=== PATIENT | female | born 1950 | race Caucasian/White ===

== ENCOUNTER → 2020-08-16 | Outpatient (CLI) | payer MEDICARE, SELFPAY ==
--- NOTE | 2020-08-16 | ASPSI_PTH ---
PATIENT: DAYSI ARRIOLA LOC: [facility] U#:[id number] AGE/SX: 69/F ROOM: RE08/16/[address]: Dr. Zak Macedo MD : 1950 BED: DIS: 08/16/2020 SPEC #: [id number] RECD: 08/16/20 17:58 STATUS: HEENA CAMACHO #: [id number] DORCAS: 08/16/20 00:[address]: Zak Macedo DEPT: CYTOLOGY RECD BY: Lore Holder Tissues: Thyroid gland, NOS Procedures: Surgery Specimen Level IV Cytospin Fluid Cytology Other HEADER OPERATION: Fine needle aspiration thyroid biopsy PRE-OP DIAGNOSIS: Enlarging thyroid nodule TISSUE SUBMITTED: FNA thyroid biopsy DIAGNOSIS CYTOLOGY Thyroid nodule fluid, FNA (cytospin and cell block): Consistent with benign follicular/colloid nodule. Adequate for evaluation. See comment. VICTORIANO:deena 08/21/2020 COMMENT Correlation with clinical, radiologic findings and appropriate follow up are necessary. CYTOLOGY STUDY Slides are reviewed. CYTOLOGY GROSS Received is 35 ml of dark pink Cytolyt/fluid with particles labeled with the patient's name and and designated per the requisition as thyroid. Submitted for cytology preparation including cell block. / deena 08/17/2020 TC: 5 CPT: 81288, 03005
== END | disposition home or self-care (01) ==
PROVIDERS: Visit Provider Otolaryngology
DX: E04.1 Nontoxic single thyroid nodule (principal)
CPT/HCPCS: 88108; 88161; 88305

== ENCOUNTER 2024-02-05 14:28 | Day surgery (SDC) | payer MEDICARE, SELFPAY ==
[2024-02-05] VITALS (8 sets, daily range): BP systolic 129–146; BP diastolic 70–87; PULSE 80–84; RESP 16; TEMP 37.3; O2SAT 96–99; BMI 22.9
--- NOTE | 2024-02-05 15:02 | PCM.HP.BLA ---
History and Physical Date of Admission: 02/05/24 The patient is examined and there are no changes from the H&P dated 02/02/2024. Informed consent was obtained for excision of neoplasm left forearm. The specimen will be submitted to pathology for evaluation. Assessment & Plan Assessment/Plan (1) Neoplasm of uncertain behavior of skin of forearm: PLAN: Plan For excision lesion left forearm.
--- NOTE | 2024-02-05 15:15 | LES_PTH ---
PATHOLOGY RESULTS PATIENT: DAYSI ARRIOLA LOC: [facility] [place] U#:[id number] AGE/SX: 73/F ROOM: RE02/05/[address]: Dr. Inna Murguia MD : 1950 BED: DIS: 02/05/2024 SPEC #: [id number] RECD: 02/05/24 17:12 STATUS: HEENA CAMACHO #: [id number] DORCAS: 02/05/24 15:[address]: Inna Murguia DEPT: SURGICAL PATHOLOGY RECD BY: Magui Temple ENTERED: 02/08/24 09:05 SP TYPE: Lesion OTHR DR: Dr. Zak Rolle MD Tissues: Skin of forearm, NOS Procedures: Surgery Specimen Level IV HEADER OPERATION: Excision lesion left forearm with intermediate closure PRE-OP DIAGNOSIS: Neoplasm of uncertain behavior of skin of forearm TISSUE SUBMITTED: Left forearm lesion MICROSCOPIC DIAGNOSIS Left forearm lesion, excisional biopsy: Seborrheic keratosis. Mild actinic keratosis. Solar elastosis. Negative for malignancy. 02/09/2024 MICROSCOPIC DESCRIPTION Slides are reviewed. GROSS DESCRIPTION Received in fixative is one container labeled with the patient's name and designated Left forearm lesion. The specimen consists of a de leon-white skin ellipse measuring 1.2 x 0.6 x 0.2cm. The specimen is inked, serially sectioned and submitted entirely in one cassette. VICTORIANOBassem 02/08/2024 TC:1 CPT:54365
[2024-02-05] MEDS: Lidocaine 1% /Epi 1:100 9 ML, Sodium Bicarbonate 1 MEQ OPERA.SITE (15:38)
--- OUTSIDE RECORDS SUMMARY | 2024-02-05 15:40 | XMS RPT_ITS | CCD ---
Author Organization [facility] Care Team Providers Care Lab Intern Name Role Phone Shayan Lyles Unavailable Unavailable Shayan Lyles Unavailable Unavailable PK, TRAE (FEL) Unavailable Unavailable PK, TRAE (FEL) Unavailable Unavailable PK, TRAE (FEL) Unavailable Unavailable PK, TRAE (FEL) Unavailable Unavailable Haus, Bailee P Primary Care Provider Unavailabl e Haus, Bailee P Primary Care Provider Haus, Bailee P Primary Care Provider Haus DO, Bailee P Primary Care Provider [phone] Haus DO, Bailee P Primary Care Provider JONEL MALAGON Attending Unavaila ble JONEL MALAGON Admitting Unavaila ble JONEL MALAGON Attending Unavaila ble JONEL MALAGON Referring Unavaila ble JONEL MALAGON Admitting Unavaila ble JONEL MALAGON Referring Unavaila ble JONEL MALAGON Admitting Unavaila ble HAUS, BAILEE P Primary Care Unavailable Haus DO, Bailee P Primary Care Provider EULALIO XAVIER JR, JR Referring Unavaila ble EULALIO XAVIER JR, JR Attending Unavaila ble HAUS, BAILEE P Primary Care Unavailable EULALIO XAVIER JR, JR Referring Unavaila ble EULALIO XAVIER JR, JR Attending Unavaila ble HAUS, BAILEE P Primary Care Unavailable EULALIO XAVIER JR, JR Attending Unavaila ble SELF, SELF Referring Unavailable HAUS, BAILEE P Primary Care Unavailable HAUS, BAILEE P Attending Unavailable HAUS, BAILEE P Primary Care Unavailable HAUS, BAILEE P Referring Unavailable EULALIO XAVIER JR, JR Referring Unavaila ble HAUS, BAILEE P Primary Care Unavailable HAUS, BAILEE P Attending Unavailable HAUS, BAILEE P Attending Unavailable EULALIO XAVIER JR, JR Referring Unavaila ble HAUS, BAILEE P Primary Care Unavailable STAINBROOK JR SORENSON, EULALIO Referring Unavaila ble STAINBROOK JR , EULALIO Attending Unavaila ble HAUS, BAILEE P Primary Care Unavailable STAINBROOK EULALIO SORENSON JR Referring Unavaila ble STAINBROOK JR , EULALIO Attending Unavaila ble HAUS, BAILEE P Primary Care Unavailable HAUS, BAILEE P Attending Unavailable EULALIO XAVIER JR, JR Referring Unavaila ble HAUS, BAILEE P Primary Care Unavailable HAUS, BAILEE P Attending Unavailable JOSE RBROOK JR SORENSON, EULALIO Referring Unavaila ble HAUS, BAILEE P Primary Care Unavailable HAUS, BAILEE P Attending Unavailable DUC SORENSON JR, EULALIO Referring Unavaila ble HAUS, BAILEE P Primary Care Unavailable HAUS, BAILEE P Attending Unavailable EULALIO XAVIER JR, JR Referring Unavaila ble HAUS, BAILEE P Primary Care Unavailable DUC SORENSON JR, EULALIO Referring Unavaila ble HAUS, BAILEE P Primary Care Unavailable HAUS, BAILEE P Attending Unavailable EULALIO XAVIER JR, JR Referring Unavaila ble HAUS, BAILEE P Primary Care Unavailable HAUS, BAILEE P Attending Unavailable EULALIO XAVIER JR, JR Attending Unavaila ble SELF, SELF Referring Unavailable HAUS, BAILEE P Primary Care Unavailable EULALIO XAVIER JR, JR Attending Unavaila ble SELF, SELF Referring Unavailable HAUS, BAILEE P Primary Care Unavailable EULALIO XAVIER JR, JR Referring Unavaila ble HAUS, BAILEE P Primary Care Unavailable TUYET MERCADO Attending Unavailable DUC SORENSON JR, EULALIO Attending Unavaila ble SELF, SELF Referring Unavailable HAUS, BAILEE P Primary Care Unavailable Haus DO, Bailee P Primary Care Provider Atway, Said Attending Unavailable HAUS, BAILEE P Primary Care Unavailable Atway, Said Admitting Unavailable Atway, Said Attending Unavailable SELF, SELF Referring Unavailable HAUS, BAILEE P Primary Care Unavailable Atway, Said Attending Unavailable Atway, Said Referring Unavailable HAUS, BAILEE P Primary Care Unavailable HAUS, BAILEE P Referring Unavailable HAUS, BAILEE P Primary Care Unavailable PUNEET MARION Attending Unavailable SELF, SELF Referring Unavailable HAUS, BAILEE P Attending Unavailable HAUS, BAILEE P Primary Care Unavailable HAUS, BAILEE P Referring Unavailable HAUS, BAILEE P Primary Care Unavailable HAUS, BAILEE P Attending Unavailable HAUS, BAILEE P Primary Care Unavailable SELF, SELF Referring Unavailable HAUS, BAILEE P Attending Unavailable HAUS, BAILEE P Primary Care Unavailable SELF, SELF Referring Unavailable HAUS, BAILEE P Attending Unavailable Allergies Allergy Classification Reported Allergen(s) Allergy Type Date of Onset Reaction(s) Facility NSAIDs (2 sources) nabumetone Drug Allergy 04-19-19 20 Palpitations [facility] Opioid Agonists (2 sources) Morphine Drug Allergy 07-24-19 17 Swelling [facility] (20 sources) morphine; Translations: [MORPHINE] Drug Allergy 03-12-20 09 Swelling [facility] Other [facility] (1 source) OTHER; Translations: [OTHER] Propensity to adverse reactions (disorder) 08-07-19 06 [facility] (12 sources) nabumetone Drug Allergy 04-19-19 [address] [facility] (4 sources) Polyethylene Glycols; Translations: [POLYETHYLENE GLYCOL] Drug Allergy 01-19-20 21 GI Intolerance [facility] (4 sources) Thimerosal; Translations: [THIMEROSAL] Drug Allergy 01-19-20 21 [facility] (20 sources) cyclobenzaprine Drug Allergy 12-20-19 21 Itching, Nausea Only [facility] (20 sources) levoFLOXacin Drug Allergy 12-20-19 21 Confusion [facility] (20 sources) Sulfamethoxazole / Trimethoprim Drug Allergy 12-20-19 21 Hives, Itching [facility] (20 sources) nabumetone Drug Allergy 04-19-19 20 Palpitations [facility] Medications Current Medications Medication Drug Class(es) Dates Sig (Normalized) Sig (Original) b complex vitamins capsule (3 sources) take 1 capsule by [facility] once daily b complex vitamins capsule Take 1 capsule by mouth daily. 0 Active Calcium Carb-Cholecalciferol (CALCIUM 600-D PO) (20 sources) Calcium Carb-Cholecalciferol (CALCIUM 600-D PO) Take 600 mg by mouth. Active Calcium Carb-Cho lecalciferol (CALCIUM 600-D PO) Take 600 mg by mouth. 0 Active Calcium Carbonate / vitamin D3 (3 sources) CALCIUM CARBONAT E/VITAMIN D3 (CALCIUM 500 + D, D3, ORAL) Take by mouth. 0 Active Cetirizine (7 sources) Histamine-1 Receptor Antagonist Cetirizine HCl (ZYRT EC ALLERGY PO) Take by mouth daily. 0 Active cholecalciferol 0.05 mg oral tablet (20 sources) Vitamin D Cholecalciferol (VITAMIN D) 2000 units Tab Take 3,600 Units by mouth daily. Active Cholecalciferol (VITAMIN D) 2000 units Tab Take 3,600 Units by mouth. 0 Active clindamycin 300 mg oral capsule (1 source) Lincosamide Antibacterial Start: 02-28-2020 End: 03-06-2020 take 1 capsule by mouth twice daily clindamycin 300 MG capsule Indications: Paronychia of left middle finger Take 1 capsule by mouth 2 times daily for 7 days. 14 capsule 0 02/28/2020 03/06/2020 Active clobetasol propionate 0.5 mg/ml topical cream (20 sources) Corticosteroid Start: 09-24-2022 clobetasol 0.05 % Cream Apply a bead of cream topically to affected area(s) twice daily until healed. 60 g 0 09/24/2022 Active Start: 12-19-2020 clobetasol 0.0 5 % Cream Indications: Psoriasis Apply topically twice daily x 2 weeks and then daily as needed thereafter 60 g 1 12/19/2020 Active Start: 11-29-2018 clobetasol 0.0 5 % Cream Indications: Psoriasis Apply topically twice daily x 2 weeks and then daily as needed thereafter 60 g 1 11/29/2018 Active DULoxetine 30 mg delayed release oral capsule (8 sources) Serotonin and Norepinephrine Reuptake Inhibitor Start: 01-22-2023 take 1 capsule by mouth once daily DULoxetine [address] Particles capsule DR Take 1 capsule by mouth daily. 90 capsule 3 01/22/2023 Active loratadine 10 mg oral tablet (10 sources) End: 12-16-2018 take 1 tablet by mouth once daily loratadine (CLARITIN) 10 mg tablet Take 10 mg by mouth daily. 0 Active magnesium oxide 500 mg oral tablet (20 sources) take 1 tablet by mouth once daily Magnesium Oxide 500 MG tablet Take 1 tablet by mouth daily. Active meloxicam 15 mg oral tablet (11 sources) Nonsteroidal Anti-inflammatory Drug Start: 01-05-2024 take 1 tablet by mouth once daily Meloxicam 15 MG tablet Indications: Tear of lateral meniscus of left knee, current, unspecified tear type, subsequent encounter Take 1 tablet by mouth daily. 90 tablet 1 01/05/2024 Active Start: 12-17-2021 End: 01-22-2023 take 1 tablet by mouth once daily as needed for pain meloxicam 15 MG tablet Take 1 tablet by mouth daily as needed for Mild Pain. 30 tablet 3 12/17/2021 01/22/2023 Discontinued Start: 04-19-2019 End: 02-28-2020 take 0.5 tablet by mouth once daily meloxicam 15 MG Tab tablet Take 0.5 tablets by mouth daily. 30 tablet 3 04/19/2019 02/28/2020 Discontinued Start: 08-13-2018 End: 09-17-2018 take 1 tablet by mouth once daily meloxicam 15 MG Tab tablet Indications: Primary osteoarthritis of both hands Take 1 tablet by mouth daily. 90 tablet 3 08/13/2018 09/17/2018 Discontinued metroNIDAZOLE 0.01 mg/mg topical gel (3 sources) Nitroimidazole Antimicrobial Start: 03-23-2015 metroNIDAZOLE (METROGEL) 1 % gel multivitamin capsule (3 sources) take 1 capsule by mouth once daily multivitamin capsule Take 1 capsule by mouth daily. 0 Active phenylephrine hydrochloride 10 mg oral tablet (3 sources) alpha-1 Adrenergic Agonist take 1 tablet by mouth every four hours as needed phenylephrine (SUDAFED PE) 10 MG Tab Take 10 mg by mouth every 4 (four) hours as needed. 0 Active rifAXIMin 550 mg oral tablet (2 sources) Rifamycin Antibacterial Start: 08-13-2018 End: 08-27-2018 take 1 tablet by mouth three times daily RifaXIMin 550 MG Tab tablet Indications: Irritable bowel syndrome with diarrhea Take 1 tablet by mouth 3 times daily for 14 days. 42 tablet 0 08/13/2018 08/27/2018 Active Spenco Gel Arch Insoles Medium Misc (1 source) Start: 05-29-2017 Foot Care Products (SPENCO GEL ARCH INSOLES MEDIUM) Misc Indications: Foot callus 2 each 2 Each 0 05/29/2017 Active terbinafine 250 mg oral tablet (4 sources) Allylamine Antifungal Start: 02-28-2020 take 1 tablet by mouth once daily terbinafine 250 MG tablet Indications: Paronychia of left middle finger Take 1 tablet by mouth daily. 60 tablet 0 02/28/2020 Active dl-alpha tocopheryl acetate 100 unt oral capsule (3 sources) take 1 capsule by mouth once daily vitamin E 100 unit cap capsule Take 100 Units by mouth daily. 0 Active Completed/Discontinued Medications Medication Drug Class(es) Dates Sig (Normalized) Sig (Original) amoxicillin 875 mg / clavulanate 125 mg oral tablet (1 source) Penicillin-class Antibacterial Start: 10-18-2018 End: 10-25-2018 take 1 tablet by mouth every twelve hours amoxicillin-clavul anate 875-125 MG Tab tablet Indications: Cat scratch of hand, left, initial encounter Take 1 tablet by mouth every 12 hours for 7 days. 14 tablet 0 10/18/2018 10/25/2018 apremilast (20 sources) Start: 06-16-2023 End: 07-07-2023 Apremilast (Otezla) 10 & 20 & 30 MG Tab Therapy Pack tablet As directed 2 Each 06/16/2023 07/07/2023 Discontinued Start: 01-22-2023 End: 06-03-2023 take 1 tablet by mouth once daily Apremilast (Otezla) 30 MG tablet Indications: Plaque psoriasis , Psoriatic arthritis Take 1 tablet by mouth daily. 90 tablet 3 04/24/2023 06/03/2023 Discontinued Start: 12-17-2021 End: 01-22-2023 Apremilast (Otezla) 10 & 20 & 30 MG Tab Therapy Pack tablet As directed 54 Each 0 12/17/2021 01/22/2023 Discontinued Start: 12-17-2021 Apremilast (Ot ezla) 10 & 20 & 30 MG Tab Therapy Pack tablet As directed 54 Each 0 12/17/2021 Active Start: 11-14-2021 End: 01-22-2023 take 1 tablet by mouth twice daily Apremilast (Otezla) 30 MG tablet Indications: Psoriatic arthritis Take 1 tablet by mouth 2 times daily. 60 tablet 3 11/14/2021 01/22/2023 Discontinued Start: 11-14-2021 End: 01-22-2023 Apremilast (Otezla) 10 & 20 & 30 MG Tab Therapy Pack tablet Indications: Psoriatic arthritis Use beginning dose pack as directed. 55 Each 0 11/14/2021 01/22/2023 Discontinued Start: 11-14-2021 Apremilast (Ot ezla) 10 & 20 & 30 MG Tab Therapy Pack tablet Indications: Psoriatic arthritis Use beginning dose pack as directed. 55 Each 0 11/14/2021 Active Cephalexin (7 sources) Cephalosporin Antibacterial End: 01-22-2023 Cephalexin (KEFLEX PO) Take by mouth 2 times daily. 0 01/22/2023 Discontinued Cephalexin (KEFL EX PO) Take by mouth 2 times daily. 0 Active diclofenac sodium 75 mg delayed release oral tablet (7 sources) Nonsteroidal Anti-inflammatory Drug Start: 08-01-2021 End: 01-22-2023 take 1 tablet by mouth twice daily diclofenac EC [address] tablet Take 1 tablet by mouth 2 times daily. 60 tablet 1 08/01/2021 01/22/2023 Discontinued fexofenadine hydrochloride 180 mg oral tablet (3 sources) Histamine-1 Receptor Antagonist End: 01-17-2019 take 1 tablet by mouth once daily fexofenadine (SHAKEEL ALLERGY) 180 MG Tab tablet Take 180 mg by mouth daily. 0 01/17/2019 Discontinued (Other (suppress cancel msg)) fluticasone propionate 0.05 mg/actuat metered dose nasal spray (20 sources) Corticosteroid Start: 02-15-2021 End: 11-14-2021 fluticasone 50 MCG/ACT Suspension nasal spray 1 spray by Nasal route 2 times daily. 15.8 mL 1 02/15/2021 11/14/2021 Discontinued Start: 11-29-2018 End: 11-14-2021 fluticasone 50 MCG/ACT Suspe nsion nasal spray 2 sprays by Nasal route daily. 1 Bottle 11 11/29/2018 11/14/2021 Discontinued Start: 04-24-2015 fluticasone (F LONASE) 50 mcg/actuation nasal spray 1 spray daily. 0 04/24/2015 Active folic acid 1 mg oral tablet (9 sources) Start: 06-25-2021 End: 01-22-2023 folic acid 1 MG tablet Indications: Psoriatic arthritis Take 1 tablet every day EXCEPT not on the day of methotrexate 72 tablet 3 06/25/2021 11/14/2021 Discontinued Foot Care Products (SPENCO G EL ARCH INSOLES MEDIUM) Misc (16 sources) Start: 05-29-2017 End: 06-25-2021 Foot Care Products (SPENCO G EL ARCH INSOLES MEDIUM) Misc Indications: Foot callus 2 each 2 Each 0 05/29/2017 06/25/2021 Discontinued Start: 05-29-2017 Foot Care Prod ucts (SPENCO GEL ARCH INSOLES MEDIUM) [facility] Indications: Foot callus 2 each 2 Each 0 05/29/2017 Active 12 hr guaiFENesin 600 mg / pseudoephedrine hydrochloride 60 mg extended release oral tablet (4 sources) alpha-Adrenergic Agonist Start: 02-15-2021 End: 11-14-2021 take 1 tablet by mouth every twelve hours guaifenesin-pseudoephedrine 600-60 MG Tab SR 12 HR tablet Take 1 tablet by mouth every 12 hours for 7 days. 14 tablet 0 02/15/2021 11/14/2021 Discontinued ibuprofen 400 mg oral tablet (15 sources) Nonsteroidal Anti-inflammatory Drug End: 01-22-2023 take 1 tablet by mouth every six hours as needed ibuprofen 400 MG tablet Take 1 tablet by mouth every 6 hours as needed for Mild Pain. 0 01/22/2023 Discontinued (Medication Reconciliation (suppress cancel msg)) take 1 tablet by ca th every six hours as needed ibuprofen (ADVIL,MOTRIN) 200 MG tablet Take 200 mg by mouth every 6 (six) hours as needed for pain . 0 Active End: 08-28-2020 take 1 tablet by mouth every six hours as needed ibuprofen 600 MG tablet Take 600 mg by mouth every 6 hours as needed. 0 08/28/2020 Discontinued methotrexate 2.5 mg oral tablet (9 sources) Folate Analog Metabolic Inhibitor Start: 06-25-2021 End: 11-14-2021 methotrexate 2.5 MG tablet Indications: Psoriatic arthritis Take 3 tablets by mouth every 7 days. 36 tablet 3 06/25/2021 11/14/2021 Discontinued End: 01-22-2023 methotrexate 2.5 MG tablet T azael 1 tablet by mouth every 7 days. Take 3 tablets once a week. 0 01/22/2023 Discontinued (Medication Reconciliation (suppress cancel msg)) multivitamin tablet (10 sources) End: 01-22-2023 take 1 tablet by mouth once daily multivitamin tablet Take 1 tablet by mouth daily. 0 01/22/2023 Discontinued take 1 tablet by mouth once leon y multivitamin tablet Take 1 tablet by mouth daily. 0 Active nabumetone 500 mg oral tablet (3 sources) Nonsteroidal Anti-inflammatory Drug Start: 01-17-2019 End: 04-19-2019 take 1 tablet by mouth twice daily nabumetone 500 MG Tab Take 1 tablet by mouth 2 times daily. 60 tablet 5 01/17/2019 04/19/2019 Discontinued naproxen sodium 220 mg oral capsule (4 sources) Nonsteroidal Anti-inflammatory Drug End: 06-25-2021 Naproxen Sodium (Aleve) 220 MG capsule Take 220 mg by mouth. 0 06/25/2021 Discontinued pantoprazole 40 mg delayed release oral tablet (11 sources) Proton Pump Inhibitor Start: 01-22-2023 End: 06-03-2023 take 1 tablet by mouth once daily Pantoprazole (Protonix) [address] tablet DR Take 1 tablet by mouth daily. 30 tablet 2 01/22/2023 06/03/2023 Discontinued predniSONE 20 mg oral tablet (4 sources) Start: 07-07-2023 End: 07-14-2023 take 1 tablet by mouth twice daily predniSONE 20 MG tablet Take 1 tablet by mouth 2 times daily for 7 days. 14 tablet 07/07/2023 07/14/2023 Start: 09-24-2022 End: 10-01-2022 take 1 tablet by mouth twice daily predniSONE 20 MG tablet Take 1 tablet by mouth 2 times daily for 7 days. 14 tablet 0 09/24/2022 10/01/2022 Start: 02-15-2021 End: 02-22-2021 take 1 tablet by mouth twice daily predniSONE 20 MG tablet Indications: Psoriatic arthritis Take 1 tablet by mouth 2 times daily for 7 days. 14 tablet 0 02/15/2021 02/22/2021 Start: 11-29-2018 End: 12-04-2018 take 1 tablet by mouth twice daily predniSONE 20 MG Tab tablet Indications: Acute right-sided low back pain with right-sided sciatica Take 1 tablet by mouth 2 times daily for 5 days. 10 tablet 0 11/29/2018 12/04/2018 Active Risankizumab-rzaa (Skyrizi P en) 150 MG/ML Solution Auto-injector (4 sources) Start: 06-03-2023 End: 07-07-2023 Risankizumab-rzaa (Skyrizi P en) 150 MG/ML Solution Auto-injector Inject 150 mg under the skin every 90 Days. 1 mL 3 06/03/2023 07/07/2023 Discontinued Start: 06-03-2023 Risankizumab-r zaa (Skyrizi Pen) 150 MG/ML Solution Auto- injector Inject 150 mg under the skin every 90 Days. 1 mL 3 06/03/2023 Active saccharomyces boulardii 250 mg oral capsule (12 sources) Start: 12-11-2016 End: 02-28-2020 Saccharomyces boulardii (FLORASTOR) 250 MG Cap Indications: Diarrhea of presumed infectious origin take 250 mg by mouth daily.. 30 capsule 5 12/11/2016 02/28/2020 Discontinued tretinoin 0.5 mg/ml topical cream (20 sources) Retinoid Start: 12-19-2020 End: 11-14-2021 tretinoin (Retin-A) 0.05 % Cream cream Indications: Actinic keratoses Use nightly to affected area 45 g 2 12/19/2020 11/14/2021 Discontinued Start: 07-11-2019 End: 02-28-2020 tretinoin (Retin-A) 0.05 % C ream cream Indications: Actinic keratoses Use nightly to affected area 45 g 2 02/28/2020 Active Start: 02-08-2018 End: 08-13-2018 tretinoin (RETIN-A) 0.05 % C ream cream Indications: Actinic keratoses Use nightly to affected area 45 g 2 08/13/2018 Active Start: 03-23-2015 tretinoin (RET IN-A) 0.05 % cream Vitamins-Lipotropics (Santo-Plus G) capsule (4 sources) End: 06-25-2021 take 1 capsule by mouth once daily Vitamins-Lipotropics (Santo-Plus G) capsule Take 1 capsule by mouth daily. 0 06/25/2021 Discontinued take 1 capsule by mouth once andrew ly Vitamins-Lipotropics (Santo-Plus G) capsule Take 1 capsule by mouth daily. 0 Active Problems Active Problems Problem Classification Problem Date Documented Date Episodic/Chronic Acquired foot deformities (2 sources) Hallux valgus AND bunion; Translations: [Hallux valgus (acquired), right foot] Chronic Acquired foot deformities (4 sources) Tailor's bunion of left foot; Translations: [Bunionette of left foot] Onset: 5 Episodic Allergic reactions (20 sources) Atopic dermatitis; Translations: [Intrinsic (allergic) eczema] Onset: 1 Chronic Chronic ulcer of skin (1 source) Skin ulcer; Translations: [Non-pressure chronic ulcer of skin of other sites with unspecified severity] 01-05-2024 Chronic Gout and other crystal arthropathies (16 sources) Chondrocalcinosis; Translations: [Other chondrocalcinosis, unspecified site] Onset: 4 05-27-2023 Chronic Heart valve disorders (20 sources) Mitral valve prolapse; Translations: [Nonrheumatic mitral (valve) prolapse] Onset: 7 07-23-2016 Chronic Joint disorders and dislocations; trauma-related (1 source) Derangement of medial meniscus of left knee; Translations: [Other meniscus derangements, unspecified medial meniscus, left knee] 07-07-2023 Chronic Joint disorders and dislocations; trauma-related (12 sources) Acute tear of lateral meniscus of left knee; Translations: [Other tear of lateral meniscus, current injury, left knee, initial encounter] Onset: 4 08-05-2023 Episodic Malaise and fatigue (20 sources) Fatigue; Translations: [Chronic fatigue, unspecified] Onset: 7 07-23-2016 Chronic Nutritional deficiencies (20 sources) Vitamin D deficiency; Translations: [Vitamin D deficiency, unspecified] Onset: 3 01-22-2023 Chronic Osteoarthritis (20 sources) Degenerative joint disease of hand; Translations: [Primary osteoarthritis, right hand] Onset: 9 Resolved: 4 08-13-2018 Chronic Other acquired deformities (16 sources) Thoracogenic scoliosis, thoracic region; Translations: [Thoracogenic scoliosis] Onset: 4 05-27-2023 Chronic Other acquired deformities (2 sources) Spondylolisthesis, lumbar region; Translations: [Spondylolisthesis, lumbar region] Onset: 2 Episodic Other connective tissue disease (1 source) Pain in right hand; Translations: [Pain in right hand] Episodic Other connective tissue disease (1 source) Bilateral tendinitis of knees; Translations: [Other specified enthesopathies of right lower limb, excluding foot] Episodic Other connective tissue disease (2 sources) Ganglion, left wrist; Translations: [Ganglion, left wrist] Onset: 4 Episodic Other connective tissue disease (4 sources) Pain in right hand; Translations: [Pain in right hand] Onset: 3 Episodic Other connective tissue disease (4 sources) Pain in left hand; Translations: [Pain in left hand] Onset: 3 Episodic Other connective tissue disease (4 sources) Synovial cyst of left popliteal space; Translations: [Synovial cyst of popliteal space [[place]], left knee] Onset: 4 01-05-2024 Episodic Other gastrointestinal disorders (20 sources) Irritable bowel syndrome with diarrhea; Translations: [Irritable bowel syndrome with diarrhea] Onset: 9 08-13-2018 Chronic Other inflammatory condition of skin (20 sources) Psoriasis; Translations: [Psoriasis, unspecified] Onset: 9 08-13-2018 Chronic Other inflammatory condition of skin (20 sources) Psoriatic arthritis; Translations: [Arthropathic psoriasis, unspecified] Onset: 1 Resolved: 3 Chronic Other inflammatory condition of skin (20 sources) Plaque psoriasis; Translations: [Psoriasis vulgaris] Onset: 3 01-22-2023 Chronic Other inflammatory condition of skin (2 sources) Psoriasis, unspecified; Translations: [Psoriasis, unspecified] Onset: 9 Chronic Other inflammatory condition of skin (4 sources) Psoriasis vulgaris; Translations: [Psoriasis vulgaris] Onset: 3 Chronic Other inflammatory condition of skin (2 sources) Arthropathic psoriasis, unspecified; Translations: [Arthropathic psoriasis, unspecified] Onset: 3 Chronic Other nervous system disorders (2 sources) Other chronic pain; Translations: [Other chronic pain] Onset: 4 Chronic Other non-epithelial cancer of skin (13 sources) 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; Translations: [Basal cell carcinoma, lip] Onset: 7 07-23-2016 Chronic Other non-traumatic joint disorders (2 sources) Pain in left hip; Translations: [Pain in left hip] Onset: 2 Episodic Other non-traumatic joint disorders (2 sources) Pain in left knee; Translations: [Pain in left knee] Onset: 4 Episodic Other non-traumatic joint disorders (3 sources) Pain in joints of right hand; Translations: [Arthralgia of metacarpophalangeal joint, right] Onset: 9 08-13-2018 Other screening for suspected conditions (not mental disorders or infectious disease) (20 sources) MRI scan abnormal; Translations: [Abnormal findings on diagnostic imaging of other specified body structures] Onset: 4 05-12-2023 Chronic Other screening for suspected conditions (not mental disorders or infectious disease) (20 sources) Patient encounter status; Translations: [Encounter for screening for lipoid disorders] Onset: 9 08-13-2018 Episodic Other skin disorders (1 source) Foot callus; Translations: [Corns and callosities] Episodic Other skin disorders (8 sources) H/O: psoriasis; Translations: [Personal history of diseases of the skin and subcutaneous tissue] 01-22-2023 Episodic Other skin disorders (5 sources) Disorder of foot; Translations: [Atrophic disorder of skin, unspecified] Onset: 4 01-13-2024 Episodic Other skin disorders (2 sources) Atrophic disorder of skin, unspecified; Translations: [Atrophic disorder of skin, unspecified] Onset: 5 Episodic Other upper respiratory disease (20 sources) Allergic rhinitis due to pollen; Translations: [Allergic rhinitis due to pollen] Onset: 7 07-23-2016 Chronic Other upper respiratory disease (20 sources) Allergic rhinitis; Translations: [Allergic rhinitis, unspecified] Onset: 1 Chronic Phlebitis; thrombophlebitis and thromboembolism (1 source) Thrombophlebitis of superficial vein of right lower limb; Translations: [Phlebitis and thrombophlebitis of superficial vessels of right lower extremity] Episodic Residual codes; unclassified (2 sources) Family history of epilepsy and other diseases of the nervous system; Translations: [Family history of epilepsy and other diseases of the nervous system] Onset: 3 Episodic Residual codes; unclassified (1 source) Requires vaccination; Translations: [Need for 23-polyvalent pneumococcal polysaccharide vaccine] Skin and subcutaneous tissue infections (1 source) Paronychia of finger; Translations: [Paronychia of left middle finger] Episodic Spondylosis; intervertebral disc disorders; other back problems (20 sources) Degeneration of lumbar intervertebral disc; Translations: [Lumbosacral spondylosis with radiculopathy] Onset: 2 Chronic Superficial injury; contusion (1 source) Contusion of toe(s) with damage to nail; Translations: [Contusion of left great toe with damage to nail, initial encounter] Episodic Thyroid disorders (2 sources) Non-toxic uninodular goiter; Translations: [Goiter] Chronic Unclassified (1 source) Unknown / UNK(Unknown) Onset: 8 Unclassified (20 sources) Patient encounter status; Translations: [Encounter for wellness examination] Onset: 8 06-23-2017 Unclassified (1 source) long-term (current) use of immunomodulator; Translations: [terminal carman (current) use of immunomodulator] Onset: 4 Varicose veins of lower extremity (1 source) Varicose veins of lower extremity; Translations: [Varicose veins of bilateral lower extremities with pain] Episodic Past or Other Problems Problem Classification Problem Date Documented Date Episodic/Chronic Conditions associated with dizziness or vertigo (3 sources) Dizziness; Translations: [Dizziness and giddiness] Onset: 6 05-07-2015 Episodic Headache; including migraine (20 sources) Headache; Translations: [Headache] Onset: 7 12-11-2016 Episodic Immunizations and screening for infectious disease (16 sources) Needs influenza immunization; Translations: [Encounter for immunization] Onset: 4 Episodic Intestinal infection (20 sources) Diarrhea of presumed infectious origin; Translations: [Diarrhea, unspecified] Onset: 7 12-11-2016 Episodic Malaise and fatigue (13 sources) Fatigue; Translations: [Chronic fatigue] Onset: 7 07-23-2016 Episodic Nausea and vomiting (20 sources) Nausea; Translations: [Nausea] Onset: 3 01-22-2023 Episodic Other aftercare (13 sources) Long-term current use of apremilast; Translations: [Long-term current use of apremilast] Onset: 4 Resolved: 4 05-27-2023 Episodic Other aftercare (2 sources) terminal carman (current) use of non-steroidal anti-inflammatories (NSAID); Translations: [long-term (current) use of non-steroidal anti-inflammatories (nsaid)] Onset: Episodic Other aftercare (3 sources) terminal carman current use of non-steroidal anti-inflammatory drug; Translations: [terminal carman (current) use of non-steroidal anti-inflammatories (NSAID)] Onset: 3 01-22-2023 Episodic Other bone disease and musculoskeletal deformities (20 sources) Disorder of skeletal system; Translations: [Disorder of bone, unspecified] Onset: 3 01-22-2023 Episodic Other bone disease and musculoskeletal deformities (2 sources) Disorder of bone, unspecified; Translations: [Disorder of bone, unspecified] Onset: Episodic Other bone disease and musculoskeletal deformities (2 sources) Disorder of cartilage, unspecified; Translations: [Disorder of cartilage, unspecified] Onset: 3 Episodic Other connective tissue disease (20 sources) Biceps tendinitis; Translations: [Bicipital tendinitis, right shoulder] Onset: 3 01-22-2023 Episodic Other connective tissue disease (20 sources) Pain of bilateral hands; Translations: [Pain in right hand] Onset: 3 01-22-2023 Episodic Other connective tissue disease (20 sources) Bilateral pes anserinus bursitis; Translations: [Other bursitis of knee, right knee] Onset: 3 01-22-2023 Episodic Other connective tissue disease (20 sources) Subacromial bursitis of left shoulder; Translations: [Bursitis of left shoulder] Onset: 3 01-22-2023 Episodic Other connective tissue disease (20 sources) Bilateral rotator cuff tendinitis; Translations: [Other shoulder lesions, right shoulder] Onset: 3 01-22-2023 Episodic Other connective tissue disease (20 sources) H/O: osteoarthritis; Translations: [Personal history of other diseases of the musculoskeletal system and connective tissue] Onset: 3 01-22-2023 Episodic Other connective tissue disease (20 sources) Fibromyositis; Translations: [Fibromyalgia] Onset: 3 Resolved: 4 01-22-2023 Episodic Other connective tissue disease (14 sources) Bilateral impingement syndrome of shoulders; Translations: [Impingement syndrome of right shoulder] Onset: 4 05-27-2023 Episodic Other connective tissue disease (15 sources) Disorder of ligament, right wrist; Translations: [Laxity of ligament] Onset: 4 Resolved: 4 05-27-2023 Episodic Other connective tissue disease (15 sources) Disorder of ligament, left wrist; Translations: [Laxity of ligament] Onset: 4 Resolved: 4 05-27-2023 Episodic Other connective tissue disease (6 sources) Tendinitis of left quadriceps tendon; Translations: [Other specified enthesopathies of left lower limb, excluding foot] Onset: 4 07-07-2023 Episodic Other connective tissue disease (6 sources) Ganglion cyst of left volar wrist; Translations: [Ganglion, left wrist] Onset: 4 08-05-2023 Episodic Other connective tissue disease (2 sources) Other bursitis of knee, right knee; Translations: [Other bursitis of knee, right knee] Onset: 3 Episodic Other connective tissue disease (2 sources) Other bursitis of knee, left knee; Translations: [Other bursitis of knee, left knee] Onset: 3 Episodic Other connective tissue disease (2 sources) Impingement syndrome of right shoulder; Translations: [Impingement syndrome of right shoulder] Onset: 4 Episodic Other connective tissue disease (2 sources) Impingement syndrome of left shoulder; Translations: [Impingement syndrome of left shoulder] Onset: 4 Episodic Other connective tissue disease (2 sources) Personal history of other diseases of the musculoskeletal system and connective tissue; Translations: [Personal history of other diseases of the musculoskeletal system and connective tissue] Onset: 3 Episodic Other connective tissue disease (5 sources) Bicipital tendinitis, right shoulder; Translations: [Bicipital tenosynovitis] Onset: 3 Episodic Other connective tissue disease (2 sources) Bursitis of left shoulder; Translations: [Bursitis of left shoulder] Onset: 3 Episodic Other connective tissue disease (2 sources) Other shoulder lesions, right shoulder; Translations: [Other shoulder lesions, right shoulder] Onset: 3 Episodic Other connective tissue disease (2 sources) Other shoulder lesions, left shoulder; Translations: [Other shoulder lesions, left shoulder] Onset: 3 Episodic Other injuries and conditions due to external causes (20 sources) Cat scratch injury; Translations: [Abrasion of left hand, initial encounter] Onset: 9 10-18-2018 Episodic Other lower respiratory disease (20 sources) Cough; Translations: [Cough] Onset: 7 07-23-2016 Episodic Other nervous system disorders (20 sources) Abnormal reflex; Translations: [Abnormal reflex] Onset: 3 01-22-2023 Episodic Other nervous system disorders (2 sources) Abnormal reflex; Translations: [Abnormal reflex] Onset: 3 Episodic Other non-epithelial cancer of skin (20 sources) 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; Translations: [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] Onset: 7 07-23-2016 Episodic Other non-traumatic joint disorders (20 sources) Metacarpophalangeal joint pain; Translations: [Pain in joints of right hand] Onset: 9 Resolved: 3 08-13-2018 Episodic Other non-traumatic joint disorders (20 sources) Pain in right knee; Translations: [Pain in joint, lower leg] Onset: 3 01-22-2023 Episodic Other non-traumatic joint disorders (20 sources) Bilateral wrist pain; Translations: [Pain in right wrist] Onset: 3 01-22-2023 Episodic Other non-traumatic joint disorders (20 sources) Bilateral chronic pain of upper limbs; Translations: [Pain in right shoulder] Onset: 3 01-22-2023 Episodic Other non-traumatic joint disorders (2 sources) Pain in right wrist; Translations: [Pain in right wrist] Onset: 3 Episodic Other non-traumatic joint disorders (2 sources) Pain in left wrist; Translations: [Pain in left wrist] Onset: 3 Episodic Other non-traumatic joint disorders (2 sources) Pain in right shoulder; Translations: [Pain in right shoulder] Onset: 3 Episodic Other non-traumatic joint disorders (2 sources) Pain in left shoulder; Translations: [Pain in left shoulder] Onset: 3 Episodic Other skin disorders (20 sources) Actinic keratosis; Translations: [Multiple actinic keratoses] Onset: 9 08-13-2018 Episodic Other skin disorders (20 sources) H/O: arthritis; Translations: [Personal history of diseases of the skin and subcutaneous tissue] Onset: 3 Resolved: 4 01-22-2023 Episodic Other skin disorders (2 sources) Personal history of diseases of the skin and subcutaneous tissue; Translations: [Personal history of diseases of the skin and subcutaneous tissue] Onset: 3 Episodic Other upper respiratory disease (1 source) Nasal congestion; Translations: [Nasal congestion] Episodic Otitis media and related conditions (1 source) Acute serous otitis media; Translations: [Non-recurrent acute serous otitis media of left ear] Episodic Residual codes; unclassified (20 sources) FH: Multiple sclerosis; Translations: [Family history of epilepsy and other diseases of the nervous system] Onset: 3 01-22-2023 Episodic Residual codes; unclassified (20 sources) FH: Psoriasis; Translations: [Family history of diseases of the skin and subcutaneous tissue] Onset: 3 01-22-2023 Episodic Residual codes; unclassified (14 sources) Postmenopausal state; Translations: [Asymptomatic menopausal state] Onset: 4 05-27-2023 Episodic Residual codes; unclassified (2 sources) Asymptomatic menopausal state; Translations: [Asymptomatic menopausal state] Onset: 4 Episodic Residual codes; unclassified (2 sources) Family history of diseases of the skin and subcutaneous tissue; Translations: [Family history of diseases of the skin and subcutaneous tissue] Onset: 3 Episodic Spondylosis; intervertebral disc disorders; other back problems (20 sources) Acute back pain with sciatica; Translations: [Chronic low back pain] Onset: 9 11-29-2018 Episodic Unclassified (9 sources) Onset: 3 01-22-2023 Unclassified (1 source) long-term (current) use of immunomodulator; Translations: [terminal carman (current) use of immunomodulator] Onset: 4 Results Test Name Value Interpretation Reference Range Facility XR FOOT LEFT 3+ VIEWSon 01-11 XR FOOT LEFT 3+ VIEWS EXAM: XR FOOT LEFT 3 VIEWS, 01/26/2024 12:33 PM COMPARISON: No prior studies available for comparison. CLINICAL INDICATIONS: fifth metatarsal RELEVANT CLINICAL HISTORY: L90.9:Fat pad atrophy of foot M21.622:Tailor's bunion of left foot Weight Bearing; FINDINGS: 3 weight-bearing images obtained. Soft Tissue: There is no significant soft tissue swelling. Bone: No acute osseous abnormality is identified. Joint: No evidence of dislocation. The tarsal-metatarsal joints appear grossly intact. Osteoarthritis at interphalangeal joints and first metatarsophalangeal joint is present. Tailor's bunion is noted. Calcaneal inclination angle is at upper limits of normal. IMPRESSION: No acute abnormality. 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 Borderline pes cavus. Normal [facility] XR Foot - left 3 Viewson IMPRESSION: No acute abnormality. 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 Borderline pes cavus. OLOGY EXAM: XR FOOT LEFT 3 VIEWS, 01/26/2024 12:33 PM COMPARISON: No prior studies available for comparison. CLINICAL INDICATIONS: fifth metatarsal RELEVANT CLINICAL HISTORY: L90.9:Fat pad atrophy of foot M21.622:Tailor's bunion of left foot Weight Bearing; FINDINGS: 3 weight-bearing images obtained. Soft Tissue: There is no significant soft tissue swelling. Bone: No acute osseous abnormality is identified. Joint: No evidence of dislocation. The tarsal-metatarsal joints appear grossly intact. Osteoarthritis at interphalangeal joints and first metatarsophalangeal joint is present. Tailor's bunion is noted. Calcaneal inclination angle is at upper limits of normal. RADIOLOGY Caitlin Martin MD - 01/26/2024 EXAM: XR FOOT LEFT 3 VIEWS, 01/26/2024 12:33 PM COMPARISON: No prior studies available for comparison. CLINICAL INDICATIONS: fifth metatarsal RELEVANT CLINICAL HISTORY: L90.9:Fat pad atrophy of foot M21.622:Tailor's bunion of left foot Weight Bearing; FINDINGS: 3 weight-bearing images obtained. Soft Tissue: There is no significant soft tissue swelling. Bone: No acute osseous abnormality is identified. Joint: No evidence of dislocation. The tarsal-metatarsal joints appear grossly intact. Osteoarthritis at interphalangeal joints and first metatarsophalangeal joint is present. Tailor's bunion is noted. Calcaneal inclination angle is at upper limits of normal. IMPRESSION IMPRESSION: No acute abnormality. 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 Borderline pes cavus. [facility] Radiology Study observation (narrative) [facility] XR Foot - left 3 ViewsOrdere d By: Catilin Martin on 01-26-2024 [facility] Work Phone: MR Knee - left WO contraston 07-31-2023 IMPRESSION: 1. Complex lateral meniscus tear. 2. Free edge fraying of the medial meniscal body and posterior horn. 3. Moderate tricompartmental chondrosis. 4. Joint effusion and Hoyos's cyst RADIOLOGY EXAM: MRI KNEE LEFT WITHOUT CONTRAST REASON FOR EXAM: Left knee pain. TECHNIQUE: Multiplanar, multisequence imaging of the left knee was performed without contrast COMPARISON: Radiographs 08/07/2021. FINDINGS: Laterally, the iliotibial band, fibular collateral ligament, popliteus tendon and biceps tendon are intact. The ACL is intact. Complex tear of the lateral meniscus with free edge radial tear involving the body anterior horn junction. The tear propagates posteriorly is horizontal undersurface oblique tearing into the body posterior horn junction. The tear propagates anteriorly is horizontal cleavage tear and horizontal undersurface oblique tearing. A discrete displaced meniscal fragment identified. Intermediate grade chondrosis of the lateral compartment. Medially, the medial collateral ligament is intact. The PCL is intact. The medial meniscus demonstrates normal morphology with globular intrasubstance signal. There is also free edge fraying of the body and posterior horn the medial meniscus. No discrete tear identified. Intermediate grade chondrosis of the medial compartment. The extensor mechanism is intact. Intermediate grade chondrosis the patellofemoral cartilage. The bone marrow signal is without fracture. Small joint effusion decompresses into a small Hoyos's cyst. The regional musculature is without muscle strain or tendon tear. RADIOLOGY Jonel Almanza M D - 07/31/2023 EXAM: MRI KNEE LEFT WITHOUT CONTRAST REASON FOR EXAM: Left knee pain. TECHNIQUE: Multiplanar, multisequence imaging of the left knee was performed without contrast COMPARISON: Radiographs 08/07/2021. FINDINGS: Laterally, the iliotibial band, fibular collateral ligament, popliteus tendon and biceps tendon are intact. The ACL is intact. Complex tear of the lateral meniscus with free edge radial tear involving the body anterior horn junction. The tear propagates posteriorly is horizontal undersurface oblique tearing into the body posterior horn junction. The tear propagates anteriorly is horizontal cleavage tear and horizontal undersurface oblique tearing. A discrete displaced meniscal fragment identified. Intermediate grade chondrosis of the lateral compartment. Medially, the medial collateral ligament is intact. The PCL is intact. The medial meniscus demonstrates normal morphology with globular intrasubstance signal. There is also free edge fraying of the body and posterior horn the medial meniscus. No discrete tear identified. Intermediate grade chondrosis of the medial compartment. The extensor mechanism is intact. Intermediate grade chondrosis the patellofemoral cartilage. The bone marrow signal is without fracture. Small joint effusion decompresses into a small Hoyos's cyst. The regional musculature is without muscle strain or tendon tear. IMPRESSION IMPRESSION: 1. Complex lateral meniscus tear. 2. Free edge fraying of the medial meniscal body and posterior horn. 3. Moderate tricompartmental chondrosis. 4. Joint effusion and Hoyos's cyst [facility]narrative[facility] Knee - left WO contrastOr dered By: Jonel Almanza on 07-31-2023 [employer] Work Phone: MRI KNEE LEFT WITHOUT CONTRA STon 07-31-2023 MRI KNEE LEFT WITHOUT CONTRAST EXAM: MRI KNEE LEFT WITHOUT CONTRAST REASON FOR EXAM: Left knee pain. TECHNIQUE: Multiplanar, multisequence imaging of the left knee was performed without contrast COMPARISON: Radiographs 08/07/2021. FINDINGS: Laterally, the iliotibial band, fibular collateral ligament, popliteus tendon and biceps tendon are intact. The ACL is intact. Complex tear of the lateral meniscus with free edge radial tear involving the body anterior horn junction. The tear propagates posteriorly is horizontal undersurface oblique tearing into the body posterior horn junction. The tear propagates anteriorly is horizontal cleavage tear and horizontal undersurface oblique tearing. A discrete displaced meniscal fragment identified. Intermediate grade chondrosis of the lateral compartment. Medially, the medial collateral ligament is intact. The PCL is intact. The medial meniscus demonstrates normal morphology with globular intrasubstance signal. There is also free edge fraying of the body and posterior horn the medial meniscus. No discrete tear identified. Intermediate grade chondrosis of the medial compartment. The extensor mechanism is intact. Intermediate grade chondrosis the patellofemoral cartilage. The bone marrow signal is without fracture. Small joint effusion decompresses into a small Hoyos's cyst. The regional musculature is without muscle strain or tendon tear. IMPRESSION: 1. Complex lateral meniscus tear. 2. Free edge fraying of the medial meniscal body and posterior horn. 3. Moderate tricompartmental chondrosis. 4. Joint effusion and Hoyos's cyst Normal [facility] MRI WRIST LEFT WITHOUT CONTR Lisa 06-12-2023 MRI WRIST LEFT WITHOUT CONTRAST HISTORY: Left wrist pain. Possible widening of the scapholunate joint space on radiographs. Evaluate for scapholunate ligament injury. MRI WRIST LEFT WITHOUT CONTRAST: 06/11/2023 7:00 PM EST COMPARISON: Radiographs left wrist 01/26/2023. TECHNIQUE: Multiplanar, multisequence MRI images of the wrist were obtained. FINDINGS: LIGAMENTS AND TFCC: The scapholunate ligament complex and lunotriquetral ligament appear intact. The triangular fibrocartilage complex appears grossly intact. BONES AND JOINTS: The bone marrow signal intensity appears age appropriate. There are severe degenerative changes of the first carpometacarpal joint with mild subchondral cystic change and reactive bone marrow edema within the adjacent distal trapezium and the base of the first metacarpal. There are also severe degenerative changes again seen of the triscaphe joint. There is mild degenerative change of the distal radioulnar joint. There is a small cyst within the triquetrum. TENDONS: The tendons of the wrist appear grossly within normal limits without evidence of significant tendinopathy or tenosynovitis. CARPAL TUNNEL: The visualized median nerve appears grossly within normal limits and no space-occupying mass is seen in the carpal tunnel. MUSCLES AND SOFT TISSUES: The visualized musculature appears grossly within normal limits in signal intensity. There is a multiloculated cystic focus along the volar aspect of the radioscaphoid joint and distal radius measuring 0.6 x 1.0 x 2.1 cm in AP, transverse and craniocaudal dimension respectively. This is located deep to the radial artery. IMPRESSION: 1. The scapholunate ligament appears intact and there is no abnormal widening of the scapholunate joint space. 2. Severe osteoarthritis of the first carpometacarpal joint and triscaphe joint. 3. Mild osteoarthritis of the distal radioulnar joint. 4. There is a mildly loculated ganglion cyst along the volar aspect of the radioscaphoid joint and distal radius. Normal [facility] WITHOUT CONTRAST HISTORY: Right wrist pain. Possible widening of the scapholunate joint space on radiographs suggestive of a possible scapholunate ligament injury. MRI WRIST RIGHT WITHOUT CONTRAST: 06/11/2023 5:45 PM EST COMPARISON: Radiographs right wrist 01/26/2023. TECHNIQUE: Multiplanar, multisequence MRI images of the wrist were obtained. FINDINGS: LIGAMENTS AND TFCC: The scapholunate ligament complex and lunotriquetral ligament appear intact. The triangular fibrocartilage complex appears grossly intact. BONES AND JOINTS: The bone marrow signal intensity appears age appropriate. There is an ulnar minus variant. There are mild degenerative changes of the distal radioulnar joint. There is a small joint effusion of the radiocarpal joint. There are severe degenerative changes again seen of the first carpometacarpal joint and the triscaphe joint. There is mild subchondral cystic change and bone marrow edema involving the bones adjacent to these joints. There is mild subcortical cystic change within the capitate. There are mild degenerative changes of the radiocarpal joint. There is no abnormal widening of the scapholunate joint space. TENDONS: The tendons of the wrist appear grossly within normal limits without evidence of significant tendinopathy or tenosynovitis. CARPAL TUNNEL: The visualized median nerve appears grossly within normal limits and no space-occupying mass is seen in the carpal tunnel. MUSCLES AND SOFT TISSUES: The visualized musculature appears grossly within normal limits in signal intensity. No significant soft tissue swelling is seen. IMPRESSION: 1. The scapholunate ligament appears intact and there is no abnormal widening of the scapholunate joint space. 2. Severe osteoarthritis of the first carpometacarpal joint and triscaphe joint. 3. Mild osteoarthritis of the radiocarpal joint. 4. There is an ulnar minus variant with mild degenerative changes of the distal radioulnar joint. Normal [facility] PTH INTACTon 05-27-2023 Parathyrin.intact [Mass/Vol] 48.7 pg/mL pg/mL [facility] PTH,INTACTon 05-27-2023 PTH,INTACT 48.7 pg/mL Normal [facility] Comment on above: Performed By: #### I PTH #### Testing performed at [facility] [address] [place] [address] MR Lumbar spine WO contrasto n 02-12-2023 IMPRESSION: Mild degenerative changes of lumbar spine in particular at L4-L5 and L5-S1. Focal T2 prolongation within the spinal cord at the level of T11-T12 not fully characterized by this study. An MRI of thoracic spine with injection of contrast is recommended for further evaluation. RADIOLOGY MRI SPINE LUMBAR WIT HOUT CONTRAST, 02/12/2023 3:16 PM EDT INDICATION: [Pain radiating to the right leg COMPARISON: Prior x-ray dated 02/25/2022 TECHNIQUE: Multiplanar, multisequential MRI images of lumbar spine were obtained without contrast. FINDINGS: For dictation purposes, the lowest complete disc space in the lumbar spine considered as S1-S2. There is lumbarization of S1. There is normal physiologic lumbar lordosis. The vertebral height is preserved. The conus medullaris is at the level of L1. There is focal T2 prolongation within the spinal cord at the level of T11-T12 measuring 1.1 cm craniocaudally. Otherwise, no abnormality within the visualized spinal cord is noted. At the level of L1-L2, there are disc bulge with mild right neuroforaminal narrowing and no canal stenosis. At the level of L2-L3, there are disc bulge with mild left neuroforaminal narrowing and no canal stenosis. At the level of L3-4, there are disc bulge with mild right neuroforaminal narrowing and no canal stenosis. At the level of L4-5, there are disc bulge with mild bilateral neuroforaminal narrowing and mild canal stenosis. At the level of L5-S1, there are grade 1 anterolisthesis uncovering the disc with mild bilateral neuroforaminal narrowing and mild canal stenosis. At the level of S1-S2, there is grade 1 anterolisthesis uncovering disc with mild bilateral neuroforaminal narrowing and no canal stenosis The paraspinal muscles are unremarkable. RADIOLOGY Neymar Perez MD - 02/12/2023 MRI SPINE LUMBAR WITHOUT CONTRAST, 02/12/2023 3:16 PM EDT INDICATION: [Pain radiating to the right leg COMPARISON: Prior x-ray dated 02/25/2022 TECHNIQUE: Multiplanar, multisequential MRI images of lumbar spine were obtained without contrast. FINDINGS: For dictation purposes, the lowest complete disc space in the lumbar spine considered as S1-S2. There is lumbarization of S1. There is normal physiologic lumbar lordosis. The vertebral height is preserved. The conus medullaris is at the level of L1. There is focal T2 prolongation within the spinal cord at the level of T11-T12 measuring 1.1 cm craniocaudally. Otherwise, no abnormality within the visualized spinal cord is noted. At the level of L1-L2, there are disc bulge with mild right neuroforaminal narrowing and no canal stenosis. At the level of L2-L3, there are disc bulge with mild left neuroforaminal narrowing and no canal stenosis. At the level of L3-4, there are disc bulge with mild right neuroforaminal narrowing and no canal stenosis. At the level of L4-5, there are disc bulge with mild bilateral neuroforaminal narrowing and mild canal stenosis. At the level of L5-S1, there are grade 1 anterolisthesis uncovering the disc with mild bilateral neuroforaminal narrowing and mild canal stenosis. At the level of S1-S2, there is grade 1 anterolisthesis uncovering disc with mild bilateral neuroforaminal narrowing and no canal stenosis The paraspinal muscles are unremarkable. IMPRESSION IMPRESSION: Mild degenerative changes of lumbar spine in particular at L4-L5 and L5-S1. Focal T2 prolongation within the spinal cord at the level of T11-T12 not fully characterized by this study. An MRI of thoracic spine with injection of contrast is recommended for further evaluation. [facility] Radiology Study observation (narrative) [facility] MR Lumbar spine WO contrastO rdered By: Neymar Perez on 02-12-2023 [facility] MRI SPINE LUMBAR WITHOUT CON TRASTon 02-12-2023 MRI SPINE LUMBAR WITHOUT CONTRAST MRI SPINE LUMBAR WITHOUT CONTRAST, 02/12/2023 3:16 PM EDT INDICATION: [Pain radiating to the right leg COMPARISON: Prior x-ray dated 02/25/2022 TECHNIQUE: Multiplanar, multisequential MRI images of lumbar spine were obtained without contrast. FINDINGS: For dictation purposes, the lowest complete disc space in the lumbar spine considered as S1-S2. There is lumbarization of S1. There is normal physiologic lumbar lordosis. The vertebral height is preserved. The conus medullaris is at the level of L1. There is focal T2 prolongation within the spinal cord at the level of T11-T12 measuring 1.1 cm craniocaudally. Otherwise, no abnormality within the visualized spinal cord is noted. At the level of L1-L2, there are disc bulge with mild right neuroforaminal narrowing and no canal stenosis. At the level of L2-L3, there are disc bulge with mild left neuroforaminal narrowing and no canal stenosis. At the level of L3-4, there are disc bulge with mild right neuroforaminal narrowing and no canal stenosis. At the level of L4-5, there are disc bulge with mild bilateral neuroforaminal narrowing and mild canal stenosis. At the level of L5-S1, there are grade 1 anterolisthesis uncovering the disc with mild bilateral neuroforaminal narrowing and mild canal stenosis. At the level of S1-S2, there is grade 1 anterolisthesis uncovering disc with mild bilateral neuroforaminal narrowing and no canal stenosis The paraspinal muscles are unremarkable. IMPRESSION: Mild degenerative changes of lumbar spine in particular at L4-L5 and L5-S1. Focal T2 prolongation within the spinal cord at the level of T11-T12 not fully characterized by this study. An MRI of thoracic spine with injection of contrast is recommended for further evaluation. Normal [facility] VITAMIN B6on 02-06-2023 VITAMIN B6 LVL 63.4 Normal [facility] Comment on above: Result Comment: Refe rence range: 3.4 to 65.2 Unit: ug/L (NOTE) This test was developed and its performance characteristics determined by [facility]. It has not been cleared or approved by the Food and Drug Administration. Deficiency: <3.4 Marginal: 3.4 - 5.1 Adequate: >5.1 PERFORMED AT [facility] Performed By: #### L VB6 #### Testing performed at [facility] ACTIN-SMOOTH MUS ABon 2022 ACTIN-SMOOTH MUS AB 3 [facility] Comment on above: Result Comment: Refe rence range: 0 to 19 Unit: Units (NOTE) Negative 0 - 19 Weak positive 20 - 30 Moderate to strong positive >30 Actin Antibodies are found in 52-85% of patients with autoimmune hepatitis or chronic active hepatitis and in 22% of patients with primary biliary cirrhosis. PERFORMED AT [facility] Performed By: #### L WINSOME BRADY #### Testing performed at [facility] [address] [place] [address] MITOCHONDRIAL-M2 ABon 2022 MITOCHONDRIAL-M2 AB <20.0 [facility] Comment on above: Result Comment: Refe rence range: 0.0 to 20.0 Unit: Units (NOTE) Negative 0.0 - 20.0 Equivocal 20.1 - 24.9 Positive >24.9 Mitochondrial (M2) Antibodies are found in 90-96% of patients with primary biliary cirrhosis. PERFORMED AT [facility] Performed By: #### L WINSOME BRADY #### Testing performed at [facility] [address] [place] [address] VIT.B1 THIAMINE-BLDon 2022 VIT.B1 THIAMINE-BLD 151.9 [facility] Comment on above: Result Comment: Refe rence range: 66.5 to 200.0 Unit: nmol/L (NOTE) This test was developed and its performance characteristics determined by [facility]. It has not been cleared or approved by the Food and Drug Administration. PERFORMED AT [facility] Performed By: #### L VB1 ####Testing performed at [facility] SULAIMAN W/REFLEX IF POSon 2022 SULAIMAN-DIRECT Negative Normal [facility] Comment on above: Result Comment: Refe rence range: Negative PERFORMED AT [facility] Performed By: #### M G, B12, URIC, TSH2, CPK, CREACT, LIP2, ESR, CMPF, ACBC ####[place] [address]#### LANCA ####Testing performed at [place] [address] [address] [facility] [place] [address]Lfjnnfd performed at [facility]#### LIMEL, LACEZ, SYDNEE, LRBCF, LACCGA, LLYMER, LTTG ####Testing performed at [place] [address] [address] [place] [address] ANCA PANELon 01-28-2023 3 (DE-3) ABS <0.2 Normal [facility] Comment on above: Result Comment: Refe rence range: 0.0 to 0.9 Unit: units PERFORMED AT [facility] Performed By: #### M G, B12, URIC, TSH2, CPK, CREACT, LIP2, ESR, CMPF, ACBC ####[place] [address]#### LANCA ####Testing performed at [place] [address] [address] [facility] [facility] [address]Vuibwxv performed at [facility]#### LIMEL, LACEZ, SYDNEE, LRBCF, LACCGA, LLYMER, LTTG ####Testing performed at [place] [id number] [place] [address] MPO ABS <0.2 Normal [facility] Comment on above: Result Comment: Refe rence range: 0.0 to 0.9 Unit: units PERFORMED AT [facility] Performed By: #### M G, B12, URIC, TSH2, CPK, CREACT, LIP2, ESR, CMPF, ACBC ####[place] [address]#### LANCA ####Testing performed at [facility] [place], [place] [address]Eujjzxr performed at [facility]#### LIMEL, LACEZ, SYDNEE, LRBCF, LACCGA, LLYMER, LTTG ####Testing performed at [facility], [id number] [place] [address] ATYPICAL PANCA 1:20 [facility] Comment on above: Result Comment: Refe rence range: Neg:<1:20 Unit: titer (NOTE) The atypical pANCA pattern has been observed in a significant percentage of patients with ulcerative colitis, primary sclerosing cholangitis and autoimmune hepatitis. PERFORMED AT [facility] Performed By: #### M G, B12, URIC, TSH2, CPK, CREACT, LIP2, ESR, CMPF, ACBC ####Testing performed at [address] [place] [address]#### LANCA ####Testing performed at [facility] [place], [place] [address]Wlpyiut performed at [facility]#### LIMEL, LACEZ, SYDNEE, LRBCF, LACCGA, LLYMER, LTTG ####Testing performed at [facility] [place] [address] CYTOPLASMIC (C-ANCA) <1:20 Normal [facility] Comment on above: Result Comment: Refe rence range: Neg:<1:20 Unit: titer Performed By: #### M G, B12, URIC, TSH2, CPK, CREACT, LIP2, ESR, CMPF, ACBC ####Testing performed at [address] [place] [address]#### LANCA ####Testing performed at [facility] [place] [address]Frmclrs performed at [facility]#### LIMEL, LACEZ, SYDNEE, LRBCF, LACCGA, LLYMER, LTTG ####Testing performed at [facility], [id number] [place] [address] PERINUCLEAR (P-ANCA) <1:20 Normal [facility] Comment on above: Result Comment: Refe rence range: Neg:<1:20 Unit: titer (NOTE) The presence of positive fluorescence exhibiting P-ANCA or C-ANCA patterns alone is not specific for the diagnosis of Fatimah's Granulomatosis (WG) or microscopic polyangiitis. Decisions about treatment should not be based solely on ANCA IFA results. The [employer] ANCA [employer] Consensus recommends follow up testing of positive sera with both DE-3 and MPO-ANCA enzyme immunoassays. As many as 5% serum samples are positive only by EIA. Ref. AM J Clin Pathol 1999;111:507-513. Performed By: #### M G, B12, URIC, TSH2, CPK, CREACT, LIP2, ESR, CMPF, ACBC ####Testing performed at [address] [address]#### LANCA ####Testing performed at [address], [place] [address]Xyjzedd performed at [facility]#### LIMEL, LACEZ, SYDNEE, LRBCF, LACCGA, LLYMER, LTTG ####Testing performed at [address] [place] [address] ANGIO-CONVERTING ENZon 01-28 WILLIAM 32 Normal [facility] Comment on above: Result Comment: Refe rence range: 14 to 82 Unit: U/L PERFORMED AT [facility] Performed By: #### M G, B12, URIC, TSH2, CPK, CREACT, LIP2, ESR, CMPF, ACBC ####Testing performed at [address] [address]#### LANCA ####Testing performed at [address], [place] [address]Pywnqsj performed at [facility]#### LIMEL, LACEZ, SYDNEE, LRBCF, LACCGA, LLYMER, LTTG ####Testing performed at [address] [place] [address] CCP AB IGG IGAon 01-28-2023 ACC AB IGG IGA 2 Normal [facility] Comment on above: Result Comment: Refe rence range: 0 to 19 Unit: units (NOTE) Negative <20 Weak positive 20 - 39 Moderate positive 40 - 59 Strong positive >59 PERFORMED AT [facility] Performed By: #### M G, B12, URIC, TSH2, CPK, CREACT, LIP2, ESR, CMPF, ACBC ####[place] [address]#### LANCA ####Testing performed at [place] [address] [address] [place], [place] [address]Nczwggq performed at [facility]#### LIMEL, LACEZ, SYDNEE, LRBCF, LACCGA, LLYMER, LTTG ####Testing performed at [place] [address] [address] [place] [address] JACLYN AND PE, SERUMon 01-29-20 Albumin [Mass/Vol] 3.7 g/dL Normal [facility] Comment on above: Result Comment: Refe rence range: 2.9 to 4.4 Unit: g/dL Performed By: #### M G, B12, URIC, TSH2, CPK, CREACT, LIP2, ESR, CMPF, ACBC ####[place] [address]#### LANCA ####Testing performed at [place] [address] [address] [place], [place] [address]Duxmgox performed at [facility]#### LIMEL, LACEZ, SYDNEE, LRBCF, LACCGA, LLYMER, LTTG ####Testing performed at [place] [address] [address] [place] [address] Albumin/Globulin [Mass ratio] 1.5 {ratio} Normal [facility] Comment on above: Result Comment: Refe rence range: 0.7 to 1.7 Performed By: #### M G, B12, URIC, TSH2, CPK, CREACT, LIP2, ESR, CMPF, ACBC ####Testing performed at [address] [address]#### LANCA ####Testing performed at [facility] [place] [address]Blzzest performed at [facility]#### LIMEL, LACEZ, SYDNEE, LRBCF, LACCGA, LLYMER, LTTG ####Testing performed at [facility], [id number] [place] [address] [id number] 0.2 Normal [facility] Comment on above: Result Comment: Refe rence range: 0.0 to 0.4 Unit: g/dL Performed By: #### M G, B12, URIC, TSH2, CPK, CREACT, LIP2, ESR, CMPF, ACBC ####Testing performed at [address] [address]#### LANCA ####Testing performed at [place] [id number] [place] [address]Kvwhgfr performed at [facility]#### LIMEL, LACEZ, SYDNEE, LRBCF, LACCGA, LLYMER, LTTG ####Testing performed at [place] [id number] [place] [address] [id number] 0.7 [facility] Comment on above: Result Comment: Refe rence range: 0.4 to 1.0 Unit: g/dL Performed By: #### M G, B12, URIC, TSH2, CPK, CREACT, LIP2, ESR, CMPF, ACBC ####Testing performed at [address] [address]#### LANCA ####Testing performed at [place] [id number] [place], [place] [address]Bqawzdi performed at [facility]#### LIMEL, LACEZ, SYDNEE, LRBCF, LACCGA, LLYMER, LTTG ####Testing performed at [facility], [id number] [place] [address] BETA GLOBULIN 0.8 Normal [facility] Comment on above: Result Comment: Refe rence range: 0.7 to 1.3 Unit: g/dL Performed By: #### M G, B12, URIC, TSH2, CPK, CREACT, LIP2, ESR, CMPF, ACBC ####Testing performed at [address] [address]#### LANCA ####Testing performed at [place] [id number] [place], [place] [address]Zucendi performed at [facility]#### LIMEL, LACEZ, SYDNEE, LRBCF, LACCGA, LLYMER, LTTG ####Testing performed [address] [place] [address] GAMMA GLOBULIN 0.7 Normal [facility] Comment on above: Result Comment: Refe rence range: 0.4 to 1.8 Unit: g/dL Performed By: #### M G, B12, URIC, TSH2, CPK, CREACT, LIP2, ESR, CMPF, ACBC ####[place] [address]#### LANCA ####Testing performed [address] [place], [place] [address]Wgwotxl performed at [facility]#### LIMEL, LACEZ, SYDNEE, LRBCF, LACCGA, LLYMER, LTTG ####Testing performed at [address] [place] [address] GLOBULIN, TOTAL 2.5 Normal [facility] Comment on above: Result Comment: Refe rence range: 2.2 to 3.9 Unit: g/dL Performed By: #### M G, B12, URIC, TSH2, CPK, CREACT, LIP2, ESR, CMPF, ACBC ####Testing performed at [place] [id number]#### LANCA ####Testing performed at [place] [id number] [place], [place] [address]Utgaksm performed at [facility]#### LIMEL, LACEZ, SYDNEE, LRBCF, LACCGA, LLYMER, LTTG ####Testing performed at [facility] [place] [address] IgA [Mass/Vol] 156 mg/dL Normal [facility] Comment on above: Result Comment: Refe rence range: 64 to 422 Unit: mg/dL Performed By: #### M G, B12, URIC, TSH2, CPK, CREACT, LIP2, ESR, CMPF, ACBC ####Testing performed at [address] [address]#### LANCA ####Testing performed [address] [place], [place] [address]Goarcly performed at [facility]#### LIMEL, LACEZ, SYDNEE, LRBCF, LACCGA, LLYMER, LTTG ####Testing performed [address] [place] [address] IgG [Mass/Vol] 648 mg/dL Normal [facility] Comment on above: Result Comment: Refe rence range: 586 to 1602 Unit: mg/dL Performed By: #### M G, B12, URIC, TSH2, CPK, CREACT, LIP2, ESR, CMPF, ACBC ####Testing performed at [address] [address]#### LANCA ####Testing performed [address] [place], [place] [address]Odczevi performed at [facility]#### LIMEL, LACEZ, SYDNEE, LRBCF, LACCGA, LLYMER, LTTG ####Testing performed at [place] [address] [place] [address] IgM [Mass/Vol] 90 mg/dL Normal [facility] Comment on above: Result Comment: Refe rence range: 26 to 217 Unit: mg/dL Performed By: #### M G, B12, URIC, TSH2, CPK, CREACT, LIP2, ESR, CMPF, ACBC ####Testing performed at [address] [address]#### LANCA ####Testing performed at [facility], [id number] [place], [place] [address]Ozphqaa performed at [facility]#### LIMEL, LACEZ, SYDNEE, LRBCF, LACCGA, LLYMER, LTTG ####Testing performed at [facility], [id number] [place] [address] IMMUNOFIX: Comment [facility] Comment on above: Result Comment: No m onoclonality detected. Performed By: #### M G, B12, URIC, TSH2, CPK, CREACT, LIP2, ESR, CMPF, ACBC ####Testing performed at [address] [address]#### LANCA ####Testing performed at [facility], [id number] [place], [place] [address]Dvqbzhv performed at [facility]#### LIMEL, LACEZ, SYDNEE, LRBCF, LACCGA, LLYMER, LTTG ####Testing performed at [facility], [id number] [place] [address] M-SPIKE Not Observed [facility] Comment on above: Result Comment: Refe rence range: Not Observed Unit: g/dL Performed By: #### M G, B12, URIC, TSH2, CPK, CREACT, LIP2, ESR, CMPF, ACBC ####Testing performed at [address] [place] [address]#### LANCA ####Testing performed at [facility], [id number] [place], [place] [address]Eqeljlf performed at [facility]#### LIMEL, LACEZ, SYDNEE, LRBCF, LACCGA, LLYMER, LTTG ####Testing performed at [facility], [id number] [place] [address] PLEASE NOTE: Comment [facility] Comment on above: Result Comment: (NOT E) Protein electrophoresis scan will follow via computer, mail, or leak detector delivery. PERFORMED AT [facility] Performed By: #### M G, B12, URIC, TSH2, CPK, CREACT, LIP2, ESR, CMPF, ACBC ####Testing performed at [place] [id number]#### LANCA ####Testing performed at [address], [place] [address]Shnhwsi performed at [facility]#### LIMEL, LACEZ, SYDNEE, LRBCF, LACCGA, LLYMER, LTTG ####Testing performed at [address] [place] [address] Protein [Mass/Vol] 6.2 g/dL Normal [facility] Comment on above: Result Comment: Refe rence range: 6.0 to 8.5 Unit: g/dL Performed By: #### M G, B12, URIC, TSH2, CPK, CREACT, LIP2, ESR, CMPF, ACBC ####[place] [address]#### LANCA ####Testing performed at [address], [place] [address]Pfdudca performed at [facility]#### LIMEL, LACEZ, SYDNEE, LRBCF, LACCGA, LLYMER, LTTG ####Testing performed at [address] [place] [address] LYME DISEASE W/REFLEXon 01-11 LYME TOTAL AB EIA Negative Normal [facility] Comment on above: Result Comment: Refe rence range: Negative (NOTE) Lyme antibodies not detected. Reflex testing is not indicated. No laboratory evidence of infection with B. burgdorferi (Lyme disease). Negative results may occur in patients recently infected (less than or equal to 14 days) with B. burgdorferi. If recent infection is suspected, repeat testing on a new sample collected in 7 to 14 days is recommended. PERFORMED AT [facility] Performed By: #### M G, B12, URIC, TSH2, CPK, CREACT, LIP2, ESR, CMPF, ACBC ####Testing performed at [address] [place] [address]#### LANCA ####Testing performed at [facility] [place], [place] [address]Lrbybnq performed at [facility]#### LIMEL, LACEZ, SYDNEE, LRBCF, LACCGA, LLYMER, LTTG ####Testing performed at [facility], [id number] [place] [address] RBC FOLATEon 01-28-2023 FOLATE,HEMOLYSATE 438.0 [facility] Comment on above: Result Comment: Refe rence range: Not Estab. Unit: ng/mL Performed By: #### M G, B12, URIC, TSH2, CPK, CREACT, LIP2, ESR, CMPF, ACBC ####Testing performed at [address] [place] [address]#### LANCA ####Testing performed at [place] [id number] [place], [place] [address]Kkliiup performed at [facility]#### LIMEL, LACEZ, SYDNEE, LRBCF, LACCGA, LLYMER, LTTG ####Testing performed at [facility] [place] [address] FOLATE,RBC 1129 Normal [facility] Comment on above: Result Comment: Refe rence range: >498 Unit: ng/mL PERFORMED AT [facility] Performed By: #### M G, B12, URIC, TSH2, CPK, CREACT, LIP2, ESR, CMPF, ACBC ####Testing performed at [address] [place] [address]#### LANCA ####Testing performed at [place] [id number] [place], [place] [address]Sbcyjfw performed at [facility]#### LIMEL, LACEZ, SYDNEE, LRBCF, LACCGA, LLYMER, LTTG ####Testing performed at [facility] [place] [address] Hematocrit (Bld) [Volume fraction] 38.8 % Normal [facility] Comment on above: Result Comment: Refe rence range: 34.0 to 46.6 Unit: % Performed By: #### M G, B12, URIC, TSH2, CPK, CREACT, LIP2, ESR, CMPF, ACBC ####[place] [address]#### LANCA ####Testing performed at [address], [place] [address]Rsrifwt performed at [facility]#### LIMEL, LACEZ, SYDNEE, LRBCF, LACCGA, LLYMER, LTTG ####Testing performed at [address] [place] [address] [id number],IGAon 2022 TTG- IGA <2 Normal [facility] Comment on above: Result Comment: Refe rence range: 0 to 3 Unit: U/mL (NOTE) Negative 0 - 3 Weak Positive 4 - 10 Positive >10 Tissue Transglutaminase (tTG) has been identified as the endomysial antigen. Studies have demonstr- ated that endomysial IgA antibodies have over 99% specificity for gluten sensitive enteropathy. PERFORMED AT [facility] Performed By: #### M G, B12, URIC, TSH2, CPK, CREACT, LIP2, ESR, CMPF, ACBC ####[place] [address]#### LANCA ####Testing performed at [address], [place] [address]Xctuwha performed at [facility]#### LIMEL, LACEZ, SYDNEE, LRBCF, LACCGA, LLYMER, LTTG ####Testing performed at [address] [place] [address] XR HANDS-RHEUMATOLOGY EVAL O NLYon 01-27-2023 XR HANDS-RHEUMATOLOGY EVAL ONLY EXAM: XR HANDS-RHEUMATOLOGY EVAL ONLY HISTORY: hand pain COMPARISON: Compared to bilateral wrist x-rays earlier on this date. TECHNIQUE: 2 views of the right and left hands. FINDINGS right hand: Fracture not identified. Moderate degenerative changes present distal interphalangeal joints most prominent fifth digit. There is also moderate degenerative changes second metacarpal phalangeal joint. Fracture not identified in the soft tissues are unremarkable. Degenerative changes noted in the wrist as described on wrist x-rays earlier on this date. FINDINGS left hand: Fracture not identified. Moderate degenerative changes present distal interphalangeal joint fifth digit and mild degenerative changes distal interphalangeal joint of the second digit. Prominent degenerative changes present interphalangeal joint of the thumb. Moderate degenerative changes present second metatarsophalangeal joint. Degenerative changes present in the wrist as described on wrist x-rays earlier on this date. IMPRESSION: Bilateral degenerative changes as described. Normal [facility] XR Hand - bilateral Viewson 01-27-2023 IMPRESSION: Jose Rafaela l degenerative changes as described. RADIOLOGY EXAM: XR HANDS-RHEUM ATOLOGY EVAL ONLY HISTORY: hand pain COMPARISON: Compared to bilateral wrist x-rays earlier on this date. TECHNIQUE: 2 views of the right and left hands. FINDINGS right hand: Fracture not identified. Moderate degenerative changes present distal interphalangeal joints most prominent fifth digit. There is also moderate degenerative changes second metacarpal phalangeal joint. Fracture not identified in the soft tissues are unremarkable. Degenerative changes noted in the wrist as described on wrist x-rays earlier on this date. FINDINGS left hand: Fracture not identified. Moderate degenerative changes present distal interphalangeal joint fifth digit and mild degenerative changes distal interphalangeal joint of the second digit. Prominent degenerative changes present interphalangeal joint of the thumb. Moderate degenerative changes present second metatarsophalangeal joint. Degenerative changes present in the wrist as described on wrist x-rays earlier on this date. RADIOLOGY Edwin Corrales, - 01/27/2023 EXAM: XR HANDS-RHEUMATOLOGY EVAL ONLY HISTORY: hand pain COMPARISON: Compared to bilateral wrist x-rays earlier on this date. TECHNIQUE: 2 views of the right and left hands. FINDINGS right hand: Fracture not identified. Moderate degenerative changes present distal interphalangeal joints most prominent fifth digit. There is also moderate degenerative changes second metacarpal phalangeal joint. Fracture not identified in the soft tissues are unremarkable. Degenerative changes noted in the wrist as described on wrist x-rays earlier on this date. FINDINGS left hand: Fracture not identified. Moderate degenerative changes present distal interphalangeal joint fifth digit and mild degenerative changes distal interphalangeal joint of the second digit. Prominent degenerative changes present interphalangeal joint of the thumb. Moderate degenerative changes present second metatarsophalangeal joint. Degenerative changes present in the wrist as described on wrist x-rays earlier on this date. IMPRESSION IMPRESSION: Bilateral degenerative changes as described. [facility] XR Hand - bilateral ViewsOrd ered By: Edwin Corrales on 01-27-2023 [facility] Work Phone: XR SPINE CERVICAL 4 VIEWSon 01-27-2023 XR SPINE CERVICAL 4 VIEWS EXAM: XR SPINE CERVICAL 4 VIEWS, XR SPINE THORACIC 2 VIEWS. HISTORY: Neck pain, back pain. COMPARISON: None. TECHNIQUE: 4 views of the cervical spine were obtained to include AP, lateral and both oblique views. FINDINGS: Vertebral body heights are grossly well maintained. Moderate to marked disc space narrowing at C4-C5 with marked narrowing at C5-C6 and C6-C7. Mild anterior spurring from C4-C5 through C6-C7 with mild posterior spurring at these levels as well. Mild to moderate endplate degenerative changes from C4-C5 through C6-C7. Spinolaminar line appears grossly intact. Oblique views on the right demonstrate mild neural foraminal narrowing at C4-C5 with mild to moderate narrowing at C5-C6 and C6-C7. On the left moderate narrowing at C4-C5 and C5-C6. Atlantoaxial interval appears grossly unremarkable. No definite acute fracture or dislocation. Slight convexity of the cervical spine to the right. TECHNIQUE: Upright AP and lateral views of the thoracic spine were obtained. FINDINGS: Vertebral body heights are grossly well maintained. Mild disc space narrowing at the mid thoracic level. Minimal anterior spurring at the mid thoracic level. Slight convexity of the mid thoracic spine to the right. No definite acute fracture or dislocation. IMPRESSION: Cervical spine study demonstrates degenerative changes as described. Slight convexity to the right. Thoracic spine study demonstrates degenerative changes as noted. Slight convexity to the right. Follow-up as needed. Normal [facility] XR SPINE THORACIC 2 VIEWSon 01-27-2023 XR SPINE THORACIC 2 VIEWS EXAM: XR SPINE CERVICAL 4 VIEWS, XR SPINE THORACIC 2 VIEWS. HISTORY: Neck pain, back pain. COMPARISON: None. TECHNIQUE: 4 views of the cervical spine were obtained to include AP, lateral and both oblique views. FINDINGS: Vertebral body heights are grossly well maintained. Moderate to marked disc space narrowing at C4-C5 with marked narrowing at C5-C6 and C6-C7. Mild anterior spurring from C4-C5 through C6-C7 with mild posterior spurring at these levels as well. Mild to moderate endplate degenerative changes from C4-C5 through C6-C7. Spinolaminar line appears grossly intact. Oblique views on the right demonstrate mild neural foraminal narrowing at C4-C5 with mild to moderate narrowing at C5-C6 and C6-C7. On the left moderate narrowing at C4-C5 and C5-C6. Atlantoaxial interval appears grossly unremarkable. No definite acute fracture or dislocation. Slight convexity of the cervical spine to the right. TECHNIQUE: Upright AP and lateral views of the thoracic spine were obtained. FINDINGS: Vertebral body heights are grossly well maintained. Mild disc space narrowing at the mid thoracic level. Minimal anterior spurring at the mid thoracic level. Slight convexity of the mid thoracic spine to the right. No definite acute fracture or dislocation. IMPRESSION: Cervical spine study demonstrates degenerative changes as described. Slight convexity to the right. Thoracic spine study demonstrates degenerative changes as noted. Slight convexity to the right. Follow-up as needed. Normal [facility] C REACTIVE PROTEINon 023 CRP [Mass/Vol] mg/L Normal 0-10 [facility] Comment on above: Performed By: #### M G, B12, URIC, TSH2, CPK, CREACT, LIP2, ESR, CMPF, ACBC ####Testing performed at [facility])[address] [place] [address]#### LANCA ####Testing performed at [address] [address]Fthuptg performed at [facility]#### LIMEL, LACEZ, SYDNEE, LRBCF, LACCGA, LLYMER, LTTG ####Testing performed at [address] [address] CBCon 01-26-2023 ABSOLUTE BAS 0.0 10*3/uL Normal 0.0-0.2 [facility] Comment on above: Performed By: #### M G, B12, URIC, TSH2, CPK, CREACT, LIP2, ESR, CMPF, ACBC ####Testing performed at [address] [address]#### LANCA ####Testing performed at [place] [id number] [place], [place] [address]Ltvydam performed at [facility]#### LIMEL, LACEZ, SYDNEE, LRBCF, LACCGA, LLYMER, LTTG ####Testing performed at [facility], [id number] [place] [address] ABSOLUTE EOS 0.1 10*3/uL Normal 0.0-0.7 [facility] Comment on above: Performed By: #### M G, B12, URIC, TSH2, CPK, CREACT, LIP2, ESR, CMPF, ACBC ####Testing performed at [address] [place] [address]#### LANCA ####Testing performed at [place] [id number] [place], [place] [address]Gziocgl performed at [facility]#### LIMEL, LACEZ, SYDNEE, LRBCF, LACCGA, LLYMER, LTTG ####Testing performed at [place] [address] [place] [address] ABSOLUTE NEUTROPHIL COUNT 5.0 10*3/uL Normal 1.4-6.5 [facility] Comment on above: Performed By: #### M G, B12, URIC, TSH2, CPK, CREACT, LIP2, ESR, CMPF, ACBC ####Testing performed at [address] [place] [address]#### LANCA ####Testing performed at [place] [address] [address] [place], [place] [address]Usugzry performed at [facility]#### LIMEL, LACEZ, SYDNEE, LRBCF, LACCGA, LLYMER, LTTG ####Testing performed at [facility] [place] [address] Basophils/100 WBC (Bld) 0.5 % Normal 0.0-2.0 [facility] Comment on above: Performed By: #### M G, B12, URIC, TSH2, CPK, CREACT, LIP2, ESR, CMPF, ACBC ####Testing performed at [address] [place] [address]#### LANCA ####Testing performed at [facility] [place], [place] [address]Ivuyqyf performed at [facility]#### LIMEL, LACEZ, SYDNEE, LRBCF, LACCGA, LLYMER, LTTG ####Testing performed at [facility] [place] [address] DTYPE AUTO DIFF Normal [facility] Comment on above: Performed By: #### M G, B12, URIC, TSH2, CPK, CREACT, LIP2, ESR, CMPF, ACBC ####Testing performed at [address] [place] [address]#### LANCA ####Testing performed at [facility] [place], [place] [address]Zvqqwmk performed at [facility]#### LIMEL, LACEZ, SYDNEE, LRBCF, LACCGA, LLYMER, LTTG ####Testing performed at [place] [id number] [place] [address] Eosinophils/100 WBC (Bld) 0.9 % Normal 0.0-11.0 [facility] Comment on above: Performed By: #### M G, B12, URIC, TSH2, CPK, CREACT, LIP2, ESR, CMPF, ACBC ####Testing performed at [address] [place] [address]#### LANCA ####Testing performed at [facility] [place], [place] [address]Nzwnxaf performed at [facility]#### LIMEL, LACEZ, SYDNEE, LRBCF, LACCGA, LLYMER, LTTG ####[facility] [place] [address] Lymphocytes (Bld) [#/Vol] 1.9 10*3/uL Normal 1.2-3.4 [facility] Comment on above: Performed By: #### M G, B12, URIC, TSH2, CPK, CREACT, LIP2, ESR, CMPF, ACBC ####Testing performed at [address] [address]#### LANCA ####Testing performed at [place] [id number] [place], [place] [address]Xanovkg performed at [facility]#### LIMEL, LACEZ, SYDNEE, LRBCF, LACCGA, LLYMER, LTTG ####Testing performed at [facility], [address] [place] [address] Lymphocytes/100 WBC (Bld) 24.9 % Normal 20.0-55.0 [facility] Comment on above: Performed By: #### M G, B12, URIC, TSH2, CPK, CREACT, LIP2, ESR, CMPF, ACBC ####Testing performed at [address] [place] [address]#### LANCA ####Testing performed at [address] [facility] [place], [place] [address]Tvnayru performed at [facility]#### LIMEL, LACEZ, SYDNEE, LRBCF, LACCGA, LLYMER, LTTG ####Testing performed [address] [facility] [address] Monocytes (Bld) [#/Vol] 0.6 10*3/uL Normal 0.0-0.7 [facility] Comment on above: Performed By: #### M G, B12, URIC, TSH2, CPK, CREACT, LIP2, ESR, CMPF, ACBC ####Testing performed at [address] [place] [address]#### LANCA ####Testing performed at [place] [address] [address] [place], [place] [address]Vxuyglk performed at [facility]#### LIMEL, LACEZ, SYDNEE, LRBCF, LACCGA, LLYMER, LTTG ####Testing performed at [place] [id number] [place] [address] Monocytes/100 WBC (Bld) 8.4 % Normal 0.0-10.0 [facility] Comment on above: Performed By: #### M G, B12, URIC, TSH2, CPK, CREACT, LIP2, ESR, CMPF, ACBC ####Testing performed at [address] [address]#### LANCA ####Testing performed at [address] [facility] [place], [place] [address]Ybxjhih performed at [facility]#### LIMEL, LACEZ, SYDNEE, LRBCF, LACCGA, LLYMER, LTTG ####Testing performed at [place] [address] [address] [facility] [place] [place] [address] Neutrophils/100 WBC (Bld) 65.3 % Normal 37.0-75.0 [facility] Comment on above: Performed By: #### M G, B12, URIC, TSH2, CPK, CREACT, LIP2, ESR, CMPF, ACBC ####Testing performed at [address] [place] [address]#### LANCA ####Testing performed at [address] [facility], [place] [address]Khdxbff performed at [facility]#### LIMEL, LACEZ, SYDNEE, LRBCF, LACCGA, LLYMER, LTTG ####Testing performed at [address] [place] [address] Erythrocyte distribution width (RBC) [Ratio] 14.3 % Normal 11.5-14.5 [facility] Comment on above: Performed By: #### M G, B12, URIC, TSH2, CPK, CREACT, LIP2, ESR, CMPF, ACBC ####Testing performed at [address] [address]#### LANCA ####Testing performed at [place] [id number] [place], [place] [address]Jbtyyii performed at [facility]#### LIMEL, LACEZ, SYDNEE, LRBCF, LACCGA, LLYMER, LTTG ####Testing performed at [place] [id number] [place] [address] Hematocrit (Bld) [Volume fraction] 39.6 % Normal 36.0-48.0 [facility] Comment on above: Performed By: #### M G, B12, URIC, TSH2, CPK, CREACT, LIP2, ESR, CMPF, ACBC ####Testing performed at [address] [address]#### LANCA ####Testing performed at [place] [address] [address] [place], [place] [address]Wvbchev performed at [facility]#### LIMEL, LACEZ, SYDNEE, LRBCF, LACCGA, LLYMER, LTTG ####Testing performed at [place] [address] [address] [place] [address] Hemoglobin (Bld) [Mass/Vol] 13.0 g/dL Normal 12.0-16.0 [facility] Comment on above: Performed By: #### M G, B12, URIC, TSH2, CPK, CREACT, LIP2, ESR, CMPF, ACBC ####Testing performed at [address] [address]#### LANCA ####Testing performed at [place] [address] [address] [place], [place] [address]Xpkthux performed at [facility]#### LIMEL, LACEZ, SYDNEE, LRBCF, LACCGA, LLYMER, LTTG ####Testing performed at [facility] [place] [address] MCH (RBC) [Entitic mass] 30.8 pg Normal 26.0-35.0 [facility] Comment on above: Performed By: #### M G, B12, URIC, TSH2, CPK, CREACT, LIP2, ESR, CMPF, ACBC ####Testing performed at [address] [address]#### LANCA ####Testing performed at [facility], [id number] [place], [place] [address]Mjqucky performed at [facility]#### LIMEL, LACEZ, SYDNEE, LRBCF, LACCGA, LLYMER, LTTG ####Testing performed at [facility] [place] [address] MCHC (RBC) [Mass/Vol] 32.9 g/dL Normal 27.0-37.0 [facility] Comment on above: Performed By: #### M G, B12, URIC, TSH2, CPK, CREACT, LIP2, ESR, CMPF, ACBC ####Testing performed at [address] [place] [address]#### LANCA ####Testing performed at [place] [address] [address] [place], [place] [address]Xfsypht performed at [facility]#### LIMEL, LACEZ, SYDNEE, LRBCF, LACCGA, LLYMER, LTTG ####Testing performed at [place] [address] [address] [place] [address] MCV (RBC) [Entitic vol] 93.7 fL Normal 80.0-100.0 [facility] Comment on above: Performed By: #### M G, B12, URIC, TSH2, CPK, CREACT, LIP2, ESR, CMPF, ACBC ####Testing performed at [address] [place] [address]#### LANCA ####Testing performed at [place] [id number] [place], [place] [address]Swicxkr performed at [facility]#### LIMEL, LACEZ, SYDNEE, LRBCF, LACCGA, LLYMER, LTTG ####Testing performed at [facility], [id number] [place] [address] Platelet mean volume (Bld) [Entitic vol] 8.0 fL Normal 7.4-11.0 [facility] Comment on above: Performed By: #### M G, B12, URIC, TSH2, CPK, CREACT, LIP2, ESR, CMPF, ACBC ####Testing performed at [address] [place] [address]#### LANCA ####Testing performed at [facility], [address] [place], [place] [address]Pmksges performed at [facility]#### LIMEL, LACEZ, SYDNEE, LRBCF, LACCGA, LLYMER, LTTG ####Testing performed at [place] [id number] [place] [address] Platelets (Bld) [#/Vol] 259 10*3/uL Normal 130-400 [facility] Comment on above: Performed By: #### M G, B12, URIC, TSH2, CPK, CREACT, LIP2, ESR, CMPF, ACBC ####Testing performed at [address] [place] [address]#### LANCA ####Testing performed at [place] [id number] [place], [place] [address]Ekyausg performed at [facility]#### LIMEL, LACEZ, SYDNEE, LRBCF, LACCGA, LLYMER, LTTG ####Testing performed at [facility] [place] [address] RBC (Bld) [#/Vol] 4.22 10*6/uL Normal 4.0-5.4 [facility] Comment on above: Performed By: #### M G, B12, URIC, TSH2, CPK, CREACT, LIP2, ESR, CMPF, ACBC ####Testing performed at [address] [place] [address]#### LANCA ####Testing performed at [facility] [place], [place] [address]Pronzet performed at [facility]#### LIMEL, LACEZ, SYDNEE, LRBCF, LACCGA, LLYMER, LTTG ####Testing performed at [address] [place] [address] WBC (Bld) [#/Vol] 7.6 10*3/uL Normal 3.6-11.0 [facility] Comment on above: Performed By: #### M G, B12, URIC, TSH2, CPK, CREACT, LIP2, ESR, CMPF, ACBC ####Testing performed at [address] [place] [address]#### LANCA ####Testing performed at [address], [place] [address]Oqjwxrh performed at [facility]#### LIMEL, LACEZ, SYDNEE, LRBCF, LACCGA, LLYMER, LTTG ####Testing performed at [address] [place] [address] CMP FASTINGon 01-26-2023 A:G RATIO 1.6 RATIO Normal [facility] Comment on above: Performed By: #### M G, B12, URIC, TSH2, CPK, CREACT, LIP2, ESR, CMPF, ACBC ####Testing performed at [address] [place] [address]#### LANCA ####Testing performed at [address], [place] [address]Trobdus performed at [facility]#### LIMEL, LACEZ, SYDNEE, LRBCF, LACCGA, LLYMER, LTTG ####Testing performed at [address] [place] [address] ALBUMIN 4.2 G/dl Normal 3.5-5.0 [facility] Comment on above: Performed By: #### M G, B12, URIC, TSH2, CPK, CREACT, LIP2, ESR, CMPF, ACBC ####Testing performed at [address] [place] [address]#### LANCA ####Testing performed at [facility], [id number] [place], [place] [address]Eedeljj performed at [facility]#### LIMEL, LACEZ, SYDNEE, LRBCF, LACCGA, LLYMER, LTTG ####Testing performed at [facility], [id number] [place] [address] ALP [Catalytic activity/Vol] 49 U/L Normal 38-126 [facility] Comment on above: Performed By: #### M G, B12, URIC, TSH2, CPK, CREACT, LIP2, ESR, CMPF, ACBC ####Testing performed at [address] [address]#### LANCA ####Testing performed at [facility], [address] [place], [place] [address]Ocxcram performed at [facility]#### LIMEL, LACEZ, SYDNEE, LRBCF, LACCGA, LLYMER, LTTG ####Testing performed at [facility], [id number] [place] [address] ALT [Catalytic activity/Vol] 24 U/L Normal <35 [facility] Comment on above: Performed By: #### M G, B12, URIC, TSH2, CPK, CREACT, LIP2, ESR, CMPF, ACBC ####Testing performed at [address] [place] [address]#### LANCA ####Testing performed at [facility], [id number] [place], [place] [address]Rrwnved performed at [facility]#### LIMEL, LACEZ, SYDNEE, LRBCF, LACCGA, LLYMER, LTTG ####Testing performed at [facility], [id number] [place] [address] AST [Catalytic activity/Vol] 29 U/L Normal 14-36 [facility] Comment on above: Performed By: #### M G, B12, URIC, TSH2, CPK, CREACT, LIP2, ESR, CMPF, ACBC ####Testing performed at [address] [place] [address]#### LANCA ####Testing performed at [facility], [address] [place], [place] [address]Kmqmbcb performed at [facility]#### LIMEL, LACEZ, SYDNEE, LRBCF, LACCGA, LLYMER, LTTG ####Testing performed at [facility], [id number] [place] [address] Bilirubin [Mass/Vol] 0.5 mg/dL Normal 0.2-1.3 [facility] Comment on above: Performed By: #### M G, B12, URIC, TSH2, CPK, CREACT, LIP2, ESR, CMPF, ACBC ####Testing performed at [address] [place] [address]#### LANCA ####Testing performed at [place] [id number] [place], [place] [address]Lzwclnz performed at [facility]#### LIMEL, LACEZ, SYDNEE, LRBCF, LACCGA, LLYMER, LTTG ####Testing performed at [facility], [id number] [place] [address] Calcium [Mass/Vol] 9.1 mg/dL Normal 8.4-10.2 [facility] Comment on above: Performed By: #### M G, B12, URIC, TSH2, CPK, CREACT, LIP2, ESR, CMPF, ACBC ####Testing performed at [address] [place] [address]#### LANCA ####Testing performed at [facility] [place], [place] [address]Rmukiln performed at [facility]#### LIMEL, LACEZ, SYDNEE, LRBCF, LACCGA, LLYMER, LTTG ####Testing performed at [facility], [id number] [place] [address] Chloride [Moles/Vol] 103 mmol/L Normal 98-107 [facility] Comment on above: Result Comment: Plea se note: Triglyceride levels of 600mg/dL or higher may positively bias chloride results by approximately 2.1 mmol Performed By: #### M G, B12, URIC, TSH2, CPK, CREACT, LIP2, ESR, CMPF, ACBC ####Testing performed at [address] [place] [address]#### [place]CA ####Testing performed at [place] [id number] [place], [place] [address]Nuqrwez performed at [facility]#### LIMEL, LACEZ, SYDNEE, LRBCF, LACCGA, LLYMER, LTTG ####Testing performed at [place] [address] [address] [place] [address] CO2 [Moles/Vol] 27 mmol/L Normal 22-30 [facility] Comment on above: Performed By: #### M G, B12, URIC, TSH2, CPK, CREACT, LIP2, ESR, CMPF, ACBC ####Testing performed at [address] [place] [address]#### LANCA ####Testing performed [address] [place], [place] [address]Hgdlxea performed at [facility]#### LIMEL, LACEZ, SYDNEE, LRBCF, LACCGA, LLYMER, LTTG ####Testing performed at [address] [place] [address] Creatinine [Mass/Vol] 0.53 mg/dL Low 0.70-1.20 [facility] Comment on above: Performed By: #### M G, B12, URIC, TSH2, CPK, CREACT, LIP2, ESR, CMPF, ACBC ####Testing performed at [address] [place] [address]#### LANCA ####Testing performed at [place] [address] [address] [place], [place] [address]Pumykrg performed at [facility]#### LIMEL, LACEZ, SYDNEE, LRBCF, LACCGA, LLYMER, LTTG ####Testing performed at [facility], [address] [place] [address] EST. GFR, 146 ml/min/1.73sq.m [facility] Comment on above: Performed By: #### M G, B12, URIC, TSH2, CPK, CREACT, LIP2, ESR, CMPF, ACBC ####Testing performed at [address] [address]#### LANCA ####Testing performed at [facility], [id number] [place], [place] [address]Nyvwqrl performed at [facility]#### LIMEL, LACEZ, SYDNEE, LRBCF, LACCGA, LLYMER, LTTG ####Testing performed at [facility], [id number] [place] [address] EST. GFR,Non 121 ml/min/1.73sq.m [facility] Comment on above: Performed By: #### M G, B12, URIC, TSH2, CPK, CREACT, LIP2, ESR, CMPF, ACBC ####Testing performed at [address] [address]#### LANCA ####Testing performed at [facility], [id number] [place], [place] [address]Ilzelxl performed at [facility]#### LIMEL, LACEZ, SYDNEE, LRBCF, LACCGA, LLYMER, LTTG ####Testing performed at [facility], [id number] [place] [address] GFR Information Average GFR for 70+ years old = 75. [facility] Comment on above: Result Comment: Regional Guide paramjit Kidney disease, GFR = <60. Kidney failure, GFR = <15. The GFR estimate is not adjusted for extreme body surface area or acute process, nor has it been validated for women or ethnic groups other than and . Performed By: #### M G, B12, URIC, TSH2, CPK, CREACT, LIP2, ESR, CMPF, ACBC ####Testing performed at [address] [place] [address]#### LANCA ####Testing performed [address] [place], [place] [address]Bpfmgjg performed at [facility]#### LIMEL, LACEZ, SYDNEE, LRBCF, LACCGA, LLYMER, LTTG ####Testing performed at [place] [id number] [facility] [place] [address] Glucose [Mass/Vol] 86 mg/dL Normal 70-100 [facility] Comment on above: Result Comment: NORMAL <100 mg/dL PREDIABETES 101-126 mg/dL DIABETES 126 mg/dL or higher Performed By: #### M G, B12, URIC, TSH2, CPK, CREACT, LIP2, ESR, CMPF, ACBC ####Testing performed at [address] [place] [address]#### LANCA ####Testing performed [address] [facility] [place], [place] [address]Fcuvwet performed at [facility]#### LIMEL, LACEZ, SYDNEE, LRBCF, LACCGA, LLYMER, LTTG ####Testing performed at [address] [place] [address] Potassium [Moles/Vol] 4.2 mmol/L Normal 3.5-5.1 [facility] Comment on above: Performed By: #### M G, B12, URIC, TSH2, CPK, CREACT, LIP2, ESR, CMPF, ACBC ####Testing performed at [address] [place] [address]#### LANCA ####Testing performed [address] [place], [place] [address]Zaopcfg performed at [facility]#### LIMEL, LACEZ, SYDNEE, LRBCF, LACCGA, LLYMER, LTTG ####Testing performed at [address] [place] [address] Protein [Mass/Vol] 6.8 g/dL Normal 6.3-8.2 [facility] Comment on above: Performed By: #### M G, B12, URIC, TSH2, CPK, CREACT, LIP2, ESR, CMPF, ACBC ####Testing performed at [address] [address]#### LANCA ####Testing performed at [place] [id number] [place], [place] [address]Lfrmkue performed at [facility]#### LIMEL, LACEZ, SYDNEE, LRBCF, LACCGA, LLYMER, LTTG ####Testing performed at [place] [address] [address] [place] [address] Sodium [Moles/Vol] 138 mmol/L Normal 137-145 [facility] Comment on above: Performed By: #### M G, B12, URIC, TSH2, CPK, CREACT, LIP2, ESR, CMPF, ACBC ####Testing performed at [address] [address]#### LANCA ####Testing performed at [place] [address] [address] [facility] [place], [place] [address]Cwgdgwu performed at [facility]#### LIMEL, LACEZ, SYDNEE, LRBCF, LACCGA, LLYMER, LTTG ####Testing performed [address] [place] [address] Urea nitrogen [Mass/Vol] 24 mg/dL High 7-20 [facility] Comment on above: Performed By: #### M G, B12, URIC, TSH2, CPK, CREACT, LIP2, ESR, CMPF, ACBC ####Testing performed at [address] [place] [address]#### LANCA ####Testing performed at [place] [id number] [place], [place] [address]Mzhpjox performed at [facility]#### LIMEL, LACEZ, SYDNEE, LRBCF, LACCGA, LLYMER, LTTG ####Testing performed at [facility] [id number] [place] [address] CPKon 01-26-2023 CPK 103 IU/L Normal 30-135 [facility] Comment on above: Performed By: #### M G, B12, URIC, TSH2, CPK, CREACT, LIP2, ESR, CMPF, ACBC ####Testing performed at [address] [place] [address]#### LANCA ####Testing performed at [facility], [id number] [place], [place] [address]Ddawxmv performed at [facility]#### LIMEL, LACEZ, SYDNEE, LRBCF, LACCGA, LLYMER, LTTG ####Testing performed at [facility], [id number] [facility] [place] [address] ESRon 01-26-2023 ESR (Bld) [Velocity] mm/h Normal 0-30 [facility] Comment on above: Performed By: #### M G, B12, URIC, TSH2, CPK, CREACT, LIP2, ESR, CMPF, ACBC ####Testing performed at [address] [place] [address]#### LANCA ####Testing performed at [facility], [id number] [facility] [place], [place] [address]Bwoazdu performed at [facility]#### LIMEL, LACEZ, SYDNEE, LRBCF, LACCGA, LLYMER, LTTG ####Testing performed at [facility], [id number] [facility] [place] [address] LIPID PROFILEon 01-26-2023 Cholesterol [Mass/Vol] 200 mg/dL Normal 107-217 [facility] Comment on above: Performed By: #### M G, B12, URIC, TSH2, CPK, CREACT, LIP2, ESR, CMPF, ACBC ####Testing performed at [address] [place] [address]#### LANCA ####Testing performed at [facility], [id number] [facility] [place], [place] [address]Vgzrrrz performed at [facility]#### LIMEL, LACEZ, SYDNEE, LRBCF, LACCGA, LLYMER, LTTG ####Testing performed at [facility], [id number] [place] [address] Cholesterol in HDL [Mass/Vol] 90 mg/dL High 33-75 [facility] Comment on above: Performed By: #### M G, B12, URIC, TSH2, CPK, CREACT, LIP2, ESR, CMPF, ACBC ####Testing performed at [address] [place] [address]#### LANCA ####Testing performed at [facility], [id number] [place], [place] [address]Luxhseo performed at [facility]#### LIMEL, LACEZ, SYDNEE, LRBCF, LACCGA, LLYMER, LTTG ####Testing performed at [facility], [id number] [place] [address] Cholesterol in LDL [Mass/Vol] 100 mg/dL High <100 [facility] Comment on above: Performed By: #### M G, B12, URIC, TSH2, CPK, CREACT, LIP2, ESR, CMPF, ACBC ####Testing performed at [address] [place] [address]#### LANCA ####Testing performed at [facility], [id number] [place], [place] [address]Mmtqjdx performed at [facility]#### LIMEL, LACEZ, SYDNEE, LRBCF, LACCGA, LLYMER, LTTG ####Testing performed at [facility] [place] [address] Cholesterol in VLDL [Mass/Vol] 10 mg/dL Normal 5-25 [facility] Comment on above: Performed By: #### M G, B12, URIC, TSH2, CPK, CREACT, LIP2, ESR, CMPF, ACBC ####Testing performed at [address] [place] [address]#### LANCA ####Testing performed at [address], [place] [address]Mwbnswr performed at [facility]#### LIMEL, LACEZ, SYDNEE, LRBCF, LACCGA, LLYMER, LTTG ####Testing performed at [address] [place] [address] Cholesterol.total/Ch olesterol in HDL [Mass ratio] 2.22 {ratio} Normal [facility] Comment on above: Result Comment: RISK TOTAL/HDL RATIO MEN WOMEN 1/2 AVERAGE 3.43 3.27 AVERAGE 4.97 4.44 2X AVERAGE 9.55 7.05 3X AVERAGE 23.99 11.04 Performed By: #### M G, B12, URIC, TSH2, CPK, CREACT, LIP2, ESR, CMPF, ACBC ####Testing performed at [address] [place] [address]#### LANCA ####Testing performed at [address], [place] [address]Kvgzylh performed at [facility]#### LIMEL, LACEZ, SYDNEE, LRBCF, LACCGA, LLYMER, LTTG ####Testing performed at [address] [place] [address] Triglyceride [Mass/Vol] 51 mg/dL Normal 0-150 [facility] Comment on above: Performed By: #### M G, B12, URIC, TSH2, CPK, CREACT, LIP2, ESR, CMPF, ACBC ####Testing performed at [address] [place] [address]#### LANCA ####Testing performed at [address], [place] [address]Tpwidgy performed at [facility]#### LIMEL, LACEZ, SYDNEE, LRBCF, LACCGA, LLYMER, LTTG ####Testing performed at [address] [place] [address] MAGNESIUMon 01-26-2023 Magnesium [Mass/Vol] 2.2 mg/dL Normal 1.6-2.3 [facility] Comment on above: Performed By: #### M G, B12, URIC, TSH2, CPK, CREACT, LIP2, ESR, CMPF, ACBC ####Testing performed at [facility] [place] [address]#### LANCA ####Testing performed at [facility] [place] [address]Rfmbqou performed at [facility]#### LIMEL, LACEZ, SYDNEE, LRBCF, LACCGA, LLYMER, LTTG ####Testing performed at [facility] [place] [address] No Panel Informationon 01-26 IMPRESSION: 1. No definite fractures or dislocations of the right shoulder. 2. No fractures or dislocations of the left shoulder. 3. Degenerative changes as described above involving the right as well as the left shoulder joint. RADIOLOGY XR SHOULDER LEFT MIN 2 VIEWS, XR SHOULDER RIGHT MIN 2 VIEWS, 01/26/2023 3:31 PM EDT, S CLINICAL HISTORY: shoulder pain. EXAMINATION: Left, right shoulder: 01/26/2023. COMPARISON: None. FINDINGS: Right shoulder: 3 views are provided which demonstrate moderate to severe narrowing of the glenohumeral joint with osteophytic spurring involving the inferior aspect of the glenoid, medial, lateral aspect of the humeral head without fractures or dislocations. The visualized clavicle, scapula appears intact. Surrounding soft tissues are normal. The visualized right ribs appear intact. Left shoulder: 3 views are provided which demonstrate moderate narrowing of the glenohumeral joint, mild narrowing of the AC joint without definite fractures or dislocations. Osteophytic spurs are seen involving the inferior aspect of the glenoid, medial aspect of the humeral head. There is mild osteopenia. There are no fractures or dislocations. The visualized left clavicle, scapula, visualized left epididymis. Intact. Surrounding soft tissues are normal. RADIOLOGY Sonny Verdin MD, PhD - 01/26/2023 XR SHOULDER LEFT MIN 2 VIEWS, XR SHOULDER RIGHT MIN 2 VIEWS, 01/26/2023 3:31 PM EDT, Tomas CLINICAL HISTORY: shoulder pain. EXAMINATION: Left, right shoulder: 01/26/2023. COMPARISON: None. FINDINGS: Right shoulder: 3 views are provided which demonstrate moderate to severe narrowing of the glenohumeral joint with osteophytic spurring involving the inferior aspect of the glenoid, medial, lateral aspect of the humeral head without fractures or dislocations. The visualized clavicle, scapula appears intact. Surrounding soft tissues are normal. The visualized right ribs appear intact. Left shoulder: 3 views are provided which demonstrate moderate narrowing of the glenohumeral joint, mild narrowing of the AC joint without definite fractures or dislocations. Osteophytic spurs are seen involving the inferior aspect of the glenoid, medial aspect of the humeral head. There is mild osteopenia. There are no fractures or dislocations. The visualized left clavicle, scapula, visualized left epididymis. Intact. Surrounding soft tissues are normal. IMPRESSION IMPRESSION: 1. No definite fractures or dislocations of the right shoulder. 2. No fractures or dislocations of the left shoulder. 3. Degenerative changes as described above involving the right as well as the left shoulder joint. [facility] Radiology Study observation (narrative) [facility] No Panel InformationOrdered By: Sonny Verdin on 01-26-2023 [facility] Work Phone: RHEUMATOID FACTORon 01-27-20 23 RHEUMATOID FACTOR <8.6 Normal <12 [facility] TSHon 01-26-2023 TSH 2.670 uIU/ML Normal 0.465-4.68 0 [facility] Comment on above: Performed By: #### M G, B12, URIC, TSH2, CPK, CREACT, LIP2, ESR, CMPF, ACBC ####Testing performed at [place] [address] [place] [address]#### LANCA ####Testing performed at [address] [address]Rhcflty performed at [facility]#### LIMEL, LACEZ, SYDNEE, LRBCF, LACCGA, LLYMER, LTTG ####Testing performed at [address] [address] URIC ACIDon 01-26-2023 Urate [Mass/Vol] 2.8 mg/dL Normal 2.5-6.2 [facility] Comment on above: Performed By: #### M G, B12, URIC, TSH2, CPK, CREACT, LIP2, ESR, CMPF, ACBC ####Testing performed at [address] [address]#### LANCA ####Testing performed at [address], [place] [address]Cryjnkw performed at [facility]#### LIMIRENE, SALLIE, SYDNEE, LRBCF, LACCGA, LLYMER, LTTG ####Testing performed at [address] [place] [address] VITAMIN B12on 01-26-2023 Cobalamin (Vitamin B12) [Mass/Vol] 368 pg/mL Normal 239-931 [facility] Comment on above: Performed By: #### M G, B12, URIC, TSH2, CPK, CREACT, LIP2, ESR, CMPF, ACBC ####Testing performed at [address] [address]#### LANCA ####Testing performed at [address], [place] [address]Jqvqcvc performed at [facility]#### LIMEL, LACEZ, SYDNEE, LRBCF, LACCGA, LLYMER, LTTG ####Testing performed at [address] [place] [address] XR SHOULDER LEFT MIN 2 VIEWS on 01-26-2023 XR SHOULDER LEFT MIN 2 VIEWS XR SHOULDER LEFT MIN 2 VIEWS, XR SHOULDER RIGHT MIN 2 VIEWS, 01/26/2023 3:31 PM EDT, CALS CLINICAL HISTORY: shoulder pain. EXAMINATION: Left, right shoulder: 01/26/2023. COMPARISON: None. FINDINGS: Right shoulder: 3 views are provided which demonstrate moderate to severe narrowing of the glenohumeral joint with osteophytic spurring involving the inferior aspect of the glenoid, medial, lateral aspect of the humeral head without fractures or dislocations. The visualized clavicle, scapula appears intact. Surrounding soft tissues are normal. The visualized right ribs appear intact. Left shoulder: 3 views are provided which demonstrate moderate narrowing of the glenohumeral joint, mild narrowing of the AC joint without definite fractures or dislocations. Osteophytic spurs are seen involving the inferior aspect of the glenoid, medial aspect of the humeral head. There is mild osteopenia. There are no fractures or dislocations. The visualized left clavicle, scapula, visualized left epididymis. Intact. Surrounding soft tissues are normal. IMPRESSION: 1. No definite fractures or dislocations of the right shoulder. 2. No fractures or dislocations of the left shoulder. 3. Degenerative changes as described above involving the right as well as the left shoulder joint. Normal [facility] XR SHOULDER RIGHT MIN 2 VIEW Son 01-26-2023 XR SHOULDER RIGHT MIN 2 VIEWS XR SHOULDER LEFT MIN 2 VIEWS, XR SHOULDER RIGHT MIN 2 VIEWS, 01/26/2023 3:31 PM EDT, S CLINICAL HISTORY: shoulder pain. EXAMINATION: Left, right shoulder: 01/26/2023. COMPARISON: None. FINDINGS: Right shoulder: 3 views are provided which demonstrate moderate to severe narrowing of the glenohumeral joint with osteophytic spurring involving the inferior aspect of the glenoid, medial, lateral aspect of the humeral head without fractures or dislocations. The visualized clavicle, scapula appears intact. Surrounding soft tissues are normal. The visualized right ribs appear intact. Left shoulder: 3 views are provided which demonstrate moderate narrowing of the glenohumeral joint, mild narrowing of the AC joint without definite fractures or dislocations. Osteophytic spurs are seen involving the inferior aspect of the glenoid, medial aspect of the humeral head. There is mild osteopenia. There are no fractures or dislocations. The visualized left clavicle, scapula, visualized left epididymis. Intact. Surrounding soft tissues are normal. IMPRESSION: 1. No definite fractures or dislocations of the right shoulder. 2. No fractures or dislocations of the left shoulder. 3. Degenerative changes as described above involving the right as well as the left shoulder joint. Normal [facility] XR Shoulder - right 2 Viewso n 01-26-2023 Radiology Study observation (narrative) [facility] XR WRIST LEFT AP AND LATERAL on 01-26-2023 XR WRIST LEFT AP AND LATERAL EXAM: XR WRIST LEFT AP AND LATERAL HISTORY: wrist pain COMPARISON: None. TECHNIQUE: 2 views of the left wrist were obtained. FINDINGS: There is no apparent acute fracture or dislocation. Ulnar minus variance is present. There is slight relative widening of the scapholunate joint space. There is moderate narrowing of the joint space at the distal scaphoid bone. There is prominent narrowing of the first carpometacarpal joint, accompanied by osteophytes and soft tissue calcifications. Diffuse osteopenia is noted. IMPRESSION: No acute fracture or dislocation. Degenerative changes are seen at the joint space of the distal scaphoid bone and at the first carpometacarpal joint. There is mild relative widening of the scapholunate joint space suggesting disruption of the scapholunate ligament. Comparison with a previous study may be helpful in confirming the chronicity of these findings. Normal [facility] XR WRIST RIGHT AP AND LATERA Han 01-26-2023 XR WRIST RIGHT AP AND LATERAL EXAM: XR WRIST RIGHT AP AND LATERAL HISTORY: wrist pain COMPARISON: Right hand x-ray 08/28/2020 TECHNIQUE: 2 views of the right wrist were obtained pre- FINDINGS: There is no evidence of an acute fracture or dislocation. Ulnar minus variance is present with some degenerative changes at the distal radial and joint. There is relative widening of the scapholunate joint space. There is moderate narrowing of the joint space at the distal scaphoid bone. There is prominent narrowing at the first carpometacarpal joint accompanied by osteophytes and soft tissue calcifications. Diffuse osteopenia is noted. IMPRESSION: No acute fracture or dislocation. Degenerative changes are present, most probably seen at the distal scaphoid bone and the first carpometacarpal joint, as described. There is relative widening of the scapholunate joint space, suggesting disruption of the scapholunate ligament. Similar findings can be seen in the x-ray of the hand performed 08/28/2020. Normal [facility] XR Wrist - right AP and Late ralon 01-26-2023 IMPRESSION: No acute fracture or dislocation. Degenerative changes are present, most probably seen at the distal scaphoid bone and the first carpometacarpal joint, as described. There is relative widening of the scapholunate joint space, suggesting disruption of the scapholunate ligament. Similar findings can be seen in the x-ray of the hand performed 08/28/2020. RADIOLOGY EXAM: XR WRIST RIGHT AP AND LATERAL HISTORY: wrist pain COMPARISON: Right hand x-ray 08/28/2020 TECHNIQUE: 2 views of the right wrist were obtained pre- FINDINGS: There is no evidence of an acute fracture or dislocation. Ulnar minus variance is present with some degenerative changes at the distal radial and joint. There is relative widening of the scapholunate joint space. There is moderate narrowing of the joint space at the distal scaphoid bone. There is prominent narrowing at the first carpometacarpal joint accompanied by osteophytes and soft tissue calcifications. Diffuse osteopenia is noted. RADIOLOGY Kedar Tran MD - 01/26/2023 EXAM: XR WRIST RIGHT AP AND LATERAL HISTORY: wrist pain COMPARISON: Right hand x-ray 08/28/2020 TECHNIQUE: 2 views of the right wrist were obtained pre- FINDINGS: There is no evidence of an acute fracture or dislocation. Ulnar minus variance is present with some degenerative changes at the distal radial and joint. There is relative widening of the scapholunate joint space. There is moderate narrowing of the joint space at the distal scaphoid bone. There is prominent narrowing at the first carpometacarpal joint accompanied by osteophytes and soft tissue calcifications. Diffuse osteopenia is noted. IMPRESSION IMPRESSION: No acute fracture or dislocation. Degenerative changes are present, most probably seen at the distal scaphoid bone and the first carpometacarpal joint, as described. There is relative widening of the scapholunate joint space, suggesting disruption of the scapholunate ligament. Similar findings can be seen in the x-ray of the hand performed 08/28/2020. [facility]narrative[facility] XR Wrist - right AP and Late ralOrdered By: Kedar Tran on 01-26-2023 [facility] Work Phone: BASIC METABOLIC PANELon 08-0 Anion gap [Moles/Vol] 11 mmol/L [facility] Calcium [Mass/Vol] 9.2 mg/dL [facility] Chloride [Moles/Vol] 100 mmol/L [facility] CO2 [Moles/Vol] 25 mmol/L [facility] Creatinine [Mass/Vol] 0.50 mg/dL Low [facility] GFR COMMENT Average GFR for 70+ years old = 75. [facility] Comment on above: Chronic Kidney disea se, GFR = <60. Kidney failure, GFR = <15. The GFR estimate is not adjusted for extreme body surface area or acute process, nor has it been validated for women or ethnic groups other than and . GFR/1.73 sq M.predicted among blacks MDRD (S/P/Bld) [Vol rate/Area] 156 mL/min/{1.73_m2} ml/min/1.7 3sq.m [facility] GFR/1.73 sq M.predicted among non-blacks MDRD (S/P/Bld) [Vol rate/Area] 129 mL/min/{1.73_m2} ml/min/1.7 3sq.m [facility] Glucose post fast [Mass/Vol] 87 mg/dL [facility] Comment on above: NORMAL <100 mg/dL PREDIABETES 101-126 mg/dL DIABETES 126 mg/dL or higher Interpretation and review of laboratory results Abnormal [facility] Potassium [Moles/Vol] 3.8 mmol/L [facility] Sodium [Moles/Vol] 136 mmol/L [facility] Urea nitrogen [Mass/Vol] 25 mg/dL High [facility] XR Knee - left 4 Viewson IMPRESSION: Degenera tive changes are noted at the knee. No fracture, is seen. If there is high index of suspicion, consider MRI. RADIOLOGY EXAM: XR KNEE LEFT 4 + VIEWS HISTORY: chronic knee pain Knee examination left-sided AP lateral oblique views Findings: There is narrowing of the medial compartment of the knee, as well as the patellofemoral joint. Osteophyte formation is seen. No acute fracture is identified. No focal lesions are identified. RADIOLOGY Michel Olvera MD - 08/07/2021 EXAM: XR KNEE LEFT 4+ VIEWS HISTORY: chronic knee pain Knee examination left-sided AP lateral oblique views Findings: There is narrowing of the medial compartment of the knee, as well as the patellofemoral joint. Osteophyte formation is seen. No acute fracture is identified. No focal lesions are identified. IMPRESSION IMPRESSION: Degenerative changes are noted at the knee. No fracture, is seen. If there is high index of suspicion, consider MRI. [facility] Radiology Study observation (narrative) [facility] XR Knee - left 4 ViewsOrdere d By: Michel Olvera on 08-07-2021 [employer] Work Phone: XR Knee - right 4 Viewson FINDINGS/IMPRESSION: Mild medial and lateral compartment joint space narrowing. Tiny tricompartmental osteophytes. No joint effusion. RADIOLOGY EXAM: XR KNEE RIGHT 4+ VIEWS INDICATION: chronic pain COMPARISON: None. TECHNIQUE: Radiographs as described above RADIOLOGY Bruce Kinsey MD - 08/07/2021 EXAM: XR KNEE RIGHT 4+ VIEWS INDICATION: chronic pain COMPARISON: None. TECHNIQUE: Radiographs as described above IMPRESSION FINDINGS/IMPRESSION: Mild medial and lateral compartment joint space narrowing. Tiny tricompartmental osteophytes. No joint effusion. [facility] (narrative) [facility] XR Knee - right 4 ViewsOrder ed By: Bruce Kinsey on 08-07-2021 [employer] Work Phone: US Thyroid glandon 2 IMPRESSION: The thyroid gland is mildly enlarged. A small nodule is seen in the right lobe. Prominent nodule is seen in the isthmus. These appear unchanged. The larger nodule in the isthmus is TI RADS 4, and the smaller nodule in the right lobe is TI RADS 3. The overall appearance is essentially unchanged. Biopsy at this time is not recommended if the prior biopsy was of the larger isthmus nodule. A follow-up study in 12 months recommended. RADIOLOGY EXAM: US THYROID HISTORY: Thyromegaly . Follow-up study. The patient has had prior negative biopsy. COMPARISON: 07/09/2020 TECHNIQUE: Multiple sonographic images of the thyroid gland were obtained, supplemented with Doppler. FINDINGS: This study is technically difficult and slightly limited. The thyroid gland is mildly enlarged. The right lobe measures 4.8 x 1.6 x 1.7 cm. Heterogeneous echoes are seen throughout the lobe with slightly prominent vascularity. In the mid aspect there is a nodule present measuring 1.2 x 1.1 x 1.2 cm. This is solid and isoechoic. Microcalcifications are noted. The left lobe measures 5.1 x 1.4 x 1.9 cm. A generous echoes are seen throughout the lobe and there is mild increased vascularity. No definite focal nodule is identified. The isthmus measures 7 mm in thickness. There is rather prominent nodule closely related to the isthmus measures 3.5 x 1.4 x 2.8 cm. This is solid and isoechoic. No focal mass or abnormal fluid collection is seen surrounding the gland. RADIOLOGY Kedar Tran MD - 07/03/2021 EXAM: US THYROID HISTORY: Thyromegaly . Follow-up study. The patient has had prior negative biopsy. COMPARISON: 07/09/2020 TECHNIQUE: Multiple sonographic images of the thyroid gland were obtained, supplemented with Doppler. FINDINGS: This study is technically difficult and slightly limited. The thyroid gland is mildly enlarged. The right lobe measures 4.8 x 1.6 x 1.7 cm. Heterogeneous echoes are seen throughout the lobe with slightly prominent vascularity. In the mid aspect there is a nodule present measuring 1.2 x 1.1 x 1.2 cm. This is solid and isoechoic. Microcalcifications are noted. The left lobe measures 5.1 x 1.4 x 1.9 cm. A generous echoes are seen throughout the lobe and there is mild increased vascularity. No definite focal nodule is identified. The isthmus measures 7 mm in thickness. There is rather prominent nodule closely related to the isthmus measures 3.5 x 1.4 x 2.8 cm. This is solid and isoechoic. No focal mass or abnormal fluid collection is seen surrounding the gland. IMPRESSION IMPRESSION: The thyroid gland is mildly enlarged. A small nodule is seen in the right lobe. Prominent nodule is seen in the isthmus. These appear unchanged. The larger nodule in the isthmus is TI RADS 4, and the smaller nodule in the right lobe is TI RADS 3. The overall appearance is essentially unchanged. Biopsy at this time is not recommended if the prior biopsy was of the larger isthmus nodule. A follow-up study in 12 months recommended. [facility] Radiology Study observation (narrative) [facility] US Thyroid glandOrdered By: Kedar Tran on 07-03-2021 [facility] Work Phone: Hank 06-26-2021 ALT [Catalytic activity/Vol] 21 U/L [facility] CBC, EDIF, PLATELETon 2021 ABSOLUTE BASOPHIL COUNT 0.0 10*3/uL 0.0 - 0.2 10*3/uL [facility] Basophils/100 WBC (Bld) 0.5 % 0.0 - 2.0 % [facility] Differential cell count method Nom (Bld) AUTO DIFF % [facility] Eosinophils (Bld) [#/Vol] 0.20 10*3/uL 0.0 - 0.7 10*3/uL [facility] Eosinophils/100 WBC (Bld) 2.7 % 0.0 - 11.0 % [facility] Erythrocyte distribution width (RBC) [Ratio] 13.7 % 11.5 - 14.5 % [facility] Hematocrit (Bld) [Volume fraction] 38.7 % 36.0 - 48.0 % [facility] Hemoglobin (Bld) [Mass/Vol] 13.2 g/dL [facility] Interpretation and review of laboratory results Abnormal [facility] Lymphocytes (Bld) [#/Vol] 1.90 10*3/uL 1.2 - 3.4 10*3/uL [facility] Lymphocytes/100 WBC (Bld) 31.8 % 20.0 - 55.0 % [facility] MCH (RBC) [Entitic mass] 31.4 pg 26.0 - 35.0 PG [facility] MCHC (RBC) [Mass/Vol] 34.1 g/dL [facility] MCV (RBC) [Entitic vol] 92.1 fL [facility] Monocytes (Bld) [#/Vol] 0.7 10*3/uL 0.0 - 0.7 10*3/uL [facility] Monocytes/100 WBC (Bld) 12.5 % High 0.0 - 10.0 % [facility] Neutrophils (Bld) [#/Vol] 3.1 10*3/uL 1.4 - 6.5 10*3/uL [facility] Neutrophils/100 WBC (Bld) 52.5 % 37.0 - 75.0 % [facility] Platelet mean volume (Bld) [Entitic vol] 7.7 fL [facility] Platelets (Bld) [#/Vol] 256 10*3/uL 130.0 - 400.0 10*3/uL [facility] RBC (Bld) [#/Vol] 4.20 10*6/uL 4.0 - 5.4 10*6/uL [facility] WBC (Bld) [#/Vol] 6.0 10*3/uL 3.6 - 11.0 10*3/uL [facility] LIPID PANEL W CALCULATED LDL on 06-26-2021 Cholesterol [Mass/Vol] 200 mg/dL High [facility] Cholesterol in HDL [Mass/Vol] 89 mg/dL High [facility] Cholesterol in LDL [Mass/Vol] 100 mg/dL [facility] Cholesterol in VLDL [Mass/Vol] 11 mg/dL [facility] Cholesterol.total/Ch olesterol in HDL [Mass ratio] 2.25 {ratio} RATIO [facility] Comment on above: RISK TOTAL/HDL RATIO MEN WOMEN 1/2 AVERAGE 3.43 3.27 AVERAGE 4.97 4.44 2X AVERAGE 9.55 7.05 3X AVERAGE 23.99 11.04 Interpretation and review of laboratory results Abnormal [facility] Triglyceride [Mass/Vol] 55 mg/dL <150 MG/DL [facility] No Panel Informationon 06-26 [facility] HLA-B27on 02-25-2021 HLA-B27 KATE+probe Ql (Bld/Tiss) Negative [facility] Comment on above: (NOTE) HLA-B*27 Negative B27 allele interpretation for all loci based on IMGT/HLA database version 3.44 This test was developed and its performance characteristics determined by [employer]. It has not been cleared or approved by the Food and Drug Administration. [facility] CLIA ID Number [id number] This test was performed using PCR (Polymerase Chain Reaction)/SSOP (Sequence Specific Oligonucleotide Probes) technique. SBT (Sequence Based Typing) and/or SSP (Sequence Specific Primers) may be used as supplemental methods when necessary. Please contact [facility] Customer Service at if you have any questions. Director of HLA Laboratory Dr Jarvis Shah, PhD PERFORMED AT [facility] C REACTIVE PROTEINon CRP [Mass/Vol] mg/L 0 - 10.0 MG/L [facility] SEDIMENTATION RATE, AUTOMATE Don 02-15-2021 ESR (Bld) [Velocity] 2 mm/h [facility] XR FOOT LEFT 3+ VIEWS (STAND JOCELIN)on 01-18-2021 XR FOOT LEFT 3+ VIEWS (STANDARD) X-rays 3 views left foot: There is a exostosis on the lateral side of the 5th metatarsal head, there is a fourth intermetatarsal angle of roughly 8 to 10 degrees. There is also increase in the lateral deviation angle of about 8 degrees Dictated by: JONEL MALAGON on ThuJan 18, 2021 9:31:50 AM EDT Transcribed by: JOENL MALAGON on ThuJan 18, 2021 9:31:50 AM EDT Finalized by: JONEL MALAGON on ThuJan 18, 2021 9:31:50 AM EDT Normal [facility] Comment on above: Order Comment: Injur y/Trauma or Illness?:Illness/Other How long have you had these symptoms (acute/chronic)?:Chronic Reason for exam?:tailor bunion History of cancer?:u Surgeries, chemotherapy, or radiation?:u Type of Exam?:Initial Additional signs and symptoms?:none X-rays 3 views left foot: There is a exostosis on the lateral side of the 5th metatarsal head, there is a fourth intermetatarsal angle of roughly 8 to 10 degrees. There is also increase in the lateral deviation angle of about 8 degrees GE RIS [facility] Radiology Study observation (narrative) [facility] XR FOOT RIGHT 3+ VIEWS (LAVON DARD)on 01-18-2021 XR FOOT RIGHT 3+ VIEWS (STANDARD) X-rays 3 views right foot: There is a medial bony prominence of the 1st metatarsal head, 1st metatarsal angle of roughly 16 degrees, 1st MPJ is well preserved, the hallux has about 25 degrees of abduction. Dictated by: JONEL MALAGON on ThuJan 18, 2021 9:32:25 AM EDT Transcribed by: JONEL MALAGON on ThuJan 18, 2021 9:32:25 AM EDT Finalized by: JONEL MALAGON on ThuJan 18, 2021 9:32:25 AM EDT Normal [facility] Comment on above: Order Comment: Injur y/Trauma or Illness?:Illness/Other How long have you had these symptoms (acute/chronic)?:Chronic Reason for exam?:bunion and callus History of cancer?:u Surgeries, chemotherapy, or radiation?:u Type of Exam?:Initial Additional signs and symptoms?:none X-rays 3 views right foot: There is a medial bony prominence of the 1st metatarsal head, 1st metatarsal angle of roughly 16 degrees, 1st MPJ is well preserved, the hallux has about 25 degrees of abduction. [facility] Radiology Study observation (narrative) [facility] US THYROIDon 07-10-2020 IMPRESSION: Interval significant increase in size of a thyroid isthmus nodule. Consider ultrasound-guided fine-needle aspiration for histopathologic diagnosis TI-RADS: [employer] TI-RADS committee's white paper recommendations for thyroid lesions classified as TR3 (mildly suspicious) are listed below: > 1.5 cm. Follow-up ultrasound in 1, 3, and 5 years. > 2.5 cm. FNA. J. Am Carito Radiol 2017;14:587-595. TI-RADS: [employer] TI-RADS committee's white paper recommendations for thyroid lesions classified as TR4 (moderately suspicious) are listed below: > 1.0 cm. Follow-up ultrasound in 1, 2, 3, and 5 years. > 1.5 cm. FNA. [employer] Radiol 2017;14:587-595. [facility] EXAMINATION: US THYR OID HISTORY: E04.1 COMPARISON: 10/29/2015 TECHNIQUE: Sonographic images of the thyroid gland were obtained. FINDINGS: The right thyroid lobe is increased in size from the prior exam, there is heterogeneous in echotexture measuring 5.7 x 1.4 x 1.7 cm. Single nodule. Nodule 1: Mid lobe, 1.1 x 0.7 x 1.0 cm. Solid, very hypoechoic, wide, ill-defined margins, no calcifications TR 4 The thyroid isthmus is mildly thickened measuring 4 mm. Single nodule Nodule 1:3.1 x 1.9 x 2.7 cm. Solid, isoechoic, wide, smooth margins, no calcifications. TR 3 The left thyroid lobe is increased in size from the prior exam, heterogeneous echotexture. The lobe measures 5.5 x 1.3 x 1.5 cm. The previously noted nodule is not definitively seen [employer] User, Interfaces - 07/10/2020 7:08 AM EDT EXAMINATION: US THYROID HISTORY: E04.1 COMPARISON: 10/29/2015 TECHNIQUE: Sonographic images of the thyroid gland were obtained. FINDINGS: The right thyroid lobe is increased in size from the prior exam, there is heterogeneous in echotexture measuring 5.7 x 1.4 x 1.7 cm. Single nodule. Nodule 1: Mid lobe, 1.1 x 0.7 x 1.0 cm. Solid, very hypoechoic, wide, ill-defined margins, no calcifications TR 4 The thyroid isthmus is mildly thickened measuring 4 mm. Single nodule Nodule 1:3.1 x 1.9 x 2.7 cm. Solid, isoechoic, wide, smooth margins, no calcifications. TR 3 The left thyroid lobe is increased in size from the prior exam, heterogeneous echotexture. The lobe measures 5.5 x 1.3 x 1.5 cm. The previously noted nodule is not definitively seen IMPRESSION IMPRESSION: Interval significant increase in size of a thyroid isthmus nodule. Consider ultrasound-guided fine-needle aspiration for histopathologic diagnosis TI-RADS: [employer] TI-RADS committee's white paper recommendations for thyroid lesions classified as TR3 (mildly suspicious) are listed below: > 1.5 cm. Follow-up ultrasound in 1, 3, and 5 years. > 2.5 cm. FNA. J[employer] Radiol 2017;14:587-595. TI-RADS: [employer] TI-RADS committee's white paper recommendations for thyroid lesions classified as TR4 (moderately suspicious) are listed below: > 1.0 cm. Follow-up ultrasound in 1, 2, 3, and 5 years. > 1.5 cm. FNA. J[employer] Radiol 2017;14:587-595. [facility] PROGRESSon 11-21-2019 PROGRESS HNO ID: [id number] Author: Interface Note Service: ? Author Type: ? Type: Progress Notes Filed: 11/21/2019 10:55 AM Note Text: The surgical encounter documentation contains information performed by a different Socorro [place]a than is indicated by the provider record. Clinical care was provided and documented by the correct provider. [facility] ANES Hai 02-01-2018 ANES POST HNO ID: [id number] thor: Syed Landonervice: AnesthesiologyAuthor Type: AnesthesiologistType: Anesthesia PostOpFiled: 02/01/2018 3:28 PMNote Text:POST ANESTHESIA EVALUATION NOTESERVICE DATE: February 01, 2018SERVICE TIME: 3:28 PMDOB: 1950Vitals: 02/01/18142BP: 160/67 95/58 104/57Pulse: 78 (!) 59 72Resp: 16 16 22Temp: 36.7 ?C (98.1 ?F) 37.1 ?C (98.8 ?F)SpO2: 98% 100% 100%Weight: 57.6 kg (127 lb)Validated Vital Signs: YesNo apparent anesthetic complications. The patient is appropriatelyhydrated with stable respiratory and cardiovascular status. Patient hassafe and adequate airway control. The patient has appropriate pain reliefand no significant post operative nausea or vomiting. The patient hasachieved baseline mental status.Intra-Operative Events: No Significant Anesthesia EventsFurther assessment by Anesthesia Service: NoneOther Remarks:SIGNATURE: Syed Noriega DO PATIENT NAME: Harriet FloresTE:February 01, 2018 :3:28 PM PAGER/CONTACT #: [phone] [facility] ANES PREOPon 02-01-2018 ANES PREOP HNO ID: [id number] thor: Syed Landonervice: AnesthesiologyAuthor Type: AnesthesiologistType: Anesthesia PreOpFiled: 02/01/2018 1:03 PMNote Text: ANESTHESIOLOGY DAY OF SURGERY NOTESERVICE DATE: 02/01/2018SERVICE TIME:: 1950rocedure(s) (LRB):COLONOSCOPY (N/A)Surgeon(s):Trae WhittingtonEstimated body mass index is 22.5 kg/m? as calculated from the following: Height as of 01/04/18: 160 cm (5' 3 ). Weight as of this encounter: 57.6 kg (127 lb).Most recent hematocrit and potassium results:Hematocrit 38.8 01/04/2018Potassium 4.3 01/04/2018ANES DOS/PREOP NOTE:Vitals: 237BP: 160/67Pulse: 78Resp: 16Temp: 36.7 ?C (98.1 ?F)SpO2: 98%Weight: 57.6 kg (127 lb)ACTIVE PROBLEM LISTOther Congenital Anomaly of NoseDeviated Nasal SeptumAllergic Rhinitis Due to Animal (Cat) (Dog) Hair and DanderDysfunction of Eustachian TubeActive Meniere's Disease, CochlearPAST MEDICAL HISTORYDiagnosis Date- Allergic rhinitis, cause unspecified worse inthe winter- Diseases of mitral valve prolapse, diagnosed 7 y ago- Hearing loss right side- MVP (mitral valve prolapse)- ThyroiditisPAST SURGICAL HISTORYProcedure Laterality Date- BX OF BREAST; INCISIONAL 1974 right- PAST SURGICAL HISTORY OF 2005 right shoulder surgery- REPAIR OF NASAL SEPTUM 2003 SeptoplastyFAMILY HISTORYProblem Relation Age of Onset- COPD Mother- Diabetes Mother- Ischemic Heart Disease Father- Colon Cancer Father- Hypertension Brother- other (multiple sclerosis) Maternal Aunt- other (leg cramps) Maternal Aunt similar history in other family members on mom's sideSocial History:Social HistorySubstance Use Topics- Smoking status: Never Smoker- Smokeless tobacco: Never Used- Alcohol use Yes Comment: a glass of wine about qodCurrent Outpatient Prescriptions on File Prior to Encounter:B Complex Vitamins capsule Take 1 capsule by mouth once daily.calcium carbonate/vitamin D3 (CALCIUM 500 + D ORAL) Take 1 tablet by mouthonce daily.cholecalciferol (VITAMIN D3) 2,000 unit tablet Take 3,600 Units by mouthonce daily.tretinoin (RETIN-A) 0.05 % cream Apply 0.05 application to affected areaas needed.Magnesium Oxide 500 mg tab Take 500 mg by mouth once daily.CALCIUM CARBONATE/VITAMIN D3 (CALCIUM + D ORAL) Take 1 tablet by mouthonce daily.loratadine(CLARITIN 10 MG TAB) Take one(1) tablet daily as needed forallergy symptoms.NASONEX 50 MCG/ACTUATION SPRAY Two puffs each nostril each AMSaccharomyces boulardii (FLORASTOR) 250 mg capsule Take 1 capsule by mouthonce daily.fluticasone (FLONASE) 50 mcg/actuation nasal spray Use 1 [place] in eachnostril as directed.metroNIDAZOLE 1 % gel Apply 1 application to affected area as needed.PHENYLephrine (SUDAFED PE) 10 mg tablet Take 10 mg by mouth as needed.Multivitamin capsule Take 1 capsule by mouth once daily.Saccharomyces boulardii (FLORASTOR) 250 mg capsule Take 250 mg by mouthonce daily.pregabalin (LYRICA) 75 mg capsule Take 75 mg by mouth twice daily.VIT E 400IU ASCENCION'L BLEND CAP one per day (Patient not taking: Reported on01/04/2018)MULTIVITAMIN TABLET Take one(1) tablet daily.No current facility-administered medications on file prior to encounter.Current Outpatient Prescriptions:B Complex Vitamins capsule Take 1 capsule by mouth once daily. Disp: Rfl:calcium carbonate/vitamin D3 (CALCIUM 500 + D ORAL) Take 1 tablet by mouthonce daily. Disp: Rfl:cholecalciferol (VITAMIN D3) 2,000 unit tablet Take 3,600 Units by mouthonce daily. Disp: Rfl:tretinoin (RETIN-A) 0.05 % cream Apply 0.05 application to affected areaas needed. Disp: Rfl:Magnesium Oxide 500 mg tab Take 500 mg by mouth once daily. Disp: Rfl:CALCIUM CARBONATE/VITAMIN D3 (CALCIUM + D ORAL) Take 1 tablet by mouthonce daily. Disp: Rfl:loratadine(CLARITIN 10 MG TAB) Take one(1) tablet daily as needed forallergy symptoms. Disp: Rfl: 0NASONEX 50 MCG/ACTUATION SPRAY Two puffs each nostril each AM Disp: 1bottle Rfl: 6Saccharomyces boulardii (FLORASTOR) 250 mg capsule Take 1 capsule by mouthonce daily. Disp: Rfl:fluticasone (FLONASE) 50 mcg/actuation nasal spray Use 1 [place] in eachnostril as directed. Disp: Rfl:metroNIDAZOLE 1 % gel Apply 1 application to affected area as needed.Disp: Rfl:PHENYLephrine (SUDAFED PE) 10 mg tablet Take 10 mg by mouth as needed.Disp: Rfl:Multivitamin capsule Take 1 capsule by mouth once daily. Disp: Rfl:Saccharomyces boulardii (FLORASTOR) 250 mg capsule Take 250 mg by mouthonce daily. Disp: Rfl:pregabalin (LYRICA) 75 mg capsule Take 75 mg by mouth twice daily. Disp:Rfl:VIT E 400IU ASCENCION'L BLEND CAP one per day (Patient not taking: Reported on01/04/2018) Disp: Rfl: 0MULTIVITAMIN TABLET Take one(1) tablet daily. Disp: Rfl: 0No current facility-administered medications for this encounter.Allergies:ALLERGIE SAllergen Reactions- Morphine- No Latex Allergy [O*- Thimerasol [Other] a preservative as in Flu and Hepitis B vaccinesDOS EXAM: Adequate NPO status: YesAnesthetic risks, benefits, alternatives, personnel and consent discussed:YesPatient agrees to proceed: YesPrevious Anesthesia: No history of adverse event.Airway Assessment: MP 2; Neck ROM: Full ROM without neurologic symptoms;Airway Evaluation: No significant abnormalitiesSymptoms of Sleep Apnea: Age over 50 (67 year old)Dentition: Teeth intactAdditional Physical Exam:Lungs: Patient health status unchanged since recent history and physical.See history and physical for exam findings.Cardiac: Patient health status unchanged since recent history andphysical. See history and physical for exam findings.Additional Pertinent Findings: N/ABlood Products: Not anticipated for this procedure.Anesthetic Plan: MAC with Sedation and Standard ASA MonitorsPain Management Plan: Parenteral or OralASA Class: 2Other Medical Problems: NoneChronic Beta Ralf medication administered within 24 hours: N/AI have interviewed and examined the patient. I have reviewed the medicalrecord and/or the pre-anesthesia evaluation, pertinent labs, and testresults.Significant changes in the patient's condition since the History andPhysical, not otherwise documented in primary service progress notes: NoThis contains updated information obtained within 48 hours ofSurgery/Procedure.SIGNATUR E: Syed Noriega DO PATIENT NAME: Harriet EngelDATE: February 01, 2018 : 1:02 PM CSN: [id number] [facility] HISTORY PHYSICALon HISTORY PHYSICAL HNO ID: [id number] thor: Magaly BaldwinService: GastroenterologyAuthor Type: Nurse PractitionerType: HANDPFiled: 02/01/2018 12:52 PMNote Text:ADDENDUM AND UPDATED HISTORY AND PHYSICAL EXAMINATIONSERVICE DATE: 02/01/2018SERVICE TIME: 12:46 PMSERVICE: GastroenterologyPHYSICAL EXAM MUST BE COMPLETED ON ADMISSIONThe History and Physical (completed in the past 30 days) has been reviewedand the patient has been examined. The contents accurately reflect thepatient's condition with the following additions or revisions since theHANDP was completed.Patient denies any changes to health since last examination. Plannedprocedure for today is Colonoscopy.REVIEW OF SYSTEMSGENERAL: No weight loss, malaise or feversHEENT: Negative for significant headaches, No changes in hearing orvision, no nose bleeds or other nasal problems. + Frequent mild headaches,secondary to stress.NECK: Negative for lumps, goiter, and significant neck swelling. + Neckpain.RESPIRATORY: Negative for cough, hemoptysis, wheezing, COPD, dyspnea orshortness of breathCARDIOVASCULAR: Negative for chest pain, leg swelling, hypertension, CHFor palpitationsGI: No nausea, vomiting, or constipation. + Diarrhea, secondary to diet. +Occasional abdominal pain and bloody stool. + Hemorrhoids.: No history of dysuria or incontinence. + Urinary frequency.MUSCULOSKELETAL: Negative for joint swelling, back pain or muscle pain.+Generalized joint pain. + Hand stiffness.SKIN: Negative for lesions, rash, and itching. + Psoriasis on hands.PSYCH: + Anxiety and depression.HEMATOLOGY/LYMPHO LOGY: Negative for prolonged bleeding, bruising easily orswollen nodesENDOCRINE: Negative for cold or heat intolerance, polyuria, polydipsia andgoiter. + Benign thyroid tumor.NEURO: No history of syncope, paralysis, seizures or tremors. + Mildheadaches.Medication reconciliation list reviewed in [facility].Past medical history, past surgical history, social history and familyhistory reviewed and updated in [facility].ALLERGIESAllergen Reactions- Morphine- No Latex Allergy [O*- Thimerasol [Other] a preservative as in Flu and Hepitis B vaccinesBP 160/67 Pulse 78 Temp 36.7 ?C (98.1 ?F) Resp 16 Wt 57.6 kg(127 lb) SpO2 98% BMI 22.50 kg/m?Examination indicates no changes.On examination today:General: Alert and appropriate.Lungs: Clear to auscultation bilaterally.Heart: Rate within normal limits. Regular rhythm .Abdomen: BS present x4, soft, non tender.A: ScreeningP: ColonoscopyThis HANDP can be found in the Electronic Medical Record dated 01/03/2018 byDr. Baldo Whittington.SIGNATURE: Magaly Baldwin APRN.CNP PATIENT NAME: Harriet EngelDATE: February 01, 2018 : 12:46 PM [facility] PT EDon 02-01-2018 PT ED HNO ID: [id number] thor: Marie (Rn) Jin, RNService: NursingAuthor Type: Registered NurseType: Patient EducationFiled: 02/01/2018 12:47 PMNote Text:PATIENT EDUCATION TOPIC: PROCEDURE / SURGERY: Pre-op Teaching:ProtocolsPATIENT NAME: Harriet EngelMRN: [id number] LOCATION: Room/bed info not foundREADINESS TO LEARNCOGNITIVE ABILITY: Alert and orientedMOTIVATION TO LEARN: InterestedFAMILY SUPPORT: None - Unavailable/disinterestedINS TRUCTION PROVIDED TO: PatientPATIENT LEARNS BEST BY: Verbal InstructionFACTORS AFFECTING LEARNING: NonePHYSICAL LIMITATIONS AFFECTING LEARNING: NoneLEARNING RESPONSEDIAGNOSIS: ADULT: ColonoscopyPATIENT/FAMILY RESPONSE: Information received as demonstrated byinterest and questionsMETHOD OF INSTRUCTION: Verbal instructionFOLLOW-UP PLAN: Complete - No need for follow-upINSTRUCTIONAL AIDS USED: NASUPPLEMENTAL MATERIAL PROVIDED TO PATIENT: NoneREFERRAL (RECOMMENDATION): NoneElectronically Signed By: MARIE BENAVIDES RN [facility] SURGICAL PATHOLOGYon 018 SURGICAL PATHOLOGY [facility]: [id number] Physician: TRAE WHITTINGTON FINA L DIAGNOSIS1. Colon, right random, biopsy (A) - Colonic mucosa with no diagnosticabnormalities.2. Colon, descending random, biopsy (B) - Colonic mucosa with no diagnosticabnormalities. 3. Colon, descending polyp, biopsy (C) - Colonic mucosa with prominentlymphoid aggregate and no other diagnostic abnormalities. EDGARD/yuliya 02/05/18Puneet Huggins M.D., Ph.D.(Electronic Signature) SPECIME N SUBMITTEDA: RIGHT COLON, RANDOM BIOPSY B: DESCENDING COLON, RANDOM BIOPSY C: DESCENDING COLON POLYP 1 MM CLINICAL DATADIARRHEAA-B: R/O MICROSCOPIC COLITISC: R/O ADENOMAGROSS DESCRIPTIONA. Received in formalin is one piece of de leon, soft tissue measuring 0.4 x0.3 x 0.3 cm. Totally submitted in one cassette.B. Received in formalin are three pieces of de leon, soft tissue aggregating to0.5 x 0.2 x 0.2 cm. Totally submitted in one cassette.C. Received in formalin is one piece of de leon, soft tissue measuring 0.3 x0.3 x 0.2 cm. Totally submitted in one cassette.Gross examination performed at [facility], [address] [place], [place] [id number] 02/02/2018 12:33:52 PMPatient ID #: [id number] of Report: 02/05/2018Date of Procedure: 02/01/2018Date of Receipt: 02/02/2018Submitted by: TRAE Brooks GARDEJALocation: [facility] SUR[facility] CENTERDiagnostic interpretation performed at [place] [address]. [facility] PROGRESSon 01-28-2018 Protein mass conc HNO ID: [id number] thor: Alo MullenSer: GastroenterologyAuthor Type: Physician AssistantType: Progress NotesFiled: 01/28/2018 1:42 PMNote Text:I have reviewed the patients allergies and entered the orders as requestedby the procedural physician or per anesthesia guidelines.Edilson Agrawal II 20171:42 PM [facility] HOSPon 01-26-2018 HOSP Patient:Harriet Engel MRN: Height:5' 3 (1.6 m)Weight:127 lb (57.607 kg)Outpatient Medications as of 02/01/18:B Complex Vitamins capsulecalcium carbonate/vitamin D3 (CALCIUM 500 + D ORAL)cholecalciferol (VITAMIN D3) 2,000 unit tabletSaccharomyces boulardii (FLORASTOR) 250 mg capsulefluticasone (FLONASE) 50 mcg/actuation nasal spraymetroNIDAZOLE 1 % gelPHENYLephrine (SUDAFED PE) 10 mg tablettretinoin (RETIN-A) 0.05 % creamMultivitamin capsuleSaccharomyces boulardii (FLORASTOR) 250 mg capsulepregabalin (LYRICA) 75 mg capsuleMagnesium Oxide 500 mg tabCALCIUM CARBONATE/VITAMIN D3 (CALCIUM + D ORAL)loratadine(CLARITIN 10 MG TAB)NASONEX 50 MCG/ACTUATION SPRAYVIT E 400IU ASCENCION'L BLEND CAPMULTIVITAMIN TABLETAdmission/Clinic Administered Medications as of 02/01/18:Patient has no admission medications.Problem List: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 Whittington 01-04-18ED visit Date: N/AOutside HANDP Scanned Date: N/ALabs Within Last 6 Months:CBC: Date 01-04-18BMP/CMP: Date 5-97-52Mngxqp acceptable limits, results in EPIC.Imaging Within Last 12 Months:N/ACardiac Testing:N/ALast Menstrual Period:LMP Date: Not recordedPostmenopausal >1yr: Not recorded,S/P Hysterectomy: NoBMI Percentile (PEDS):N/ARisk Assessment:N/AAnesthesia Review:N/ANarrative:N/APre-o p Considerations:N/AChart Check:Sameera Camarillo RNOctsuha 2017 12:02 PMEolivia Mullen II, PA-C 01/28/2018 1:42 PM SignedI have reviewed the patients allergies and entered the orders as requested bythe procedural physician or per anesthesia guidelines.Edilson Agrawal II 20171:42 Jose Baldwin APRN.CNP 02/01/2018 12:52 PM SignedADDENDUM AND UPDATED HISTORY AND PHYSICAL EXAMINATIONSERVICE DATE: 02/01/2018SERVICE TIME: 12:46 PMSERVICE: GastroenterologyPHYSICAL EXAM MUST BE COMPLETED ON ADMISSIONThe History and Physical (completed in the past 30 days) has been reviewed andthe patient has been examined. The contents accurately reflect the patient'scondition with the following additions or revisions since the HANDP was completed.Patient denies any changes to health since last examination. Planned procedurefor today is Colonoscopy.REVIEW OF SYSTEMSGENERAL: No weight loss, malaise or feversHEENT: Negative for significant headaches, No changes in hearing or vision, nonose bleeds or other nasal problems. + Frequent mild headaches, secondary tostress.NECK: Negative for lumps, goiter, and significant neck swelling. + Neck pain.RESPIRATORY: Negative for cough, hemoptysis, wheezing, COPD, dyspnea orshortness of breathCARDIOVASCULAR: Negative for chest pain, leg swelling, hypertension, CHF orpalpitationsGI: No nausea, vomiting, or constipation. + Diarrhea, secondary to diet. +Occasional abdominal pain and bloody stool. + Hemorrhoids.: No history of dysuria or incontinence. + Urinary frequency.MUSCULOSKELETAL: Negative for joint swelling, back pain or muscle pain.+Generalized joint pain. + Hand stiffness.SKIN: Negative for lesions, rash, and itching. + Psoriasis on hands.PSYCH: + Anxiety and depression.HEMATOLOGY/LYMPHO LOGY: Negative for prolonged bleeding, bruising easily orswollen nodesENDOCRINE: Negative for cold or heat intolerance, polyuria, polydipsia andgoiter. + Benign thyroid tumor.NEURO: No history of syncope, paralysis, seizures or tremors. + Mild headaches.Medication reconciliation list reviewed in [facility].Past medical history, past surgical history, social history and family historyreviewed and updated in [facility].ALLERGIESAllergen Reactions- Morphine- No Latex Allergy [O*- Thimerasol [Other] a preservative as in Flu and Hepitis B vaccinesBP 160/67 Pulse 78 Temp 36.7 ?C (98.1 ?F) Resp 16 Wt 57.6 kg (127lb) SpO2 98% BMI 22.50 kg/m?Examination indicates no changes.On examination today:General: Alert and appropriate.Lungs: Clear to auscultation bilaterally.Heart: Rate within normal limits. Regular rhythm .Abdomen: BS present x4, soft, non tender.A: ScreeningP: ColonoscopyThis HANDP can be found in the Electronic Medical Record dated 01/03/[address] Whittington.SIGNATURE: Magaly Baldwin APRN.CNP PATIENT NAME: Harriet EngelDATE: February 01, 2018 : 12:46 SUZETTE BENAVIDES RN, RN 02/01/2018 12:47 PM SignedPATIENT EDUCATION TOPIC: PROCEDURE / SURGERY: Pre-op Teaching: ProtocolsPATIENT NAME: Harriet EngelMRN: [id number] LOCATION: Room/bed info not foundREADINESS TO LEARNCOGNITIVE ABILITY: Alert and orientedMOTIVATION TO LEARN: InterestedFAMILY SUPPORT: None - Unavailable/disinterestedINS TRUCTION PROVIDED TO: PatientPATIENT LEARNS BEST BY: Verbal InstructionFACTORS AFFECTING LEARNING: NonePHYSICAL LIMITATIONS AFFECTING LEARNING: NoneLEARNING RESPONSEDIAGNOSIS: ADULT: ColonoscopyPATIENT/FAMILY RESPONSE: Information received as demonstrated by interest andquestionsMETHOD OF INSTRUCTION: Verbal instructionFOLLOW-UP PLAN: Complete - No need for follow-upINSTRUCTIONAL AIDS USED: NASUPPLEMENTAL MATERIAL PROVIDED TO PATIENT: NoneREFERRAL (RECOMMENDATION): NoneElectronically Signed By: Maia REARDON DO 02/01/2018 1:03 PM Signed ANESTHESIOLOGY DAY OF SURGERY NOTESERVICE DATE: 02/01/2018SERVICE TIME:: 1Procedure(s) (LRB):COLONOSCOPY (N/A)Surgeon(s):Trae WhittingtonEstimated body mass index is 22.5 kg/m? as calculated from the following: Height as of 01/04/18: 160 cm (5' 3 ). Weight as of this encounter: 57.6 kg (127 lb).Most recent hematocrit and potassium results:Hematocrit 38.8 01/04/2018Potassium 4.3 01/04/2018ANES DOS/PREOP NOTE:Vitals: 237BP: 160/67Pulse: 78Resp: 16Temp: 36.7 ?C (98.1 ?F)SpO2: 98%Weight: 57.6 kg (127 lb)ACTIVE PROBLEM LISTOther Congenital Anomaly of NoseDeviated Nasal SeptumAllergic Rhinitis Due to Animal (Cat) (Dog) Hair and DanderDysfunction of Eustachian TubeActive Meniere's Disease, CochlearPAST MEDICAL HISTORYDiagnosis Date- Allergic rhinitis, cause unspecified worse inthe winter- Diseases of mitral valve prolapse, diagnosed 7 y ago- Hearing loss right side- MVP (mitral valve prolapse)- ThyroiditisPAST SURGICAL HISTORYProcedure Laterality Date- BX OF BREAST; INCISIONAL 1974 right- PAST SURGICAL HISTORY OF 2005 right shoulder surgery- REPAIR OF NASAL SEPTUM 2004 SeptoplastyFAMILY HISTORYProblem Relation Age of Onset- COPD Mother- Diabetes Mother- Ischemic Heart Disease Father- Colon Cancer Father- Hypertension Brother- other (multiple sclerosis) Maternal Aunt- other (leg cramps) Maternal Aunt similar history in other family members on mom's sideSocial History:Social HistorySubstance Use Topics- Smoking status: Never Smoker- Smokeless tobacco: Never Used- Alcohol use Yes Comment: a glass of wine about qodCurrent Outpatient Prescriptions on File Prior to Encounter:B Complex Vitamins capsule Take 1 capsule by mouth once daily.calcium carbonate/vitamin D3 (CALCIUM 500 + D ORAL) Take 1 tablet by mouth oncedaily.cholecalciferol (VITAMIN D3) 2,000 unit tablet Take 3,600 Units by mouth oncedaily.tretinoin (RETIN-A) 0.05 % cream Apply 0.05 application to affected area asneeded.Magnesium Oxide 500 mg tab Take 500 mg by mouth once daily.CALCIUM CARBONATE/VITAMIN D3 (CALCIUM + D ORAL) Take 1 tablet by mouth oncedaily.loratadine(CLARITI N 10 MG TAB) Take one(1) tablet daily as needed for allergysymptoms.NASONEX 50 MCG/ACTUATION SPRAY Two puffs each nostril each AMSaccharomyces boulardii (FLORASTOR) 250 mg capsule Take 1 capsule by mouth oncedaily.fluticasone (FLONASE) 50 mcg/actuation nasal spray Use 1 [place] in each nostrilas directed.metroNIDAZOLE 1 % gel Apply 1 application to affected area as needed.PHENYLephrine (SUDAFED PE) 10 mg tablet Take 10 mg by mouth as needed.Multivitamin capsule Take 1 capsule by mouth once daily.Saccharomyces boulardii (FLORASTOR) 250 mg capsule Take 250 mg by mouth oncedaily.pregabalin (LYRICA) 75 mg capsule Take 75 mg by mouth twice daily.VIT E 400IU ASCENCION'L BLEND CAP one per day (Patient not taking: Reported on01/04/2018)MULTIVITAMIN TABLET Take one(1) tablet daily.No current facility-administered medications on file prior to encounter.Current Outpatient Prescriptions:B Complex Vitamins capsule Take 1 capsule by mouth once daily. Disp: Rfl:calcium carbonate/vitamin D3 (CALCIUM 500 + D ORAL) Take 1 tablet by mouth oncedaily. Disp: Rfl:cholecalciferol (VITAMIN D3) 2,000 unit tablet Take 3,600 Units by mouth oncedaily. Disp: Rfl:tretinoin (RETIN-A) 0.05 % cream Apply 0.05 application to affected area asneeded. Disp: Rfl:Magnesium Oxide 500 mg tab Take 500 mg by mouth once daily. Disp: Rfl:CALCIUM CARBONATE/VITAMIN D3 (CALCIUM + D ORAL) Take 1 tablet by mouth oncedaily. Disp: Rfl:loratadine(CLARITIN 10 MG TAB) Take one(1) tablet daily as needed for allergysymptoms. Disp: Rfl: 0NASONEX 50 MCG/ACTUATION SPRAY Two puffs each nostril each AM Disp: 1 bottleRfl: 6Saccharomyces boulardii (FLORASTOR) 250 mg capsule Take 1 capsule by mouth oncedaily. Disp: Rfl:fluticasone (FLONASE) 50 mcg/actuation nasal spray Use 1 [place] in each nostrilas directed. Disp: Rfl:metroNIDAZOLE 1 % gel Apply 1 application to affected area as needed. Disp:Rfl:PHENYLephrine (SUDAFED PE) 10 mg tablet Take 10 mg by mouth as needed. Disp:Rfl:Multivitamin capsule Take 1 capsule by mouth once daily. Disp: Rfl:Saccharomyces boulardii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 [facility] 08-01-2021 15:50-0400 Body height 161.3 cm Bailee Haus DO Work Phone: [facility] [employer] [facility] 08-01-2021 15:50-0400 Body mass index (BMI) [Ratio] 23.45 kg/m2 Bailee Haus DO Work Phone: [facility] [employer] [facility] 08-01-2021 15:50-0400 Body temperature 95.2 [degF] Bailee Haus DO Work Phone: [facility] [employer] [facility] 08-01-2021 15:50-0400 Body weight 61.01 kg Bailee Haus DO Work Phone: [facility] [employer] [facility] 08-01-2021 15:50-0400 Diastolic blood pressure 60 mm[Hg] Bailee Haus DO Work Phone: [facility] [employer] [facility] 08-01-2021 15:50-0400 Heart rate 78 /min Bailee Haus DO Work Phone: [facility] [employer] [facility] 08-01-2021 15:50-0400 SaO2% (BldA) [Mass fraction] 95 % Bailee Haus DO Work Phone: [facility] [employer] [facility] 08-01-2021 15:50-0400 Systolic blood pressure 136 mm[Hg] Bailee Haus DO Work Phone: [facility] [employer] [facility] 06-25-2021 16:03-0400 Body height 161.3 cm Bailee Haus DO Work Phone: [facility] [employer] [facility] 06-25-2021 16:03-0400 Body mass index (BMI) [Ratio] 23.36 kg/m2 Bailee Haus DO Work Phone: [facility] 06-25-2021 16:03-0400 Body temperature 99 [degF] Bailee Haus DO Work Phone: [facility] 06-25-2021 16:03-0400 Body weight 60.78 kg Bailee Haus DO Work Phone: [facility] 06-25-2021 16:03-0400 Diastolic blood pressure 70 mm[Hg] Bailee Haus DO Work Phone: [facility] 06-25-2021 16:03-0400 Heart rate 80 /min Bailee Haus DO Work Phone: [facility] 06-25-2021 16:03-0400 SaO2% (BldA) [Mass fraction] 92 % Bailee Haus DO Work Phone: [facility] 06-25-2021 16:03-0400 Systolic blood pressure 130 mm[Hg] Bailee Haus DO Work Phone: [facility] 02-15-2021 09:45-0400 Body height 161.3 cm Bailee Haus DO Work Phone: [facility] 02-15-2021 09:45-0400 Body mass index (BMI) [Ratio] 23.17 kg/m2 Bailee Haus DO Work Phone: [facility] 02-15-2021 09:45-0400 Body temperature 97.81 [degF] Bailee Haus DO Work Phone: [facility] 02-15-2021 09:45-0400 Body weight 60.28 kg Bailee Haus DO Work Phone: [facility] 02-15-2021 09:45-0400 Diastolic blood pressure 68 mm[Hg] Bailee Haus DO Work Phone: [facility] 02-15-2021 09:45-0400 Heart rate 62 /min Bailee Haus DO Work Phone: [facility] 02-15-2021 09:45-0400 Respiratory rate 16 /min Bailee Haus DO Work Phone: [facility] 02-15-2021 09:45-0400 SaO2% (BldA) [Mass fraction] 95 % Bailee Haus DO Work Phone: [facility] 02-15-2021 09:45-0400 Systolic blood pressure 124 mm[Hg] Bailee Haus DO Work Phone: [facility] 01-18-2021 08:46-0400 Body temperature 98.4 [degF] Jonel Malagon DPM Work Phone: [facility] 01-18-2021 08:46-0400 Diastolic blood pressure 72 mm[Hg] Jonel Malagon DPM Work Phone: [facility] 01-18-2021 08:46-0400 Heart rate 68 /min Jonel Malagon DPM Work Phone: [facility] 01-18-2021 08:46-0400 Systolic blood pressure 122 mm[Hg] Jonel Malagon DPM Work Phone: [facility] 08-28-2020 13:22-0400 Body height 160 cm Nadeem Lomax MD Work Phone: [facility] 08-28-2020 13:22-0400 Body mass index (BMI) [Ratio] 23.35 kg/m2 Nadeem Lomax MD Work Phone: [facility] 08-28-2020 13:22-0400 Body temperature 98.91 [degF] Nadeem Lomax MD Work Phone: [facility] 08-28-2020 13:22-0400 Body weight 59.8 kg Nadeem Lomax MD Work Phone: [facility] 02-28-2020 13:17-0500 BMI (Body Mass Index) 22.85 kg/m2 Bailee Haus [employer] 02-28-2020 13:17-0500 Body Temperature 98.29 [degF] [facility] 02-28-2020 13:17-0500 Body weight 58.51 [facility] 02-28-2020 13:17-0500 BP Diastolic 68 mm[Hg] [facility] 02-28-2020 13:17-0500 BP Systolic 112 mm[Hg] [facility] 02-28-2020 13:17-0500 Height 160 cm [facility] [facility] 02-28-2020 13:17-0500 Pulse (Heart Rate) 67 /min [facility] 02-28-2020 13:17-0500 Pulse Oximetry 98 % [facility] 02-28-2020 13:17-0500 Respiratory Rate 16 /min [facility] 04-19-2019 15:06-0500 BMI (Body Mass Index) 23.91 kg/m2 [facility] [employer] [facility] 04-19-2019 15:06-0500 Body Temperature 98.01 [degF] [facility] 04-19-2019 15:06-0500 Body weight 61.24 kg [facility] [employer] [facility] 04-19-2019 15:06-0500 BP Diastolic 70 mm[Hg] [facility] 04-19-2019 15:06-0500 BP Systolic 114 mm[Hg] [facility] [employer] [facility] 04-19-2019 15:06-0500 Height 160 cm [facility] [employer] [facility] 04-19-2019 15:06-0500 Pulse (Heart Rate) 75 /min [facility] 04-19-2019 15:06-0500 Pulse Oximetry 95 % [facility] [employer] [facility] 01-17-2019 15:34-0400 BMI (Body Mass Index) 23.24 kg/m2 [facility] 01-17-2019 15:34-0400 Body Temperature 97.9 [degF] [facility] 01-17-2019 15:34-0400 Body weight 59.51 kg [facility] 01-17-2019 15:34-0400 BP Diastolic 68 mm[Hg] [facility] 01-17-2019 15:34-0400 BP Systolic 132 mm[Hg] [facility] 01-17-2019 15:34-0400 Height 160 cm [facility] 01-17-2019 15:34-0400 Pulse (Heart Rate) 71 /min [facility] 01-17-2019 15:34-0400 Pulse Oximetry 96 % [facility] 12-16-2018 15:16-0400 BMI (Body Mass Index) 23.28 kg/m2 [facility] [employer] [facility] 12-16-2018 15:16-0400 Body Temperature 97.81 [degF] [facility] 12-16-2018 15:16-0400 Body weight 59.6 kg [facility] [employer] [facility] 12-16-2018 15:16-0400 BP Diastolic 58 mm[Hg] [facility] 12-16-2018 15:16-0400 BP Systolic 110 mm[Hg] [facility] 12-16-2018 15:16-0400 Height 160 cm [facility] [employer] [facility] 12-16-2018 15:16-0400 Pulse (Heart Rate) 72 /min [facility] 12-16-2018 15:16-0400 Pulse Oximetry 94 % [facility] [employer] [facility] 11-29-2018 08:55-0400 BMI (Body Mass Index) 23.21 kg/m2 [facility] [employer] [facility] 11-29-2018 08:55-0400 Body Temperature 97.9 [degF] [facility] 11-29-2018 08:55-0400 Body weight 59.42 kg [facility] 11-29-2018 08:55-0400 BP Diastolic 68 mm[Hg] [facility] 11-29-2018 08:55-0400 BP Systolic 132 mm[Hg] [facility] 11-29-2018 08:55-0400 Height 160 cm [facility] 11-29-2018 08:55-0400 Pulse (Heart Rate) 75 /min [employer] [facility] 11-29-2018 08:55-0400 Pulse Oximetry 97 % [facility] 10-18-2018 15:50-0400 BMI (Body Mass Index) 23.28 kg/m2 [facility] 10-18-2018 15:50-0400 Body Temperature 98.2 [degF] [facility] 10-18-2018 15:50-0400 Body weight 59.6 kg [facility] 10-18-2018 15:50-0400 BP Diastolic 68 mm[Hg] [facility] 10-18-2018 15:50-0400 BP Systolic 122 mm[Hg] [facility] 10-18-2018 15:50-0400 Height 160 cm [facility] 10-18-2018 15:50-0400 Pulse (Heart Rate) 63 /min [facility] [employer] [facility] 10-18-2018 15:50-0400 Pulse Oximetry 96 % [facility] 09-17-2018 08:30-0400 BMI (Body Mass Index) 23.26 kg/m2 [facility] [employer] [facility] 09-17-2018 08:30-0400 Body Temperature 98.4 [degF] [facility] 09-17-2018 08:30-0400 Body weight 59.56 kg [facility] 09-17-2018 08:30-0400 BP Diastolic 60 mm[Hg] [facility] [employer] [facility] 09-17-2018 08:30-0400 BP Systolic 118 mm[Hg] [facility] 09-17-2018 08:30-0400 Height 160 cm [facility] 09-17-2018 08:30-0400 Pulse (Heart Rate) 64 /min [facility] [employer] 09-17-2018 08:30-0400 Pulse Oximetry 98 % [facility] 08-13-2018 08:59-0400 BMI (Body Mass Index) 23.21 kg/m2 [facility] 08-13-2018 08:59-0400 Body Temperature 98.29 [degF] [facility] 08-13-2018 08:59-0400 BP Diastolic 60 mm[Hg] [facility] [employer] 08-13-2018 08:59-0400 BP Systolic 116 mm[Hg] [facility] HospitalPlan[facility] Payment 08-13-2018 08:59-0400 Height 160 cm [facility] 08-13-2018 08:59-0400 Pulse (Heart Rate) 65 /min [facility] 08-13-2018 08:59-0400 Pulse Oximetry 98 % [facility] [employer] [facility] 08-13-2018 08:59-0400 Respiratory Rate 16 /min [facility] 08-13-2018 08:59-0400 Weight 59.42 kg [facility] [employer] [facility] Encounters Encounter Date Encounter Type Care Provider Facility Start: 05-13-2024 ambulatory Said [facility] Facility:[facility] Start: 01-26-2024 ambulatory Said [facility] Facility:[facility] Start: 01-26-2024 End: 01-26-2024 Subsequent hospital visit by physician Mariusz Wallis [facility] DPM Work Phone: [facility] [place] Comment on above: Arrived Start: 01-26-2024 ambulatory Said [facility] Facility:[facility] Start: 01-13-2024 ambulatory BAILEE P HAUS [facility] Start: 01-13-2024 End: 01-13-2024 Office outpatient visit 10 minutes Puneet Marion DPM Work Phone: [facility] Comment on above: 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) Start: 01-05-2024 End: 01-05-2024 Office outpatient visit 25 minutes Bailee P Haus DO Work Phone: [facility] [employer] Comment on above: Hoyos's cyst of knee , left (Primary Dx); Tear of lateral meniscus of left knee, current, unspecified tear type, subsequent encounter; Plaque psoriasis; Colon cancer screening; Callous ulcer, unspecified ulcer stage Start: 01-05-2024 ambulatory BAILEE P HAUS [facility] Start: 08-05-2023 End: 08-05-2023 Office outpatient visit 25 minutes Eulalio Xavier DO Work Phone: [facility] Comment on above: Chondrocalcinosis (P rimary Dx); Acute lateral meniscal tear, left, initial encounter; Intrinsic eczema; Postmenopausal status; terminal carman current use of non-steroidal anti-inflammatories (NSAID); History of osteoarthritis; Family history of psoriasis; Family history of MS (multiple sclerosis); Abnormal x-ray; Abnormal MRI; Spinal stenosis of lumbar region with neurogenic claudication; Thoracogenic scoliosis of thoracic region; Thoracic degenerative disc disease; Primary osteoarthritis of both wrists; Primary osteoarthritis of both hands; Primary osteoarthritis of both feet; Primary osteoarthritis involving multiple joints; Osteoarthritis of facet joint of lumbar spine; Osteoarthritis of facet joint of cervical spine; Osteoarthritis of carpometacarpal (CMC) joint of both thumbs; Osteoarthritis of both glenohumeral joints; Osteoarthritis of AC (acromioclavicular) joints, bilateral; Lumbar degenerative disc disease; Impingement syndrome of both shoulders; HNP (herniated nucleus pulposus), lumbar; Ganglion cyst of volar aspect of left wrist; DDD (degenerative disc disease), cervical Start: 08-05-2023 ambulatory EULALIO CALDERA JR, JR [facility] Start: 07-31-2023 ambulatory BAILEE ROLLE [facility] Start: 07-31-2023 End: 07-31-2023 Subsequent hospital visit by physician Bailee Rolle DO Work Phone: [facility] MRI Comment on above: Arrived Start: 07-07-2023 End: 07-07-2023 Office outpatient visit 15 minutes Bailee Rolle DO Work Phone: [facility] [employer] Comment on above: Derangement of media l meniscus of left knee (Primary Dx); Chronic pain of left knee Start: 07-07-2023 ambulatory BAILEE Flores [facility] Start: 06-11-2023 ambulatory EULALIO CALDERA JR [facility] Start: 06-11-2023 End: 06-11-2023 Subsequent hospital visit by physician Eulalio Xavier DO Work Phone: [facility] MRI Comment on above: Arrived Start: 06-03-2023 End: 06-03-2023 Office outpatient visit 15 minutes Bailee Rolle DO Work Phone: [facility] [employer] Comment on above: Plaque psoriasis (Pr imary Dx); Primary osteoarthritis involving multiple joints Start: 06-03-2023 ambulatory BAILEEMITZI ROLLE [facility] Start: 05-27-2023 ambulatory EULALIO CALDERA [facility] Start: 05-27-2023 End: 05-27-2023 Office outpatient visit 40 minutes Eulalio Xavier DO Work Phone: [facility] Comment on above: Spinal stenosis of l umbar region with neurogenic claudication (Primary Dx); Osteoarthritis of lumbosacral spine with radiculopathy; Thoracogenic scoliosis of thoracic region; Thoracic degenerative disc disease; Primary osteoarthritis of both wrists; Primary osteoarthritis of both hands; Primary osteoarthritis of both feet; Pes anserinus bursitis of both knees; Osteoarthritis of facet joint of lumbar spine; Osteoarthritis of facet joint of cervical spine; Osteoarthritis of carpometacarpal (CMC) joint of both thumbs; Osteoarthritis of both glenohumeral joints; Osteoarthritis of AC (acromioclavicular) joints, bilateral; Lumbar degenerative disc disease; Impingement syndrome of both shoulders; HNP (herniated nucleus pulposus), lumbar; Disorder of ligament of right wrist; Disorder of ligament, left wrist; DDD (degenerative disc disease), cervical; Chondrocalcinosis; Psoriasis; Plaque psoriasis; Intrinsic eczema; Postmenopausal status; Long-term current use of apremilast; long-term current use of non-steroidal anti-inflammatories (NSAID); History of psoriatic arthritis; History of osteoarthritis; Family history of psoriasis; Elevated BUN; Abnormal x-ray; Abnormal MRI; Abnormal ANCA test Start: 05-27-2023 ambulatory EULALIO HEIDI WERNER [facility] Start: 05-12-2023 End: 05-12-2023 Office outpatient new 60 minutes Tuyet Mercado MD Work Phone: [facility] Comment on above: Abnormal MRI (Primar y Dx) Start: 05-12-2023 ambulatory EULALIO HEIDI CALDERA [facility] Start: 04-15-2023 ambulatory EULALIO GORDON WERNER [facility] Start: 03-25-2023 ambulatory SELF SELF [facility] Start: 02-12-2023 ambulatory EULALIO CALDERA JR [facility] Start: 02-12-2023 End: 02-12-2023 Subsequent hospital visit by physician Eulalio Xavier DO Work Phone: [facility] Comment on above: Arrived Start: 02-03-2023 ambulatory EULALIO CALDERA JR [facility] Start: 01-26-2023 End: 01-26-2023 Subsequent hospital visit by physician Bailee Rolle DO Work Phone: [facility] Comment on above: Arrived Start: 01-26-2023 ambulatory EULALIO CALDERA JR [facility] Start: 01-22-2023 End: 01-22-2023 Office outpatient visit 15 minutes Bailee Rolle DO Work Phone: [facility] [employer] Comment on above: Plaque psoriasis (Pr imary Dx); Nausea; Lumbar degenerative disc disease; Fibromyositis Start: 01-22-2023 End: 01-22-2023 Office outpatient new 60 minutes Eulalio Xavier DO Work Phone: [facility] Comment on above: Cervicalgia (Primary Dx); Chronic pain of both knees; Dorsalgia; Osteoarthritis of lumbosacral spine with radiculopathy; Biceps tendonitis on right; Bilateral hand pain; Bilateral wrist pain; Chronic pain of both shoulders; Disorder of bone and cartilage; Lumbar degenerative disc disease; Osteoarthritis of carpometacarpal (CMC) joint of both thumbs; Osteoarthritis of facet joint of lumbar spine; Pes anserinus bursitis of both knees; Primary osteoarthritis of both feet; Primary osteoarthritis of both hands; Primary osteoarthritis of both wrists; Subacromial bursitis of left shoulder joint; Tendonitis of both rotator cuffs; Psoriasis; Intrinsic eczema; Chronic fatigue; Family history of MS (multiple sclerosis); Family history of psoriasis; History of osteoarthritis; History of psoriasis; History of psoriatic arthritis; long-term current use of non-steroidal anti-inflammatories (NSAID); Vitamin D deficiency; Abnormal reflexes of lower extremity; Acute bilateral low back pain with bilateral sciatica; Acute right-sided low back pain with right-sided sciatica; Chronic bilateral low back pain with bilateral sciatica; Lumbar radiculopathy Start: 09-24-2022 End: 09-24-2022 Office outpatient visit 15 minutes Bailee P Haus DO Work Phone: [facility] Comment on above: Psoriasis (Primary D x); Primary osteoarthritis involving multiple joints; Screening for lipid disorders; Abnormal findings on diagnostic imaging of other parts of digestive tract Start: 03-03-2022 ambulatory BAILEE P HAUS [facility] Start: 12-17-2021 End: 12-17-2021 Office outpatient visit 25 minutes Bailee P Haus DO Work Phone: [facility] Comment on above: Psoriatic arthritis (Primary Dx); Osteoarthritis of lumbosacral spine with radiculopathy Start: 11-14-2021 End: 11-14-2021 Office outpatient visit 25 minutes Bailee P Haus DO Work Phone: [facility] Comment on above: Psoriatic arthritis (Primary Dx); Varicose veins of both lower extremities with pain; Thrombophlebitis of superficial veins of right lower extremity Start: 08-07-2021 End: 08-07-2021 Subsequent hospital visit by physician Bailee Hernández Haus DO Work Phone: [facility] Comment on above: Arrived Start: 08-01-2021 End: 08-01-2021 Office outpatient visit 15 minutes Bailee P Haus DO Work Phone: [facility] Comment on above: Primary osteoarthrit is of both knees (Primary Dx); Tendinitis of both knees; Chronic lumbar radiculopathy Start: 07-03-2021 End: 07-03-2021 Subsequent hospital visit by physician Siri Alicea MD Work Phone: [facility] Comment on above: Arrived Start: 06-25-2021 End: 06-25-2021 Office outpatient visit 15 minutes Bailee P Haus DO Work Phone: [facility] Comment on above: Psoriatic arthritis (Primary Dx); Encounter for methotrexate monitoring; Screening for lipid disorders Start: 02-15-2021 End: 02-15-2021 Office outpatient visit 15 minutes Bailee P Haus DO Work Phone: [facility] [employer] Comment on above: Flu vaccine need (Pr imary Dx); Psoriatic arthritis; Intrinsic eczema; Allergic rhinitis with postnasal drip Start: 01-18-2021 Admission to [facility] Jonel Malagon DPM Work Phone: [facility] Comment on above: Pre-op testing (Prim cady Dx) Start: 01-18-2021 Patient encounter status Jonel Malagon DPM Work Phone: [facility] Start: 01-18-2021 End: 01-22-2021 ambulatory JONELJEZ MALAGON [facility] Start: 01-18-2021 End: 01-18-2021 Office outpatient visit 15 minutes Jonel Marquezmerman DPM Work Phone: [facility] Comment on above: Tailor's bunionette, left; Callus of foot; Hallux abductovalgus with bunions, right; Contusion of left great toe with damage to nail, initial encounter; Hammer toes, bilateral Start: 08-28-2020 End: 08-28-2020 Subsequent hospital visit by physician Nadeem Lomax MD Work Phone: [facility] Comment on above: Arrived Start: 08-28-2020 End: 08-28-2020 Office outpatient new 30 minutes Nadeem Lomax MD Work Phone: [facility] Comment on above: Hand pain, right (Pr imary Dx) Start: 07-09-2020 End: 07-09-2020 Subsequent hospital visit by physician Bailee Macedo Work Phone: [facility] Comment on above: Arrived Start: 05-21-2020 End: 05-21-2020 Orders Only Mallika Dowling Work Phone: [facility] Start: 02-28-2020 End: 02-28-2020 Office outpatient visit 15 minutes Bailee P Haus Work Phone: [facility] Comment on above: Paronychia of left m iddle finger (Primary Dx); Actinic keratoses Start: 04-19-2019 End: 04-19-2019 Office outpatient visit 15 minutes Bailee P Haus Work Phone: [facility] Comment on above: Acute bilateral low back pain with bilateral sciatica (Primary Dx) Start: 01-21-2019 End: 01-21-2019 Telephone encounter Marika Olivas [facility] Comment on above: Cat bite Start: 01-17-2019 End: 01-17-2019 Office outpatient visit 15 minutes Bailee P Haus Work Phone: [facility] Comment on above: Degenerative disc di sease, lumbar (Primary Dx); Chronic bilateral low back pain with bilateral sciatica; Seasonal allergic rhinitis due to pollen Start: 01-12-2019 End: 01-12-2019 Telephone encounter Bailee P Haus Work Phone: [facility] Comment on above: Other Start: 12-16-2018 End: 12-16-2018 Office outpatient visit 15 minutes Bailee P Haus Work Phone: [facility] Comment on above: Nasal congestion (Pr imary Dx); Non-recurrent acute serous otitis media of left ear; Acute right-sided low back pain with right-sided sciatica Start: 11-29-2018 End: 11-29-2018 Office outpatient visit 15 minutes Bailee P Haus Work Phone: [facility] Comment on above: Acute right-sided lo w back pain with right-sided sciatica (Primary Dx); Psoriasis Start: 10-18-2018 End: 10-18-2018 Office outpatient visit 15 minutes Bailee P Haus Work Phone: [facility] Comment on above: Cat scratch of hand, left, initial encounter (Primary Dx) Start: 09-17-2018 End: 09-17-2018 Periodic preventive med est patient 65yrs& older Bailee P Haus Work Phone: [facility] Comment on above: Encounter for wellne ss examination (Primary Dx); Need for 23-polyvalent pneumococcal polysaccharide vaccine Start: 08-13-2018 End: 08-13-2018 Letter encounter Bailee P Haus Work Phone: [facility] Start: 08-13-2018 End: 08-13-2018 Office outpatient visit 25 minutes Bailee P Haus Work Phone: [facility] Comment on above: Primary osteoarthrit is of both hands (Primary Dx); Arthralgia of metacarpophalangeal joint, right; Psoriasis; Screening for lipid disorders; Irritable bowel syndrome with diarrhea; Actinic keratoses Start: 04-30-2018 End: 04-30-2018 Patient encounter procedure Historical Provider [facility] Start: 02-01-2018 End: 02-02-2018 Patient encounter TRAE (FEL) [facility] Start: 01-04-2018 Patient encounter TRAE (FEL) [facility] Start: 12-03-2017 End: 12-04-2017 Emergency department patient visit Shayan Padron [facility] Facility:[facility] Start: 06-23-2017 Patient encounter status Matthew Lomax MD Work Phone: [facility] [email or web address] [facility] Procedures Date Procedure Procedure Detail Performing Clinician Start: 01-26-2024 Radex foot complete minimum 3 views Said A Atway DPM Work Phone: Start: 07-31-2023 Mri any jt lower ext rem w/o contrast matrl Bailee P Haus DO Work Phone: Start: 02-12-2023 Mri spinal canal lum bar w/o contrast material Eulalio Xavier DO Work Phone: Start: 01-26-2023 End: 01-26-2023 Radex wrist 2 views Eulalio Xavier D O Work Phone: Start: 01-26-2023 Lipid 1996 panel - S shirley or Plasma Bailee Haus DO Work Phone: Start: 08-07-2021 End: 08-07-2021 Radiologic exam knee complete 4/more views Bailee P Haus DO Work Phone: Start: 07-03-2021 Us soft tissue head & neck real time imge docm Siri Alicea MD Work Phone: Start: 06-26-2021 Lipid 1996 panel - S shirley or Plasma Siri Alicea MD Work Phone: Start: 07-09-2020 US scan of neck Bailee Gr jadiel Work Phone: Start: 09-17-2018 Pneumococcal conjuga te vaccination Bailee P Ha Work Phone: Start: 09-01-2018 Lipid 1996 panel - S shirley or Plasma Bailee Haus Start: 04-19-2018 End: 04-19-2018 MG Breast Views Historical Provider Start: 06-23-2017 Lipid 1996 panel - S shirley or Plasma Historical Provider Plan of Treatment Date Care Activity Detail Author Start: 01-27-2028 Lipid panel LIPID SCREENING [facility] Start: 06-26-2026 Fasting lipid profile LIPID SCREENING [facility] Start: 06-26-2026 Lipid panel LIPID SCREENING [facility] Start: 12-20-2024 Screening for malignant neoplasm of breast MAMMOGRAM SCREENING DISCUSSION [facility] Start: 05-18-2024 End: 05-18-2024 Patient encounter procedure 05/18/2024 11:40 AM EST Office Visit [facility] [place] [address] [place] [phone] Dunia Garcia, PATIENT SAFETY ATTENDANT-SUPERVISOR [employer] [address] [place] [address] [facility] [place] Start: 05-17-2024 End: 05-17-2024 Patient encounter procedure 05/17/2024 11:30 AM EST Office Visit [facility] [place] [address] [place] [phone] Mariusz Bernstein, DPM [address] [place] [phone] [facility] [place] Start: 05-13-2024 Subsequent hospital visit by physician 05/13/2024 Hospital Encounter [facility] [address] [place] [address] Mariusz Bernstein DPM [address] [facility] [address] [place] [address] Fat pad atrophy of foot [facility] Comment on above: Fat pad atrophy of foot Start: 05-13-2024 End: 05-13-2024 Admission to same day surgery center 05/13/2024 1:16 PM EST - 05/13/2024 2:31 PM EST Surgery [facility] [address] [place] [address] Mariusz Bernstein DPM [address] [address] [place] [address] OSTEOTOMY METATARSAL BONE [facility] Comment on above: OSTEOTOMY METATARSAL BONE Start: 05-13-2024 End: 05-13-2024 Arthroplasty interphalangeal joint each ARTHROPLASTY INTERPHALANGEAL JOINT Fat pad atrophy of foot Tailor's bunion of left foot 05/13/2024 1:16 PM EST [facility] Start: 05-13-2024 End: 05-13-2024 Osteot w/wo lngth shrt/corrj 1st metar OSTEOTOMY METATARSAL BONE Fat pad atrophy of foot Tailor's bunion of left foot 05/13/2024 1:16 PM EST [facility] Start: 04-26-2024 End: 04-26-2024 ambulatory 04/26/2024 11:30 AM EST Telemed Clin Support Telehealth Pre Procedure [place] [address] [address] Alexandria Shaikh RN Telehealth Pre Procedure Preparation Start: 04-20-2024 End: 04-20-2024 Patient encounter procedure 04/20/2024 10:15 AM EST Office Visit [facility] [place] [address] [address] [place] [address] Mariusz Bernstein DPM [address] [place] [phone] [facility] [place] Start: 04-18-2024 End: 04-18-2024 Patient encounter procedure 04/18/2024 2:15 PM EST Office Visit [facility] [address] [place] [address] Bailee Rolle, [address] [place] [address] [facility] Start: 03-03-2024 End: 03-03-2024 Patient encounter procedure 03/03/2024 2:10 PM EST Office Visit [facility] [address] [facility] [address] [place] [address] Dinesh Barnett MD [address] [facility] [address] [place] [address] [facility] Start: 02-08-2024 End: 02-08-2024 Patient encounter procedure 02/08/2024 10:20 AM EDT Office Visit [facility] [address] [place] [address] Tommie Kaye MD [address] [place] [address] [facility] Start: 02-02-2024 End: 02-02-2024 Patient encounter procedure 02/02/2024 1:40 PM EDT Office Visit [facility] [address] [place] [address] Tommie Kaye MD [address] [place] [address] [facility] Start: 12-13-2023 COVID-19 VACCINE (2022- season) COVID-19 VACCINE ( season) [facility] Start: 12-13-2023 Influenza vaccination [facility] Start: 09-02-2023 Fasting lipid profile LIPID SCREENING [facility] Start: 09-01-2023 End: 09-01-2023 Patient encounter procedure 09/01/2023 3:00 PM EDT Office Visit [facility] [address] [facility] [place] [address] Bailee Rolle, DO [address] [place] [address] [facility] Start: 08-14-2023 Screening for malignant neoplasm of cervix CERVICAL CANCER SCREENING DISCUSSION [facility] Start: 08-13-2023 Screening for malignant neoplasm of breast MAMMOGRAM SCREENING DISCUSSION [facility] Start: 08-05-2023 End: 08-05-2023 Patient encounter procedure [facility] Start: 06-03-2023 End: 06-03-2023 Patient encounter procedure 06/03/2023 3:00 PM EST Office Visit [facility] [address] [facility] [place] [address] Bailee Rolle DO [address] [place] [address] [facility] Start: 06-03-2023 End: 06-03-2024 M TUBERCULOSIS BY QUANTIFERON, BLD M TUBERCULOSIS BY QUANTIFERON, BLD Lab Routine Plaque psoriasis Expected: 06/03/2023 (Approximate), Expires: 06/03/2024 [facility] Comment on above: Expected: 06/03/2023 (Approximate), Expi res: 06/03/2024 Start: 05-27-2023 End: 05-27-2023 Patient encounter procedure 05/27/2023 2:30 PM EST Office Visit [facility] [address] [facility] [place] [facility] [place] [phone] Duc Jaimes, Eulalio Serra, DO [address] [place] [phone] [facility] Start: 05-27-2023 End: 05-27-2024 MR Wrist - left WO contrast MRI WRIST LEFT WITHOUT CONTRAST Imaging Routine Spinal stenosis 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 Thoracogenic scoliosis of thoracic region 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 Primary osteoarthritis of both hands Primary osteoarthritis of both feet Pes anserinus bursitis of both knees 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 Osteoarthritis of carpometacarpal (CMC) joint of both thumbs Osteoarthritis of both glenohumeral joints Osteoarthritis of AC (acromioclavicular) joints, bilateral Lumbar degenerative disc disease Impingement syndrome of both shoulders HNP (herniated nucleus pulposus), lumbar Disorder of ligament of right wrist Disorder of ligament, left wrist DDD (degenerative disc disease), cervical Chondrocalcinosis Psoriasis Plaque psoriasis Intrinsic eczema Postmenopausal status Long-term current use of apremilast terminal carman current use of non-steroidal anti-inflammatories (NSAID) History of psoriatic arthritis History of osteoarthritis Family history of psoriasis Elevated BUN Abnormal x-ray Abnormal MRI Abnormal ANCA test Expected: 05/27/2023, Expires: 05/27/2024 [facility] Comment on above: Expected: 05/27/2023, Expires: Start: 05-27-2023 End: 05-27-2024 MR Wrist - right WO contrast MRI WRIST RIGHT WITHOUT CONTRAST Imaging Routine Spinal stenosis 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 Thoracogenic scoliosis of thoracic region 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 Primary osteoarthritis of both hands Primary osteoarthritis of both feet Pes anserinus bursitis of both knees 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 Osteoarthritis of carpometacarpal (CMC) joint of both thumbs Osteoarthritis of both glenohumeral joints Osteoarthritis of AC (acromioclavicular) joints, bilateral Lumbar degenerative disc disease Impingement syndrome of both shoulders HNP (herniated nucleus pulposus), lumbar Disorder of ligament of right wrist Disorder of ligament, left wrist DDD (degenerative disc disease), cervical Chondrocalcinosis Psoriasis Plaque psoriasis Intrinsic eczema Postmenopausal status Long-term current use of apremilast long-term current use of non-steroidal anti-inflammatories (NSAID) History of psoriatic arthritis History of osteoarthritis Family history of psoriasis Elevated BUN Abnormal x-ray Abnormal MRI Abnormal ANCA test Expected: 05/27/2023, Expires: 05/27/2024 [facility] Comment on above: Expected: 05/27/2023, Expires: Start: 05-12-2023 End: 05-12-2023 Patient encounter procedure 05/12/2023 1:15 PM EST Office Visit [facility] [address] [place] [address] Tuyet Mercado MD [address] [place] [address] [facility] Start: 04-15-2023 End: 04-15-2023 Patient encounter procedure 04/15/2023 8:30 AM EST Office Visit [facility] [address] [place] [phone] Eulalio Xavier Jr., DO [address] [place] [phone] [facility] Start: 03-24-2023 End: 03-24-2023 Patient encounter procedure 03/24/2023 2:30 PM EST Office Visit [facility] [address] [place] [address] Bailee Rolle, DO [address] [place] [id number] [facility] Internal [facility] Start: 01-22-2023 End: 01-23-2024 SULAIMAN MULTIPLEX SCRN WITH REFLEX SULAIMAN MULTIPLEX SCRN WITH REFLEX Lab Routine Cervicalgia Chronic pain of both knees Dorsalgia Osteoarthritis of lumbosacral spine with radiculopathy Biceps tendonitis on right Bilateral hand pain Bilateral wrist pain Chronic pain of both shoulders Disorder of bone and cartilage Lumbar degenerative disc disease Osteoarthritis of carpometacarpal (CMC) joint of both thumbs Osteoarthritis of facet joint of lumbar spine Pes anserinus bursitis of both knees Primary osteoarthritis of both feet Primary osteoarthritis of both hands Primary osteoarthritis of both wrists Subacromial bursitis of left shoulder joint Tendonitis of both rotator cuffs Psoriasis Intrinsic eczema Chronic fatigue Family history of MS (multiple sclerosis) Family history of psoriasis History of osteoarthritis History of psoriasis History of psoriatic arthritis long-term current use of non-steroidal anti-inflammatories (NSAID) Vitamin D deficiency Abnormal reflexes of lower extremity Acute bilateral low back pain with bilateral sciatica Acute right-sided low back pain with right-sided sciatica Expected: 01/22/2023, Expires: 01/23/2024 [employer] Comment on above: Expected: 01/22/2023, Expires: 4 Start: 01-22-2023 End: 01-23-2024 ANCA INIT SCRN (ANCA, PR3AB, MPO) ANCA INIT SCRN (ANCA, PR3AB, MPO) Lab Routine Cervicalgia Chronic pain of both knees Dorsalgia Osteoarthritis of lumbosacral spine with radiculopathy Biceps tendonitis on right Bilateral hand pain Bilateral wrist pain Chronic pain of both shoulders Disorder of bone and cartilage Lumbar degenerative disc disease Osteoarthritis of carpometacarpal (CMC) joint of both thumbs Osteoarthritis of facet joint of lumbar spine Pes anserinus bursitis of both knees Primary osteoarthritis of both feet Primary osteoarthritis of both hands Primary osteoarthritis of both wrists Subacromial bursitis of left shoulder joint Tendonitis of both rotator cuffs Psoriasis Intrinsic eczema Chronic fatigue Family history of MS (multiple sclerosis) Family history of psoriasis History of osteoarthritis History of psoriasis History of psoriatic arthritis long-term current use of non-steroidal anti-inflammatories (NSAID) Vitamin D deficiency Abnormal reflexes of lower extremity Acute bilateral low back pain with bilateral sciatica Acute right-sided low back pain with right-sided sciatica Expected: 01/22/2023, Expires: 01/23/2024 [facility] Comment on above: Expected: 01/22/2023, Expires: 4 Start: 01-22-2023 End: 01-23-2024 Angiotensin converting enzyme [Enzymatic activity/volume] in Serum or Plasma ANGIOTENSIN CONVERTING ENZYME Lab Routine Cervicalgia Chronic pain of both knees Dorsalgia Osteoarthritis of lumbosacral spine with radiculopathy Biceps tendonitis on right Bilateral hand pain Bilateral wrist pain Chronic pain of both shoulders Disorder of bone and cartilage Lumbar degenerative disc disease Osteoarthritis of carpometacarpal (CMC) joint of both thumbs Osteoarthritis of facet joint of lumbar spine Pes anserinus bursitis of both knees Primary osteoarthritis of both feet Primary osteoarthritis of both hands Primary osteoarthritis of both wrists Subacromial bursitis of left shoulder joint Tendonitis of both rotator cuffs Psoriasis Intrinsic eczema Chronic fatigue Family history of MS (multiple sclerosis) Family history of psoriasis History of osteoarthritis History of psoriasis History of psoriatic arthritis terminal carman current use of non-steroidal anti-inflammatories (NSAID) Vitamin D deficiency Abnormal reflexes of lower extremity Acute bilateral low back pain with bilateral sciatica Acute right-sided low back pain with right-sided sciatica Expected: 01/22/2023, Expires: 01/23/2024 [employer] Comment on above: Expected: 01/22/2023, Expires: Start: 01-22-2023 End: 01-22-2024 C-reactive protein C REACTIVE PROTEIN Lab Routine Cervicalgia Chronic pain of both knees Dorsalgia Osteoarthritis of lumbosacral spine with radiculopathy Biceps tendonitis on right Bilateral hand pain Bilateral wrist pain Chronic pain of both shoulders Disorder of bone and cartilage Lumbar degenerative disc disease Osteoarthritis of carpometacarpal (CMC) joint of both thumbs Osteoarthritis of facet joint of lumbar spine Pes anserinus bursitis of both knees Primary osteoarthritis of both feet Primary osteoarthritis of both hands Primary osteoarthritis of both wrists Subacromial bursitis of left shoulder joint Tendonitis of both rotator cuffs Psoriasis Intrinsic eczema Chronic fatigue Family history of MS (multiple sclerosis) Family history of psoriasis History of osteoarthritis History of psoriasis History of psoriatic arthritis long-term current use of non-steroidal anti-inflammatories (NSAID) Vitamin D deficiency Abnormal reflexes of lower extremity Acute bilateral low back pain with bilateral sciatica Acute right-sided low back pain with right-sided sciatica Expected: 01/22/2023, Expires: 01/22/2024 [employer] Comment on above: Expected: 01/22/2023, Expires: Start: 01-22-2023 End: 01-22-2024 CK CK Lab Routine Cervicalgia Chronic pain of both knees Dorsalgia Osteoarthritis of lumbosacral spine with radiculopathy Biceps tendonitis on right Bilateral hand pain Bilateral wrist pain Chronic pain of both shoulders Disorder of bone and cartilage Lumbar degenerative disc disease Osteoarthritis of carpometacarpal (CMC) joint of both thumbs Osteoarthritis of facet joint of lumbar spine Pes anserinus bursitis of both knees Primary osteoarthritis of both feet Primary osteoarthritis of both hands Primary osteoarthritis of both wrists Subacromial bursitis of left shoulder joint Tendonitis of both rotator cuffs Psoriasis Intrinsic eczema Chronic fatigue Family history of MS (multiple sclerosis) Family history of psoriasis History of osteoarthritis History of psoriasis History of psoriatic arthritis long-term current use of non-steroidal anti-inflammatories (NSAID) Vitamin D deficiency Abnormal reflexes of lower extremity Acute bilateral low back pain with bilateral sciatica Acute right-sided low back pain with right-sided sciatica Expected: 01/22/2023, Expires: 01/22/2024 [employer] Comment on above: Expected: 01/22/2023, Expires: Start: 01-22-2023 End: 01-23-2024 Complete blood count with white cell differential, automated CBC, EDIF, PLATELET Lab Routine Cervicalgia Chronic pain of both knees Dorsalgia Osteoarthritis of lumbosacral spine with radiculopathy Biceps tendonitis on right Bilateral hand pain Bilateral wrist pain Chronic pain of both shoulders Disorder of bone and cartilage Lumbar degenerative disc disease Osteoarthritis of carpometacarpal (CMC) joint of both thumbs Osteoarthritis of facet joint of lumbar spine Pes anserinus bursitis of both knees Primary osteoarthritis of both feet Primary osteoarthritis of both hands Primary osteoarthritis of both wrists Subacromial bursitis of left shoulder joint Tendonitis of both rotator cuffs Psoriasis Intrinsic eczema Chronic fatigue Family history of MS (multiple sclerosis) Family history of psoriasis History of osteoarthritis History of psoriasis History of psoriatic arthritis long-term current use of non-steroidal anti-inflammatories (NSAID) Vitamin D deficiency Abnormal reflexes of lower extremity Acute bilateral low back pain with bilateral sciatica Acute right-sided low back pain with right-sided sciatica Expected: 01/22/2023, Expires: 01/23/2024 [employer] Comment on above: Expected: 01/22/2023, Expires: Start: 01-22-2023 End: 01-22-2024 Comprehensive metabolic 2000 panel - Serum or Plasma COMPREHENSIVE METABOLIC PANEL Lab Routine Cervicalgia Chronic pain of both knees Dorsalgia Osteoarthritis of lumbosacral spine with radiculopathy Biceps tendonitis on right Bilateral hand pain Bilateral wrist pain Chronic pain of both shoulders Disorder of bone and cartilage Lumbar degenerative disc disease Osteoarthritis of carpometacarpal (CMC) joint of both thumbs Osteoarthritis of facet joint of lumbar spine Pes anserinus bursitis of both knees Primary osteoarthritis of both feet Primary osteoarthritis of both hands Primary osteoarthritis of both wrists Subacromial bursitis of left shoulder joint Tendonitis of both rotator cuffs Psoriasis Intrinsic eczema Chronic fatigue Family history of MS (multiple sclerosis) Family history of psoriasis History of osteoarthritis History of psoriasis History of psoriatic arthritis long-term current use of non-steroidal anti-inflammatories (NSAID) Vitamin D deficiency Abnormal reflexes of lower extremity Acute bilateral low back pain with bilateral sciatica Acute right-sided low back pain with right-sided sciatica Expected: 01/22/2023, Expires: 01/22/2024 [employer] Comment on above: Expected: 01/22/2023, Expires: Start: 01-22-2023 End: 01-22-2024 Cyanocobalamin vitamin b-12 VITAMIN B12 Lab Routine Cervicalgia Chronic pain of both knees Dorsalgia Osteoarthritis of lumbosacral spine with radiculopathy Biceps tendonitis on right Bilateral hand pain Bilateral wrist pain Chronic pain of both shoulders Disorder of bone and cartilage Lumbar degenerative disc disease Osteoarthritis of carpometacarpal (CMC) joint of both thumbs Osteoarthritis of facet joint of lumbar spine Pes anserinus bursitis of both knees Primary osteoarthritis of both feet Primary osteoarthritis of both hands Primary osteoarthritis of both wrists Subacromial bursitis of left shoulder joint Tendonitis of both rotator cuffs Psoriasis Intrinsic eczema Chronic fatigue Family history of MS (multiple sclerosis) Family history of psoriasis History of osteoarthritis History of psoriasis History of psoriatic arthritis terminal carman current use of non-steroidal anti-inflammatories (NSAID) Vitamin D deficiency Abnormal reflexes of lower extremity Acute bilateral low back pain with bilateral sciatica Acute right-sided low back pain with right-sided sciatica Expected: 01/22/2023, Expires: 01/22/2024 [employer] Comment on above: Expected: 01/22/2023, Expires: Start: 01-22-2023 End: 01-23-2024 CYCLIC CITRULLINATE PEPTIDE AB CYCLIC CITRULLINATE PEPTIDE AB Lab Routine Cervicalgia Chronic pain of both knees Dorsalgia Osteoarthritis of lumbosacral spine with radiculopathy Biceps tendonitis on right Bilateral hand pain Bilateral wrist pain Chronic pain of both shoulders Disorder of bone and cartilage Lumbar degenerative disc disease Osteoarthritis of carpometacarpal (CMC) joint of both thumbs Osteoarthritis of facet joint of lumbar spine Pes anserinus bursitis of both knees Primary osteoarthritis of both feet Primary osteoarthritis of both hands Primary osteoarthritis of both wrists Subacromial bursitis of left shoulder joint Tendonitis of both rotator cuffs Psoriasis Intrinsic eczema Chronic fatigue Family history of MS (multiple sclerosis) Family history of psoriasis History of osteoarthritis History of psoriasis History of psoriatic arthritis terminal carman current use of non-steroidal anti-inflammatories (NSAID) Vitamin D deficiency Abnormal reflexes of lower extremity Acute bilateral low back pain with bilateral sciatica Acute right-sided low back pain with right-sided sciatica Expected: 01/22/2023, Expires: 01/23/2024 [employer] Comment on above: Expected: 01/22/2023, Expires: Start: 01-22-2023 End: 01-23-2024 JACLYN AND PE, SERUM JACLYN AND PE, SERUM Lab Routine Cervicalgia Chronic pain of both knees Dorsalgia Osteoarthritis of lumbosacral spine with radiculopathy Biceps tendonitis on right Bilateral hand pain Bilateral wrist pain Chronic pain of both shoulders Disorder of bone and cartilage Lumbar degenerative disc disease Osteoarthritis of carpometacarpal (CMC) joint of both thumbs Osteoarthritis of facet joint of lumbar spine Pes anserinus bursitis of both knees Primary osteoarthritis of both feet Primary osteoarthritis of both hands Primary osteoarthritis of both wrists Subacromial bursitis of left shoulder joint Tendonitis of both rotator cuffs Psoriasis Intrinsic eczema Chronic fatigue Family history of MS (multiple sclerosis) Family history of psoriasis History of osteoarthritis History of psoriasis History of psoriatic arthritis long-term current use of non-steroidal anti-inflammatories (NSAID) Vitamin D deficiency Abnormal reflexes of lower extremity Acute bilateral low back pain with bilateral sciatica Acute right-sided low back pain with right-sided sciatica Expected: 01/22/2023, Expires: 01/23/2024 [employer] Comment on above: Expected: 01/22/2023, Expires: Start: 01-22-2023 End: 01-23-2024 LYME DISEASE SEROLOGY WITH REFLEX LYME DISEASE SEROLOGY WITH REFLEX Lab Routine Cervicalgia Chronic pain of both knees Dorsalgia Osteoarthritis of lumbosacral spine with radiculopathy Biceps tendonitis on right Bilateral hand pain Bilateral wrist pain Chronic pain of both shoulders Disorder of bone and cartilage Lumbar degenerative disc disease Osteoarthritis of carpometacarpal (CMC) joint of both thumbs Osteoarthritis of facet joint of lumbar spine Pes anserinus bursitis of both knees Primary osteoarthritis of both feet Primary osteoarthritis of both hands Primary osteoarthritis of both wrists Subacromial bursitis of left shoulder joint Tendonitis of both rotator cuffs Psoriasis Intrinsic eczema Chronic fatigue Family history of MS (multiple sclerosis) Family history of psoriasis History of osteoarthritis History of psoriasis History of psoriatic arthritis terminal carman current use of non-steroidal anti-inflammatories (NSAID) Vitamin D deficiency Abnormal reflexes of lower extremity Acute bilateral low back pain with bilateral sciatica Acute right-sided low back pain with right-sided sciatica Expected: 01/22/2023, Expires: 01/23/2024 [employer] Comment on above: Expected: 01/22/2023, Expires: Start: 01-22-2023 End: 01-22-2024 Magnesium [Mass/volume] in Serum or Plasma MAGNESIUM Lab Routine Cervicalgia Chronic pain of both knees Dorsalgia Osteoarthritis of lumbosacral spine with radiculopathy Biceps tendonitis on right Bilateral hand pain Bilateral wrist pain Chronic pain of both shoulders Disorder of bone and cartilage Lumbar degenerative disc disease Osteoarthritis of carpometacarpal (CMC) joint of both thumbs Osteoarthritis of facet joint of lumbar spine Pes anserinus bursitis of both knees Primary osteoarthritis of both feet Primary osteoarthritis of both hands Primary osteoarthritis of both wrists Subacromial bursitis of left shoulder joint Tendonitis of both rotator cuffs Psoriasis Intrinsic eczema Chronic fatigue Family history of MS (multiple sclerosis) Family history of psoriasis History of osteoarthritis History of psoriasis History of psoriatic arthritis terminal carman current use of non-steroidal anti-inflammatories (NSAID) Vitamin D deficiency Abnormal reflexes of lower extremity Acute bilateral low back pain with bilateral sciatica Acute right-sided low back pain with right-sided sciatica Expected: 01/22/2023, Expires: 01/22/2024 [employer] Comment on above: Expected: 01/22/2023, Expires: Start: 01-22-2023 End: 01-23-2024 MR Lumbar spine WO contrast MRI SPINE LUMBAR WITHOUT CONTRAST Imaging Routine Cervicalgia Chronic pain of both knees Dorsalgia Osteoarthritis of lumbosacral spine with radiculopathy Biceps tendonitis on right Bilateral hand pain Bilateral wrist pain Chronic pain of both shoulders Disorder of bone and cartilage Lumbar degenerative disc disease Osteoarthritis of carpometacarpal (CMC) joint of both thumbs Osteoarthritis of facet joint of lumbar spine Pes anserinus bursitis of both knees Primary osteoarthritis of both feet Primary osteoarthritis of both hands Primary osteoarthritis of both wrists Subacromial bursitis of left shoulder joint Tendonitis of both rotator cuffs Psoriasis Intrinsic eczema Chronic fatigue Family history of MS (multiple sclerosis) Family history of psoriasis History of osteoarthritis History of psoriasis History of psoriatic arthritis long-term current use of non-steroidal anti-inflammatories (NSAID) Vitamin D deficiency Abnormal reflexes of lower extremity Acute bilateral low back pain with bilateral sciatica Acute right-sided low back pain with right-sided sciatica Chronic bilateral low back pain with bilateral sciatica Lumbar radiculopathy Expected: 01/22/2023, Expires: 01/23/2024 [employer] Comment on above: Expected: 01/22/2023, Expires: Start: 01-22-2023 End: 01-22-2024 RED CELL FOLATE RED CELL FOLATE Blood Bank Routine Cervicalgia Chronic pain of both knees Dorsalgia Osteoarthritis of lumbosacral spine with radiculopathy Biceps tendonitis on right Bilateral hand pain Bilateral wrist pain Chronic pain of both shoulders Disorder of bone and cartilage Lumbar degenerative disc disease Osteoarthritis of carpometacarpal (CMC) joint of both thumbs Osteoarthritis of facet joint of lumbar spine Pes anserinus bursitis of both knees Primary osteoarthritis of both feet Primary osteoarthritis of both hands Primary osteoarthritis of both wrists Subacromial bursitis of left shoulder joint Tendonitis of both rotator cuffs Psoriasis Intrinsic eczema Chronic fatigue Family history of MS (multiple sclerosis) Family history of psoriasis History of osteoarthritis History of psoriasis History of psoriatic arthritis long-term current use of non-steroidal anti-inflammatories (NSAID) Vitamin D deficiency Abnormal reflexes of lower extremity Acute bilateral low back pain with bilateral sciatica Acute right-sided low back pain with right-sided sciatica Expected: 01/22/2023, Expires: 01/22/2024 [employer] Comment on above: Expected: 01/22/2023, Expires: 4 Start: 01-22-2023 End: 01-23-2024 RHEUMATOID FACTOR RHEUMATOID FACTOR Lab Routine Cervicalgia Chronic pain of both knees Dorsalgia Osteoarthritis of lumbosacral spine with radiculopathy Biceps tendonitis on right Bilateral hand pain Bilateral wrist pain Chronic pain of both shoulders Disorder of bone and cartilage Lumbar degenerative disc disease Osteoarthritis of carpometacarpal (CMC) joint of both thumbs Osteoarthritis of facet joint of lumbar spine Pes anserinus bursitis of both knees Primary osteoarthritis of both feet Primary osteoarthritis of both hands Primary osteoarthritis of both wrists Subacromial bursitis of left shoulder joint Tendonitis of both rotator cuffs Psoriasis Intrinsic eczema Chronic fatigue Family history of MS (multiple sclerosis) Family history of psoriasis History of osteoarthritis History of psoriasis History of psoriatic arthritis long-term current use of non-steroidal anti-inflammatories (NSAID) Vitamin D deficiency Abnormal reflexes of lower extremity Acute bilateral low back pain with bilateral sciatica Acute right-sided low back pain with right-sided sciatica Expected: 01/22/2023, Expires: 01/23/2024 [employer] Comment on above: Expected: 01/22/2023, Expires: Start: 01-22-2023 End: 01-22-2024 SEDIMENTATION RATE, AUTOMATED SEDIMENTATION RATE, AUTOMATED Lab Routine Cervicalgia Chronic pain of both knees Dorsalgia Osteoarthritis of lumbosacral spine with radiculopathy Biceps tendonitis on right Bilateral hand pain Bilateral wrist pain Chronic pain of both shoulders Disorder of bone and cartilage Lumbar degenerative disc disease Osteoarthritis of carpometacarpal (CMC) joint of both thumbs Osteoarthritis of facet joint of lumbar spine Pes anserinus bursitis of both knees Primary osteoarthritis of both feet Primary osteoarthritis of both hands Primary osteoarthritis of both wrists Subacromial bursitis of left shoulder joint Tendonitis of both rotator cuffs Psoriasis Intrinsic eczema Chronic fatigue Family history of MS (multiple sclerosis) Family history of psoriasis History of osteoarthritis History of psoriasis History of psoriatic arthritis long-term current use of non-steroidal anti-inflammatories (NSAID) Vitamin D deficiency Abnormal reflexes of lower extremity Acute bilateral low back pain with bilateral sciatica Acute right-sided low back pain with right-sided sciatica Expected: 01/22/2023, Expires: 01/22/2024 [employer] Comment on above: Expected: 01/22/2023, Expires: Start: 01-22-2023 End: 01-23-2024 T-TRANSGLUTAMINASE IGA AB T-TRANSGLUTAMINASE IGA AB Lab Routine Cervicalgia Chronic pain of both knees Dorsalgia Osteoarthritis of lumbosacral spine with radiculopathy Biceps tendonitis on right Bilateral hand pain Bilateral wrist pain Chronic pain of both shoulders Disorder of bone and cartilage Lumbar degenerative disc disease Osteoarthritis of carpometacarpal (CMC) joint of both thumbs Osteoarthritis of facet joint of lumbar spine Pes anserinus bursitis of both knees Primary osteoarthritis of both feet Primary osteoarthritis of both hands Primary osteoarthritis of both wrists Subacromial bursitis of left shoulder joint Tendonitis of both rotator cuffs Psoriasis Intrinsic eczema Chronic fatigue Family history of MS (multiple sclerosis) Family history of psoriasis History of osteoarthritis History of psoriasis History of psoriatic arthritis terminal carman current use of non-steroidal anti-inflammatories (NSAID) Vitamin D deficiency Abnormal reflexes of lower extremity Acute bilateral low back pain with bilateral sciatica Acute right-sided low back pain with right-sided sciatica Expected: 01/22/2023, Expires: 01/23/2024 [employer] Comment on above: Expected: 01/22/2023, Expires: Start: 01-22-2023 End: 01-22-2024 Thyrotropin [Units/volume] in Serum or Plasma TSH Lab Routine Cervicalgia Chronic pain of both knees Dorsalgia Osteoarthritis of lumbosacral spine with radiculopathy Biceps tendonitis on right Bilateral hand pain Bilateral wrist pain Chronic pain of both shoulders Disorder of bone and cartilage Lumbar degenerative disc disease Osteoarthritis of carpometacarpal (CMC) joint of both thumbs Osteoarthritis of facet joint of lumbar spine Pes anserinus bursitis of both knees Primary osteoarthritis of both feet Primary osteoarthritis of both hands Primary osteoarthritis of both wrists Subacromial bursitis of left shoulder joint Tendonitis of both rotator cuffs Psoriasis Intrinsic eczema Chronic fatigue Family history of MS (multiple sclerosis) Family history of psoriasis History of osteoarthritis History of psoriasis History of psoriatic arthritis terminal carman current use of non-steroidal anti-inflammatories (NSAID) Vitamin D deficiency Abnormal reflexes of lower extremity Acute bilateral low back pain with bilateral sciatica Acute right-sided low back pain with right-sided sciatica Expected: 01/22/2023, Expires: 01/22/2024 [employer] Comment on above: Expected: 01/22/2023, Expires: Start: 01-22-2023 End: 01-22-2024 Urate [Mass/volume] in Serum or Plasma URIC ACID Lab Routine Cervicalgia Chronic pain of both knees Dorsalgia Osteoarthritis of lumbosacral spine with radiculopathy Biceps tendonitis on right Bilateral hand pain Bilateral wrist pain Chronic pain of both shoulders Disorder of bone and cartilage Lumbar degenerative disc disease Osteoarthritis of carpometacarpal (CMC) joint of both thumbs Osteoarthritis of facet joint of lumbar spine Pes anserinus bursitis of both knees Primary osteoarthritis of both feet Primary osteoarthritis of both hands Primary osteoarthritis of both wrists Subacromial bursitis of left shoulder joint Tendonitis of both rotator cuffs Psoriasis Intrinsic eczema Chronic fatigue Family history of MS (multiple sclerosis) Family history of psoriasis History of osteoarthritis History of psoriasis History of psoriatic arthritis long-term current use of non-steroidal anti-inflammatories (NSAID) Vitamin D deficiency Abnormal reflexes of lower extremity Acute bilateral low back pain with bilateral sciatica Acute right-sided low back pain with right-sided sciatica Expected: 01/22/2023, Expires: 01/22/2024 [employer] Comment on above: Expected: 01/22/2023, Expires: Start: 01-22-2023 End: 01-23-2024 VITAMIN B1 VITAMIN B1 Lab Routine Cervicalgia Chronic pain of both knees Dorsalgia Osteoarthritis of lumbosacral spine with radiculopathy Biceps tendonitis on right Bilateral hand pain Bilateral wrist pain Chronic pain of both shoulders Disorder of bone and cartilage Lumbar degenerative disc disease Osteoarthritis of carpometacarpal (CMC) joint of both thumbs Osteoarthritis of facet joint of lumbar spine Pes anserinus bursitis of both knees Primary osteoarthritis of both feet Primary osteoarthritis of both hands Primary osteoarthritis of both wrists Subacromial bursitis of left shoulder joint Tendonitis of both rotator cuffs Psoriasis Intrinsic eczema Chronic fatigue Family history of MS (multiple sclerosis) Family history of psoriasis History of osteoarthritis History of psoriasis History of psoriatic arthritis terminal carman current use of non-steroidal anti-inflammatories (NSAID) Vitamin D deficiency Abnormal reflexes of lower extremity Acute bilateral low back pain with bilateral sciatica Acute right-sided low back pain with right-sided sciatica Expected: 01/22/2023, Expires: 01/23/2024 [employer] Comment on above: Expected: 01/22/2023, Expires: Start: 01-22-2023 End: 01-22-2024 VITAMIN B6 VITAMIN B6 Lab Routine Cervicalgia Chronic pain of both knees Dorsalgia Osteoarthritis of lumbosacral spine with radiculopathy Biceps tendonitis on right Bilateral hand pain Bilateral wrist pain Chronic pain of both shoulders Disorder of bone and cartilage Lumbar degenerative disc disease Osteoarthritis of carpometacarpal (CMC) joint of both thumbs Osteoarthritis of facet joint of lumbar spine Pes anserinus bursitis of both knees Primary osteoarthritis of both feet Primary osteoarthritis of both hands Primary osteoarthritis of both wrists Subacromial bursitis of left shoulder joint Tendonitis of both rotator cuffs Psoriasis Intrinsic eczema Chronic fatigue Family history of MS (multiple sclerosis) Family history of psoriasis History of osteoarthritis History of psoriasis History of psoriatic arthritis long-term current use of non-steroidal anti-inflammatories (NSAID) Vitamin D deficiency Abnormal reflexes of lower extremity Acute bilateral low back pain with bilateral sciatica Acute right-sided low back pain with right-sided sciatica Expected: 01/22/2023, Expires: 01/22/2024 [employer] Comment on above: Expected: 01/22/2023, Expires: Start: 01-22-2023 End: 01-23-2024 XR Cervical spine 4 Views XR SPINE CERVICAL 4 VIEWS Imaging Routine Cervicalgia Chronic pain of both knees Dorsalgia Osteoarthritis of lumbosacral spine with radiculopathy Biceps tendonitis on right Bilateral hand pain Bilateral wrist pain Chronic pain of both shoulders Disorder of bone and cartilage Lumbar degenerative disc disease Osteoarthritis of carpometacarpal (CMC) joint of both thumbs Osteoarthritis of facet joint of lumbar spine Pes anserinus bursitis of both knees Primary osteoarthritis of both feet Primary osteoarthritis of both hands Primary osteoarthritis of both wrists Subacromial bursitis of left shoulder joint Tendonitis of both rotator cuffs Psoriasis Intrinsic eczema Chronic fatigue Family history of MS (multiple sclerosis) Family history of psoriasis History of osteoarthritis History of psoriasis History of psoriatic arthritis long-term current use of non-steroidal anti-inflammatories (NSAID) Vitamin D deficiency Abnormal reflexes of lower extremity Acute bilateral low back pain with bilateral sciatica Acute right-sided low back pain with right-sided sciatica Expected: 01/22/2023, Expires: 01/23/2024 [employer] Comment on above: Expected: 01/22/2023, Expires: 4 Start: 01-22-2023 End: 01-23-2024 XR Hand - bilateral Views XR HANDS-RHEUMATOLOGY EVAL ONLY Imaging Routine Cervicalgia Chronic pain of both knees Dorsalgia Osteoarthritis of lumbosacral spine with radiculopathy Biceps tendonitis on right Bilateral hand pain Bilateral wrist pain Chronic pain of both shoulders Disorder of bone and cartilage Lumbar degenerative disc disease Osteoarthritis of carpometacarpal (CMC) joint of both thumbs Osteoarthritis of facet joint of lumbar spine Pes anserinus bursitis of both knees Primary osteoarthritis of both feet Primary osteoarthritis of both hands Primary osteoarthritis of both wrists Subacromial bursitis of left shoulder joint Tendonitis of both rotator cuffs Psoriasis Intrinsic eczema Chronic fatigue Family history of MS (multiple sclerosis) Family history of psoriasis History of osteoarthritis History of psoriasis History of psoriatic arthritis long-term current use of non-steroidal anti-inflammatories (NSAID) Vitamin D deficiency Abnormal reflexes of lower extremity Acute bilateral low back pain with bilateral sciatica Acute right-sided low back pain with right-sided sciatica Expected: 01/22/2023, Expires: 01/23/2024 [employer] Comment on above: Expected: 01/22/2023, Expires: 4 Start: 01-22-2023 End: 01-23-2024 XR Shoulder - left 2 Views XR SHOULDER LEFT MIN 2 VIEWS Imaging Routine Cervicalgia Chronic pain of both knees Dorsalgia Osteoarthritis of lumbosacral spine with radiculopathy Biceps tendonitis on right Bilateral hand pain Bilateral wrist pain Chronic pain of both shoulders Disorder of bone and cartilage Lumbar degenerative disc disease Osteoarthritis of carpometacarpal (CMC) joint of both thumbs Osteoarthritis of facet joint of lumbar spine Pes anserinus bursitis of both knees Primary osteoarthritis of both feet Primary osteoarthritis of both hands Primary osteoarthritis of both wrists Subacromial bursitis of left shoulder joint Tendonitis of both rotator cuffs Psoriasis Intrinsic eczema Chronic fatigue Family history of MS (multiple sclerosis) Family history of psoriasis History of osteoarthritis History of psoriasis History of psoriatic arthritis long-term current use of non-steroidal anti-inflammatories (NSAID) Vitamin D deficiency Abnormal reflexes of lower extremity Acute bilateral low back pain with bilateral sciatica Acute right-sided low back pain with right-sided sciatica Expected: 01/22/2023, Expires: 01/23/2024 [employer] Comment on above: Expected: 01/22/2023, Expires: 4 Start: 01-22-2023 End: 01-23-2024 XR Shoulder - right 2 Views XR SHOULDER RIGHT MIN 2 VIEWS Imaging Routine Cervicalgia Chronic pain of both knees Dorsalgia Osteoarthritis of lumbosacral spine with radiculopathy Biceps tendonitis on right Bilateral hand pain Bilateral wrist pain Chronic pain of both shoulders Disorder of bone and cartilage Lumbar degenerative disc disease Osteoarthritis of carpometacarpal (CMC) joint of both thumbs Osteoarthritis of facet joint of lumbar spine Pes anserinus bursitis of both knees Primary osteoarthritis of both feet Primary osteoarthritis of both hands Primary osteoarthritis of both wrists Subacromial bursitis of left shoulder joint Tendonitis of both rotator cuffs Psoriasis Intrinsic eczema Chronic fatigue Family history of MS (multiple sclerosis) Family history of psoriasis History of osteoarthritis History of psoriasis History of psoriatic arthritis terminal carman current use of non-steroidal anti-inflammatories (NSAID) Vitamin D deficiency Abnormal reflexes of lower extremity Acute bilateral low back pain with bilateral sciatica Acute right-sided low back pain with right-sided sciatica Expected: 01/22/2023, Expires: 01/23/2024 [employer] Comment on above: Expected: 01/22/2023, Expires: 4 Start: 01-22-2023 End: 01-23-2024 XR Thoracic spine 2 Views XR SPINE THORACIC 2 VIEWS Imaging Routine Cervicalgia Chronic pain of both knees Dorsalgia Osteoarthritis of lumbosacral spine with radiculopathy Biceps tendonitis on right Bilateral hand pain Bilateral wrist pain Chronic pain of both shoulders Disorder of bone and cartilage Lumbar degenerative disc disease Osteoarthritis of carpometacarpal (CMC) joint of both thumbs Osteoarthritis of facet joint of lumbar spine Pes anserinus bursitis of both knees Primary osteoarthritis of both feet Primary osteoarthritis of both hands Primary osteoarthritis of both wrists Subacromial bursitis of left shoulder joint Tendonitis of both rotator cuffs Psoriasis Intrinsic eczema Chronic fatigue Family history of MS (multiple sclerosis) Family history of psoriasis History of osteoarthritis History of psoriasis History of psoriatic arthritis long-term current use of non-steroidal anti-inflammatories (NSAID) Vitamin D deficiency Abnormal reflexes of lower extremity Acute bilateral low back pain with bilateral sciatica Acute right-sided low back pain with right-sided sciatica Expected: 01/22/2023, Expires: 01/23/2024 [employer] Comment on above: Expected: 01/22/2023, Expires: 4 Start: 01-22-2023 End: 01-23-2024 XR Wrist - left AP and Lateral XR WRIST LEFT AP AND LATERAL Imaging Routine Cervicalgia Chronic pain of both knees Dorsalgia Osteoarthritis of lumbosacral spine with radiculopathy Biceps tendonitis on right Bilateral hand pain Bilateral wrist pain Chronic pain of both shoulders Disorder of bone and cartilage Lumbar degenerative disc disease Osteoarthritis of carpometacarpal (CMC) joint of both thumbs Osteoarthritis of facet joint of lumbar spine Pes anserinus bursitis of both knees Primary osteoarthritis of both feet Primary osteoarthritis of both hands Primary osteoarthritis of both wrists Subacromial bursitis of left shoulder joint Tendonitis of both rotator cuffs Psoriasis Intrinsic eczema Chronic fatigue Family history of MS (multiple sclerosis) Family history of psoriasis History of osteoarthritis History of psoriasis History of psoriatic arthritis terminal carman current use of non-steroidal anti-inflammatories (NSAID) Vitamin D deficiency Abnormal reflexes of lower extremity Acute bilateral low back pain with bilateral sciatica Acute right-sided low back pain with right-sided sciatica Expected: 01/22/2023, Expires: 01/23/2024 [employer] Comment on above: Expected: 01/22/2023, Expires: 4 Start: 01-22-2023 End: 01-23-2024 XR Wrist - right AP and Lateral XR WRIST RIGHT AP AND LATERAL Imaging Routine Cervicalgia Chronic pain of both knees Dorsalgia Osteoarthritis of lumbosacral spine with radiculopathy Biceps tendonitis on right Bilateral hand pain Bilateral wrist pain Chronic pain of both shoulders Disorder of bone and cartilage Lumbar degenerative disc disease Osteoarthritis of carpometacarpal (CMC) joint of both thumbs Osteoarthritis of facet joint of lumbar spine Pes anserinus bursitis of both knees Primary osteoarthritis of both feet Primary osteoarthritis of both hands Primary osteoarthritis of both wrists Subacromial bursitis of left shoulder joint Tendonitis of both rotator cuffs Psoriasis Intrinsic eczema Chronic fatigue Family history of MS (multiple sclerosis) Family history of psoriasis History of osteoarthritis History of psoriasis History of psoriatic arthritis terminal carman current use of non-steroidal anti-inflammatories (NSAID) Vitamin D deficiency Abnormal reflexes of lower extremity Acute bilateral low back pain with bilateral sciatica Acute right-sided low back pain with right-sided sciatica Expected: 01/22/2023, Expires: 01/23/2024 [facility] Comment on above: Expected: 01/22/2023, Expires: Start: 12-12-2022 COVID-19 VACCINE () COVID-19 VACCINE () [facility] Start: 12-12-2022 Influenza vaccination INFLUENZA VACCINE (#1) [facility] [email or web address] [facility] Start: 09-24-2022 End: 09-25-2023 Comprehensive metabolic 2000 panel - Serum or Plasma COMPREHENSIVE METABOLIC PANEL Lab Routine Psoriasis Primary osteoarthritis involving multiple joints Expected: 09/24/2022 (Approximate), Expires: 09/25/2023 [facility] Comment on above: Expected: 09/24/2022 (Approximate), Expi res: 09/25/2023 Start: 09-24-2022 End: 09-25-2023 LIPID PANEL W CALCULATED LDL LIPID PANEL W CALCULATED LDL Lab Routine Screening for lipid disorders Abnormal findings on diagnostic imaging of other parts of digestive tract Expected: 09/24/2022 (Approximate), Expires: 09/25/2023 [facility] Comment on above: Expected: 09/24/2022 (Approximate), Expi res: 09/25/2023 Start: 09-24-2022 End: 09-25-2023 SEDIMENTATION RATE, AUTOMATED SEDIMENTATION RATE, AUTOMATED Lab Routine Psoriasis Primary osteoarthritis involving multiple joints Expected: 09/24/2022 (Approximate), Expires: 09/25/2023 [facility] Comment on above: Expected: 09/24/2022 (Approximate), Expi res: 09/25/2023 Start: 06-24-2022 Screening for malignant neoplasm of cervix CERVICAL CANCER SCREENING DISCUSSION [facility] Start: 06-23-2022 Fasting lipid profile LIPID SCREENING [facility] Work Phone: Start: 06-21-2022 Screening mammography [facility]AM[facility]GRAM [facility] Start: 12-17-2021 End: 12-17-2022 MR Lumbar spine WO contrast MRI SPINE LUMBAR WITHOUT CONTRAST Imaging Routine Osteoarthritis of lumbosacral spine with radiculopathy Expected: 12/17/2021 (Approximate), Expires: 12/17/2022 [facility] Comment on above: Expected: 12/17/2021 (Approximate), Expi res: 12/17/2022 Start: 12-17-2021 End: 12-17-2021 Patient encounter procedure 12/17/2021 Office Visit Internal Medicine Bailee Rolle, DO [address] [place] [id number] [facility] Start: 12-12-2021 Influenza vaccination INFLUENZA VACCINE (#1) [facility] Start: 11-16-2021 COVID-19 VACCINE (3 - Booster for Rajat series) COVID-19 VACCINE (3 - Booster for Rajat series) [facility] Start: 11-14-2021 End: 11-14-2022 QUANTIFERON TB GOLD PLUS ONE TUBE QUANTIFERON TB GOLD PLUS ONE TUBE Lab Routine Psoriatic arthritis Expected: 11/14/2021 (Approximate), Expires: 11/14/2022 [facility] Comment on above: Expected: 11/14/2021 (Approximate), Expi res: 11/14/2022 Start: 09-25-2021 End: 09-25-2021 Patient encounter procedure 09/25/2021 Office Visit Internal Medicine Bailee Rolle, DO [address] [place] [id number] [facility] Start: 09-11-2021 COVID-19 VACCINE (3 - Booster for Rajat series) COVID-19 VACCINE (3 - Booster for Rajat series) [facility] Start: 06-14-2021 Screening for malignant neoplasm of cervix CERVICAL CANCER SCREENING DISCUSSION [facility] Start: 06-14-2021 Screening mammography MAMMOGRAM SCREENING DISCUSSION [facility] Start: 03-13-2021 Subsequent hospital visit by physician 03/13/2021 Hospital Encounter Jonel Malagon, EVELIN [address] [place] [address] [facility] Start: 01-18-2021 End: 01-18-2022 12 lead ECG ECG 12 Lead ECG Routine Pre-op testing Expected: 01/18/2021, Expires: 01/18/2022 [facility] Comment on above: Expected: 01/18/2021, Expires: 2 Start: 01-18-2021 End: 01-18-2022 Basic metabolic 2000 panel - Serum or Plasma Basic metabolic panel Lab Routine Pre-op testing Expected: 01/18/2021, Expires: 01/18/2022 [facility] Comment on above: Expected: 01/18/2021, Expires: 2 Start: 01-18-2021 End: 01-18-2022 Complete blood count with white cell differential, manual CBC and differential Lab Routine Pre-op testing Expected: 01/18/2021, Expires: 01/18/2022 [facility] Work Phone: Comment on above: Expected: 01/18/2021, Expires: 2 Start: 12-13-2020 COVID-19 VACCINE (2 - Booster for Rajat series) COVID-19 VACCINE (2 - Booster for Rajat series) [facility] Start: 12-12-2020 Influenza vaccination [facility] Start: 10-30-2020 End: 10-30-2020 Patient encounter procedure 10/30/2020 Office Visit Orthopaedics Nadeem Lomax MD [address] [place] [id number] [facility] Start: 06-09-2020 Screening mammography MAMMOGRAM SCREENING DISCUSSION [facility] Start: 12-13-2019 Influenza vaccination INFLUENZA VACCINE (#1) [facility] Start: 12-13-2019 Influenza vaccination given Sequential Influenza Vaccine (#1) [facility] Start: 04-22-2019 Protein mass conc MAMMOGRAM SCREENING DISCUSSION [facility] Work Phone: Start: 04-22-2019 Screening mammography MAMMOGRAM SCREENING DISCUSSION [facility] Start: 04-19-2019 End: 04-19-2019 Office Visit 04/19/2019 Office Visit Internal Medicine Bailee Rolle DO [address] [place] [address] [facility] Start: 04-19-2019 End: 04-19-2020 Diagnostic radiography of lumbar spine XR LUMBAR SPINE BENDING ONLY 4+ VW Imaging Routine Acute bilateral low back pain with bilateral sciatica Expected: 04/19/2019, Expires: 04/19/2020 [facility] Comment on above: Expected: 04/19/2019, Expires: 1 Start: 12-20-2018 End: 12-20-2018 Office Visit 12/20/2018 Office Visit Internal Medicine Bailee Rolle, DO [address] [place] [address] [phone] [facility] Start: 12-12-2018 Influenza vaccination [facility] Start: 11-13-2018 End: 08-14-2019 Comprehensive metabolic 2000 panel COMPREHENSIVE METABOLIC PANEL Lab Routine Arthralgia of metacarpophalangeal joint, right Screening for lipid disorders Expected: 11/13/2018, Expires: 08/14/2019 [facility] Comment on above: Expected: 11/13/2018, Expires: 0 Start: 11-13-2018 End: 08-14-2019 LIPID PANEL W CALCULATED LDL LIPID PANEL W CALCULATED LDL Lab Routine Screening for lipid disorders Expected: 11/13/2018, Expires: 08/14/2019 [facility] Comment on above: Expected: 11/13/2018, Expires: 0 Start: 11-13-2018 End: 08-14-2019 TSH W/FT4 REFLEX TSH W/FT4 REFLEX Lab Routine Primary osteoarthritis of both hands Expected: 11/13/2018, Expires: 08/14/2019 [employer] Comment on above: Expected: 11/13/2018, Expires: 0 Start: 11-13-2018 End: 08-14-2019 VITAMIN D (25-HYDROXY,TOTAL) VITAMIN D (25-HYDROXY,TOTAL) Lab Routine Primary osteoarthritis of both hands Expected: 11/13/2018, Expires: 08/14/2019 [employer] Comment on above: Expected: 11/13/2018, Expires: 0 Start: 08-13-2018 End: 08-14-2019 CBC, EDIF, PLATELET CBC, EDIF, PLATELET Lab Routine Primary osteoarthritis of both hands Expected: 08/13/2018, Expires: 08/14/[address] [facility] Comment on above: Expected: 08/13/2018, Expires: 0 Start: 06-23-2018 Pneumococcal vaccination PNEUMOCOCCAL VACCINE SERIES (2 of 2 - PPSV23) [facility] Work Phone: Start: 12-12-2017 Influenza vaccination INFLUENZA VACCINE (#1) [facility] Work Phone: Start: 10-25-2015 Fall risk assessment Falls Risk Assessment [facility] Start: 10-25-2015 Pneumococcal vaccination Pneumococcal Vaccine Age 65+ (1 of 2 - PCV13) [facility] Start: 2010 RSV VACCINE (1 - 1-dose 60+ series) RSV VACCINE (1 - 1-dose 60+ series) [facility] Start: 2000 Administration of herpes zoster vaccine Zoster Vaccines (1 of 2) [facility] Start: [address] [facility] Start: 2000 Protein mass conc COLON CANCER SCREENING DISCUSSION [facility] Work Phone: Start: 2000 Screening for malignant neoplasm of colon [facility] Start: 2000 Zoster vaccine hzv live for subcutaneous use ZOSTER (SHINGLES) VACCINE (1 of 2) [facility] Start: 10-25-1995 Colonoscopy COLORECTAL CANCER SCREENING DISCUSSION [facility] Start: 10-25-1995 Screening for malignant neoplasm of colon COLORECTAL CANCER SCREENING DISCUSSION [facility] Start: 1990 Screening for malignant neoplasm of breast Mammogram [facility] Start: 10-25-1971 Screening for malignant neoplasm of cervix [facility] Work Phone: Start: 1969 Third diphtheria, tetanus and acellular pertussis (DTaP) vaccination TDAP (ADULT) [facility] Start: 1968 Hepatitis C antibody, confirmatory test [facility]atitis C [facility] Start: 1968 Hepatitis C screening Hepatitis C Screening [facility] Start: 1968 Tetanus vaccination TETANUS [facility] Start: 1966 COVID-19 Vaccine (1 of 2) COVID-19 Vaccine (1 of 2) [facility] Start: 1966 COVID-19 VACCINE (1) COVID-19 VACCINE (1) [facility] Start: 1962 Adolescent depression screening assessment Depression Screening (PHQ9) [facility] Start: 1962 COVID-19 VACCINE (1) COVID-19 VACCINE (1) [facility] Start: 1962 Depression screening using PHQ-9 (Patient Health Questionnaire 9) score Depression Screening (PHQ-2/9) [facility] Start: 1953 History and physical examination, annual for health maintenance Wellness Visit [facility] Start: 1950 Fall risk assessment Falls Risk Assessment [facility] Start: 1950 Hepatitis C antibody, confirmatory test HEPATITIS C VIRUS SCREENING [facility] Start: 1950 Hepatitis C screening HEPATITIS C VIRUS SCREENING [facility] Start: 1950 Screening for osteoporosis [facility] Start: 1950 Screening mammography Mammogram [facility] Start: 1950 Tetanus vaccination [facility] End: 06-25-2022 Alanine aminotransferase [Enzymatic activity/volume] in Serum or Plasma ALT Lab Routine Encounter for methotrexate monitoring Every 12 Weeks for 4 Occurrences starting 06/25/2021 until 06/25/2022, 1 completed [employer] Comment on above: Every 12 Weeks for 4 Occurrences startin g 06/25/2021 until 06/25/2022, 1 completed Arthroplasty interphalangeal joint each ARTHROPLASTY INTERPHALANGEAL JOINT Fat pad atrophy of foot Tailor's bunion of left foot [facility] BUNIONECTOMY TAILORS BUNIONECTOM Y TAILORS Pre-op testing [facility] End: 06-25-2022 Complete blood count with white cell differential, automated CBC, EDIF, PLATELET Lab Routine Encounter for methotrexate monitoring Every 12 Weeks for 4 Occurrences starting 06/25/2021 until 06/25/2022, 1 completed [employer] Comment on above: Every 12 Weeks for 4 Occurrences startin g 06/25/2021 until 06/25/2022, 1 completed End: 06-11-2023 MR Wrist - left WO contrast [employer] Comment on above: 1 Occurrences starting 06/11/2023 until 06/11/2023 End: 06-11-2023 MR Wrist - right WO contrast [facility] Comment on above: 1 Occurrences starting 06/11/2023 until 06/11/2023 OSTEOTOMY METATARSAL BONE OSTEOTOMY METATARSAL BONE Fat pad atrophy of foot Tailor's bunion of left foot [facility] Radiography of hand XR HAND RIGH T 3+ VIEWS Imaging Routine Hand pain, right 08/28/2020 1:32 PM EDT [employer] End: 01-26-2023 XR Cervical spine 4 Views [employer] Comment on above: 1 Occurrences starting 01/26/2023 until 01/26/2023 End: 01-26-2023 XR Thoracic spine 2 Views [employer] Comment on above: 1 Occurrences starting 01/26/2023 until 01/26/2023 Immunizations Immunization Date Immunization Notes Care Provider Zia nieto 02-15-2021 Influenza, High-dose Seasonal, Quadrivalent, Preservative Free Bailee Haus DO Work Phone: [facility] 02-15-2021 influenza high-dose quad vaccine 0.7 ML injection Bailee Light[employer] DO Work Phone: [facility] 02-15-2021 influenza, high dose seasonal, preservative-free; Translations: [HC INFLUENZA VACCINE QUADRIVALENT SPLIT VIRUS PRSRV FREE HIGH DOSE IM] Bailee Haus DO Work Phone: [facility] 02-15-2021 influenza virus vacc ine, unspecified formulation Bailee [employer] DO Work Phone: [facility] 09-17-2018 pneumococcal polysaccharide vaccine, [address] [facility] 09-17-2018 pneumococcal vaccine , unspecified formulation [facility] 06-23-2017 pneumococcal conjuga te vaccine, 13 valent; Translations: [PNEUMOCOCCAL CONJUGATE 13-VALENT VACCINE] Historical Provider [facility] Payers Date Payer Category Payer Medicare [id number] 2020 Medicare [id number] 1.13.172.2 .[id number] 2020 Medicare [id number] 2018 Unknown [employer] [place] xxxxxxxx 2018-Present xxxxxxxx [id number] .7.3.136074.315 2016 Private Health Insurance [place] xxxxxxxxxx 2016-Present xxxxxxxxxx 1.2.840.137552.1.13.172.2 .7.3.541156.315 2014 Unknown [id number] 1.2.840.394295.1.13.172.2 .7.3.063651.315 2014 Unknown [id number] 1950 Unknown [id number] 2.16.840.1.256212.3.579.2 .903 1950 Unknown [id number] 2.16.840.1.473315.3.579.2 .903 1950 Unknown [id number] 2.16.840.1.219055.3.579.2 .903 1950 Unknown [id number] 2.16.840.1.776321.3.579.2 .903 1950 Unknown [id number] 2.16.840.1.073234.3.579.2 .983 1950 Unknown [id number] 2.16.840.1.335321.3.579.2 .983 1950 Unknown [id number] 2.16.840.1.508144.3.579.2 .983 1950 Unknown [id number] 2.16.840.1.438021.3.579.2 .983 1950 Unknown [id number] 2.16.840.1.729396.3.579.2 .983 1950 Unknown [id number] 2.16.840.1.582565.3.579.2 .983 1950 Unknown [id number] 2.16.840.1.485479.3.579.2 .983 1950 Unknown [id number] 2.16.840.1.147567.3.579.2 .983 1950 Unknown [id number] 2.16.840.1.506545.3.579.2 .983 1950 Unknown [id number] 2.16.840.1.349632.3.579.2 .983 1950 Unknown [id number] 2.16.840.1.025096.3.579.2 .983 1950 Unknown [id number] 2.16.840.1.151336.3.579.2 .98 1950 Unknown [id number] 2.16.840.1.199606.3.579.2 .983 1950 Unknown [id number] 2.16.840.1.209307.3.579.2 .983 1950 Unknown [id number] 2.16.840.1.667405.3.579.2 .983 1950 Unknown [id number] 2.16.840.1.236693.3.579.2 .983 1950 Unknown [id number] 2.16.840.1.146738.3.579.2 .983 1950 Unknown [id number] 2.16.840.1.647098.3.579.2 .983 1950 Unknown [id number] 2.16.840.1.411818.3.579.2 .983 1950 Unknown [id number] 2.16.840.1.693196.3.579.2 .594 1950 Unknown [id number] 2.16.840.1.213637.3.579.2 .594 1950 Unknown [id number] 2.16.840.1.927207.3.579.2 .594 1950 Unknown [id number] 2.16.840.1.898091.3.579.2 .983 1950 Unknown [id number] 2.16.840.1.298119.3.579.2 .983 1950 Unknown [id number] 2.16.840.1.741577.3.579.2 .983 1950 Unknown [id number] 2.16.840.1.136358.3.579.2 .983 1950 Unknown [id number] 2.16.840.1.524456.3.579.2 .983 Unknown [id number] Social History Date Type Detail Facility Start: 06-23-2017 End: 06-03-2023 Tobacco smoking status NHIS Never smoker [facility] Work Phone: Start: 1950 Sex Assigned At Not on file [facility] Work Phone: Start: 07-23-2016 Alcohol Comment wine [facility] Start: 11-29-2018 End: 01-26-2024 Alcohol intake Yes [facility] Start: 04-19-2019 End: 01-05-2024 Alcohol intake Current drinker of alcohol (finding) [facility] Start: 02-28-2020 End: 06-03-2023 Tobacco use and exposure Never used [facility] Start: 01-18-2021 End: 01-26-2024 Alcohol intake [facility] Exposure to SARS-CoV-2 (event) Not sure [facility] Start: 06-25-2021 History SDOH Alcohol Comment 1 beer every 3 days [facility] Gender identity Identifies as fe male gender (finding) [facility] History of tobacco use Passive smoker [facility] Start: 06-03-2023 Alcohol Comment 1 glass of win e every 3 days [facility] Clinical Notes 05-18-2021 to 01-13-2024 Karina Hawkins MA - 01/13/2024 3:10 PM EDTMEVANGELISTA CabreraM - 01/13/2024 3:10 PM EDTEric Betty Rolle, DO - 01/05/2024 2:30 PM EDTPatient InstructionsEric Betty Rolle, DO - 07/07/2023 8:30 AM EDT Note Date & Type Note Facility 01-13-2024 History of Presen t illness Narrative Nurse Note: Review of Systems Constitutional: Negative for fatigue, fever and unexpected weight change. HENT: No difficulty swallowing No change in voice Respiratory: Negative for cough, shortness of breath and wheezing. Cardiovascular: Negative for chest pain, palpitations and leg swelling. Gastrointestinal: Negative for constipation, diarrhea, nausea and vomiting. Neurological: Negative for tremors, weakness and numbness. Psychiatric/Behavioral: Negative for sleep disturbance. The patient is not nervous/anxious. Nursing Assessment: Physical Exam Patient: Harriet Engel Date: 01/14/2024 Chief Complaint: She is a 73 y.o. year old female who presents today with a complaint of Chief Complaint Patient presents with Left Foot - Consult . Subjective: She states that she was supposed to get her tailors bunion fixed a few years ago with dr. Malagon, but didn't have it done. She gets pain under the 5th metatarsal head left foot, this has been going on for years. Allergies: Allergies Allergen Reactions Bactrim [Sulfamethoxazole-Trimethoprim] Hives and Itching Flexeril [Cyclobenzaprine] Itching and Nausea Only Levaquin [Levofloxacin] Confusion Morphine Swelling Nabumetone Palpitations heartburn Medications: Current Outpatient Medications: Apremilast (Otezla) 30 MG tablet, Take by mouth., Disp: , Rfl: Calcium Carb-Cholecalciferol (CALCIUM 600-D PO), Take 600 mg by mouth., Disp: , Rfl: Cholecalciferol (VITAMIN D) 2000 units Tab, Take 3,600 Units by mouth daily. , Disp: , Rfl: Magnesium Oxide 500 MG tablet, Take 1 tablet by mouth daily., Disp: , Rfl: Meloxicam 15 MG tablet, Take 1 tablet by mouth daily., Disp: 90 tablet, Rfl: 1 No past medical history on file. Past Surgical History: Procedure Laterality Date COLONOSCOPY DIAGNOSTIC 01/2018 Had small polyp. HERNIA REPAIR 04/2009 Inquinial double hernia left side. SHOULDER SURGERY Right 01/2006 Rotary cuff SEPTOPLASTY 2004 Nasal. Social History Occupational History Employer: RETIRED Tobacco Use Smoking status: Never Passive exposure: Past Smokeless tobacco: Never Vaping Use Vaping status: Never Used Substance and Sexual Activity Alcohol use: Yes Comment: 1 glass of wine every 3 days Drug use: Never Sexual activity: Not on file @ROS@ Nurse Note: Review of Systems Constitutional: Negative for fatigue, fever and unexpected weight change. HENT: No difficulty swallowing No change in voice Respiratory: Negative for cough, shortness of breath and wheezing. Cardiovascular: Negative for chest pain, palpitations and leg swelling. Gastrointestinal: Negative for constipation, diarrhea, nausea and vomiting. Neurological: Negative for tremors, weakness and numbness. Psychiatric/Behavioral: Negative for sleep disturbance. The patient is not nervous/anxious. Nursing Assessment: Physical Exam Objective: Vitals: 01/13/24 1513 BP: 132/70 Pulse: 88 Weight: 62.6 kg (138 lb) Height: 1.6 m (5' 3 ) Examination: The patient is appropriately dressed, articulate, awake, alert, and oriented x 3, appears stated age and looks to be in good health. Vascular: Dorsalis pedis and posterior tibial pulses are palpable bilateral. Capillary filling time is brisk at the level of the digital ilana bilaterally. There are no ischemic skin changes evident to bilateral lower extremities. Dermatological: left and right foot with loss of fat pad sub 5th metatarsal head with mild hyperkeratosis Neurological: Gross and light sensations normal to lower extremity Normal muscle mass appreciated to both the lower extremity and foot bilateral. The patient can heel and toe walk with ease as well as arise from a seated position unassisted. Musculoskeletal: mild bunion 5th metatarsal with contracted 5th toe bilateral Appropriate muscle tone and symmetry bilateral lower extremities. Impression: Harriet was seen today for consult. Diagnoses and all orders for this visit: Fat pad atrophy of foot Treatment:Patient was seen and evaluated today in clinic and a history and physical exam was completed. The diagnosis and the etiology was explained to the patient in detail. The treatment plan will be as follows: Long discussion with patient today Explained that having surgery on the 5th met will not resolve her pain, as her pain is coming from fat pad atrophy. She was disappointed in this. Discussed shaving the callous down periodically and avoiding barefoot in the house- more than socks. Follow up prn documented in this encounter [facility] 01-05-2024 History of Presen t illness Narrative Subjective History of Present Illness Chief Complaint Patient presents with Joint Pain Pt presents for joint pain in her left elbow and forearm, thumbs and wrists. PT also has heel pain in her right heel that comes on suddenly. Pt also has pain in her lower back when she twists or turns or moves. Pt takes aleve when pain gets bad. Knee Pain Pt states her meniscus is torn in her left knee and wants to see who she should go to for this. PT did have an MRI and was informed by about this. Objective Review of Systems Constitutional: Negative for activity change, chills and fever. HENT: Negative for dental problem, ear pain, mouth sores, sinus pain and trouble swallowing. Eyes: Negative for discharge and visual disturbance. Respiratory: Negative for chest tightness, shortness of breath and wheezing. Cardiovascular: Negative for chest pain, palpitations and leg swelling. Gastrointestinal: Negative for abdominal pain and nausea. Endocrine: Negative for polydipsia, polyphagia and polyuria. Genitourinary: Negative for difficulty urinating, flank pain, frequency and urgency. Musculoskeletal: Negative for arthralgias, back pain, myalgias and neck pain. Skin: Negative for color change and rash. Neurological: Negative for dizziness, syncope and light-headedness. Psychiatric/Behavioral: Negative for decreased concentration and sleep disturbance. All other systems reviewed and are negative. Vitals: Blood pressure 138/60, pulse 71, temperature 97.7 F (36.5 C), height 1.6 m (5' 3 ), weight 62.6 kg (138 lb), SpO2 98%. Physical Exam Vitals and nursing note reviewed. HENT: Head: Normocephalic. Cardiovascular: Rate and Rhythm: Normal rate and regular rhythm. Heart sounds: No murmur heard. Pulmonary: Effort: Pulmonary effort is normal. Breath sounds: Normal breath sounds. Abdominal: General: Bowel sounds are normal. Palpations: Abdomen is soft. Tenderness: There is no abdominal tenderness. Musculoskeletal: General: No swelling. Assessment and Plan ICD-10-CM 1. 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 Tear of lateral meniscus of left knee, current, unspecified tear type, subsequent encounter S83.282D 3. Plaque psoriasis L40.0 4. Colon cancer screening Z12.11 5. Callous ulcer, unspecified ulcer stage L98.499 Begin Otezla Starter Pack per package instructions. Referral placed to Orthopedic Surgery, Dr. Kaye for evaluation of left lateral meniscal tear. Referral placed to Podiatry, Dr. Marion for evaluation of both feet due to calluses/bunions. Referral placed to Gastroenterology, Dr. Hines for screening colonoscopy. Begin meloxicam 15 mg once daily as needed to help reduce arthritis pain and foot pain. Can try using Gas-X to help reduce gas, especially after eating raw vegetables or carbonated drinks. SANNA Isabel, was the medical staff credentialing coordinator for today's note. I have performed all essential components of the history and physical exam, confirmed the diagnosis and developed a plan of care at this visit. I have reviewed the note at the visit and have added edits as appropriate to my evaluation and plan of care. documented in this encounter [facility] 01-05-2024 Instructions Laci Lopez - 01/05/2024 2:30 PM EDT Assessment and Plan ICD-10-CM 1. 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 Tear of lateral meniscus of left knee, current, unspecified tear type, subsequent encounter S83.282D 3. Plaque psoriasis L40.0 4. Colon cancer screening Z12.11 5. Callous ulcer, unspecified ulcer stage L98.499 Begin Otezla Starter Pack per package instructions. Referral placed to Orthopedic Surgery, Dr. Kaye for evaluation of left lateral meniscal tear. Referral placed to Podiatry, Dr. Marion for evaluation of both feet due to calluses/bunions. Referral placed to Gastroenterology, Dr. Hines for screening colonoscopy. Begin meloxicam 15 mg once daily as needed to help reduce arthritis pain and foot pain. Can try using Gas-X to help reduce gas, especially after eating raw vegetables or carbonated drinks. Laci Lopez GUTHRIE CLINICTomas, was the medical staff credentialing coordinator for today's note. I have performed all essential components of the history and physical exam, confirmed the diagnosis and developed a plan of care at this visit. I have reviewed the note at the visit and have added edits as appropriate to my evaluation and plan of care. documented in this encounter [facility] 08-05-2023 History of Presen t illness Narrative Subjective History of Present Illness Presence of Pain: denies pain/discomfort. Total time spent in this encounter was 30 minutes. Dizziness is no problem lately. Weakness is no. Joint pain is not really. Patient on on Prednisone from Dr. Rolle for knee problem and had an MRI of the knee. I have been told that prednisone is a high risk medication. Back pain is nothing major. Neck pain is stiffness and hard time turing it when she is driving. Minor pain. Rash/Psoriasis is no. Patient is here for Follow-up after MRI. Patient states had really bad knee pain. States Dr Rolle gave prednisone and has not had any pain since. Objective Review of Systems Constitutional: Negative. HENT: Negative. Eyes: Negative. Respiratory: Negative. Cardiovascular: Negative. Gastrointestinal: Negative. Endocrine: Negative. Genitourinary: Negative. Musculoskeletal: Positive for neck pain and neck stiffness. Skin: History of psoriasis Allergic/Immunologic: Negative. Hematological: Negative. Psychiatric/Behavioral: Negative. Vitals: Blood pressure 122/74, pulse 79, temperature 98.7 F (37.1 C), temperature source Temporal, height 1.6 m (5' 3 ), weight 58.1 kg (128 lb 1.4 oz), SpO2 98%. Physical Exam Vitals and nursing note reviewed. Constitutional: Appearance: Normal appearance. HENT: Head: Normocephalic and atraumatic. Right Ear: External ear normal. Left Ear: External ear normal. Nose: Nose normal. Mouth/Throat: Mouth: Mucous membranes are moist. Pharynx: Oropharynx is clear. Comments: mask Eyes: Extraocular Movements: Extraocular movements intact. Conjunctiva/sclera: Conjunctivae normal. Pupils: Pupils are equal, round, and reactive to light. Cardiovascular: Rate and Rhythm: Normal rate and regular rhythm. Pulses: Radial pulses are 2+ on the right side and 2+ on the left side. Dorsalis pedis pulses are 1+ on the right side and 1+ on the left side. Posterior tibial pulses are 1+ on the right side and 1+ on the left side. Heart sounds: Normal heart sounds. Comments: No subclavian or carotid bruits. Pulmonary: Effort: Pulmonary effort is normal. Breath sounds: Normal breath sounds. Abdominal: General: Bowel sounds are normal. Palpations: Abdomen is soft. Musculoskeletal: Right shoulder: Normal. Left shoulder: Normal. Right upper arm: Normal. Left upper arm: Normal. Right elbow: Normal. Left elbow: Normal. Right forearm: Normal. Left forearm: Normal. Right wrist: Normal. Left wrist: Normal. Right hand: Deformity present. Decreased range of motion. Decreased strength. Left hand: Deformity present. Decreased range of motion. Decreased strength. Cervical back: Neck supple. Right hip: Normal. Left hip: Normal. Right upper leg: Normal. Left upper leg: Normal. Right knee: Normal. Left knee: Decreased range of motion. Tenderness present. Right lower leg: Normal. Left lower leg: Normal. Right ankle: Decreased range of motion. Left ankle: Decreased range of motion. Comments: Crep L ankle Skin: General: Skin is warm and dry. Comments: Dry crack skin palms: resolved Neurological: Mental Status: She is alert and oriented to person, place, and time. Cranial Nerves: Cranial nerves 2-12 are intact. Sensory: Sensation is intact. Motor: Weakness present. 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 Oriented to person, place, and time. Cranial Nerves CN III, IV, : Extraocular movements intact bilaterally. Pupils equal round and reactive to light bilaterally. Sensory Normal sensation. 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 Assessment and Plan Would monitor CBC/LFT/Renal function tests every 6-12 months as long as Atypical pANCA is elevated Rec: GI eval for possible IBD No evidence of active CTD/CVD/Inflammatory arthritis/Psoriatic Arthritis/Autoimmune Hepatitis Patient can take Prednisone 5 mg 8 po q AM times one day decrease by one pill q day until off on a PRN basis any acute attack of pseudogout I return patient to your care Patient does not appear to need high dose steroids or immune modulating therapy at this time Encounter Diagnoses Name Primary? 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 Time was spent with the patient today in education in re: to all their medical conditions. A complete H&P&ROS was obtained and is either in this note or in the EHR. Please do not hesitate to contact me with any questions or concerns re: this patient. Past History Past medical, surgical, family, and social histories have been reviewed and updated with the patient today and are located elsewhere in the medical record. 2. Neuro Follow-up per Dr. Mercado 3. WILLIAM level was normal at 32 [address] Rolle 5. Insurance would not pay for Otezla and patient is trying to get it for free. Patient can not afford Otezla 6. Methotrexate stopped due to COVID-19 and UTI. 7. Ulnar minus R wrist 8. Derm f/U per Dr. Fontaine 9. Monitor CBC/LFT/Renal func every 6-12 months as long as patient is on daily NSAID 10. IBP/Aleve OTC helps and patient declines stronger pain medication 11. Diclofenac made her feel funny so was stopped 12. Meloxicam stopped due to unknown side effect 13. 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 alicea 14. Vit D under care of Dr. alicea 15. Patient is taking B complex and Vit E 16. Negative HLA-B27, AMA, ASMA. SPEP/SIF, Lyme, SULAIMAN, cANCA, pANCA, MPO, PR3, CCP, RF, Celiac, 17. ESR was normal at < 1 18. CRP was negative at < 5.0 19. Patient declines referral to ortho hand surgeon at [employer] where her son works. 20. Rx given for PT: patient has been and it made things worse and is doing HEP and declines another trip. 21. Uric acid was normal at 2.8 22. Atypical p ANCA was elevated at 1:20 23. Neurosurgery F/u per Dr. Cardenas 24. Patient declines referral to chronic pain management 25. Patient is going to Follow-up with PCP about L knee 26. BUN was elevated at 24 27. S/P L rotator cuff surgery 28. Ortho F/u per Dr. Lomax 29. Rx given for OT: patient did not go as psoriasis was too painful 30. Would monitor CBC/LFT/Renal function tests every 6-12 months as long as Atypical pANCA is elevated 31. Rec: GI eval for possible IBD 32 Patient can take Prednisone 5 mg 8 po q AM times one day decrease by one pill q day until off on a PRN basis any acute attack of pseudogout 33. Would not use colchicine in this patient 34. Patient declines referral to chronic pain management 35. No evidence of active CTD/CVD/Inflammatory arthritis/Psoriatic Arthritis/Autoimmune Hepatitis 36. long-term side effects of steroids gone over with the patient. 37. I return patient to your care. 38. Patient given educational material on OA in the from of a pamphlet from the arthritis foundation. Patient told that PT and keeping ideal body wt would be the cornerstone of treatment 39. Patient does not appear to need high dose steroids or immune modulating therapy at this time documented in this encounter [facility] 07-07-2023 History of Presen t illness Narrative Subjective History of Present Illness Chief Complaint Patient presents with Knee Pain Here today with c/o left knee pain. Says she almost went to the ER a couple weeks ago due to severe pain. She feels the last few days it has gotten a little better due to she has been trying to not be on it as much. Says it will swell. Pain is sharp but can be throbbing and sensitive to cold. She tried lidocaine patches but hasn't helped. Objective Review of Systems Constitutional: Negative for activity change, chills and fever. HENT: Negative for dental problem, ear pain, mouth sores, sinus pain and trouble swallowing. Eyes: Negative for discharge and visual disturbance. Respiratory: Negative for chest tightness, shortness of breath and wheezing. Cardiovascular: Negative for chest pain, palpitations and leg swelling. Gastrointestinal: Negative for abdominal pain and nausea. Endocrine: Negative for polydipsia, polyphagia and polyuria. Genitourinary: Negative for difficulty urinating, flank pain, frequency and urgency. Musculoskeletal: Positive for arthralgias (left knee). Negative for back pain, myalgias and neck pain. Skin: Negative for color change and rash. Neurological: Negative for dizziness, syncope and light-headedness. Psychiatric/Behavioral: Negative for decreased concentration and sleep disturbance. All other systems reviewed and are negative. Vitals: Blood pressure 120/70, pulse 77, temperature 96.8 F (36 C), resp. rate 16, height 1.6 m (5' 3 ), weight 58.1 kg (128 lb 1.6 oz), SpO2 98%. Physical Exam Vitals and nursing note reviewed. HENT: Head: Normocephalic. Cardiovascular: Rate and Rhythm: Normal rate and regular rhythm. Heart sounds: No murmur heard. Pulmonary: Effort: Pulmonary effort is normal. Breath sounds: Normal breath sounds. Abdominal: General: Bowel sounds are normal. Palpations: Abdomen is soft. Tenderness: There is no abdominal tenderness. Musculoskeletal: General: Tenderness (medial quadriceps) present. No swelling. Comments: Positive Neftali's, negative anterior/posterior drawer test Assessment and Plan ICD-10-CM 1. Derangement of medial meniscus of left knee M23.304 2. Chronic pain of left knee M25.562 G89.29 Begin prednisone 20 mg twice daily for 7 days. Order placed for MRI left knee. Can use a hinge knee brace with stays for meniscus tear. SANNA Isabel, was the medical staff credentialing coordinator for today's note. I have performed all essential components of the history and physical exam, confirmed the diagnosis and developed a plan of care at this visit. I have reviewed the note at the visit and have added edits as appropriate to my evaluation and plan of care. documented in this encounter [facility] 07-07-2023 Instructions Laci Lopez - 07/07/2023 8:30 AM EDT Assessment and Plan ICD-10-CM 1. Derangement of medial meniscus of left knee M23.304 2. Chronic pain of left knee M25.562 G89.29 Begin prednisone 20 mg twice daily for 7 days. Order placed for MRI left knee. Can use a hinge knee brace with stays for meniscus tear. SANNA Isabel, was the medical staff credentialing coordinator for today's note. I have performed all essential components of the history and physical exam, confirmed the diagnosis and developed a plan of care at this visit. I have reviewed the note at the visit and have added edits as appropriate to my evaluation and plan of care. documented in this encounter [facility] 06-03-2023 History of Presen t illness Narrative Subjective History of Present Illness Chief Complaint Patient presents with Psoriasis Here for a follow up. States she needs an alternative to the Otezla due to she can't afford it. She has an over $700/month copay monthly for it and doesn't qualify for assistance from the company. Says it works well but can't afford it. She will be out in 3 days. Objective Review of Systems Constitutional: Negative for activity change, chills and fever. HENT: Negative for dental problem, ear pain, mouth sores, sinus pain and trouble swallowing. Eyes: Negative for discharge and visual disturbance. Respiratory: Negative for chest tightness, shortness of breath and wheezing. Cardiovascular: Negative for chest pain, palpitations and leg swelling. Gastrointestinal: Negative for abdominal pain and nausea. Endocrine: Negative for polydipsia, polyphagia and polyuria. Genitourinary: Negative for difficulty urinating, flank pain, frequency and urgency. Musculoskeletal: Negative for arthralgias, back pain, myalgias and neck pain. Skin: Negative for color change and rash. Neurological: Negative for dizziness, syncope and light-headedness. Psychiatric/Behavioral: Negative for decreased concentration and sleep disturbance. All other systems reviewed and are negative. Vitals: Blood pressure 118/68, pulse 85, temperature 98.5 F (36.9 C), resp. rate 16, height 1.6 m (5' 3 ), weight 58.3 kg (128 lb 8 oz), SpO2 98%. Physical Exam Vitals and nursing note reviewed. HENT: Head: Normocephalic. Cardiovascular: Rate and Rhythm: Normal rate and regular rhythm. Heart sounds: No murmur heard. Pulmonary: Effort: Pulmonary effort is normal. Breath sounds: Normal breath sounds. Abdominal: General: Bowel sounds are normal. Palpations: Abdomen is soft. Tenderness: There is no abdominal tenderness. Musculoskeletal: General: No swelling. Assessment and Plan ICD-10-CM 1. Plaque psoriasis L40.0 2. Primary osteoarthritis involving multiple joints M15.9 Begin Skyrizi - one injection every 3 months. Obtain blood work for TB quantiferon prior to starting the Skyrizi.Óscar Lopez [facility], was the medical staff credentialing coordinator for today's note. I have performed all essential components of the history and physical exam, confirmed the diagnosis and developed a plan of care at this visit. I have reviewed the note at the visit and have added edits as appropriate to my evaluation and plan of care. documented in this encounter [facility] 06-03-2023 Olman Lopez - 06/03/2023 3:00 PM EST Assessment and Plan ICD-10-CM 1. Plaque psoriasis L40.0 2. Primary osteoarthritis involving multiple joints M15.9 Begin Skyrizi - one injection every 3 months. Obtain blood work for TB quantiferon prior to starting the Skyrizi.\ Laci Lopez [facility], was the medical staff credentialing coordinator for today's note. I have performed all essential components of the history and physical exam, confirmed the diagnosis and developed a plan of care at this visit. I have reviewed the note at the visit and have added edits as appropriate to my evaluation and plan of care. documented in this encounter [facility] 05-27-2023 History of Presen t illness Narrative Subjective History of Present Illness Presence of Pain: complains of pain/discomfort Select Pain Scale: DVPRS (Defense and Veterans Pain Rating Scale) (Adult-Cognitively Intact) DVPRS: Rest: 5- moderate pain Select Pain Scale: DVPRS (Defense and Veterans Pain Rating Scale) (Adult-Cognitively Intact). Total time spent in this encounter was 54 minutes. Patient is here for Follow-up after MRI. Patient states that since starting Otezla feels about 75% better. States that it has helped with the swelling in the joints and clearing up the psoriasis. States that PCP prescribed the Otezla. States that insurance does not cover the Otezla. Energy level is LUIS. Normal she guesses. Back and hip pain make if difficult for her to walk. Weakness is LUIS. Just walking she guesses. Neck pain is yeah. Always due to a lot of whip lashes. Rash is no. Objective Review of Systems Constitutional: Negative. HENT: Negative. Eyes: Negative. Respiratory: Negative. Cardiovascular: Negative. Gastrointestinal: Negative. Endocrine: Negative. Genitourinary: Negative. Musculoskeletal: Positive for arthralgias, back pain, gait problem, neck pain and neck stiffness. Skin: History of psoriasis Allergic/Immunologic: Negative. Neurological: Positive for dizziness and weakness. Hematological: Negative. Psychiatric/Behavioral: Negative. Vitals: Blood pressure 120/66, pulse 68, temperature 96.8 F (36 C), temperature source Temporal, height 1.6 m (5' 3 ), weight 57.2 kg (126 lb 1.7 oz), SpO2 95%. Physical Exam Vitals and nursing note reviewed. Constitutional: Appearance: Normal appearance. HENT: Head: Normocephalic and atraumatic. Right Ear: External ear normal. Left Ear: External ear normal. Nose: Nose normal. Mouth/Throat: Mouth: Mucous membranes are moist. Pharynx: Oropharynx is clear. Eyes: Extraocular Movements: Extraocular movements intact. Conjunctiva/sclera: Conjunctivae normal. Pupils: Pupils are equal, round, and reactive to light. Cardiovascular: Rate and Rhythm: Normal rate and regular rhythm. Pulses: Carotid pulses are 2+ on the right side and 2+ on the left side. Radial pulses are 2+ on the right side and 2+ on the left side. Dorsalis pedis pulses are 1+ on the right side and 1+ on the left side. Posterior tibial pulses are 1+ on the right side and 1+ on the left side. Heart sounds: Normal heart sounds. Comments: No subclavian or carotid bruits. Pulmonary: Effort: Pulmonary effort is normal. Breath sounds: Normal breath sounds. Abdominal: General: Bowel sounds are normal. Palpations: Abdomen is soft. Musculoskeletal: Right shoulder: Tenderness present. Left shoulder: Tenderness present. Right upper arm: Tenderness present. Left upper arm: Tenderness present. Right elbow: Normal. Left elbow: Normal. Right forearm: Normal. Left forearm: Normal. Right wrist: Tenderness and bony tenderness present. Decreased range of motion. Left wrist: Tenderness and bony tenderness present. Decreased range of motion. Right hand: Deformity, tenderness and bony tenderness present. Decreased range of motion. Decreased strength. Left hand: Deformity, tenderness and bony tenderness present. Decreased range of motion. Decreased strength. Cervical back: Neck supple. Tenderness present. Decreased range of motion. Thoracic back: Tenderness present. Lumbar back: Tenderness present. Right hip: Normal. Left hip: Normal. Right upper leg: Normal. Left upper leg: Normal. Right knee: Tenderness present. Left knee: Tenderness present. Right lower leg: Tenderness present. Left lower leg: Tenderness present. Right ankle: Decreased range of motion. Left ankle: Decreased range of motion. Right foot: Decreased range of motion. Deformity present. Left foot: Decreased range of motion. Deformity present. Comments: Crep L ankle Skin: General: Skin is warm and dry. Comments: Dry crack skin palms Neurological: Mental Status: She is alert and oriented to person, place, and time. Cranial Nerves: Cranial nerves 2-12 are intact. Sensory: Sensation is intact. Motor: Weakness present. Gait: Gait is intact. Deep Tendon Reflexes: Reflex Scores: Tricep reflexes are 1+ on the right side and 1+ on the left side. Bicep reflexes are 1+ on the right side and 1+ on the left side. Brachioradialis reflexes are 1+ on the right side and 1+ on the left side. Patellar reflexes are 2+ on the right side and 2+ on the left side. Achilles reflexes are 0 on the right side and 1+ on the left side. 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 Behavior: Behavior normal. Thought Content: Thought content normal. Judgment: Judgment normal. Neurological Exam Mental Status Alert. Oriented to person, place, and time. Cranial Nerves CN III, IV, : Extraocular movements intact bilaterally. Pupils equal round and reactive to light bilaterally. Sensory Normal sensation. Reflexes Right Left Brachioradialis 1+ 1+ Biceps 1+ 1+ Triceps 1+ 1+ Patellar 2+ 2+ Achilles 0 1+ Gait Normal gait. 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 Assessment and Plan Would monitor CBC/LFT/Renal function tests every 6-12 months as long as Atypical pANCA is elevated Rec: GI eval for possible IBD No evidence of active CTD/CVD/Inflammatory arthritis/Psoriatic Arthritis/Autoimmune Hepatitis Patient can take Prednisone 5 mg 8 po q AM times one day decrease by one pill q day until off on a PRN basis any acute attack of pseudogout Encounter Diagnoses Name Primary? Spinal stenosis of lumbar region with neurogenic claudication Yes Osteoarthritis of lumbosacral spine with radiculopathy Thoracogenic scoliosis of thoracic region 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 Primary osteoarthritis of both hands Primary osteoarthritis of both feet Pes anserinus bursitis of both knees 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 Osteoarthritis of carpometacarpal (CMC) joint of both thumbs Osteoarthritis of both glenohumeral joints Osteoarthritis of AC (acromioclavicular) joints, bilateral Lumbar degenerative disc disease Impingement syndrome of both shoulders HNP (herniated nucleus pulposus), lumbar Disorder of ligament of right wrist Disorder of ligament, left wrist DDD (degenerative disc disease), cervical Chondrocalcinosis Psoriasis Plaque psoriasis Intrinsic eczema Postmenopausal status Long-term current use of apremilast terminal carman current use of non-steroidal anti-inflammatories (NSAID) History of psoriatic arthritis History of osteoarthritis Family history of psoriasis Elevated BUN Abnormal x-ray Abnormal MRI Abnormal ANCA test 1. Time was spent with the patient today in education in re: to all their medical conditions. A complete H&P&ROS was obtained and is either in this note or in the EHR. Please do not hesitate to contact me with any questions or concerns re: this patient. Past History Past medical, surgical, family, and social histories have been reviewed and updated with the patient today and are located elsewhere in the medical record. 2. Neuro Follow-up per Dr. Mercado 3. WILLIAM level is normal at 32 [address] Rolle 5. Insurance would not pay for Otezla and patient is trying to get it for free 6. Methotrexate stopped due to COVID-19 and UTI and Kelfelx. 7. Ulnar minus R wrist 8. Derm f/U per Dr. Fontaine 9. Monitor CBC/LFT/Renal func every 6-12 months as long as patient is on daily NSAID 10. IBP/Aleve OTC helps and patient declines stronger pain medication 11. Diclofenac made her feel funny so was stopped 12. Meloxicam stopped due to unknown side effect 13. 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 alicea 14. Vit D under care of Dr. alicea 15. Patient is taking B complex and Vit E 16. Negative HLA-B27, AMA, ASMA. SPEP/SIF, Lyme, SULAIMAN, cANCA, pANCA, MPO, PR3, CCP, RF, Celiac, 17. ESR was normal at 2 and still is at < 1 18. CRP was negative at < 5.0 and still is at < 5.0 19. If patient continues to have trouble with back pain would rec: eval by spinal surgery and/or chronic pain management 20. Rx given for PT: patient has been and it made things worse and is doing HEP and declines another trip. 21. Uric acid is normal at 2.8 22. Atypical p ANCA is elevated at 1:20 23. Neurosurgery F/u per Dr. Cardenas 24. Patient declines referral to chronic pain management 25. If neck pain continues rec: eval by spinal surgery and/or chronic pain management 26. If shoulder and wrist and hand and knee problems continue rec: ortho eval 27. BUN is elevated at 24 28. S/P L rotator cuff surgery 29. Ortho F/u per Dr. Lomax 30. Rx given for OT: patient did not go as psoriasis was too painful 31. Would monitor CBC/LFT/Renal function tests every 6-12 months as long as Atypical pANCA is elevated 32. Rec: GI eval for possible IBD 33. MRI L& R wirst 34. Patient can take Prednisone 5 mg 8 po q AM times one day decrease by one pill q day until off on a PRN basis any acute attack of pseudogout 35. Would not use colchicine in this patient 36. Patient declines referral to chronic pain management 37. Follow-up with me after MRI of both wrists 38. No evidence of active CTD/CVD/Inflammatory arthritis/Psoriatic Arthritis/Autoimmune Hepatitis documented in this encounter [facility] 05-12-2023 History of Presen t illness Narrative Images from the original note were not included. [facility] NOTE Chief Complaint Patient presents with New Patient Abnormal MRI L-spine History of Present Illness: Harriet Engel is a pleasant 72 y.o. female who is referred for an incidental finding of T2 hyperintense signal in the spinal cord at T11-12, found on MRI of her lumbar spine. Review of her medical records reveal that this lesion is chronic and was identified on an MRI T spine in 2002. The lesion was enhancing with contrast on 08/27/02 and was non-enhancing on a repeat study on 09/08/02, suggestive of transverse myelitis. She tells me that she has had a lumbar puncture in the past that did not support multiple sclerosis. MRI lumbar spine 02/12/23 There is normal physiologic lumbar lordosis. The vertebral height is preserved. The conus medullaris is at the level of L1. There is focal T2 prolongation within the spinal cord at the level of T11-T12 measuring 1.1 cm craniocaudally. Otherwise, no abnormality within the visualized spinal cord is noted. At the level of L1-L2, there are disc bulge with mild right neuroforaminal narrowing and no canal stenosis. At the level of L2-L3, there are disc bulge with mild left neuroforaminal narrowing and no canal stenosis. At the level of L3-4, there are disc bulge with mild right neuroforaminal narrowing and no canal stenosis. At the level of L4-5, there are disc bulge with mild bilateral neuroforaminal narrowing and mild canal stenosis. At the level of L5-S1, there are grade 1 anterolisthesis uncovering the disc with mild bilateral neuroforaminal narrowing and mild canal stenosis. At the level of S1-S2, there is grade 1 anterolisthesis uncovering disc with mild bilateral neuroforaminal narrowing and no canal stenosis The paraspinal muscles are unremarkable. MRI brain 07/16/15 1. The brainstem, CP angle cisterns and internal auditory canals are normal in appearance. 2. Mild chronic microvascular ischemia without acute infarct. MRI cervical spine without contrast 07/29/15 1. There is severe discogenic disease at the C4-C5 through C6-C7 levels with small disc osteophyte complexes at the C4-C5 and C5-C6 levels causing mild spinal canal stenosis. No other significant spinal canal stenosis is seen. 2. There is moderate bilateral foraminal narrowing at the C4-C5 and C5-C6 levels and mild right foraminal narrowing at the C6-C7 level secondary to uncovertebral arthropathy in these regions. 3. The thyroid gland appears heterogeneous and there is a nodule in the isthmus measuring 2.6 cm. This nodule was found to be a solid nodule on the prior thyroid ultrasound of 03/20/2014. If this has not been biopsied, then this should be further evaluated with a thyroid ultrasound to document its stability. No past medical history on file. Past Surgical History: Procedure Laterality Date COLONOSCOPY DIAGNOSTIC 01/2018 Had small polyp. HERNIA REPAIR 04/2009 Inquinial double hernia left side. SHOULDER SURGERY Right 01/2006 Rotary cuff SEPTOPLASTY 2004 Nasal. Family History Problem Relation Age of Onset Diabetes Mother Emphysema Mother Stroke Mother Colorectal Cancer Father Coronary Artery Disease Father Myocardial Infarction Father Social History Tobacco Use Smoking status: Never Smokeless tobacco: Never Substance Use Topics Alcohol use: Yes Comment: 1 beer every 3 days Current Outpatient Medications Medication Sig Apremilast (Otezla) 30 MG tablet Take 1 tablet by mouth daily. Calcium Carb-Cholecalciferol (CALCIUM 600-D PO) Take 600 mg by mouth. Cholecalciferol (VITAMIN D) 2000 units Tab Take 3,600 Units by mouth daily. Magnesium Oxide 500 MG tablet Take 1 tablet by mouth daily. Pantoprazole (Protonix) [address] tablet DR Take 1 tablet by mouth daily. Allergies Allergen Reactions Bactrim [Sulfamethoxazole-Trimethoprim] Hives and Itching Flexeril [Cyclobenzaprine] Itching and Nausea Only Levaquin [Levofloxacin] Confusion Morphine Swelling Nabumetone Palpitations heartburn Physical Exam: BP 105/68 (BP Location: Left arm, BP Position: Sitting) Pulse 74 Ht 1.6 m (5' 3 ) Wt 57.2 kg (126 lb) SpO2 98% BMI 22.32 kg/m Smoking Status Never General: Pleasant and cooperative. In no acute distress. Extremities: Tenderness with palpation over the left SI joint. Neurological Examination Mental status: Awake and alert; oriented. Normal attention. Recall intact. Logic normal. No neglect or apraxia. Language fluency and comprehension are normal; object naming intact; repetition intact. Content of speech is normal. There is no dysarthria. Cranial nerves: CN II: Visual dodge intact to confrontation. PERRL. Normal conjunctivae and lids. There is no papilledema on fundoscopy. millwright III, IV and : Extraocular movements full in all directions. Normal smooth pursuit. Saccades are normal. There is no nystagmus. CN V: Facial sensation is intact to light touch. CN VII: Facial strength normal with symmetric movement. CN VIII: Hearing is grossly intact. CN IX and X: Soft palate elevates symmetrically in the midline CN XI: Shoulder shrug and sternocleidomastoid strength (R/L) 5/5 CN XII: Tongue is midline with normal movement. Motor: Normal bulk and tone. Strength testing is 5/5 in the upper and lower extremities. There is no pronator drift. Reflexes: 2+ in the upper and lower extremities, absent ankle jerks. Dow is negative. Plantar responses (Babinski) are flexor. Coordination: No finger to nose or heel to plasencia dysmetria. Rapid alternating movements are normal. Sensation: Intact to light touch. Gait: Antalgic gait. Normal arm swing. Normal turning. Can toe and heel walk. Romberg is negative. Assessment and Plan: Harriet Engel is a pleasant 72 y.o. female who is referred for a T2 lesion found incidentally at T11/T12 on MRI lumbar spine study, ordered for lower back pain. Review of the medical chart reveals that she had an enhancing lesion at this level in 2002 followed by no enhancement on follow up study, suggestive of transverse myelitis. CSF studies were reportedly normal per the patient. MRI brain and cervical spine imaging in 2016 were unremarkable. She has not had any typical MS attacks. Neurologic examination today is unremarkable. I think that this is a chronic lesion and probably does not need further workup at this time. She is concered about lower back pain. MRI lumbar spine does not demonstrate signfiicant neuroforaminal stenosis. There is grade 1 anterolisthesis at L5/S1 and S1/S2. On exam she appears to have point tenderness over the left SI joint of the hip. I offered referral to physical therapy but she was not interested at this time. Harriet was seen today for new patient. Diagnoses and all orders for this visit: Abnormal MRI Total time on this date of service including preliminary chart review, [id number] time with the patient, and documentation was 58 minutes. Tuyet Mercado MD 05/12/2023 documented in this encounter [facility] 01-22-2023 History of Presen t illness Narrative Subjective History of Present Illness Chief Complaint Patient presents with Psoriasis Here today with c/o skin being dry, itchy, and painful to both hands. Says she can't use the clobetasol cream due to it gregg her skin. Onset was around 2-3 years ago. Says it does improve in the winter months. Nausea C/o being nauseated and burping for the past 4 months. She tried prilosec and that didn't help. She feels better when she doesn't eat. Says some days are better then others. She denies having any pain or vomiting. Objective Review of Systems Constitutional: Negative for activity change, chills and fever. HENT: Negative for dental problem, ear pain, mouth sores, sinus pain and trouble swallowing. Eyes: Negative for discharge and visual disturbance. Respiratory: Negative for chest tightness, shortness of breath and wheezing. Cardiovascular: Negative for chest pain, palpitations and leg swelling. Gastrointestinal: Negative for abdominal pain and nausea. Endocrine: Negative for polydipsia, polyphagia and polyuria. Genitourinary: Negative for difficulty urinating, flank pain, frequency and urgency. Musculoskeletal: Negative for arthralgias, back pain, myalgias and neck pain. Skin: Negative for color change and rash. Neurological: Negative for dizziness, syncope and light-headedness. Psychiatric/Behavioral: Negative for decreased concentration and sleep disturbance. All other systems reviewed and are negative. Vitals: Blood pressure 110/70, pulse 75, temperature 96.2 F (35.7 C), resp. rate 18, height 1.613 m (5' 3.5 ), weight 59.9 kg (132 lb 1.6 oz), SpO2 96 %. Physical Exam Vitals and nursing note reviewed. HENT: Head: Normocephalic. Cardiovascular: Rate and Rhythm: Normal rate and regular rhythm. Heart sounds: No murmur heard. Pulmonary: Effort: Pulmonary effort is normal. Breath sounds: Normal breath sounds. Abdominal: General: Bowel sounds are normal. Palpations: Abdomen is soft. Tenderness: There is no abdominal tenderness. Musculoskeletal: General: No swelling. Skin: General: Skin is dry. Findings: Rash present. Comments: Hands, knees, elbows Assessment and Plan ICD-10-CM 1. Plaque psoriasis L40.0 2. Nausea R11.0 3. 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 Lumbar degenerative disc disease M51.36 Begin Otezla starter pack, and once that is finished begin Otezla 30 mg once daily. Try using Eucerin, Lubriderm or Aveeno cream on the hands as best possible. Stop Prilosec. Begin Protonix (pantoprazole) 40 mg once daily for 1 month to heal any stomach or esophageall irritation and then use daily as needed thereafter. Begin Tylenol 650-1,000 mg every 6 hours as needed to relieve arthritis pain. Avoid aspirin, Motrin and Aleve as these can cause stomach irritation/bleeding. Begin Cymbalta (duloxetine) 30 mg once daily to help relieve nerve pain associated with fibromyositis. SANNA Isabel, was the medical staff credentialing coordinator for today's note. I have performed all essential components of the history and physical exam, confirmed the diagnosis and developed a plan of care at this visit. I have reviewed the note at the visit and have added edits as appropriate to my evaluation and plan of care. documented in this encounter [facility] 01-22-2023 Instructions Laci Lopez - 01/22/2023 3:15 PM EDT Assessment and Plan ICD-10-CM 1. Plaque psoriasis L40.0 2. Nausea R11.0 3. 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 Lumbar degenerative disc disease M51.36 Begin Otezla starter pack, and once that is finished begin Otezla 30 mg once daily. Try using Eucerin, Lubriderm or Aveeno cream on the hands as best possible. Stop Prilosec. Begin Protonix (pantoprazole) 40 mg once daily for 1 month to heal any stomach or esophageall irritation and then use daily as needed thereafter. Begin Tylenol 650-1,000 mg every 6 hours as needed to relieve arthritis pain. Avoid aspirin, Motrin and Aleve as these can cause stomach irritation/bleeding. Begin Cymbalta (duloxetine) 30 mg once daily to help relieve nerve pain associated with fibromyositis. Laci Lopez [facility], was the medical staff credentialing coordinator for today's note. I have performed all essential components of the history and physical exam, confirmed the diagnosis and developed a plan of care at this visit. I have reviewed the note at the visit and have added edits as appropriate to my evaluation and plan of care. documented in this encounter [facility] 01-22-2023 History of Presen t illness Narrative Subjective History of Present Illness Presence of Pain: complains of pain/discomfort Pain Location: knee, left, knee, right, shoulder, left, shoulder, right, spine, lower, neck Select Pain Scale: DVPRS (Defense and Veterans Pain Rating Scale) (Adult-Cognitively Intact) DVPRS: Rest: 3- mild pain DVPRS: Activity: 3- mild pain Select Pain Scale: DVPRS (Defense and Veterans Pain Rating Scale) (Adult-Cognitively Intact) Pain Frequency: constant Pain Quality: aching. Total time spent in this encounter was 60 minutes. Patient is being evaluated for an unstable chronic illness that increase morbidity and mortality. Due to patient's coexisting health problems and co-morbidities treatment is and will be very difficult. Patient was referred by Dr. Rolle for Psoriatic Arthritis. Patient states she tried Methotrexate had to stop due to infections and she could not afford Otezla, Dr. Rolle was prescribing physician. Patient states she has JUAN shoulder, knee, lower back and neck pain. Patient states she is wanting and MRI on her back but no one will order it for her. Patient states she has swelling and stiffness in JUAN finger, right knee. Patient states she diagnosed herself with PsA due to family history of PsA. Patient has had a serious adverse event to medication which could have increased morbidity or mortality. Objective Review of Systems Constitutional: Positive for fatigue. HENT: Negative. Eyes: Negative. Respiratory: Negative. Cardiovascular: Negative. Gastrointestinal: Negative. Endocrine: Negative. Genitourinary: Negative. Musculoskeletal: Positive for arthralgias, back pain, neck pain and neck stiffness. Skin: Positive for rash. History of psoriasis Allergic/Immunologic: Negative. Neurological: Positive for weakness. Hematological: Negative. Psychiatric/Behavioral: Negative. Vitals: Temperature 97 F (36.1 C), temperature source Temporal, height 1.613 m (5' 3.5 ), weight 61.7 kg (136 lb). Physical Exam Vitals and nursing note reviewed. Constitutional: Appearance: Normal appearance. HENT: Head: Normocephalic and atraumatic. Right Ear: External ear normal. Left Ear: External ear normal. Nose: Nose normal. Mouth/Throat: Mouth: Mucous membranes are moist. Pharynx: Oropharynx is clear. Eyes: Extraocular Movements: Extraocular movements intact. Conjunctiva/sclera: Conjunctivae normal. Pupils: Pupils are equal, round, and reactive to light. Cardiovascular: Rate and Rhythm: Normal rate and regular rhythm. Pulses: Carotid pulses are 2+ on the right side and 2+ on the left side. Radial pulses are 2+ on the right side and 2+ on the left side. Dorsalis pedis pulses are 1+ on the right side and 1+ on the left side. Posterior tibial pulses are 1+ on the right side and 1+ on the left side. Heart sounds: Normal heart sounds. Comments: No subclavian or carotid bruits. Pulmonary: Effort: Pulmonary effort is normal. Breath sounds: Normal breath sounds. Abdominal: General: Bowel sounds are normal. Palpations: Abdomen is soft. Musculoskeletal: Right shoulder: Tenderness present. Left shoulder: Tenderness present. Right upper arm: Tenderness present. Left upper arm: Tenderness present. Right elbow: Normal. Left elbow: Normal. Right forearm: Normal. Left forearm: Normal. Right wrist: Tenderness and bony tenderness present. Decreased range of motion. Left wrist: Tenderness and bony tenderness present. Decreased range of motion. Right hand: Deformity, tenderness and bony tenderness present. Decreased range of motion. Decreased strength. Left hand: Deformity, tenderness and bony tenderness present. Decreased range of motion. Decreased strength. Cervical back: Neck supple. Tenderness present. Decreased range of motion. Thoracic back: Tenderness present. Lumbar back: Tenderness present. Right hip: Normal. Left hip: Normal. Right upper leg: Normal. Left upper leg: Normal. Right knee: Tenderness present. Left knee: Tenderness present. Right lower leg: Tenderness present. Left lower leg: Tenderness present. Right ankle: Decreased range of motion. Left ankle: Decreased range of motion. Right foot: Decreased range of motion. Deformity present. Left foot: Decreased range of motion. Deformity present. Comments: Crep L ankle Skin: General: Skin is warm and dry. Comments: Dry crack skin palms Neurological: Mental Status: She is alert and oriented to person, place, and time. Cranial Nerves: Cranial nerves 2-12 are intact. Sensory: Sensation is intact. Motor: Weakness present. Gait: Gait is intact. Deep Tendon Reflexes: Reflex Scores: Tricep reflexes are 1+ on the right side and 1+ on the left side. Bicep reflexes are 1+ on the right side and 1+ on the left side. Brachioradialis reflexes are 1+ on the right side and 1+ on the left side. Patellar reflexes are 2+ on the right side and 2+ on the left side. Achilles reflexes are 0 on the right side and 1+ on the left side. 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 Behavior: Behavior normal. Thought Content: Thought content normal. Judgment: Judgment normal. Neurological Exam Mental Status Alert. Oriented to person, place, and time. Cranial Nerves CN III, IV, : Extraocular movements intact bilaterally. Pupils equal round and reactive to light bilaterally. Sensory Normal sensation. Reflexes Right Left Brachioradialis 1+ 1+ Biceps 1+ 1+ Triceps 1+ 1+ Patellar 2+ 2+ Achilles 0 1+ Gait Normal gait. 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 Assessment and Plan Encounter Diagnoses Name Primary? Cervicalgia Yes Chronic pain of both knees Dorsalgia Osteoarthritis of lumbosacral spine with radiculopathy Biceps tendonitis on right Bilateral hand pain Bilateral wrist pain Chronic pain of both shoulders Disorder of bone and cartilage Lumbar degenerative disc disease Osteoarthritis of carpometacarpal (CMC) joint of both thumbs Osteoarthritis of facet joint of lumbar spine Pes anserinus bursitis of both knees Primary osteoarthritis of both feet Primary osteoarthritis of both hands Primary osteoarthritis of both wrists Subacromial bursitis of left shoulder joint Tendonitis of both rotator cuffs Psoriasis Intrinsic eczema Chronic fatigue Family history of MS (multiple sclerosis) Family history of psoriasis History of osteoarthritis History of psoriasis History of psoriatic arthritis 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 Time was spent with the patient today in education in re: to all their medical conditions. A complete H&P&ROS was obtained and is either in this note or in the EHR. Please do not hesitate to contact me with any questions or concerns re: this patient. Past History Past medical, surgical, family, and social histories have been reviewed and updated with the patient today and are located elsewhere in the medical record. 2. Thank you for allowing me to participate in the care of your patient. With your permission I would like to F/U with your patient. 3. Differenetial Diagnosis includes but is not limited to Autoimmune Disease, Connective Tissue Disease, Collagen Vascular Disorder, Infection, and Neoplasm. 4. Lab and x-ray and f/U with me in 2 weeks after MRI 5. Insurance would not pay for Otezla 6. Methotrexate stopped due to COVID-19 and UTI and Kelfelx. 7. Patient given educational material on Psoriatic Arthritis in the form of a pamphlet from the arthritis foundation 8. Derm f/U per Dr. Fontaine 9. Monitor CBC/LFT/Renal func every 6-12 months as long as patient is on daily NSAID 10. IBP/Aleve OTC helps and patient declines stronger pain medication 11. Diclofenac made her feel funny so was stopped 12. Meloxicam stopped due to unknown side effect 13. 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 alicea 14. Vit D under care of Dr. alicea 15. Patient is taking B complex and Vit E 16. Negative HLA-B27, 17. ESR is normal at 2. 18. CRP is negative at < 5.0 19. If patient continues to have trouble with back pain would rec: eval by spinal surgery and/or chronic pain management 20. Rx given for PT: patient has been and it made things worse and is doing HEP and declines another trip. 21. Patient given educational material on OA in the from of a pamphlet from the arthritis foundation. Patient told that PT and keeping ideal body wt would be the cornerstone of treatment 22. MRI L -spine. 23. Neurosurgery F/u per Dr. Cardenas 24. Patient declines referral to chronic pain management 25. If neck pain continues rec: eval by spinal surgery and/or chronic pain management 26. If shoulder and wrist and hand and knee problems continue rec: ortho eval 27. Patient given educational material on bursitis and tendonitis in the form of a pamphlet from the arthritis foundation. Patient told that PT would be the cornerstone of treatment 28. S/P L rotator cuff surgery 29. Ortho F/u per Dr. Lomax 30. Rx given for OT documented in this encounter [facility] 09-24-2022 History of Presen t illness Narrative History of Present Illness Chief Complaint Patient presents with Skin Problem Patient is here today for an open area on the left knee. Patient states that she has had it for about a year after falling on the knee and it had never healed. Patient states that it does have blood and redness right now. Using neosporin on the area. Psoriasis Patient is here today for a follow up on psoriasis. Patient states that she currently has a flare up on her knees. 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 She is currently using hand cream that was prescribed but patient does not know the name. Also uses neosporin in the area and states that it helps well. Ear Fullness Patient is here today for ear fullness and drainage bilaterally. Patient states that she does not have any pain. Takes otc decongestant as needed. States that it causes her to become dizzy at times. Knee Swelling Patient is here today for a follow up on right knee swelling. Patient states that she was dx with arthritis in the knee. Patient does not keep leg elevated. Denies pain. Had xray in 07/2021. Review of Systems Constitutional: Negative for activity change, chills and fever. HENT: Negative for dental problem, ear pain, mouth sores, sinus pain and trouble swallowing. Eyes: Negative for discharge and visual disturbance. Respiratory: Negative for chest tightness, shortness of breath and wheezing. Cardiovascular: Negative for chest pain, palpitations and leg swelling. Gastrointestinal: Negative for abdominal pain and nausea. Endocrine: Negative for polydipsia, polyphagia and polyuria. Genitourinary: Negative for difficulty urinating, flank pain, frequency and urgency. Musculoskeletal: Negative for arthralgias, back pain, myalgias and neck pain. Skin: Negative for color change and rash. Neurological: Negative for dizziness, syncope and light-headedness. Psychiatric/Behavioral: Negative for decreased concentration and sleep disturbance. All other systems reviewed and are negative. Vitals: Blood pressure 124/62, pulse 61, temperature 98.2 F (36.8 C), resp. rate 16, height 1.613 m (5' 3.5 ), weight 61.9 kg (136 lb 6.4 oz), SpO2 94 %. Physical Exam Vitals and nursing note reviewed. HENT: Head: Normocephalic. Cardiovascular: Rate and Rhythm: Normal rate and regular rhythm. Heart sounds: No murmur heard. Pulmonary: Effort: Pulmonary effort is normal. Breath sounds: Normal breath sounds. Abdominal: General: Bowel sounds are normal. Palpations: Abdomen is soft. Tenderness: There is no abdominal tenderness. Musculoskeletal: General: No swelling. Assessment and Plan ICD-10-CM 1. Psoriasis L40.9 2. Primary osteoarthritis involving multiple joints M15.9 3. Screening for lipid disorders Z13.220 Begin clobetasol cream as directed. Can apply heat on the knees or any area where the arthritis is flaring. Begin prednisone 20 mg twice daily for 7 days to help reduce inflammation and discomfort in the joints and to help reduce psoriatic rash. Obtain blood work in 3 months - will need to fast for this blood draw. If lab work or other testing was ordered at your visit, please call our office ([phone]) one week after the lab draw or test to receive your results. SANNA Isabel, was the medical staff credentialing coordinator for today's note. I have performed all essential components of the history and physical exam, confirmed the diagnosis and developed a plan of care at this visit. I have reviewed the note at the visit and have added edits as appropriate to my evaluation and plan of care. documented in this encounter [facility] 09-24-2022 Instructions Laci Lopez - 09/24/2022 1:30 PM EDT Assessment and Plan ICD-10-CM 1. Psoriasis L40.9 2. Primary osteoarthritis involving multiple joints M15.9 3. Screening for lipid disorders Z13.220 Begin clobetasol cream as directed. Can apply heat on the knees or any area where the arthritis is flaring. Begin prednisone 20 mg twice daily for 7 days to help reduce inflammation and discomfort in the joints and to help reduce psoriatic rash. Obtain blood work in 3 months - will need to fast for this blood draw. If lab work or other testing was ordered at your visit, please call our office ([phone]) one week after the lab draw or test to receive your results. SANNA Isabel, was the medical staff credentialing coordinator for today's note. I have performed all essential components of the history and physical exam, confirmed the diagnosis and developed a plan of care at this visit. I have reviewed the note at the visit and have added edits as appropriate to my evaluation and plan of care. documented in this encounter [facility] 12-17-2021 History of Presen t illness Narrative History of Present Illness Chief Complaint Patient presents with Psoriasis Patient is here today to follow up on psoriasis. Patient was started on Otezla but PA was denied, still taking Methotrexate. Psoriasis is still unchanged. Rash is bad on hands and makes it hard to do anything with them bc of it. Review of Systems Constitutional: Negative for activity change, chills and fever. HENT: Negative for dental problem, ear pain, mouth sores, sinus pain and trouble swallowing. Eyes: Negative for discharge and visual disturbance. Respiratory: Negative for chest tightness, shortness of breath and wheezing. Cardiovascular: Negative for chest pain, palpitations and leg swelling. Gastrointestinal: Negative for abdominal pain and nausea. Endocrine: Negative for polydipsia, polyphagia and polyuria. Genitourinary: Negative for difficulty urinating, flank pain, frequency and urgency. Musculoskeletal: Negative for arthralgias, back pain, myalgias and neck pain. Skin: Negative for color change and rash. Neurological: Negative for dizziness, syncope and light-headedness. Psychiatric/Behavioral: Negative for decreased concentration and sleep disturbance. All other systems reviewed and are negative. Vitals: Blood pressure 133/70, pulse 67, temperature 97.5 F (36.4 C), resp. rate 16, height 1.613 m (5' 3.5 ), weight 62.3 kg (137 lb 6.4 oz), SpO2 96 %. Physical Exam Vitals and nursing note reviewed. HENT: Head: Normocephalic. Cardiovascular: Rate and Rhythm: Normal rate and regular rhythm. Heart sounds: No murmur heard. Pulmonary: Effort: Pulmonary effort is normal. Breath sounds: Normal breath sounds. Abdominal: General: Bowel sounds are normal. Palpations: Abdomen is soft. Tenderness: There is no abdominal tenderness. Musculoskeletal: General: No swelling. Neurological: Sensory: Sensory deficit (decreased left lower) present. Deep Tendon Reflexes: Reflexes abnormal (absent L5-S1). Assessment and Plan ICD-10-CM 1. Psoriatic arthritis L40.50 2. Osteoarthritis of lumbosacral spine with radiculopathy M47.27 Begin Otezla titration dose packages (2 sample pkgs provided) as directed. Begin meloxicam 15 mg once daily to reduce inflammation and provide some relief of discomfort. For the chronic osteoarthritis pain of the lumbar spine with sciatica, I have recommended that she use anti-inflammatories and heat. She is sure her mattress is not the cause. I have recommended starting off with physical therapy, get a lumbosacral x-ray and I can make an appointment with Dr. Vargas to evaluate for epidural steroid injections. She does not wish to do these things now because she has done this in the past. I have discussed use of Cymbalta or Lyrica to help mask nerve pain. She said she will just do the meloxicam for now. SANNA Isabel, was the medical staff credentialing coordinator for today's note. I have performed all essential components of the history and physical exam, confirmed the diagnosis and developed a plan of care at this visit. I have reviewed the note at the visit and have added edits as appropriate to my evaluation and plan of care. documented in this encounter [facility] 12-17-2021 Instructions Laci Lopez - 12/17/2021 1:30 PM EDT Assessment and Plan ICD-10-CM 1. Psoriatic arthritis L40.50 2. Osteoarthritis of lumbosacral spine with radiculopathy M47.27 Begin Otezla titration dose packages (2 sample pkgs provided) as directed. Begin meloxicam 15 mg once daily to reduce inflammation and provide some relief of discomfort. For the chronic osteoarthritis pain of the lumbar spine with sciatica, I have recommended that she use anti-inflammatories and heat. She is sure her mattress is not the cause. I have recommended starting off with physical therapy, get a lumbosacral x-ray and I can make an appointment with Dr. Vargas to evaluate for epidural steroid injections. She does not wish to do these things now because she has done this in the past. I have discussed use of Cymbalta or Lyrica to help mask nerve pain. She said she will just do the meloxicam for now. SANNA Isabel, was the medical staff credentialing coordinator for today's note. I have performed all essential components of the history and physical exam, confirmed the diagnosis and developed a plan of care at this visit. I have reviewed the note at the visit and have added edits as appropriate to my evaluation and plan of care. The following attachments cannot be sent through Care Everywhere.Stretches for Your Back ([facility]) ([place])documented in this encounter [facility] 11-14-2021 Instructions LACI LOPEZ - 11/14/2021 2:00 PM EDT Assessment and Plan ICD-10-CM 1. Psoriatic arthritis L40.50 2. Varicose veins of both lower extremities with pain I83.813 3. Thrombophlebitis of superficial veins of right lower extremity I80.01 Discontinue methotrexate. Begin Otezla starting pack - and then when that is completed, use Otezla 30 mg twice daily. Obtain blood work. If lab work or other testing was ordered at your visit, please call our office ([phone]) one week after the lab draw or test to receive your results. Wear compression stockings. Take aspirin 325 mg once daily for at least one month. Laci Lopez [facility], was the medical staff credentialing coordinator for today's note. I have performed all essential components of the history and physical exam, confirmed the diagnosis and developed a plan of care at this visit. I have reviewed the note at the visit and have added edits as appropriate to my evaluation and plan of care. documented in this encounter [facility] 11-14-2021 History of Presen t illness Narrative History of Present Illness Chief Complaint Patient presents with Skin Problem Has two red spots that feel warm to touch. States she does feel a knot there is some pain. Noticed after getting covid shot in July. Right leg just aches . Abdominal Pain Has been having some abdominal pain/indigestion. Will take some tums at times. No nausea or vomiting. Hand Pain Hands have been hurting. Skin has been peeling. Doesn't feel methotrexate is helping. Review of Systems Constitutional: Negative for activity change, chills and fever. HENT: Negative for dental problem, ear pain, mouth sores, sinus pain and trouble swallowing. Eyes: Negative for discharge and visual disturbance. Respiratory: Negative for chest tightness, shortness of breath and wheezing. Cardiovascular: Negative for chest pain, palpitations and leg swelling. Gastrointestinal: Negative for abdominal pain and nausea. Endocrine: Negative for polydipsia, polyphagia and polyuria. Genitourinary: Negative for difficulty urinating, flank pain, frequency and urgency. Musculoskeletal: Positive for arthralgias. Negative for back pain, myalgias and neck pain. Skin: Positive for rash (hands). Negative for color change. Neurological: Negative for dizziness, syncope and light-headedness. Psychiatric/Behavioral: Negative for decreased concentration and sleep disturbance. All other systems reviewed and are negative. Vitals: Blood pressure 130/72, pulse 62, temperature 98.6 F (37 C), temperature source Temporal, height 1.613 m (5' 3.5 ), weight 61.1 kg (134 lb 12.8 oz), SpO2 97 %. Physical Exam Vitals and nursing note reviewed. HENT: Head: Normocephalic. Cardiovascular: Rate and Rhythm: Normal rate and regular rhythm. Heart sounds: No murmur heard. Pulmonary: Effort: Pulmonary effort is normal. Breath sounds: Normal breath sounds. Abdominal: General: Bowel sounds are normal. Palpations: Abdomen is soft. Tenderness: There is no abdominal tenderness. Musculoskeletal: General: No swelling. Assessment and Plan ICD-10-CM 1. Psoriatic arthritis L40.50 2. Varicose veins of both lower extremities with pain I83.813 3. Thrombophlebitis of superficial veins of right lower extremity I80.01 Discontinue methotrexate. Begin Otezla starting pack - and then when that is completed, use Otezla 30 mg twice daily. Obtain blood work. If lab work or other testing was ordered at your visit, please call our office ([phone]) one week after the lab draw or test to receive your results. Wear compression stockings. Take aspirin 325 mg once daily for at least one month. SANNA Isabel, was the medical staff credentialing coordinator for today's note. I have performed all essential components of the history and physical exam, confirmed the diagnosis and developed a plan of care at this visit. I have reviewed the note at the visit and have added edits as appropriate to my evaluation and plan of care. documented in this encounter [facility] 08-01-2021 Instructions LACI LOPEZ - 08/01/2021 4:29 PM EDT Assessment and Plan ICD-10-CM 1. Primary osteoarthritis of both knees M17.0 2. Tendinitis of both knees M76.891 M76.892 3. Chronic lumbar radiculopathy M54.16 Discontinue ibuprofen. Begin diclofenac 75 mg twice daily to help reduce inflammation. Obtain x-rays of both knees. Can apply heating pad to the knees - can use ice after overuse. Can use an William wrap around the knees when hiking to help provide stability. SANNA Isabel, was the medical staff credentialing coordinator for today's note. I have performed all essential components of the history and physical exam, confirmed the diagnosis and developed a plan of care at this visit. I have reviewed the note at the visit and have added edits as appropriate to my evaluation and plan of care. documented in this encounter [facility] 08-01-2021 History of Presen t illness Narrative History of Present Illness Chief Complaint Patient presents with Knee Pain Here today for c/o b/l knee pain with right knee worse than left. Says it is swollen and feels tight. Pain is intermittent but can be stabbing, sharp, aching. Pain can be front of knee and radiate down plasencia or can be behind the knee. The sharp pain started a few weeks ago and is very random. The aching and stiffness started around 3-4 months ago. She took an Ibuprofen today and it did help. Review of Systems Constitutional: Negative for activity change, chills and fever. HENT: Negative for dental problem, ear pain, mouth sores, sinus pain and trouble swallowing. Eyes: Negative for discharge and visual disturbance. Respiratory: Negative for chest tightness, shortness of breath and wheezing. Cardiovascular: Negative for chest pain, palpitations and leg swelling. Gastrointestinal: Negative for abdominal pain and nausea. Endocrine: Negative for polydipsia, polyphagia and polyuria. Genitourinary: Negative for difficulty urinating, flank pain, frequency and urgency. Musculoskeletal: Positive for arthralgias (knees). Negative for back pain, myalgias and neck pain. Skin: Negative for color change and rash. Neurological: Negative for dizziness, syncope and light-headedness. Psychiatric/Behavioral: Negative for decreased concentration and sleep disturbance. All other systems reviewed and are negative. Vitals: Blood pressure 136/60, pulse 78, temperature 95.2 F (35.1 C), height 1.613 m (5' 3.5 ), weight 61 kg (134 lb 8 oz), SpO2 95 %. Physical Exam Vitals and nursing note reviewed. HENT: Head: Normocephalic. Cardiovascular: Rate and Rhythm: Normal rate and regular rhythm. Heart sounds: No murmur heard. Pulmonary: Effort: Pulmonary effort is normal. Breath sounds: Normal breath sounds. Abdominal: General: Bowel sounds are normal. Palpations: Abdomen is soft. Tenderness: There is no abdominal tenderness. Musculoskeletal: General: Tenderness (both knees) present. No swelling. Assessment and Plan ICD-10-CM 1. Primary osteoarthritis of both knees M17.0 2. Tendinitis of both knees M76.891 M76.892 3. Chronic lumbar radiculopathy M54.16 Discontinue ibuprofen. Begin diclofenac 75 mg twice daily to help reduce inflammation. Obtain x-rays of both knees. Can apply heating pad to the knees - can use ice after overuse. SANNA Isabel, was the medical staff credentialing coordinator for today's note. I have performed all essential components of the history and physical exam, confirmed the diagnosis and developed a plan of care at this visit. I have reviewed the note at the visit and have added edits as appropriate to my evaluation and plan of care. documented in this encounter [facility] 06-25-2021 LACI Allen - 06/25/2021 4:33 PM EDT Assessment and Plan ICD-10-CM 1. Psoriatic arthritis L40.50 2. Encounter for methotrexate monitoring Z51.81 Z79.899 3. Screening for lipid disorders Z13.220 Obtain lab work every 3 months for monitoring of methotrexate therapy. Placed a standing order for this lab work to be done every 3 months. Begin methotrexate 7.5 mg once daily every 7 days. Begin folic acid 1 mg every day except not on the day of methotrexate. Laci Lopez GUTHRIE CLINICTomas, was the medical staff credentialing coordinator for today's note. I have performed all essential components of the history and physical exam, confirmed the diagnosis and developed a plan of care at this visit. I have reviewed the note at the visit and have added edits as appropriate to my evaluation and plan of care. documented in this encounter [facility] 06-25-2021 History of Presen t illness Narrative History of Present Illness Chief Complaint Patient presents with Joint Pain C/o all over body joint pain that moves around. Can be shoulders, elbows, knees, feet. Says her knees can give out at times. Right ankle can give out at times. Says she is very stiff in the mornings and Ibuprofen helps. She does stretches/yoga. Review of Systems Constitutional: Negative for activity change, chills and fever. HENT: Negative for dental problem, ear pain, mouth sores, sinus pain and trouble swallowing. Eyes: Negative for discharge and visual disturbance. Respiratory: Negative for chest tightness, shortness of breath and wheezing. Cardiovascular: Negative for chest pain, palpitations and leg swelling. Gastrointestinal: Negative for abdominal pain and nausea. Endocrine: Negative for polydipsia, polyphagia and polyuria. Genitourinary: Negative for difficulty urinating, flank pain, frequency and urgency. Musculoskeletal: Positive for arthralgias and joint swelling. Negative for back pain, myalgias and neck pain. Skin: Negative for color change and rash. Neurological: Negative for dizziness, syncope and light-headedness. Psychiatric/Behavioral: Negative for decreased concentration and sleep disturbance. All other systems reviewed and are negative. Vitals: Blood pressure 130/70, pulse 80, temperature 99 F (37.2 C), height 1.613 m (5' 3.5 ), weight 60.8 kg (134 lb), SpO2 92 %. Physical Exam Vitals and nursing note reviewed. HENT: Head: Normocephalic. Cardiovascular: Rate and Rhythm: Normal rate and regular rhythm. Heart sounds: No murmur heard. Pulmonary: Effort: Pulmonary effort is normal. Breath sounds: Normal breath sounds. Abdominal: General: Bowel sounds are normal. Palpations: Abdomen is soft. Tenderness: There is no abdominal tenderness. Musculoskeletal: General: No swelling. Assessment and Plan ICD-10-CM 1. Psoriatic arthritis L40.50 2. Encounter for methotrexate monitoring Z51.81 Z79.899 3. Screening for lipid disorders Z13.220 Obtain lab work every 3 months for monitoring of methotrexate therapy. Placed a standing order for this lab work to be done every 3 months. Begin methotrexate 7.5 mg once daily every 7 days. Begin folic acid 1 mg every day except not on the day of methotrexate. SANNA Isabel, was the medical staff credentialing coordinator for today's note. I have performed all essential components of the history and physical exam, confirmed the diagnosis and developed a plan of care at this visit. I have reviewed the note at the visit and have added edits as appropriate to my evaluation and plan of care. documented in this encounter [facility] 02-15-2021 History of Presen t illness Narrative History of Present Illness Chief Complaint Patient presents with Psoriasis Pt. is here today for psoriasis. Pt. has like cuts around the joints of her hands. Pt. has always had psoriasis on her hands, sees Dr. Fontaine and gets clobetasol cream for it, but the cream does not help the cuts. The cuts feel like paper cuts. Ear Fullness Pt. has been having issues that the right ear plugs up and results in a sore throat, this has been going on every 2 months then goes away, since May. Review of Systems Constitutional: Negative for activity change, chills and fever. HENT: Negative for dental problem, ear pain, mouth sores, sinus pain and trouble swallowing. Eyes: Negative for discharge and visual disturbance. Respiratory: Negative for chest tightness, shortness of breath and wheezing. Cardiovascular: Negative for chest pain, palpitations and leg swelling. Gastrointestinal: Negative for abdominal pain and nausea. Endocrine: Negative for polydipsia, polyphagia and polyuria. Genitourinary: Negative for difficulty urinating, flank pain, frequency and urgency. Musculoskeletal: Negative for arthralgias, back pain, myalgias and neck pain. Skin: Negative for color change and rash. Dry, cracked skin of hands Neurological: Negative for dizziness, syncope and light-headedness. Psychiatric/Behavioral: Negative for decreased concentration and sleep disturbance. All other systems reviewed and are negative. Vitals: Blood pressure 124/68, pulse 62, temperature 97.8 F (36.6 C), resp. rate 16, height 1.613 m (5' 3.5 ), weight 60.3 kg (132 lb 14.4 oz), SpO2 95 %. Physical Exam Vitals and nursing note reviewed. HENT: Head: Normocephalic. Ears: Comments: Serous fluid in both eustachian tubes Nose: Comments: Pale, boggy turbinates Mouth/Throat: Comments: Postnasal drainage Cardiovascular: Rate and Rhythm: Normal rate and regular rhythm. Heart sounds: No murmur heard. Pulmonary: Effort: Pulmonary effort is normal. Breath sounds: Normal breath sounds. Abdominal: General: Bowel sounds are normal. Palpations: Abdomen is soft. Tenderness: There is no abdominal tenderness. Musculoskeletal: General: No swelling. Assessment and Plan ICD-10-CM 1. Psoriatic arthritis L40.50 HLA-B27 SEDIMENTATION RATE, AUTOMATED C REACTIVE PROTEIN predniSONE 20 MG tablet AMB REFERRAL TO RHEUMATOLOGY 2. Intrinsic eczema L20.84 3. Allergic rhinitis with postnasal drip J30.9 R09.82 Obtain lab work. If lab work or other testing was ordered at your visit, please call our office ([phone]) one week after the lab draw or test to receive your results. Begin prednisone 20 mg twice daily x 7 days. Use Flonase nasal spray twice daily x 2 weeks. Begin Mucinex D to help decongest sinuses for [address]erral placed to Dr[address] Xavier, Rheumatology. SANNA Isabel, was the scribe for today's note. I have performed all essential components of the history and physical exam, confirmed the diagnosis and developed a plan of care at this visit. I have reviewed the note at the visit and have added edits as appropriate to my evaluation and plan of care. documented in this encounter [facility] 02-15-2021 Instructions LACI LOPEZ - 02/15/2021 9:30 AM EDT Assessment and Plan ICD-10-CM 1. Psoriatic arthritis L40.50 HLA-B27 SEDIMENTATION RATE, AUTOMATED C REACTIVE PROTEIN predniSONE 20 MG tablet AMB REFERRAL TO RHEUMATOLOGY 2. Intrinsic eczema L20.84 3. Allergic rhinitis with postnasal drip J30.9 R09.82 Obtain lab work. If lab work or other testing was ordered at your visit, please call our office ([phone]) one week after the lab draw or test to receive your results. Begin prednisone 20 mg twice daily x 7 days. Use Flonase nasal spray twice daily x 2 weeks. Begin Mucinex D to help decongest sinuses for 7 days. Referral placed to Dr. Xavier, Rheumatology. SANNA Isabel, was the scribe for today's note. I have performed all essential components of the history and physical exam, confirmed the diagnosis and developed a plan of care at this visit. I have reviewed the note at the visit and have added edits as appropriate to my evaluation and plan of care. documented in this encounter [facility] 01-18-2021 History of Presen t illness Narrative Patient: Harriet Enegl Date of : 1950 (70 y.o.) PCP: Bailee Rolle DO (Inactive) ASSESSMENT/PLAN: Harriet Engel 70 y.o. female with history of painful tailor's bunion with callus left foot, bunion and callus on the right foot. Subungual hematoma of the left great toenail and 3rd toenail on the right foot. Hammertoes 2 through 5 bilateral. Plan: I debrided toenails 1 through 5 bilateral feet with nail nippers, debrided the calluses off the 5th metatarsal head on the left foot and the 1st metatarsal head on the right. I discussed wearing wider tennis shoes such as new balance and making sure there is a thumbs with between the end of the longest toe and the end of the shoe. Patient also was explained to use urea cream on the calluses. Patient has had conservative management a year and a half ago and is now interested in discussing surgery on the left foot. I recommended a reverse Roberto tailors bunionectomy. Patient be in a cam walker boot for 6 weeks. Patient needs to stay around town and limit activity. Patient like to proceed in early March once her friend is available to help her. Assessment & plan notes cannot be loaded without a specified hospital service. SUBJECTIVE: History Since Last Visit: Patient is a 70-year-old female comes into the office complaining of bruises on her left great toe and 3rd toe on the right foot following a hike in her boots done in [place]. Patient also has callus on the 5th metatarsal head over a tailor's bunion that is been bothersome for over a year and a half. Patient wanted to rediscuss surgery. Patient also is wanting her right foot looked at and some advice on shoe gear. Review of Systems: Unremarkable OBJECTIVE: Physical Examination: Integument-there is a callus on the lateral side of the 5th metatarsal head on the left foot. There is also one on the medial aspect the 1st metatarsal on the right foot. Toenails 1 through 5 are long and dystrophic bilateral feet there is a dry subungual hematoma underneath the left great toenail as well as the 3rd toenail on the Neuro-intact bilateral Musculoskeletal-there is a medial bony prominence of the 1st metatarsal head on the right foot with a lateral deviated right hallux. There is also a lateral bony prominence of the 5th metatarsal on the left foot. Vascular-DP and PT pulses are palpable bilateral feet BP 122/72 (BP Location: Right arm, Patient Position: Sitting, BP Cuff Size: Adult) Pulse 68 Temp 98.4 F (36.9 C) (Temporal) Laboratory and Additional Data Reviewed: Reviewed:[id number]} XR Foot Right 3+ Views (Standard) X-rays 3 views right foot: There is a medial bony prominence of the 1st metatarsal head, 1st metatarsal angle of roughly 16 degrees, 1st MPJ is well preserved, the hallux has about 25 degrees of abduction. XR Foot Left 3+ Views (Standard) X-rays 3 views left foot: There is a exostosis on the lateral side of the 5th metatarsal head, there is a fourth intermetatarsal angle of roughly 8 to 10 degrees. There is also increase in the lateral deviation angle of about 8 degrees documented in this encounter [facility] 08-28-2020 History of Presen t illness Narrative 08/28/20 Chief Complaint Patient presents with Right Hand - Pain OPNP- R hand - thumb and wrist pain HPI: Harriet is here today in follow up of her right hand. She has been having problems for the last couple years, progressively worse now to the point where it bothers her daily. She is having hard a hard time picking up objects, pulling up her socks. She is dropping things. She has pain primarily on the thumb side of her hand. No past medical history on file. Past Surgical History: Procedure Laterality Date COLONOSCOPY DIAGNOSTIC 01/2018 Had small polyp. HERNIA REPAIR 04/2009 Inquinial double hernia left side. SHOULDER SURGERY Right 01/2006 Rotary cuff SEPTOPLASTY 2003 Nasal. Current Outpatient Medications: Calcium Carb-Cholecalciferol (CALCIUM 600-D PO), Take 600 mg by mouth., Disp: , Rfl: Cetirizine HCl (ZYRTEC ALLERGY PO), Take by mouth daily., Disp: , Rfl: Cholecalciferol (VITAMIN D) 2000 units Tab, Take 3,600 Units by mouth daily. , Disp: , Rfl: clobetasol 0.05 % Cream, Apply topically twice daily x 2 weeks and then daily as needed thereafter, Disp: 60 g, Rfl: 1 fluticasone 50 MCG/ACT Suspension nasal spray, 2 sprays by Nasal route daily., Disp: 1 Bottle, Rfl: 11 Magnesium Oxide 500 MG tablet, Take 500 mg by mouth daily., Disp: , Rfl: Naproxen Sodium (Aleve) 220 MG capsule, Take 220 mg by mouth., Disp: , Rfl: tretinoin (Retin-A) 0.05 % Cream cream, Use nightly to affected area, Disp: 45 g, Rfl: 2 Vitamins-Lipotropics (Santo-Plus G) capsule, Take 1 capsule by mouth daily., Disp: , Rfl: Foot Care Products (SPENCO GEL ARCH INSOLES MEDIUM) Misc, 2 each (Patient not taking: Reported on 08/28/2020), Disp: 2 Each, Rfl: 0 terbinafine 250 MG tablet, Take 1 tablet by mouth daily. (Patient not taking: Reported on 08/28/2020), Disp: 60 tablet, Rfl: 0 Allergies Allergen Reactions Morphine Swelling Nabumetone Palpitations heartburn Social History Socioeconomic History Marital status: Spouse name: Not on file Number of children: Not on file Years of education: Not on file Highest education level: Not on file Occupational History Not on file Tobacco Use Smoking status: Never Smoker Smokeless tobacco: Never Used Substance and Sexual Activity Alcohol use: Yes Comment: wine Drug use: Not on file Sexual activity: Not on file Other Topics Concern Not on file Social History Narrative Not on file Social Determinants of Health Financial Resource Strain: Difficulty of Paying Living Expenses: Food Insecurity: Worried About Running Out of Food in the Last Year: Ran Out of Food in the Last Year: Transportation Needs: Lack of Transportation (Medical): Lack of Transportation (Non-Medical): Physical Activity: Days of Exercise per Week: Minutes of Exercise per Session: Stress: Feeling of Stress : Social Connections: Frequency of Communication with Friends and Family: Frequency of Social Gatherings with Friends and Family: Attends Sikhism Services: Active Member of Clubs or Organizations: Attends Club or Organization Meetings: Marital Status: Intimate Partner Violence: Fear of Current or Ex-Partner: Emotionally Abused: Physically Abused: Sexually Abused: Family History Problem Relation Age of Onset Diabetes Mother Emphysema Mother Stroke Mother Colorectal Cancer Father Coronary Artery Disease Father Myocardial Infarction Father Review of Systems Constitutional: Negative for chills, fatigue and fever. Eyes: Negative for visual disturbance. Respiratory: Negative for shortness of breath. Cardiovascular: Negative for chest pain. Gastrointestinal: Negative for abdominal pain and blood in stool. Endocrine: Negative for polydipsia. Genitourinary: Negative for hematuria. Musculoskeletal: Positive for arthralgias. Negative for myalgias. Neurological: Negative for seizures. Hematological: Does not bruise/bleed easily. Psychiatric/Behavioral: Negative for dysphoric mood. Physical Examination: Vitals: 08/28/20 1322 Temp: 98.9 degrees F (37.2 degrees C) TempSrc: Temporal Weight: 59.8 kg (131 lb 13.4 oz) Height: 1.6 m (5' 3 ) Extremity: Examination today of her right upper extremity demonstrates point tenderness over the base of the thumb and a positive grind maneuver. Her median, ulnar and radial nerves are intact. Skin is warm and dry. Brisk capillary refill. A little bit of tenderness over the first dorsal compartment, but it is minimal. Diagnostic Studies: AP, oblique and lateral projections of the right hand demonstrate severe basal joint arthritis. Assessment: 1. Severe right basal joint arthritis. Plan: I discussed options with her to include medications, splinting, injections. She already takes [id number] Motrin. She would like to try a teepee splint. She was advised to wear that as much as she can. We will see her back in 2 months. She can also try tumeric, glucosamine and [id number] medications. If she would like an injection, we can do that at some point. She is really leaning towards surgery if the brace doesn't help her, given that she people she knows that have had the surgery and done well with it. Subjective Chief Complaint Patient presents with Right Hand - Pain OPNP- R hand - thumb and wrist pain Review of Systems Constitutional: Negative for chills, fatigue and fever. Eyes: Negative for visual disturbance. Respiratory: Negative for shortness of breath. Cardiovascular: Negative for chest pain. Gastrointestinal: Negative for abdominal pain and blood in stool. Endocrine: Negative for polydipsia. Genitourinary: Negative for hematuria. Musculoskeletal: Positive for arthralgias. Negative for myalgias. Neurological: Negative for seizures. Hematological: Does not bruise/bleed easily. Psychiatric/Behavioral: Negative for dysphoric mood. documented in this encounter [facility] note Diagnosis Hand pain, right- Primary Pain in limb [facility]* Diagnosis Tailor's bunionette, left Callus of foot Corns and callosities Hallux abductovalgus with bunions, right Contusion of left great toe with damage to nail, initial encounter Hammer toes, bilateral Callus of foot Corns and callosities Callus of foot Corns and callosities Hallux abductovalgus with bunions, right [facility] Diagnosis Pre-op testing- Primary Unspecified pre-operative examination Pre-op testing- Primary Unspecified pre-operative examination [facility] Diagnosis Flu vaccine need- Primary Need for prophylactic vaccination and inoculation against influenza Psoriatic arthritis Psoriatic arthropathy Intrinsic eczema Allergic rhinitis with postnasal drip [facility]* Diagnosis Thyromegaly Goiter, unspecified [facility] Diagnosis Psoriatic arthritis- Primary Psoriatic arthropathy Encounter for methotrexate monitoring Screening for lipid disorders [facility] Diagnosis Primary osteoarthritis of both knees Primary localized osteoarthrosis, lower leg [facility] Diagnosis Primary osteoarthritis of both knees- Primary Primary localized osteoarthrosis, lower leg Tendinitis of both knees Chronic lumbar radiculopathy Thoracic or lumbosacral neuritis or radiculitis, unspecified Primary osteoarthritis of both knees Primary localized osteoarthrosis, lower leg Primary osteoarthritis of both knees Primary localized osteoarthrosis, lower leg [facility] Diagnosis Psoriatic arthritis- Primary Psoriatic arthropathy Varicose veins of both lower extremities with pain Varicose veins of lower extremities with other complications Thrombophlebitis of superficial veins of right lower extremity [facility]* Diagnosis Psoriatic arthritis- Primary Psoriatic arthropathy Osteoarthritis of lumbosacral spine with radiculopathy [facility] Diagnosis Psoriasis- Primary Other psoriasis Primary osteoarthritis involving multiple joints Screening for lipid disorders Abnormal findings on diagnostic imaging of other parts of digestive tract documented [facility] Diagnosis Cervicalgia- Primary Chronic pain of both knees Dorsalgia Pain in thoracic spine Osteoarthritis of lumbosacral spine with radiculopathy Biceps tendonitis on right Bilateral hand pain Pain in limb Bilateral wrist pain Chronic pain of both shoulders Pain in joint, shoulder region Disorder of bone and cartilage Disorder of bone and cartilage, unspecified Lumbar degenerative disc disease Degeneration of lumbar or lumbosacral intervertebral disc Osteoarthritis of carpometacarpal (CMC) joint of both thumbs Osteoarthritis of facet joint of lumbar spine Pes anserinus bursitis of both knees Pes anserinus tendinitis or bursitis Primary osteoarthritis of both feet Primary osteoarthritis of both hands Primary osteoarthritis of both wrists Subacromial bursitis of left shoulder joint Tendonitis of both rotator cuffs Psoriasis Other psoriasis Intrinsic eczema Chronic fatigue Other malaise and fatigue Family history of MS (multiple sclerosis) Family history of other neurological diseases Family history of psoriasis Family history of skin conditions History of osteoarthritis Personal history of arthritis History of psoriasis Personal history of diseases of skin and subcutaneous tissue History of psoriatic arthritis Personal history of arthritis long-term current use of non-steroidal anti-inflammatories (NSAID) Encounter for long-term (current) use of non-steroidal anti-inflammatories Vitamin D deficiency Unspecified vitamin D deficiency Abnormal reflexes of lower extremity Acute bilateral low back pain with bilateral sciatica Acute right-sided low back pain with right-sided sciatica Chronic bilateral low back pain with bilateral sciatica Lumbar radiculopathy Thoracic or lumbosacral neuritis or radiculitis, unspecified [facility] Cervicalgia Chronic pain of both knees Dorsalgia Pain in thoracic spine Osteoarthritis of lumbosacral spine with radiculopathy Biceps tendonitis on right Bilateral hand pain Pain in limb Bilateral wrist pain Chronic pain of both shoulders Pain in joint, shoulder region Disorder of bone and cartilage Disorder of bone and cartilage, unspecified Lumbar degenerative disc disease Degeneration of lumbar or lumbosacral intervertebral disc Osteoarthritis of carpometacarpal (CMC) joint of both thumbs Osteoarthritis of facet joint of lumbar spine Pes anserinus bursitis of both knees Pes anserinus tendinitis or bursitis Primary osteoarthritis of both feet Primary osteoarthritis of both hands Primary osteoarthritis of both wrists Subacromial bursitis of left shoulder joint Tendonitis of both rotator cuffs Psoriasis Other psoriasis Intrinsic eczema Chronic fatigue Other malaise and fatigue Family history of MS (multiple sclerosis) Family history of other neurological diseases Family history of psoriasis Family history of skin conditions History of osteoarthritis Personal history of arthritis History of psoriasis Personal history of diseases of skin and subcutaneous tissue History of psoriatic arthritis Personal history of arthritis long-term current use of non-steroidal anti-inflammatories (NSAID) Encounter for long-term (current) use of non-steroidal anti-inflammatories Vitamin D deficiency Unspecified vitamin D deficiency Abnormal reflexes of lower extremity Acute bilateral low back pain with bilateral sciatica Acute right-sided low back pain with right-sided sciatica [facility] Diagnosis Cervicalgia Chronic pain of both knees Dorsalgia Pain in thoracic spine Osteoarthritis of lumbosacral spine with radiculopathy Biceps tendonitis on right Bilateral hand pain Pain in limb Bilateral wrist pain Chronic pain of both shoulders Pain in joint, shoulder region Disorder of bone and cartilage Disorder of bone and cartilage, unspecified Lumbar degenerative disc disease Degeneration of lumbar or lumbosacral intervertebral disc Osteoarthritis of carpometacarpal (CMC) joint of both thumbs Osteoarthritis of facet joint of lumbar spine Pes anserinus bursitis of both knees Pes anserinus tendinitis or bursitis Primary osteoarthritis of both feet Primary osteoarthritis of both hands Primary osteoarthritis of both wrists Subacromial bursitis of left shoulder joint Tendonitis of both rotator cuffs Psoriasis Other psoriasis Intrinsic eczema Chronic fatigue Other malaise and fatigue Family history of MS (multiple sclerosis) Family history of other neurological diseases Family history of psoriasis Family history of skin conditions History of osteoarthritis Personal history of arthritis History of psoriasis Personal history of diseases of skin and subcutaneous tissue History of psoriatic arthritis Personal history of arthritis terminal carman current use of non-steroidal anti-inflammatories (NSAID) Encounter for long-term (current) use of non-steroidal anti-inflammatories Vitamin D deficiency Unspecified vitamin D deficiency Abnormal reflexes of lower extremity Acute bilateral low back pain with bilateral sciatica Acute right-sided low back pain with right-sided sciatica documented [facility] Diagnosis Cervicalgia Chronic pain of both knees Dorsalgia Pain in thoracic spine Osteoarthritis of lumbosacral spine with radiculopathy Biceps tendonitis on right Bilateral hand pain Pain in limb Bilateral wrist pain Chronic pain of both shoulders Pain in joint, shoulder region Disorder of bone and cartilage Disorder of bone and cartilage, unspecified Lumbar degenerative disc disease Degeneration of lumbar or lumbosacral intervertebral disc Osteoarthritis of carpometacarpal (CMC) joint of both thumbs Osteoarthritis of facet joint of lumbar spine Pes anserinus bursitis of both knees Pes anserinus tendinitis or bursitis Primary osteoarthritis of both feet Primary osteoarthritis of both hands Primary osteoarthritis of both wrists Subacromial bursitis of left shoulder joint Tendonitis of both rotator cuffs Psoriasis Other psoriasis Intrinsic eczema Chronic fatigue Other malaise and fatigue Family history of MS (multiple sclerosis) Family history of other neurological diseases Family history of psoriasis Family history of skin conditions History of osteoarthritis Personal history of arthritis History of psoriasis Personal history of diseases of skin and subcutaneous tissue History of psoriatic arthritis Personal history of arthritis terminal carman current use of non-steroidal anti-inflammatories (NSAID) Encounter for long-term (current) use of non-steroidal anti-inflammatories Vitamin D deficiency Unspecified vitamin D deficiency Abnormal reflexes of lower extremity Acute bilateral low back pain with bilateral sciatica Acute right-sided low back pain with right-sided sciatica Chronic bilateral low back pain with bilateral sciatica Lumbar radiculopathy Thoracic or lumbosacral neuritis or radiculitis, unspecified documented [facility]* Diagnosis Plaque psoriasis- Primary Other psoriasis Nausea Nausea alone Lumbar degenerative disc disease Degeneration of lumbar or lumbosacral intervertebral disc Fibromyositis Mylagia and myositis, unspecified documented [facility]* Diagnosis Abnormal MRI- Primary Other nonspecific (abnormal) findings on radiological and other examinations of body structure documented [facility]* Diagnosis Spinal stenosis of lumbar region with neurogenic claudication- Primary Spinal stenosis, lumbar region, with neurogenic 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 Thoracogenic scoliosis of thoracic region Thoracogenic scoliosis Thoracic degenerative disc disease Degeneration of thoracic or thoracolumbar intervertebral disc Primary osteoarthritis of both wrists Primary osteoarthritis of both hands Primary osteoarthritis of both feet Pes anserinus bursitis of both knees Pes anserinus tendinitis or bursitis 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 Osteoarthritis of carpometacarpal (CMC) joint of both thumbs Osteoarthritis of both glenohumeral joints Osteoarthritis of AC (acromioclavicular) joints, bilateral Lumbar degenerative disc disease Degeneration of lumbar or lumbosacral intervertebral disc Impingement syndrome of both shoulders Other affections of shoulder region, not elsewhere classified HNP (herniated nucleus pulposus), lumbar Displacement of lumbar intervertebral disc without myelopathy Disorder of ligament of right wrist Laxity of ligament Disorder of ligament, left wrist DDD (degenerative disc disease), cervical Degeneration of cervical intervertebral disc Chondrocalcinosis Other disorder of calcium metabolism Psoriasis Other psoriasis Plaque psoriasis Other psoriasis Intrinsic eczema Postmenopausal status Asymptomatic postmenopausal status (age-related) (natural) Long-term current use of apremilast long-term current use of non-steroidal anti-inflammatories (NSAID) Encounter for long-term (current) use of non-steroidal anti-inflammatories History of psoriatic arthritis Personal history of arthritis History of osteoarthritis Personal history of arthritis Family history of psoriasis Family history of skin conditions Elevated BUN Other abnormal blood chemistry Abnormal x-ray Other nonspecific (abnormal) findings on radiological and other examinations of body structure Abnormal MRI Other nonspecific (abnormal) findings on radiological and other examinations of body structure Abnormal ANCA test Other and unspecified nonspecific immunological findings documented [facility] Diagnosis Spinal stenosis of lumbar region with neurogenic claudication Spinal stenosis, lumbar region, with neurogenic 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 Thoracogenic scoliosis of thoracic region Thoracogenic scoliosis Thoracic degenerative disc disease Degeneration of thoracic or thoracolumbar intervertebral disc Primary osteoarthritis of both wrists Primary osteoarthritis of both hands Primary osteoarthritis of both feet Pes anserinus bursitis of both knees Pes anserinus tendinitis or bursitis 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 Osteoarthritis of carpometacarpal (CMC) joint of both thumbs Osteoarthritis of both glenohumeral joints Osteoarthritis of AC (acromioclavicular) joints, bilateral Lumbar degenerative disc disease Degeneration of lumbar or lumbosacral intervertebral disc Impingement syndrome of both shoulders Other affections of shoulder region, not elsewhere classified HNP (herniated nucleus pulposus), lumbar Displacement of lumbar intervertebral disc without myelopathy Disorder of ligament of right wrist Laxity of ligament Disorder of ligament, left wrist DDD (degenerative disc disease), cervical Degeneration of cervical intervertebral disc Chondrocalcinosis Other disorder of calcium metabolism Psoriasis Other psoriasis Plaque psoriasis Other psoriasis Intrinsic eczema Postmenopausal status Asymptomatic postmenopausal status (age-related) (natural) Long-term current use of apremilast terminal carman current use of non-steroidal anti-inflammatories (NSAID) Encounter for long-term (current) use of non-steroidal anti-inflammatories History of psoriatic arthritis Personal history of arthritis History of osteoarthritis Personal history of arthritis Family history of psoriasis Family history of skin conditions Elevated BUN Other abnormal blood chemistry Abnormal x-ray Other nonspecific (abnormal) findings on radiological and other examinations of body structure Abnormal MRI Other nonspecific (abnormal) findings on radiological and other examinations of body structure Abnormal ANCA test Other and unspecified nonspecific immunological findings documented [facility]* Diagnosis Plaque psoriasis- Primary Other psoriasis Primary osteoarthritis involving multiple joints documented [facility]* Diagnosis Chronic pain of left knee Pain in joint, lower leg documented [facility]* Diagnosis Chondrocalcinosis- Primary Other disorder of calcium metabolism Acute lateral meniscal tear, left, initial encounter Intrinsic eczema Postmenopausal status Asymptomatic postmenopausal status (age-related) (natural) terminal carman current use of non-steroidal anti-inflammatories (NSAID) Encounter for long-term (current) use of non-steroidal anti-inflammatories History of osteoarthritis Personal history of arthritis Family history of psoriasis Family history of skin conditions Family history of MS (multiple sclerosis) Family history of other neurological diseases Abnormal x-ray Other nonspecific (abnormal) findings on radiological and other examinations of body structure Abnormal MRI Other nonspecific (abnormal) findings on radiological and other examinations of body structure Spinal stenosis of lumbar region with neurogenic claudication Spinal stenosis, lumbar region, with neurogenic claudication Thoracogenic scoliosis of thoracic region Thoracogenic scoliosis Thoracic degenerative disc disease Degeneration of thoracic or thoracolumbar intervertebral disc Primary osteoarthritis of both wrists Primary osteoarthritis of both hands Primary osteoarthritis of both feet Primary osteoarthritis involving multiple joints 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 Osteoarthritis of carpometacarpal (CMC) joint of both thumbs Osteoarthritis of both glenohumeral joints Osteoarthritis of AC (acromioclavicular) joints, bilateral Lumbar degenerative disc disease Degeneration of lumbar or lumbosacral intervertebral disc Impingement syndrome of both shoulders Other affections of shoulder region, not elsewhere classified HNP (herniated nucleus pulposus), lumbar Displacement of lumbar intervertebral disc without myelopathy Ganglion cyst of volar aspect of left wrist DDD (degenerative disc disease), cervical Degeneration of cervical intervertebral disc documented [facility]* Diagnosis Derangement of medial meniscus of left knee- Primary Chronic pain of left knee Pain in joint, lower leg Chronic pain of left knee Pain in joint, lower leg documented [facility] encounter [facility]* Diagnosis Fat pad atrophy of foot- Primary Other musculoskeletal symptoms referable to limbs documented [facility] this encounter [facility]* Diagnosis Fat pad atrophy of foot Other musculoskeletal symptoms referable to limbs Tailor's bunion of left foot [facility] Diagnosis Hoyos's cyst of knee, left- Primary Tear of lateral meniscus of left knee, current, unspecified tear type, subsequent encounter Plaque psoriasis Other psoriasis Colon cancer screening Special screening for malignant neoplasms, colon Callous ulcer, unspecified ulcer stage Fat pad atrophy of foot Other musculoskeletal symptoms referable to limbs Tailor's bunion of left foot [facility] Consultation (Routine) - Open Specialty Diagnoses / Procedures Referred By Brittny ortega Referred To Contact Rheumatology Diagnoses Psoriatic arthritis Bailee Rolle DO [address] [place], [place] [id number] Eulalio Xavier Jr., DO [address] [place] [address] Referral ID Status Reason Start Date Expiration Date Visits Re quested Visits Authorized [id number] Open 02/15/2021 03/12/2022 1 1 [facility] for referral (narrative)* Consultation (Routine) - New Request Specialty Diagnoses / Procedures Referred By Contfrancois ortega Referred To Contact Rheumatology Diagnoses Psoriasis Bailee Rolle DO [address] [place] [address] Eulalio Xavier Jr., [address] [place] [address] Referral ID Status Reason Start Date Expiration Date V isits Requested Visits Authorized [id number] New Request 09/24/2022 10/19/2023 1 1 [facility] Consultation (Urgent) - New Request Specialty Diagnoses / Procedures Referred By Brittny ortega Referred To Contact Dermatology Diagnoses Cervicalgia Chronic pain of both knees Dorsalgia Osteoarthritis of lumbosacral spine with radiculopathy Biceps tendonitis on right Bilateral hand pain Bilateral wrist pain Chronic pain of both shoulders Disorder of bone and cartilage Lumbar degenerative disc disease Osteoarthritis of carpometacarpal (CMC) joint of both thumbs Osteoarthritis of facet joint of lumbar spine Pes anserinus bursitis of both knees Primary osteoarthritis of both feet Primary osteoarthritis of both hands Primary osteoarthritis of both wrists Subacromial bursitis of left shoulder joint Tendonitis of both rotator cuffs Psoriasis Intrinsic eczema Chronic fatigue Family history of MS (multiple sclerosis) Family history of psoriasis History of osteoarthritis History of psoriasis History of psoriatic arthritis terminal carman current use of non-steroidal anti-inflammatories (NSAID) Vitamin D deficiency Abnormal reflexes of lower extremity Acute bilateral low back pain with bilateral sciatica Acute right-sided low back pain with right-sided sciatica Chronic bilateral low back pain with bilateral sciatica Lumbar radiculopathy Eulalio Xavier Jr., DO [address] [place] [address] Gregorio Fontaine MD [address] [place] [address] Referral ID Status Reason Start Date Expiration Date V isits Requested Visits Authorized [id number] New Request 01/22/2023 02/16/2024 1 1 * Adjunctive Therapy (Routine) - New Request Specialty Diagnoses / Procedures Referred By Contact Referred To Contact Occupational Therapy Diagnoses Cervicalgia Chronic pain of both knees Dorsalgia Osteoarthritis of lumbosacral spine with radiculopathy Biceps tendonitis on right Bilateral hand pain Bilateral wrist pain Chronic pain of both shoulders Disorder of bone and cartilage Lumbar degenerative disc disease Osteoarthritis of carpometacarpal (CMC) joint of both thumbs Osteoarthritis of facet joint of lumbar spine Pes anserinus bursitis of both knees Primary osteoarthritis of both feet Primary osteoarthritis of both hands Primary osteoarthritis of both wrists Subacromial bursitis of left shoulder joint Tendonitis of both rotator cuffs Psoriasis Intrinsic eczema Chronic fatigue Family history of MS (multiple sclerosis) Family history of psoriasis History of osteoarthritis History of psoriasis History of psoriatic arthritis long-term current use of non-steroidal anti-inflammatories (NSAID) Vitamin D deficiency Abnormal reflexes of lower extremity Acute bilateral low back pain with bilateral sciatica Acute right-sided low back pain with right-sided sciatica Eulalio Xavier Jr., DO [address] [place] [address] [facility] [address] [place] [address] Referral ID Status Reason Start Date Expiration Date V isits Requested Visits Authorized [id number] New Request 01/22/2023 02/16/2024 1 1 * MRI/CAT Scan (Routine) - New Request Specialty Diagnoses / Procedures Referred By Brittny ortega Referred To Contact Diagnoses Cervicalgia Chronic pain of both knees Dorsalgia Osteoarthritis of lumbosacral spine with radiculopathy Biceps tendonitis on right Bilateral hand pain Bilateral wrist pain Chronic pain of both shoulders Disorder of bone and cartilage Lumbar degenerative disc disease Osteoarthritis of carpometacarpal (CMC) joint of both thumbs Osteoarthritis of facet joint of lumbar spine Pes anserinus bursitis of both knees Primary osteoarthritis of both feet Primary osteoarthritis of both hands Primary osteoarthritis of both wrists Subacromial bursitis of left shoulder joint Tendonitis of both rotator cuffs Psoriasis Intrinsic eczema Chronic fatigue Family history of MS (multiple sclerosis) Family history of psoriasis History of osteoarthritis History of psoriasis History of psoriatic arthritis terminal carman current use of non-steroidal anti-inflammatories (NSAID) Vitamin D deficiency Abnormal reflexes of lower extremity Acute bilateral low back pain with bilateral sciatica Acute right-sided low back pain with right-sided sciatica Chronic bilateral low back pain with bilateral sciatica Lumbar radiculopathy Procedures MRI SPINE LUMBAR WITHOUT CONTRAST DE MRI, LUMBAR SPINE Eulalio Xavier Jr., DO [address] [place] [address] Referral ID Status Reason Start Date Expiration Date V isits Requested Visits Authorized [id number] New Request 01/22/2023 02/16/2024 1 1 [facility] for referral (narrative)* Consultation (Routine) - New Request Specialty Diagnoses / Procedures Referred By Contac t Referred To Contact Gastroenterology Diagnoses Colon cancer screening Bailee Rolle DO [address] [place], [place] [id number] Donte Hines Jr., DO [address] [place] [phone] Referral ID Status Reason Start Date Expiration Date V isits Requested Visits Authorized [id number] New Request 01/05/2024 01/29/2025 1 1 * Consultation (Routine) - New Request Specialty Diagnoses / Procedures Referred By Contac t Referred To Contact Podiatry Diagnoses Callous ulcer, unspecified ulcer stage Bailee Rolle DO [address] [place], [place] [id number] Puneet Marion, DPM [address] [place] [id number] Referral ID Status Reason Start Date Expiration Date V isits Requested Visits Authorized [id number] New Request 01/05/2024 01/29/2025 1 1 * Consultation (Routine) - New Request Specialty Diagnoses / Procedures Referred By Contac t Referred To Contact Orthopaedic Surgery & Sports Medicine / Orthopaedics Diagnoses Tear of lateral meniscus of left knee, current, unspecified tear type, subsequent encounter Bailee Rolle DO [address] [place], [place] [phone] Tommie Kaye MD [address] [facility] [place] [address] Referral ID Status Reason Start Date Expiration Date V isits Requested Visits Authorized [id number] New Request 01/05/2024 01/29/2025 1 1 [facility] Summary Purpose Family History No Family History Records FoundNo Family History Records FoundNo Family History Records FoundNo Family History Records FoundNo Family History Records FoundNo Family History Records FoundNo Family History Records FoundNo Family History Records FoundNo Family History Records Found Advance Directives No Advanced Directives Records FoundDocuments on File Type Date Recorded 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 Advance Directives and Living Will Reason for Referral Status Reason Specialty Diagnoses / Procedures Referred By Contact Referred To Contact Pending Review Diagnoses Actinic keratoses Bailee Rolle, DO [address] [place] [address] Status Reason Specialty Diagnoses / Procedures Referred By Contact Referred To Contact Pending Review Diagnoses Actinic keratoses Bailee Rolle, DO [address] [place] [address] Status Reason Specialty Diagnoses / Procedures Referre d By Contact Referred To Contact Closed Ultrasound Diagnoses Nontoxic single thyroid nodule Procedures US THYROID Bailee Macedo MD [address] [facility] [address] [place] [address] [facility] [address] [place] [phone] Status Reason Specialty Diagnoses / Procedures Referred By Contact Referred To Contact Pending Review Diagnoses Hand pain, right Procedures XR HAND RIGHT 3+ VIEWS Nadeem Lomax MD [address] [place] [id number] Specialty Diagnoses / Procedures Referred By Contac t Referred To Contact Ultrasound Diagnoses Thyromegaly Procedures US THYROID Siri Alicea MD [address] [facility] [place] [address] [facility] [address] [place] [address] Referral ID Status Reason Start Date Expiration Date Visits Re quested Visits Authorized [id number] Closed 07/01/2021 07/26/2022 1 1 Specialty Diagnoses / Procedures Referred By Contac t Referred To Contact Diagnoses Psoriatic arthritis Bailee Rolle P, DO [address] [place] [address] Referral ID Status Reason Start Date Expiration Date Visits Re quested Visits Authorized [id number] Closed 1 1 Referral ID Status Reason Start Date Expiration Date Visits Re quested Visits Authorized [id number] Denied 1 1 Specialty Diagnoses / Procedures Referred By Contac t Referred To Contact Magnetic Resonance Imaging Diagnoses Osteoarthritis of lumbosacral spine with radiculopathy Procedures MRI SPINE LUMBAR WITHOUT CONTRAST DE MRI, LUMBAR SPINE Bailee Rolle P, DO [address] [place] [address] [facility] [address] [place] [address] Referral ID Status Reason Start Date Expiration Date Visits Re quested Visits Authorized [id number] Closed 12/17/2021 01/11/2023 1 0 Specialty Diagnoses / Procedures Referred By Contac t Referred To Contact Diagnoses Cervicalgia Chronic pain of both knees Dorsalgia Osteoarthritis of lumbosacral spine with radiculopathy Biceps tendonitis on right Bilateral hand pain Bilateral wrist pain Chronic pain of both shoulders Disorder of bone and cartilage Lumbar degenerative disc disease Osteoarthritis of carpometacarpal (CMC) joint of both thumbs Osteoarthritis of facet joint of lumbar spine Pes anserinus bursitis of both knees Primary osteoarthritis of both feet Primary osteoarthritis of both hands Primary osteoarthritis of both wrists Subacromial bursitis of left shoulder joint Tendonitis of both rotator cuffs Psoriasis Intrinsic eczema Chronic fatigue Family history of MS (multiple sclerosis) Family history of psoriasis History of osteoarthritis History of psoriasis History of psoriatic arthritis long-term current use of non-steroidal anti-inflammatories (NSAID) Vitamin D deficiency Abnormal reflexes of lower extremity Acute bilateral low back pain with bilateral sciatica Acute right-sided low back pain with right-sided sciatica Chronic bilateral low back pain with bilateral sciatica Lumbar radiculopathy Procedures MRI SPINE LUMBAR WITHOUT CONTRAST DE MRI, LUMBAR SPINE Eulailo Xavier Jr., DO [address] [place] [address] Referral ID Status Reason Start Date Expiration Date Visits Re quested Visits Authorized [id number] Closed 01/22/2023 02/16/2024 1 1 Specialty Diagnoses / Procedures Referred By Contac t Referred To Contact Diagnoses Plaque psoriasis Bailee Rolle, DO [address] [place] [address] Referral ID Status Reason Start Date Expiration Date Visits Re quested Visits Authorized [id number] Denied 1 1 Specialty Diagnoses / Procedures Referred By Contac t Referred To Contact Diagnoses Spinal stenosis 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 Thoracogenic scoliosis of thoracic region 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 Primary osteoarthritis of both hands Primary osteoarthritis of both feet Pes anserinus bursitis of both knees 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 Osteoarthritis of carpometacarpal (CMC) joint of both thumbs Osteoarthritis of both glenohumeral joints Osteoarthritis of AC (acromioclavicular) joints, bilateral Lumbar degenerative disc disease Impingement syndrome of both shoulders HNP (herniated nucleus pulposus), lumbar Disorder of ligament of right wrist Disorder of ligament, left wrist DDD (degenerative disc disease), cervical Chondrocalcinosis Psoriasis Plaque psoriasis Intrinsic eczema Postmenopausal status Long-term current use of apremilast long-term current use of non-steroidal anti-inflammatories (NSAID) History of psoriatic arthritis History of osteoarthritis Family history of psoriasis Elevated BUN Abnormal x-ray Abnormal MRI Abnormal ANCA test Procedures MRI WRIST LEFT WITHOUT CONTRAST DE MRI, JOINT UPPER EXTREM Eulalio Xavier Jr., DO [address] [place] [address] Referral ID Status Reason Start Date Expiration Date V isits Requested Visits Authorized [id number] New Request 05/27/2023 06/20/2024 1 1 Specialty Diagnoses / Procedures Referred By Contac t Referred To Contact Diagnoses Spinal stenosis 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 Thoracogenic scoliosis of thoracic region 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 Primary osteoarthritis of both hands Primary osteoarthritis of both feet Pes anserinus bursitis of both knees 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 Osteoarthritis of carpometacarpal (CMC) joint of both thumbs Osteoarthritis of both glenohumeral joints Osteoarthritis of AC (acromioclavicular) joints, bilateral Lumbar degenerative disc disease Impingement syndrome of both shoulders HNP (herniated nucleus pulposus), lumbar Disorder of ligament of right wrist Disorder of ligament, left wrist DDD (degenerative disc disease), cervical Chondrocalcinosis Psoriasis Plaque psoriasis Intrinsic eczema Postmenopausal status Long-term current use of apremilast long-term current use of non-steroidal anti-inflammatories (NSAID) History of psoriatic arthritis History of osteoarthritis Family history of psoriasis Elevated BUN Abnormal x-ray Abnormal MRI Abnormal ANCA test Procedures MRI WRIST RIGHT WITHOUT CONTRAST DE MRI, JOINT UPPER EXTREM Eulalio Xavier Jr. DO [address] [place] [address] Referral ID Status Reason Start Date Expiration Date V isits Requested Visits Authorized [id number] New Request 05/27/2023 06/20/2024 1 1 Referral ID Status Reason Start Date Expiration Date Visits Re quested Visits Authorized [id number] Closed 05/27/2023 06/20/2024 1 1 Referral ID Status Reason Start Date Expiration Date Visits Re quested Visits Authorized [id number] Closed 05/27/2023 06/20/2024 1 1 Specialty Diagnoses / Procedures Referred By Contac t Referred To Contact Bailee Rolle DO [address] [place] [id number] Referral ID Status Reason Start Date Expiration Date V isits Requested Visits Authorized [id number] Authorized 05/04/2023 04/12/2024 1 1 Specialty Diagnoses / Procedures Referred By Contac t Referred To Contact [facility] Diagnoses Chronic pain of left knee Procedures MRI KNEE LEFT WITHOUT CONTRAST DE MRI LOWER EXTREM JT, W/O CONTRAST Bailee Rolle DO [address] [place] [address] [facility] [address] [place] [address] Referral ID Status Reason Start Date Expiration Date Visits Re quested Visits Authorized [id number] Closed 07/07/2023 07/31/2024 1 1 Specialty Diagnoses / Procedures Referred By Brittny t Referred To Contact Diagnoses Fat pad atrophy of foot Tailor's bunion of left foot Procedures XR FOOT LEFT 3+ VIEWS Atway, Mariusz Wallis DPM [address] [place] [address] Referral ID Status Reason Start Date Expiration Date V isits Requested Visits Authorized [id number] New Request 01/26/2024 02/19/2025 1 1 Instructions * Patient Instructions* LACI LOPEZ - 08/13/2018 8:45 AM EDT Assessment and Plan ICD-10-CM 1. Primary osteoarthritis of both hands M19.041 meloxicam 15 MG Tab tablet M19.042 VITAMIN D (25-HYDROXY,TOTAL) 2. Arthralgia of metacarpophalangeal joint, right M25.541 3. Psoriasis L40.9 4. Screening for lipid disorders Z13.220 LIPID PANEL W CALCULATED LDL 5. Irritable bowel syndrome with diarrhea K58.0 RifaXIMin 550 MG Tab tablet 6. Actinic keratoses L57.0 tretinoin (RETIN-A) 0.05 % Cream cream Begin meloxicam 15 mg once daily to help control inflammation. Begin Xifaxan (rifaximin) 550 mg three times daily x 14 days. Provided Rx for Retin-A along with a Good Rx coupon for her to take to pharmacy. Obtain lab work prior to next office visit. If lab work or other testing was ordered at your visit, please call our office ([phone]) one week after the lab draw or test to receive your results. SANNA Blanco, was the scribe for today's note. I have performed all essential components of the history and physical exam. I have confirmed the diagnosis and developed a plan of care at this visit. I have reviewed the note following the visit and have added edits as appropriate to my evaluation and plan of care. Bailee Rolle DO documented in this encounter* Patient Instructions* LACI LOPEZ - 09/17/2018 8:30 AM EDT Assessment and Plan ICD-10-CM 1. Encounter for wellness examination Z00.00 2. Need for 23-polyvalent pneumococcal polysaccharide vaccine Z23 pneumococcal 23-valent injection PNEUMOCOCCAL VACCINE 23-VALENT Reviewed and discussed all lab results with the patient. Cholesterol is well controlled. Blood count is normal. Kidney function and liver function are normal. She is due for the 2nd pneumonia vaccine and she has agreed to proceed. SANNA Blanco, was the scribe for today's note. I have performed all essential components of the history and physical exam. I have confirmed the diagnosis and developed a plan of care at this visit. I have reviewed the note following the visit and have added edits as appropriate to my evaluation and plan of care. Bailee Rolle DO documented in this encounter* Patient Instructions* LACI LOPEZ - 11/29/2018 9:00 AM EDT Assessment and Plan ICD-10-CM 1. Acute right-sided low back pain with right-sided sciatica M54.41 predniSONE 20 MG Tab tablet 2. Psoriasis L40.9 clobetasol 0.05 % Cream Apply heat to the small of the back and then do stretching exercises at least twice daily. Begin prednisone 20 mg twice daily x 5 days. Begin clobetasol cream as directed for psoriasis of hands. SANNA Blanco, was the scribe for today's note. I have performed all essential components of the history and physical exam. I have confirmed the diagnosis and developed a plan of care at this visit. I have reviewed the note following the visit and have added edits as appropriate to my evaluation and plan of care. Bailee Rolle DO documented in this encounter* Patient Instructions* LACI LOPEZ - 01/17/2019 3:30 PM EDT Assessment and Plan ICD-10-CM 1. Degenerative disc disease, lumbar M51.36 2. Chronic bilateral low back pain with bilateral sciatica M54.42 M54.41 G89.29 3. Seasonal allergic rhinitis due to pollen J30.1 I have recommended doing conservative therapy such as stretching exercises, nabumetone 500 mg twicedaily and using heat a few times per day. She does have good reflexes. I explained that she will continue to have back pain intermittently due to the nature of her degenerative discs. Can continue Flonase nasal spray twice daily - rinse out mouth and throat after use. SANNA Blanco, was the scribe for today's note. I have performed all essential components of the history and physical exam. I have confirmed the diagnosis and developed a plan of care at this visit. I have reviewed the note following the visit and have added edits as appropriate to my evaluation and plan of care. Bailee Rolle DO documented in this encounter* Patient Instructions* LACI LOPEZ - 02/28/2020 1:00 PM EST Assessment and Plan ICD-10-CM 1. Paronychia of left middle finger L03.012 clindamycin 300 MG capsule terbinafine 250 MG tablet Begin clindamycin 300 mg twice daily x 7 days; when this medication has been completed then begin Lamisil (terbinafine) 250 mg once daily x 2 months. Do not drink any alcohol while on the Lamisil. SANNA Isabel, was the scribe for today's note. I have performed all essential components of the history and physical exam. I have confirmed the diagnosis and developed a plan of care at this visit. I have reviewed the note following the visit and have added edits as appropriate to my evaluation and plan of care. documented in this encounter* Patient Instructions* LACI LOPEZ - 10/18/2018 3:30 PM EDT Assessment and Plan ICD-10-CM 1. Cat scratch of hand, left, initial encounter S60.512A W55.03XA Begin Augmentin 875 mg twice daily x 7 days. SANNA Blanco, was the scribe for today's note. I have performed all essential components of the history and physical exam. I have confirmed the diagnosis and developed a plan of care at this visit. I have reviewed the note following the visit and have added edits as appropriate to my evaluation and plan of care. Bailee Rolle DO documented in this encounter* Patient Instructions* LACI LOPEZ - 12/16/2018 3:15 PM EDT Assessment and Plan ICD-10-CM 1. Nasal congestion R09.81 2. Non-recurrent acute serous otitis media of left ear H65.02 3. Acute right-sided low back pain with right-sided sciatica M54.41 Use Flonase nasal spray 1 squirt each nostril twice daily. Can try 1/2 tablet of Mucinex D once or twice daily to help congest sinuses. Can continue to use meloxicam 15 mg once daily for back pain. Laci Pandey CMSS, was the scribe for today's note. I have performed all essential components of the history and physical exam. I have confirmed the diagnosis and developed a plan of care at this visit. I have reviewed the note following the visit and have added edits as appropriate to my evaluation and plan of care. Bailee Rolle DO documented in this encounter History of Present Illness * Bailee Rolle DO - 08/13/2018 8:45 AM EDT History of Present Illness Patient presents with Psoriasis Pt. has Psoriasis on both hands that she was diagnosed with by Dr. Fontaine last year. 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 Pt. was given a hand cream by Dr. Fontaine, but she doesn't use it, she uses hand cream to keep it moist. Arthritis Pt. has arthritic pain that is intermittent that she has in her hands and in various joints. Pt. has arthritis in the back and it affects her often. Pt. wants to know if she has psoriatic arthritis. Right hand pain is a problem right now. Doesn't take anything for pain, unless it's bad then ASA or Ibuprofen. Review of Systems Constitutional: Negative for activity change, chills and fever. HENT: Negative for dental problem, ear pain, mouth sores, sinus pain and trouble swallowing. Eyes: Negative for discharge and visual disturbance. Respiratory: Negative for chest tightness, shortness of breath and wheezing. Cardiovascular: Negative for chest pain, palpitations and leg swelling. Gastrointestinal: Negative for abdominal pain and nausea. Endocrine: Negative for polydipsia, polyphagia and polyuria. Genitourinary: Negative for difficulty urinating, flank pain, frequency and urgency. Musculoskeletal: Positive for arthralgias (hands). Negative for back pain, myalgias and neck pain. Skin: Negative for color change and rash. Neurological: Negative for dizziness, syncope and light-headedness. Psychiatric/Behavioral: Negative for decreased concentration and sleep disturbance. All other systems reviewed and are negative. Vitals: Blood pressure 116/60, pulse 65, temperature 98.3 F (36.8 C), temperature source Oral, resp. rate 16, height 1.6 m (5' 3 ), weight 59.4 kg (131 lb), SpO2 98 %. Physical Exam Constitutional: She is oriented to person, place, and time. She appears well- developed and well-nourished. HENT: Right Ear: External ear normal. Left Ear: External ear normal. Mouth/Throat: Oropharynx is clear and moist. Eyes: Pupils are equal, round, and reactive to light. Conjunctivae and EOM are normal. Neck: Normal range of motion. Cardiovascular: Normal rate, regular rhythm and normal heart sounds. Exam reveals no gallop and no friction rub. No murmur heard. Pulmonary/Chest: Effort normal and breath sounds normal. No respiratory distress. Abdominal: Soft. Bowel sounds are normal. She exhibits no distension. There is no tenderness. Musculoskeletal: Normal range of motion. Neurological: She is alert and oriented to person, place, and time. She has normal reflexes. Skin: Skin is warm and dry. Psychiatric: She has a normal mood and affect. Her behavior is normal. Judgment normal. Nursing note and vitals reviewed. Neurologic Exam Mental Status Oriented to person, place, and time. Cranial Nerves CN III, IV, Pupils are equal, round, and reactive to light. Extraocular motions are normal. Assessment and Plan ICD-10-CM 1. Primary osteoarthritis of both hands M19.041 meloxicam 15 MG Tab tablet M19.042 VITAMIN D (25-HYDROXY,TOTAL) 2. Arthralgia of metacarpophalangeal joint, right M25.541 3. Psoriasis L40.9 4. Screening for lipid disorders Z13.220 LIPID PANEL W CALCULATED LDL 5. Irritable bowel syndrome with diarrhea K58.0 RifaXIMin 550 MG Tab tablet 6. Actinic keratoses L57.0 tretinoin (RETIN-A) 0.05 % Cream cream Begin meloxicam 15 mg once daily to help control inflammation. Begin Xifaxan (rifaximin) 550 mg three times daily x 14 days. Provided Rx for Retin-A along with a Good Rx coupon for her to take to pharmacy. Obtain lab work prior to next office visit. If lab work or other testing was ordered at your visit, please call our office ([phone]) one week after the lab draw or test to receive your results. SANNA Blanco, was the scribe for today's note. I have performed all essential components of the history and physical exam. I have confirmed the diagnosis and developed a plan of care at this visit. I have reviewed the note following the visit and have added edits as appropriate to my evaluation and plan of care. Bailee Rolle DO documented in this encounter* Bailee Rolle DO - 09/17/2018 8:30 AM EDT History of Present Illness Patient presents with Physical PT presents for yearly exm. Pt last colonoscopy was this year. Pt last pap and mammogram was recently. PT thinks she is up to date on shots. Review of Systems Constitutional: Negative for activity change, chills and fever. HENT: Negative for dental problem, ear pain, mouth sores, sinus pain and trouble swallowing. Eyes: Negative for discharge and visual disturbance. Respiratory: Negative for chest tightness, shortness of breath and wheezing. Cardiovascular: Negative for chest pain, palpitations and leg swelling. Gastrointestinal: Negative for abdominal pain and nausea. Endocrine: Negative for polydipsia, polyphagia and polyuria. Genitourinary: Negative for difficulty urinating, flank pain, frequency and urgency. Musculoskeletal: Negative for arthralgias, back pain, myalgias and neck pain. Skin: Negative for color change and rash. Neurological: Negative for dizziness, syncope and light-headedness. Psychiatric/Behavioral: Negative for decreased concentration and sleep disturbance. All other systems reviewed and are negative. Vitals: Blood pressure 118/60, pulse 64, temperature 98.4 F (36.9 C), temperature source Oral, height 1.6 m (5' 3 ), weight 59.6 kg (131 lb 4.8 oz), SpO2 98 %. Physical Exam Constitutional: She is oriented to person, place, and time. She appears well- developed and well-nourished. HENT: Right Ear: External ear normal. Left Ear: External ear normal. Mouth/Throat: Oropharynx is clear and moist. Eyes: Pupils are equal, round, and reactive to light. Conjunctivae and EOM are normal. Neck: Normal range of motion. Cardiovascular: Normal rate, regular rhythm and normal heart sounds. Exam reveals no gallop and no friction rub. No murmur heard. Pulmonary/Chest: Effort normal and breath sounds normal. No respiratory distress. Abdominal: Soft. Bowel sounds are normal. She exhibits no distension. There is no tenderness. Musculoskeletal: Normal range of motion. Neurological: She is alert and oriented to person, place, and time. She has normal reflexes. Skin: Skin is warm and dry. Psychiatric: She has a normal mood and affect. Her behavior is normal. Judgment normal. Nursing note and vitals reviewed. Neurologic Exam Mental Status Oriented to person, place, and time. Cranial Nerves CN III, IV, Pupils are equal, round, and reactive to light. Extraocular motions are normal. Assessment and Plan ICD-10-CM 1. Encounter for wellness examination Z00.00 2. Need for 23-polyvalent pneumococcal polysaccharide vaccine Z23 pneumococcal 23-valent injection PNEUMOCOCCAL VACCINE 23-VALENT Reviewed and discussed all lab results with the patient. Cholesterol is well controlled. Blood count is normal. Kidney function and liver function are normal. She is due for the 2nd pneumonia vaccine and she has agreed to proceed. SANNA Blanco, was the scribe for today's note. I have performed all essential components of the history and physical exam. I have confirmed the diagnosis and developed a plan of care at this visit. I have reviewed the note following the visit and have added edits as appropriate to my evaluation and plan of care. Bailee Rolle DO documented in this encounter* Bailee Rolle DO - 11/29/2018 9:00 AM EDT History of Present Illness Patient presents with Leg Pain C/O right hip, leg, knee and plasencia pain for past 2 weeks. States, was riding in a van and feels it got irritated in her hip. it has better days and worse days and she said, it felt better yesterday till she fell unloading groceries. having difficult walking and tries Ibuprofen 400 mg and not helpingand took flexeril last week a night for 3 nights and did not help. The shower water heat helps, feels her muscles and tendons feel tight, trying stretches but they really dont want to stretch . Psoriasis C/O it on her palms of hands and acting up lately, uses hand cream to keep it moist, and would liketo see about getting something for it, C/O itching a times. Review of Systems Constitutional: Negative for activity change, chills and fever. HENT: Negative for dental problem, ear pain, mouth sores, sinus pain and trouble swallowing. Eyes: Negative for discharge and visual disturbance. Respiratory: Negative for chest tightness, shortness of breath and wheezing. Cardiovascular: Negative for chest pain, palpitations and leg swelling. Gastrointestinal: Negative for abdominal pain and nausea. Endocrine: Negative for polydipsia, polyphagia and polyuria. Genitourinary: Negative for difficulty urinating, flank pain, frequency and urgency. Musculoskeletal: Positive for arthralgias (right hip, leg, knee, plasencia) and myalgias. Negative for back pain and neck pain. Skin: Negative for color change and rash. Neurological: Negative for dizziness, syncope and light-headedness. Psychiatric/Behavioral: Negative for decreased concentration and sleep disturbance. All other systems reviewed and are negative. Vitals: Blood pressure 132/68, pulse 75, temperature 97.9 F (36.6 C), temperature source Oral, height 1.6 m (5' 3 ), weight 59.4 kg (131 lb), SpO2 97 %. Physical Exam Constitutional: She is oriented to person, place, and time. She appears well- developed and well-nourished. HENT: Right Ear: External ear normal. Left Ear: External ear normal. Mouth/Throat: Oropharynx is clear and moist. Eyes: Pupils are equal, round, and reactive to light. Conjunctivae and EOM are normal. Neck: Normal range of motion. Cardiovascular: Normal rate, regular rhythm and normal heart sounds. Exam reveals no gallop and no friction rub. No murmur heard. Pulmonary/Chest: Effort normal and breath sounds normal. No respiratory distress. Abdominal: Soft. Bowel sounds are normal. She exhibits no distension. There is no tenderness. Musculoskeletal: Normal range of motion. Neurological: She is alert and oriented to person, place, and time. She has normal reflexes. Skin: Skin is warm and dry. Psychiatric: She has a normal mood and affect. Her behavior is normal. Judgment normal. Nursing note and vitals reviewed. Neurologic Exam Mental Status Oriented to person, place, and time. Cranial Nerves CN III, IV, Pupils are equal, round, and reactive to light. Extraocular motions are normal. Assessment and Plan ICD-10-CM 1. Acute right-sided low back pain with right-sided sciatica M54.41 predniSONE 20 MG Tab tablet 2. Psoriasis L40.9 clobetasol 0.05 % Cream Apply heat to the small of the back and then do stretching exercises at least twice daily. Begin prednisone 20 mg twice daily x 5 days. Begin clobetasol cream as directed for psoriasis of hands. SANNA Blanco, was the scribe for today's note. I have performed all essential components of the history and physical exam. I have confirmed the diagnosis and developed a plan of care at this visit. I have reviewed the note following the visit and have added edits as appropriate to my evaluation and plan of care. Bailee Rolle DO documented in this encounter* Bailee Rolle DO - 01/17/2019 3:30 PM EDT History of Present Illness Patient presents with Nasal Congestion Has tried Mucnex D and did not help and has went to urgent care and they put her on Augmentin for 10 days and finished this past Thursday and she felt she had something wrong with her voice box due to she couldnt talk and she stopped the Mucinex D and she can talk now, feels its better without the Mucinex. Has a little bit of phlegm (yellow )in the morning. Back Pain C/O right lower back pain and radiates done right leg, and was doing exercises and and felt it was making it worse and now the left has started bothering her and she didnt know if she needs to be refered to a back specialist. Review of Systems Constitutional: Negative for activity change, chills and fever. HENT: Positive for congestion. Negative for dental problem, ear pain, mouth sores, sinus pain and trouble swallowing. Eyes: Negative for discharge and visual disturbance. Respiratory: Negative for chest tightness, shortness of breath and wheezing. Cardiovascular: Negative for chest pain, palpitations and leg swelling. Gastrointestinal: Negative for abdominal pain and nausea. Endocrine: Negative for polydipsia, polyphagia and polyuria. Genitourinary: Negative for difficulty urinating, flank pain, frequency and urgency. Musculoskeletal: Positive for back pain. Negative for arthralgias, myalgias and neck pain. Skin: Negative for color change and rash. Neurological: Negative for dizziness, syncope and light-headedness. Psychiatric/Behavioral: Negative for decreased concentration and sleep disturbance. All other systems reviewed and are negative. Vitals: Blood pressure 132/68, pulse 71, temperature 97.9 F (36.6 C), temperature source Oral, height 1.6 m (5' 3 ), weight 59.5 kg (131 lb 3.2 oz), SpO2 96 %. Physical Exam Constitutional: She is oriented to person, place, and time. She appears well- developed and well-nourished. HENT: Right Ear: External ear normal. Left Ear: External ear normal. Mouth/Throat: Oropharynx is clear and moist. Turbinates with drainage Eyes: Pupils are equal, round, and reactive to light. Conjunctivae and EOM are normal. Neck: Normal range of motion. Cardiovascular: Normal rate, regular rhythm and normal heart sounds. Exam reveals no gallop and no friction rub. No murmur heard. Pulmonary/Chest: Effort normal and breath sounds normal. No respiratory distress. Abdominal: Soft. Bowel sounds are normal. She exhibits no distension. There is no tenderness. Musculoskeletal: Normal range of motion. Neurological: She is alert and oriented to person, place, and time. She has normal reflexes. Skin: Skin is warm and dry. Psychiatric: She has a normal mood and affect. Her behavior is normal. Judgment normal. Nursing note and vitals reviewed. Neurologic Exam Mental Status Oriented to person, place, and time. Cranial Nerves CN III, IV, Pupils are equal, round, and reactive to light. Extraocular motions are normal. Assessment and Plan ICD-10-CM 1. Degenerative disc disease, lumbar M51.36 2. Chronic bilateral low back pain with bilateral sciatica M54.42 M54.41 G89.29 3. Seasonal allergic rhinitis due to pollen J30.1 I have recommended doing conservative therapy such as stretching exercises, nabumetone 500 mg twicedaily and using heat a few times per day. She does have good reflexes. I explained that she will continue to have back pain intermittently due to the nature of her degenerative discs. Can continue Flonase nasal spray twice daily - rinse out mouth and throat after use. SANNA Blanco, was the scribe for today's note. I have performed all essential components of the history and physical exam. I have confirmed the diagnosis and developed a plan of care at this visit. I have reviewed the note following the visit and have added edits as appropriate to my evaluation and plan of care. Bailee Rolle DO documented in this encounter* Bailee Rolle DO - 04/19/2019 3:15 PM EST History of Present Illness Patient presents with Back Pain Here for a 3 month f/u. States she had to stop the nabumetone due to it gave her palpitions and heartburn. Says it helped the back pain at first then seemed to wear off. States her low back pain is intermittent but can radiate to both hips and down legs. Pain can be with sitting or standing/walking. Says the pain is a deep ache when she has it. Says it makes her legs weak when it happens. Shoulder Pain c/o left shoulder pain for about a year. She gets pain with trying to reach behind her, lifting above her head, and with most movements of her left arm. She doesn't take anything for the pain. Review of Systems Constitutional: Negative for activity change, chills and fever. HENT: Negative for dental problem, ear pain, mouth sores, sinus pain and trouble swallowing. Eyes: Negative for discharge and visual disturbance. Respiratory: Negative for chest tightness, shortness of breath and wheezing. Cardiovascular: Negative for chest pain, palpitations and leg swelling. Gastrointestinal: Negative for abdominal pain and nausea. Endocrine: Negative for polydipsia, polyphagia and polyuria. Genitourinary: Negative for difficulty urinating, flank pain, frequency and urgency. Musculoskeletal: Positive for arthralgias (hips, left shoulder), back pain and myalgias. Negative for neck pain. Skin: Negative for color change and rash. Neurological: Positive for weakness (legs). Negative for dizziness, syncope and light-headedness. Psychiatric/Behavioral: Negative for decreased concentration and sleep disturbance. All other systems reviewed and are negative. Vitals: Blood pressure 114/70, pulse 75, temperature 98 F (36.7 C), height 1.6 m (5' 3 ), weight 61.2 kg (135 lb), SpO2 95 %. Physical Exam Vitals signs and nursing note reviewed. Constitutional: Appearance: She is well-developed. HENT: Right Ear: External ear normal. Left Ear: External ear normal. Eyes: Conjunctiva/sclera: Conjunctivae normal. Pupils: Pupils are equal, round, and reactive to light. Neck: Musculoskeletal: Normal range of motion. Cardiovascular: Rate and Rhythm: Normal rate and regular rhythm. Heart sounds: Normal heart sounds. No murmur. No friction rub. No gallop. Pulmonary: Effort: Pulmonary effort is normal. No respiratory distress. Breath sounds: Normal breath sounds. Abdominal: General: Bowel sounds are normal. There is no distension. Palpations: Abdomen is soft. Tenderness: There is no tenderness. Musculoskeletal: Normal range of motion. Skin: General: Skin is warm and dry. Coloration: Skin is not jaundiced. Findings: No erythema or rash. Neurological: Mental Status: She is alert and oriented to person, place, and time. Deep Tendon Reflexes: Reflexes are normal and symmetric. Psychiatric: Mood and Affect: Mood normal. Behavior: Behavior normal. Judgment: Judgment normal. Neurologic Exam Mental Status Oriented to person, place, and time. Cranial Nerves CN III, IV, Pupils are equal, round, and reactive to light. Assessment and Plan ICD-10-CM 1. Acute bilateral low back pain with bilateral sciatica M54.42 XR LUMBAR SPINE BENDING ONLY 4+ VW M54.41 documented in this encounter* Bailee Rolle DO - 02/28/2020 1:00 PM EST History of Present Illness Patient presents with Nail Problem Pt. is here today for a problem with the left hand middle fingernail, coming off and it is painful as well. Pt. has had the flu shot. Does not remember doing anything to the nail to cause this(has been going on for a month). Right hand pinky fingernail is swollen and painful as well. (no injury to it either and has been going on for a while). Pt. has tried Neosporin. Ibuprofen for pain. Review of Systems Constitutional: Negative for activity change, chills and fever. HENT: Negative for dental problem, ear pain, mouth sores, sinus pain and trouble swallowing. Eyes: Negative for discharge and visual disturbance. Respiratory: Negative for chest tightness, shortness of breath and wheezing. Cardiovascular: Negative for chest pain, palpitations and leg swelling. Gastrointestinal: Negative for abdominal pain and nausea. Endocrine: Negative for polydipsia, polyphagia and polyuria. Genitourinary: Negative for difficulty urinating, flank pain, frequency and urgency. Musculoskeletal: Negative for arthralgias, back pain, myalgias and neck pain. Skin: Negative for color change and rash. Neurological: Negative for dizziness, syncope and light-headedness. Psychiatric/Behavioral: Negative for decreased concentration and sleep disturbance. All other systems reviewed and are negative. Vitals: Blood pressure 112/68, pulse 67, temperature 98.3 F (36.8 C), temperature source Oral, resp. rate 16, height 1.6 m (5' 3 ), weight 58.5 kg (129 lb), SpO2 98 %. Physical Exam Vitals signs and nursing note reviewed. Constitutional: Appearance: She is well-developed. HENT: Right Ear: External ear normal. Left Ear: External ear normal. Eyes: Conjunctiva/sclera: Conjunctivae normal. Pupils: Pupils are equal, round, and reactive to light. Neck: Musculoskeletal: Normal range of motion. Cardiovascular: Rate and Rhythm: Normal rate and regular rhythm. Heart sounds: Normal heart sounds. No murmur. No friction rub. No gallop. Pulmonary: Effort: Pulmonary effort is normal. No respiratory distress. Breath sounds: Normal breath sounds. Abdominal: General: Bowel sounds are normal. There is no distension. Palpations: Abdomen is soft. Tenderness: There is no abdominal tenderness. Musculoskeletal: Normal range of motion. Comments: Heberden's nodes, ant's nodes Skin: General: Skin is warm and dry. Coloration: Skin is not jaundiced. Findings: No erythema or rash. Neurological: Mental Status: She is alert and oriented to person, place, and time. Deep Tendon Reflexes: Reflexes are normal and symmetric. Psychiatric: Mood and Affect: Mood normal. Behavior: Behavior normal. Judgment: Judgment normal. Neurologic Exam Mental Status Oriented to person, place, and time. Cranial Nerves CN III, IV, Pupils are equal, round, and reactive to light. Assessment and Plan ICD-10-CM 1. Paronychia of left middle finger L03.012 clindamycin 300 MG capsule terbinafine 250 MG tablet Begin clindamycin 300 mg twice daily x 7 days; when this medication has been completed then begin Lamisil (terbinafine) 250 mg once daily x 2 months. Do not drink any alcohol while on the Lamisil. Laci Lopez [facility], was the scribe for today's note. I have performed all essential components of the history and physical exam. I have confirmed the diagnosis and developed a plan of care at this visit. I have reviewed the note following the visit and have added edits as appropriate to my evaluation and plan of care. documented in this encounter* Bailee Rolle DO - 10/18/2018 3:30 PM EDT History of Present Illness Patient presents with Wound Check Left hand her cat stabbed her with his claw, happened yesterday morning. Swelled up no bleeding, turned red. Put ice on it and then some neosporin around the puncture wound. She states her last tetanus has been within the last 10 years, doesnt remember when. Review of Systems Constitutional: Negative for activity change, chills and fever. HENT: Negative for dental problem, ear pain, mouth sores, sinus pain and trouble swallowing. Eyes: Negative for discharge and visual disturbance. Respiratory: Negative for chest tightness, shortness of breath and wheezing. Cardiovascular: Negative for chest pain, palpitations and leg swelling. Gastrointestinal: Negative for abdominal pain and nausea. Endocrine: Negative for polydipsia, polyphagia and polyuria. Genitourinary: Negative for difficulty urinating, flank pain, frequency and urgency. Musculoskeletal: Negative for arthralgias, back pain, myalgias and neck pain. Skin: Negative for color change and rash. Neurological: Negative for dizziness, syncope and light-headedness. Psychiatric/Behavioral: Negative for decreased concentration and sleep disturbance. All other systems reviewed and are negative. Vitals: Blood pressure 122/68, pulse 63, temperature 98.2 F (36.8 C), temperature source Oral, height 1.6 m (5' 3 ), weight 59.6 kg (131 lb 6.4 oz), SpO2 96 %. Physical Exam Constitutional: She is oriented to person, place, and time. She appears well- developed and well-nourished. HENT: Right Ear: External ear normal. Left Ear: External ear normal. Mouth/Throat: Oropharynx is clear and moist. Eyes: Pupils are equal, round, and reactive to light. Conjunctivae and EOM are normal. Neck: Normal range of motion. Cardiovascular: Normal rate, regular rhythm and normal heart sounds. Exam reveals no gallop and no friction rub. No murmur heard. Pulmonary/Chest: Effort normal and breath sounds normal. No respiratory distress. Abdominal: Soft. Bowel sounds are normal. She exhibits no distension. There is no tenderness. Musculoskeletal: Normal range of motion. Neurological: She is alert and oriented to person, place, and time. She has normal reflexes. Skin: Skin is warm and dry. There is erythema (and warmth of left hand). Psychiatric: She has a normal mood and affect. Her behavior is normal. Judgment normal. Nursing note and vitals reviewed. Neurologic Exam Mental Status Oriented to person, place, and time. Cranial Nerves CN III, IV, Pupils are equal, round, and reactive to light. Extraocular motions are normal. Assessment and Plan ICD-10-CM 1. Cat scratch of hand, left, initial encounter S60.512A W55.03XA Begin Augmentin 875 mg twice daily x 7 days. Laci Pandey [facility], was the scribe for today's note. I have performed all essential components of the history and physical exam. I have confirmed the diagnosis and developed a plan of care at this visit. I have reviewed the note following the visit and have added edits as appropriate to my evaluation and plan of care. Bailee Rolle DO documented in this encounter* Bailee Rolle DO - 12/16/2018 3:15 PM EDT History of Present Illness Patient presents with Sinus Infection Was on vacation 2 weeks ago and got back last Thursday and when in [place] got sick went to the walk in clinic due to elevated fever of 102.9, chills, body aches, said, urine smelled and she said, they did a urinalysis and had a bad UTI and they put her on Bactrim, for 7 days and finished it up this past Thursday. Since this past Thursday she still is not feeling good, has a dry cough with a tickle, she still felt Thursday like she had a fever yet but yesterday and today feels cooler, has hoarseness. Review of Systems Constitutional: Negative for activity change, chills and fever. HENT: Negative for dental problem, ear pain, mouth sores, sinus pain and trouble swallowing. Eyes: Negative for discharge and visual disturbance. Respiratory: Negative for chest tightness, shortness of breath and wheezing. Cardiovascular: Negative for chest pain, palpitations and leg swelling. Gastrointestinal: Negative for abdominal pain and nausea. Endocrine: Negative for polydipsia, polyphagia and polyuria. Genitourinary: Negative for difficulty urinating, flank pain, frequency and urgency. Musculoskeletal: Negative for arthralgias, back pain, myalgias and neck pain. Skin: Negative for color change and rash. Neurological: Negative for dizziness, syncope and light-headedness. Psychiatric/Behavioral: Negative for decreased concentration and sleep disturbance. All other systems reviewed and are negative. Vitals: Blood pressure 110/58, pulse 72, temperature 97.8 F (36.6 C), temperature source Oral, height 1.6 m (5' 3 ), weight 59.6 kg (131 lb 6.4 oz), SpO2 94 %. Physical Exam Constitutional: She is oriented to person, place, and time. She appears well- developed and well-nourished. HENT: Right Ear: External ear normal. Left Ear: External ear normal. Mouth/Throat: Oropharynx is clear and moist. Left ear full; turbinates swollen greater than right Eyes: Pupils are equal, round, and reactive to light. Conjunctivae and EOM are normal. Neck: Normal range of motion. Cardiovascular: Normal rate, regular rhythm and normal heart sounds. Exam reveals no gallop and no friction rub. No murmur heard. Pulmonary/Chest: Effort normal and breath sounds normal. No respiratory distress. Abdominal: Soft. Bowel sounds are normal. She exhibits no distension. There is no tenderness. Musculoskeletal: Normal range of motion. Neurological: She is alert and oriented to person, place, and time. She has normal reflexes. Skin: Skin is warm and dry. Psychiatric: She has a normal mood and affect. Her behavior is normal. Judgment normal. Nursing note and vitals reviewed. Neurologic Exam Mental Status Oriented to person, place, and time. Cranial Nerves CN III, IV, Pupils are equal, round, and reactive to light. Extraocular motions are normal. Assessment and Plan ICD-10-CM 1. Nasal congestion R09.81 2. Non-recurrent acute serous otitis media of left ear H65.02 3. Acute right-sided low back pain with right-sided sciatica M54.41 Use Flonase nasal spray 1 squirt each nostril twice daily. Can try 1/2 tablet of Mucinex D once or twice daily to help congest sinuses. Can continue to use meloxicam 15 mg once daily for back pain. SANNA Blanco, was the scribe for today's note. I have performed all essential components of the history and physical exam. I have confirmed the diagnosis and developed a plan of care at this visit. I have reviewed the note following the visit and have added edits as appropriate to my evaluation and plan of care. Bailee Rolle DO documented in this encounter Assessments Diagnosis Primary osteoarthritis of both hands- Primary Arthralgia of metacarpophalangeal joint, right Psoriasis Other psoriasis Screening for lipid disorders Irritable bowel syndrome with diarrhea Irritable bowel syndrome Actinic keratoses Actinic keratosis Diagnosis Encounter for wellness examination- Primary Need for 23-polyvalent pneumococcal polysaccharide vaccine Diagnosis Acute right-sided low back pain with right-sided sciatica- Primary Psoriasis Other psoriasis Diagnosis Degenerative disc disease, lumbar- Primary Degeneration of lumbar or lumbosacral intervertebral disc Chronic bilateral low back pain with bilateral sciatica Seasonal allergic rhinitis due to pollen Diagnosis Acute bilateral low back pain with bilateral sciatica- Primary Diagnosis Paronychia of left middle finger- Primary Actinic keratoses Actinic keratosis Diagnosis Cat scratch of hand, left, initial encounter- Primary Diagnosis 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 Diagnosis Nasal congestion- Primary Other diseases of nasal cavity and sinuses Non-recurrent acute serous otitis media of left ear Acute right-sided low back pain with right-sided sciatica Additional Source Comments INFORMATION SOURCE (unrecogn ized section and content) DATE CREATED AUTHOR 02/01/2018 [facility] DATE CREATED AUTHOR AUTHOR'S ORGANIZ ATION 03/09/2018 [facility] DATE CREATED AUTHOR AUTHOR'S ORGANIZ ATION 11/21/2019 [facility] DATE CREATED AUTHOR AUTHOR'S ORGANIZ ATION 01/22/2021 [facility] DATE CREATED AUTHOR [facility] DATE CREATED AUTHOR AUTHOR'S ORGANIZ ATION 03/03/2022 [facility] DATE CREATED AUTHOR AUTHOR'S ORGANIZ ATION 09/25/2023 [facility] DATE CREATED AUTHOR AUTHOR'S ORGANIZ ATION 02/03/2024 [facility] DATE CREATED AUTHOR AUTHOR'S ORGANIZ ATION 02/04/2024 [facility] Reason for Visit (unrecogniz ed section and content) Reason Comments Psoriasis Pt. has Psoriasis on both hands that she was diagnosed with by Dr. Fontaine last year. 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 Pt. was given a hand cream by Dr. Fontaine, but she doesn't use it, she uses hand cream to keep it moist. Arthritis Pt. has arthritic pa in that is intermittent that she has in her hands and in various joints. Pt. has arthritis in the back and it affects her often. Pt. wants to know if she has psoriatic arthritis. Right hand pain is a problem right now. Doesn't take anything for pain, unless it's bad then ASA or Ibuprofen. Reason Comments Physical PT presents for year ly exm. Pt last colonoscopy was this year. Pt last pap and mammogram was recently. PT thinks she is up to date on shots. Reason Comments Leg Pain C/O right hip, leg, knee and plasencia pain for past 2 weeks. States, was riding in a van and feels it got irritated in her hip, states, it has better days and worse days and she said, it felet better yesterday till she feel unloading groceries. having difficult walking and tries Ibuprofen 400 mg and not helping and took flexarile last week a night for 3 nights and did not help. The shower water heat helps, feels her muscles and tendons feel tight, trying stretches but they really dont want to stretch . Psoriasis C/O it on her palms of hands and acting up lately, uses hand cream to keep it moist, and would like to see about getting sometning for it, C/O itching a times. Reason Comments Nasal Congestion Has tried Mucnex D a nd did not help and has went to urgent care and they put her on Augmentin for 10 days and finished this past Thursday and she felt she had something wrong with her voice box due to she couldnt talk and she stopped the Mucinex D and she can talk now, feels its better without the Mucinex. Has a little bit of Phelym yellow in the morning. Back Pain C/O right lower back pain and radiates done right leg, and was doing exercises and and felt it was making it worse and now the left has started bothering her and she didnt know if she needs to be refered to a back specialist. Reason Comments Back Pain Here for a 3 month f /u. States she had to stop the nubametone due to it gave her palpitions and heartburn. Says it helped the back pain at first then seemed to wear off. States her low back pain is intermittent but can radiate to both hips and down legs. Pain can be with sitting or standing/walking. Says the pain is a deep ache when she has it. Says it makes her legs weak when it happens. Shoulder Pain c/o left shoulder pa in for about a year. She gets pain with trying to reach behind her, lifting above her head, and with most movements of her left arm. She doesn't take anything for the pain. Reason Comments Nail Problem Pt. is here today fo r a problem with the left hand middle fingernail, coming off and it is painful as well. Pt. has had the flu shot. Does not remember doing anything to the nail to cause this(has been going on for a month). Right hand pinky fingernail is swollen and painful as well. (no injury to it either and has been going on for a while). Pt. has tried Neosporin. Ibuprofen for pain. Reason Comments Wound Check Left hand her cat st abbed her with his claw, happened yesterday morning. Swelled up no bleeding, turned red. Put ice on it and then some neosporin around the puncture wound. She states her last tetanus has been within the last 10 years, doesnt remember when. Reason Comments Other Reason Comments Cat bite Status Reason Specialty Diagnoses / Procedures Referre d By Contact Referred To Contact Closed Ultrasound Diagnoses Nontoxic single thyroid nodule Procedures US THYROID Bailee Macedo MD [address] [place] [address] [address] [place] [address] [facility] [address] [place] [address] Reason Comments Sinus Infection Was on vacation 2 we eks ago and got back last Thursday and when in [place] got sick went to the walk in clinic due to elevated fever of 102.9, chills, body aches, said, urine smelled and she said, they did a urinalysis and had a bad UTI and they put her on Bactrim, for 7 days and finished it up this past Thursday. Since this past Thursday she still is not feeling good, has a dry cough with a tickle, she still felt Thursday like she had a fever yet but yesterday and today feels cooler, has hoarsness. Status Reason Specialty Diagnoses / Procedures Referred By Contact Referred To Contact Pending Review Diagnoses Hand pain, right Procedures XR HAND RIGHT 3+ VIEWS Nadeem Lomax MD [address] [place] [address] Reason Comments Pain OPNP- R hand - thumb and wrist pain Reason Comments Nail Problem bilateral great toen ails brused underneath after she went hiking. Calluses Reason Comments Psoriasis Pt. is here today fo r psoriasis. Pt. has like cuts around the joints of her hands. Pt. has always had psoriasis on her hands, sees Dr. Fontaine and gets clobetasol cream for it, but the cream does not help the cuts. The cuts feel like paper cuts. Ear Fullness Pt. has been having issues that the right ear plugs up and results in a sore throat, this has been going on every 2 months then goes away, since May. Specialty Diagnoses / Procedures Referred By Contac t Referred To Contact Ultrasound Diagnoses Thyromegaly Procedures US THYROID Siri Alicea MD [address] [facility] [place] [address] [place] [address] [facility] [address] [place] [address] Referral ID Status Reason Start Date Expiration Date Visits Re quested Visits Authorized [id number] Closed 07/01/2021 07/26/2022 1 1 Reason Comments Joint Pain C/o all over body diego int pain that moves around. Can be shoulders, elbows, knees, feet. Says her knees can give out at times. Right ankle can give out at times. Says she is very stiff in the mornings and Ibuprofen helps. She does stretches/yoga. Reason Comments Knee Pain Here today for c/o b /l knee pain with right knee worse than left. Says it is swollen and feels tight. Pain is intermittent but can be stabbing, sharp, aching. Pain can be front of knee and radiate down plasencia or can be behind the knee. The sharp pain started a few weeks ago and is very random. The aching and stiffness started around 3-4 months ago. She took an Ibuprofen today and it did help. Reason Comments Skin Problem Has two red spots th at feel warm to touch. States she does feel a knot there is some pain. Noticed after getting covid shot in July. Right leg just aches . Abdominal Pain Has been having some abdominal pain/indigestion. Will take some tums at times. No nausea or vomiting. Hand Pain Hands have been hurt ing. Skin has been peeling. Doesn't feel methotrexate is helping. Reason Comments Psoriasis Patient is here toda y to follow up on psoriasis. Patient was started on Otezla but PA was denied, still taking Methotrexate. Psoriasis is still unchanged. Rash is bad on hands and makes it hard to do anything with them bc of it. Reason Comments Skin Problem Patient is here toda y for an open area on the left knee. Patient states that she has had it for about a year after falling on the knee and it had never healed. Patient states that it does have blood and redness right now. Using neosporin on the area. Psoriasis Patient is here toda y for a follow up on psoriasis. Patient states that she currently has a flare up on her knees. 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 She is currently using hand cream that was prescribed but patient does not know the name. Also uses neosporin in the area and states that it helps well. Ear Fullness Patient is here toda y for ear fullness and drainage bilaterally. Patient states that she does not have any pain. Takes otc decongestant as needed. States that it causes her to become dizzy at times. Knee Swelling Patient is here toda y for a follow up on right knee swelling. Patient states that she was dx with arthritis in the knee. Patient does not keep leg elevated. Denies pain. Had xray in 07/2021. Reason Comments New Patient Patient was referred by Dr. Rolle for Psoriatic Arthritis. Patient states she tried Methotrexate had to stop due to infections and she could not afford Otezla, Dr. Rolle was prescribing physician. Patient states she has JUAN shoulder, knee, lower back and neck pain. Patient states she is wanting and MRI on her back but no one will order it for her. Patient states she has swelling and stiffness in JUAN finger, right knee. Patient states she diagnosed herself with PsA due to family history of PsA. Specialty Diagnoses / Procedures Referred By Brittny ortega Referred To Contact Diagnoses Cervicalgia Chronic pain of both knees Dorsalgia Osteoarthritis of lumbosacral spine with radiculopathy Biceps tendonitis on right Bilateral hand pain Bilateral wrist pain Chronic pain of both shoulders Disorder of bone and cartilage Lumbar degenerative disc disease Osteoarthritis of carpometacarpal (CMC) joint of both thumbs Osteoarthritis of facet joint of lumbar spine Pes anserinus bursitis of both knees Primary osteoarthritis of both feet Primary osteoarthritis of both hands Primary osteoarthritis of both wrists Subacromial bursitis of left shoulder joint Tendonitis of both rotator cuffs Psoriasis Intrinsic eczema Chronic fatigue Family history of MS (multiple sclerosis) Family history of psoriasis History of osteoarthritis History of psoriasis History of psoriatic arthritis long-term current use of non-steroidal anti-inflammatories (NSAID) Vitamin D deficiency Abnormal reflexes of lower extremity Acute bilateral low back pain with bilateral sciatica Acute right-sided low back pain with right-sided sciatica Chronic bilateral low back pain with bilateral sciatica Lumbar radiculopathy Procedures MRI SPINE LUMBAR WITHOUT CONTRAST DE MRI, LUMBAR SPINE Duc Jaimes, Eulalio Serra, DO [address] [place] [address] Referral ID Status Reason Start Date Expiration Date Visits Re quested Visits Authorized [id number] Closed 01/22/2023 02/16/2024 1 1 Reason Comments Psoriasis Here today with c/o skin being dry, itchy, and painful to both hands. Says she can't use the clobetasol cream due to it gregg her skin. Onset was around 2-3 years ago. Says it does improve in the winter months. Nausea C/o being nauseated and burping for the past 4 months. She tried prilosec and that didn't help. She feels better when she doesn't eat. Says some days are better then others. She denies having any pain or vomiting. Reason Comments New Patient Abnormal MRI L-spine Specialty Diagnoses / Procedures Referred By Brittny ortega Referred To Contact Neurology Diagnoses Abnormal MRI, lumbar spine Duc Jaimes, Eulalio Serra DO [address] [place] [address] Tuyet Mercado MD [address] [place] [address] Referral ID Status Reason Start Date Expiration Date V isits Requested Visits Authorized [id number] Pending Review 02/16/2023 03/12/2024 1 1 Reason Comments Follow-up Patient is here for Follow-up after MRI. Patient states that since starting Otezla feels about 75% better. States that it has helped with the swelling in the joints and clearing up the psoriasis. States that PCP prescribed the Otezla. States that insurance does not cover the Otezla. 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 Primary osteoarthritis of both hands Primary osteoarthritis of both feet Pes anserinus bursitis of both knees 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 Osteoarthritis of carpometacarpal (CMC) joint of both thumbs Osteoarthritis of both glenohumeral joints Osteoarthritis of AC (acromioclavicular) joints, bilateral Lumbar degenerative disc disease Impingement syndrome of both shoulders HNP (herniated nucleus pulposus), lumbar Disorder of ligament of right wrist Disorder of ligament, left wrist DDD (degenerative disc disease), cervical Chondrocalcinosis Psoriasis Plaque psoriasis Intrinsic eczema Postmenopausal status Long-term current use of apremilast terminal carman current use of non-steroidal anti-inflammatories (NSAID) History of psoriatic arthritis History of osteoarthritis Family history of psoriasis Elevated BUN Abnormal x-ray Abnormal MRI Abnormal ANCA test Procedures MRI WRIST RIGHT WITHOUT CONTRAST DE MRI, JOINT UPPER EXTREM Eulalio Xavier Jr., DO [address] [place] [address] Referral ID Status Reason Start Date Expiration Date Visits Re quested Visits Authorized [id number] Closed 05/27/2023 06/20/2024 1 1 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 Primary osteoarthritis of both hands Primary osteoarthritis of both feet Pes anserinus bursitis of both knees 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 Osteoarthritis of carpometacarpal (CMC) joint of both thumbs Osteoarthritis of both glenohumeral joints Osteoarthritis of AC (acromioclavicular) joints, bilateral Lumbar degenerative disc disease Impingement syndrome of both shoulders HNP (herniated nucleus pulposus), lumbar Disorder of ligament of right wrist Disorder of ligament, left wrist DDD (degenerative disc disease), cervical Chondrocalcinosis Psoriasis Plaque psoriasis Intrinsic eczema Postmenopausal status Long-term current use of apremilast terminal carman current use of non-steroidal anti-inflammatories (NSAID) History of psoriatic arthritis History of osteoarthritis Family history of psoriasis Elevated BUN Abnormal x-ray Abnormal MRI Abnormal ANCA test Procedures MRI WRIST LEFT WITHOUT CONTRAST DE MRI, JOINT UPPER EXTREM Eulalio Xavier Jr., DO [address] [place] [address] Referral ID Status Reason Start Date Expiration Date Visits Re quested Visits Authorized [id number] Closed 05/27/2023 06/20/2024 1 1 Reason Comments Psoriasis Here for a follow up . States she needs an alternative to the Otezla due to she can't afford it. She has an over $700/month copay monthly for it and doesn't qualify for assistance from the company. Says it works well but can't afford it. She will be out in 3 days. Specialty Diagnoses / Procedures Referred By Brittny ortega Referred To Contact Magnetic Resonance Imaging Diagnoses Chronic pain of left knee Procedures MRI KNEE LEFT WITHOUT CONTRAST DE MRI LOWER EXTREM JT, W/O CONTRAST Bailee Rolle, DO [address] [place] [address] [facility] [address] [place] [address] Referral ID Status Reason Start Date Expiration Date Visits Re quested Visits Authorized [id number] Closed 07/07/2023 07/31/2024 1 1 Reason Comments Follow-up Patient is here for Follow-up after MRI. Patient states had really bad knee pain. States Dr Rolle gave prednisone and has not had any pain since. Reason Comments Knee Pain Here today with c/o left knee pain. Says she almost went to the ER a couple weeks ago due to severe pain. She feels the last few days it has gotten a little better due to she has been trying to not be on it as much. Says it will swell. Pain is sharp but can be throbbing and sensitive to cold. She tried lidocaine patches but hasn't helped. Reason Comments Consult Specialty Diagnoses / Procedures Referred By Brittny ortega Referred To Contact Podiatry Diagnoses Callous ulcer, unspecified ulcer stage Bailee Rolle DO [address] [place] [id number] Puneet [facility] DPM [address] [place] [address] Referral ID Status Reason Start Date Expiration Date V isits Requested Visits Authorized [id number] New Request 01/05/2024 01/29/2025 1 1 Specialty Diagnoses / Procedures Referred By Brittny ortega Referred To Contact Diagnoses Fat pad atrophy of foot Tailor's bunion of left foot Procedures XR FOOT LEFT 3+ VIEWS [employer], Said EVELIN Wallis [address] [facility] [address] [place] [address] Referral ID Status Reason Start Date Expiration Date V isits Requested Visits Authorized [id number] New Request 01/26/2024 02/19/2025 1 1 Reason Comments Joint Pain Pt presents for join t pain in her left elbow and forearm, thumbs and wrists. PT also has heel pain in her right heel that comes on suddenly. Pt also has pain in her lower back when she twists or turns or moves. Pt takes aleve when pain gets bad. Knee Pain Pt states her menisc us is torn in her left knee and wants to see who she should go to for this. PT did have an MRI and was informed by about this. Care Teams (unrecognized sec tion and content) Lab Intern Relationship Specialty Start Date End Date Bailee Rolle DO [address] [place] [address] 118- PCP - General Internal Medicine 05/04/15 Lab Intern Relationship Specialty Start Date End Date Bailee Rolle DO [address] [place] [address] 381- PCP - General Internal Medicine 05/04/15 Lab Intern Relationship Specialty Start Date End Date Bailee Rolle DO PCP - General Internal Medicine 07/23/16 Lab Intern Relationship Specialty Start Date End Date Bailee Rolle DO PCP - General Internal Medicine 07/23/16 Lab Intern Relationship Specialty Start Date End Date Bailee Rolle DO PCP - General Internal Medicine 07/23/16 Lab Intern Relationship Specialty Start Date End Date Bailee Rolle DO PCP - General Internal Medicine 07/23/16 Lab Intern Relationship Specialty Start Date End Date Bailee Rolle DO PCP - General Internal Medicine 07/23/16 Lab Intern Relationship Specialty Start Date End Date Bailee Rolle DO PCP - General Internal Medicine 07/23/16 Lab Intern Relationship Specialty Start Date End Date Aquilino Bailee P DO PCP - General Internal Medicine 07/23/16 Lab Intern Relationship Specialty Start Date End Date HaMilton songic P DO PCP - General Internal Medicine 07/23/16 Lab Intern Relationship Specialty Start Date End Date Haus Bailee P, DO PCP - General Internal Medicine 07/23/16 Lab Intern Relationship Specialty Start Date End Date Milton Rolleic P DO PCP - General Internal Medicine 07/23/16 Lab Intern Relationship Specialty Start Date End Date Milton Rolleic P DO PCP - General Internal Medicine 07/23/16 Lab Intern Relationship Specialty Start Date End Date Milton Rolleic P DO PCP - General Internal Medicine 07/23/16 Lab Intern Relationship Specialty Start Date End Date Milton Rolleic P DO PCP - General Internal Medicine 07/23/16 Lab Intern Relationship Specialty Start Date End Date Haus Bailee P, DO PCP - General Internal Medicine 07/23/16 Lab Intern Relationship Specialty Start Date End Date HaMilton songic P, DO PCP - General Internal Medicine 07/23/16 Lab Intern Relationship Specialty Start Date End Date Bailee Rolle P DO PCP [facility] 07/23/16 Lab Intern Relationship Specialty Start Date End Date Milton Rolleic P, DO PCP General Internal Medicine 07/23/16 Lab Intern Relationship Specialty Start Date End Date HaMilton songic P, DO PCP [facility] Internal [facility] 07/23/16 Lab Intern Relationship Specialty Start Date End Date Bailee Rolle P, DO PCP General Internal [facility] 07/23/16 Lab Intern Relationship Specialty Start Date End Date Milton Rolleic P, DO PCP [facility] Internal Medicine 07/23/16 Lab Intern Relationship Specialty Start Date End Date Bailee Rolle P, DO PCP [facility] 07/23/16 Lab Intern Relationship Specialty Start Date End Date Milton Rolleic P, DO [facility] Internal [facility] 07/23/16 FOR RECORDS PERTAINING TO PATIENTS WHO ARE OR HAVE BEEN ENROLLED IN A CHEMICAL DEPENDENCY/SUBSTANCEABUSE PROGRAM, SOME INFORMATION MAY BE OMITTED. This clinical summary was aggregated from multiple sources. Caution should be exercised in using it in the provision of clinical care. This summary normalizes information from multiple sources, and as a consequence, information in this document may materially change the coding, format and clinical context of patient data. In addition, data may be omitted in some cases. CLINICAL DECISIONS SHOULD BE BASED ON THE PRIMARY CLINICAL RECORDS. [facility] provides no warranty or guarantee of the accuracy or completeness of information in this document.
--- NOTE | 2024-02-05 16:04 | EX.PCM.DISCH ---
Discharge Instructions Dressing / Incision Additional Dressing/Incision Instructions:: May leave the dressing in place until seen in the office. May shower over the dressing but do not scrub. Take the oral antibiotic (Keflex) 2 times a day until finished. Follow Up Care Please Follow Up With: Inna Murguia MD When: 1 to 2 weeks Test Results: Test results from this visit will be discussed in further detail at your follow-up appointment, if applicable. Discharge Plan Admission Attending Provider: Inna Murguia Primary Care Provider: Zak Rolle Instructions Print Language: Bulgarian Discharge Orders/Prescriptions Prescriptions: New cephalexin 500 mg capsule 500 mg PO BID 5 Days Qty: 10 0RF No Action cholecalciferol (vitamin D3) 25 mcg (1,000 unit) capsule 25 mcg PO QDAY [place]cal[place] 168 mg calcium (420 mg) tablet,chewable 168 mg PO TID Galzin 25 mg (zinc) capsule 25 mg PO QDAY magnesium hydroxide [Dulcolax (magnesium hydroxide)] 400 mg/5 mL suspension 5 ml PO ONCE Referrals / Follow Up: Zak Rolle MD [Primary Care Provider] - Disposition Disposition (needs filled in before D/C Order can be placed): Home, Self Care
--- NOTE | 2024-02-05 16:08 | PCM.OPRPT ---
Problems Associated Problem List Diagnoses (1) Neoplasm of uncertain behavior of skin of forearm: Operative Report (Standard) Operative Information Surgery/Procedure Performed: Excision neoplasm left forearm (2 cm) with intermediate closure Surgeon: Inna Murguia Date of Procedure: 02/05/24 Procedure Start Time: 15:40 Procedure Stop Time: 16:05 Pre-Operative Diagnosis: Neoplasm left forearm of uncertain behavior Post-Operative Diagnosis: Same Select all DRAINS/GRAFTS/IMPLANTS that apply: None Type of Anesthesia: Local Estimated Blood Loss: Minimal Specimen collected: Yes Description of specimen(s) removed: Neoplasm left forearm Description of surgery: The patient presents with a neoplasm of the left forearm of uncertain behavior. The patient is aware that further surgery may be needed depending on the resulting pathology. Patient is brought to the operating room and placed on the operating room table in the supine position. The left arm is prepped and draped in the usual sterile fashion. 1% Xylocaine with epinephrine is used for local anesthetic. Following this, the lesion is excised and passed off the operative field to be sent to pathology. Hemostasis is controlled with cautery. The site is then closed in a layered fashion using Vicryl suture in the subcutaneous tissue and dermis. Skin edges were approximated with a running subcuticular Vicryl suture. Further reinforcement and refinement of the closure is done with a running chromic suture. Steri-Strips and a Tegaderm are placed on the site. She tolerated the procedure well and was taken to the recovery area in an awake and stable condition. Needle and sponge counts are correct. Surgical Findings: Same [employer] wrapper rewinder: No Complications Complications: No Admit VTE Documentation VTE Present on Admission: No VTE Pharm Prophylaxis ordered?: No Reason prophylaxis not ordered: Treatment Not Indicated
== END 2024-02-05 16:35 | disposition home or self-care (01) ==
LOC: SDC 14:28 → AC 14:29
PROVIDERS: Referring Provider Plastic Surgery; Visit Provider Plastic Surgery
PROC: (CPT 11402; principal; 2024-02-05 15:05)
DX: L82.1 Other seborrheic keratosis (principal); L57.0 Actinic keratosis
CPT/HCPCS: 11402; 12031; 88305